=== PATIENT | female | born 1955 | race Caucasian/White ===

== ENCOUNTER 2019-11-25 16:01 | Emergency (ER) | payer MEDICARE, BC, SELFPAY ==
--- NOTE | 2019-11-25 16:41 | XR_ITS ---
WS: [id number] Portable PA upright chest, 11/25/2019 Clinical Data: cough/congestion Comparison: Portable chest, 11/04/2019. Findings: No nodules, masses or effusions are seen. The heart is slightly enlarged. The pulmonary vas cularity is increased. No pneumonia or pneumothorax is seen. Midline sternotomy sutures and mediastin al clips are seen. There are old healed posterior lateral right third through sixth rib fractures. XR/XR chest 1V portable [id number] Impression: No change in cardiomegaly and pulmonary vascular congestion.
--- NOTE | 2019-11-25 16:41 | ECG_ITS ---
Measurements Intervals [place] Rate: 91 P: 99 [place]: 192 QRS: -51 QRSD: 130 T: 120 QT: 416 QTc: 514 SINUS RHYTHM WITH SINUS ARRHYTHMIA MARKED LEFT AXIS DEVIATION [QRS AXIS < -30] ANTEROSEPTAL MYOCARDIAL INFARCTION [40+ ms Q WAVE IN V1-V4], OF INDETERMINATE AGE Compared to ECG 11/04/2019 02:14:38 Left-axis deviation now present Sinus tachycardia no longer present First degree AV block no longer present Myocardial infarct finding still present Electronically Signed On 11-26-2019 13:52:27 AIR VALVE MECHANIC by Blaire Osman M.D. [email or web address]
[2019-11-25 17:11] VITALS: BP 132/57; PULSE 91; RESP 22; TEMP 36.8; O2SAT 96; BMI 36.8
[2019-11-25 17:18] LABS: Basophils % 0.1 %; Eosinophils % 0.4 %; Hematocrit 24.7 % (37.0-47.0); Hemoglobin 7.3 g/dL (11.5-15.3); Lymphocytes # 0.7 10^3/uL (0.8-4.8); Lymphocytes % 8.4 %; Mean Corpuscular HGB Conc 29.6 g/dL (30.0-36.0); Mean Corpuscular Hemoglobin 27.5 pg (28.0-34.0); Mean Corpuscular Volume 93.2 fL (81-99); Mean Platelet Volume 9.6 fL (7.4-10.4); Monocytes # 0.6 10^3/uL (0.2-0.9); Monocytes % 6.9 %; Neutrophils # 6.9 10^3/uL (1.8-7.7); Neutrophils % 83.8 %; Nucleated Red Blood Cells % 0 %; Platelet Count 315 10^3/cmm (130-400); Red Blood Count 2.65 10^6/uL (4.1-5.3); Red Cell Distribution Width 17.3 % (12.1-15.1); White Blood Count 8.2 10^3/uL (4.0-10.0)
[2019-11-25 17:42] LABS: Troponin(5th) Baseline 26 ng/mL (0-10)
[2019-11-25 17:49] LABS: Alanine Aminotransferase 11 U/L (0-33); Albumin Level 3.7 g/dL (3.5-5.2); Alkaline Phosphatase 95 IU/L (35-105); Anion Gap 14.1 (5-19); Aspartate Amino Transferase 14 U/L (0-32); Blood Urea Nitrogen 28 mg/dL (8-23); Calcium 9.2 mg/Dl (8.8-10.2); Carbon Dioxide 30 mmol/L (22-29); Chloride 100 mmol/L (98-107); Globulin 2.8 g/dL (1.3-4.6); Glomerular Filtration Rate 55.6 mL/min (90-130); Glucose 136 mg/dL (74-106); NT Pro B Type Natriuretic Pept 342 pg/mL (0-125); Potassium 4.1 mmol/L (3.5-5.1); Sodium 140 mmol/L (136-145); Total Bilirubin 0.2 mg/dL (0.15-1.2); Total Protein 6.5 g/dL (6.6-8.7)
[2019-11-25 18:04] LABS: ABG PCO2 46.9 mmHg (35-45); ABG PH Result 7.43 (7.35-7.45); Arterial Blood Gas Hematocrit 24.4 % (37-47); Blood Gas Allen Test Pos; Blood Gas Sample Site Radial, left; Blood Gas Sample Type Arterial; Carboxyhemoglobin 2.5 %THgb (0.4-20.1); HGB O2 Sat 90.6 % (95-100); Ionized Calcium Level - ABG 1.2 mmol/L (1.1-1.4); Methemoglobin 1.5 % (0.4-1.5); PO2 ABG 67.3 mmHg (80.0-100.0)
--- NOTE | 2019-11-25 18:41 | ECG_ITS ---
Measurements Intervals [place] Rate: 85 P: 89 [place]: 190 QRS: -16 QRSD: 114 T: 123 QT: 413 QTc: 491 SINUS RHYTHM LOW QRS VOLTAGE IN EXTREMITY LEADS ANTEROSEPTAL MYOCARDIAL INFARCTION , OF INDETERMINATE AGE Compared to ECG 11/04/2019 02:14:38 Sinus tachycardia no longer present First degree AV block no longer present Myocardial infarct finding still present Electronically Signed On 11-26-2019 14:11:20 MANAGER GENERAL by Blaire Osman M.D. [id number]
[2019-11-25 19:03] LABS: Troponin 5 2HR 25.62 ng/mL (0-10)
[2019-11-25 19:09] LABS: Troponin 5 2HR Delta -0.38 ABS# (0-10)
--- NOTE | 2019-11-25 19:25 | PC.NURSE ---
Patient stated that her at home battery pack oxygen tank was running low on battery. Informed doctor and got a oxygen tank on portable wheels and took to the patient. Patient is on 2L of oxygen nasal canula
[2019-11-25 19:37] LABS: Blood Gas Drawn By CAK; Oxygen Device NC
[2019-11-25 19:46] VITALS: BP 129/62; PULSE 83; RESP 23; O2SAT 95
--- NOTE | 2019-11-25 20:08 | W.ED.GENADLT ---
HPI - General Adult General: Chief complaint: Shortness of Breath/Dyspnea Stated complaint: sob Time Seen by Provider: 11/25/19 19:59 History of Present Illness: HPI narrative: Patient complains of chronic shortness of breath weakness has multiple health problems. Patient says the last few days it seems like it is worse. Wants to make sure she did have pneumonia. MD complaint: weakness Onset (ago): month(s) Associated symptoms: Reports dyspnea; Deny chest pain, headache(s), nausea, rash or vomiting Review of Systems General: Reports: 10 or more systems reviewed and unremarkable except in HPI and below (Weakness and shortness of breath) Const: Denies: fever, chills or body aches Eyes: Denies: change in vision or blurry vision ENMT: Denies: throat pain or nasal congestion Card: Denies: chest pain or shortness of breath on exertion Resp: Reports: shortness of breath; Denies: productive cough or non-productive cough GI: Denies: abdominal pain, nausea or vomiting Musc: Denies: extremity pain Skin/Breast: Denies: rash Neuro: Denies: headache Psych: Denies: anxiety or depression Dwain/Lymph: Denies: easy bruising PFSH ED PFSH: Statuses (acute, chronic, etc) shown below reflect problem list status as previously entered and may not be historically accurate Social History Smoking and tobacco status: former smoker Physical Exam Const: COMMON NORMALS: no apparent distress, average body habitus and oriented x3 HENMT: COMMON NORMALS: normocephalic HEAD & SCALP: normal to inspection and normocephalic FACE & SINUS: normal facial exam Eye: COMMON NORMALS: conjunctivae normal GENERAL EYE: normal appearance of both eyes CONJUNCTIVA: Yes conjunctivae normal Neck/C-Spine: COMMON NORMALS: no JVD Chest: COMMONS NORMALS: inspection of chest normal Resp: AUSCULTATION: rales (Mild rales bases) Cardio: COMMON NORMALS: no JVD, regular rate and regular rhythm RATE: regular rate RHYTHM: regular rhythm GI: COMMON NORMALS: normal to inspection, nondistended, normoactive bowel sounds Extremity: COMMON NORMALS: normal to inspection and full ROM OTHER: Right below-knee amputation Neuro: COMMON NORMALS: oriented x3 Course Vital Signs: Vital signs: Vital Signs Temperature 98.2 F 11/25/19 17:11 Pulse Rate 83 01/08/20 19:46 Respiratory Rate 23 H 11/25/19 19:46 Blood Pressure 129/62 11/25/19 19:46 Pulse Oximetry 95 11/25/19 19:46 MDM - General Adult MDM Narrative: Medical decision making narrative: Discussed case with Dr. Scruggs he is in agreement Lab Data: Labs: Lab Results 11/25/19 11/25/19 11/25/19 Range/Units 17:07 17:07 17:07 WBC 8.2 (4.0-10.0) 10^3/ uL RBC 2.65 L (4.1-5.3) 10^6/u L Hgb 7.3 L (11.5-15.3) g/dL Hct 24.7 L (37.0-47.0) % MCV 93.2 (81-99) fL MCH 27.5 L (28.0-34.0) pg MCHC 29.6 L (30.0-36.0) g/dL RDW 17.3 H (12.1-15.1) % Plt Count 315 (130-400) 10^3/c mm MPV 9.6 (7.4-10.4) fL Neut % (Auto) 83.8 % Lymph % (Auto) 8.4 % [place] % (Auto) 6.9 % Eos % (Auto) 0.4 % Baso % (Auto) 0.1 % Neut # (Auto) 6.9 (1.8-7.7) 10^3/u L Lymph # (Auto) 0.7 L (0.8-4.8) 10^3/u L [place] # (Auto) 0.6 (0.2-0.9) 10^3/u L Eos # (Auto) 0.0 (0.0-0.8) 10^3/u L Baso # (Auto) 0.0 (0.0-0.1) 10^3/u L Nucleated RBC % (a uto) 0 % Nucleated RBCs # 0.0 /100WBC Specimen Type Sample Site ABG pH (7.35-7.45) ABG pCO2 (35-45) mmHg ABG pO2 (80.0-100.0) mmH g ABG HCO3 (22-26) mmol/L ABG Base Excess (-2.0-2.0) mmol/ L [place] Test A-a O2 Gradient Hematocrit (37-47) % Hgb O2 Saturation (95-100) % Carboxyhemoglobin (0.4-20.1) %THgb Methemoglobin (0.4-1.5) % Total Hemoglobin (12-16) g/dL Ionized Calcium (1.1-1.4) mmol/L O2 Delivery Device O2 Liters/Min % FiO2 % Specimen Drawn By It Sales Representative ID Sodium 140 (136-145) mmol/L Potassium 4.1 (3.5-5.1) mmol/L Chloride 100 (98-107) mmol/L Carbon Dioxide 30 H (22-29) mmol/L Anion Gap 14.1 (5-19) BUN 28 H (8-23) mg/dL Creatinine 1.0 H (0.5-0.9) mg/dL GFR Calculation 55.6 L (90-130) mL/min Glucose 136 H (74-106) mg/dL Calcium 9.2 (8.8-10.2) mg/Dl Total Bilirubin 0.2 (0.15-1.2) mg/dL AST 14 (0-32) U/L ALT 11 (0-33) U/L Alkaline Phosphata se 95 (35-105) IU/L Troponin T Baselin e 26 H (0-10) ng/mL Troponin T 120 Min [place] (0-10) ng/mL Delta Troponin T (0-10) ABS# NT-Pro-B Natriuret Pep 342 H (0-125) pg/mL Total Protein 6.5 L (6.6-8.7) g/dL Albumin 3.7 (3.5-5.2) g/dL Globulin 2.8 (1.3-4.6) g/dL 11/25/19 11/25/19 Range/Units 17:44 18:33 WBC (4.0-10.0) 10^3/ uL RBC (4.1-5.3) 10^6/u L Hgb (11.5-15.3) g/dL Hct (37.0-47.0) % MCV (81-99) fL MCH (28.0-34.0) pg MCHC (30.0-36.0) g/dL RDW (12.1-15.1) % Plt Count (130-400) 10^3/c mm MPV (7.4-10.4) fL Neut % (Auto) % Lymph % (Auto) % [place] % (Auto) % Eos % (Auto) % Baso % (Auto) % Neut # (Auto) (1.8-7.7) 10^3/u L Lymph # (Auto) (0.8-4.8) 10^3/u L [place] # (Auto) (0.2-0.9) 10^3/u L Eos # (Auto) (0.0-0.8) 10^3/u L Baso # (Auto) (0.0-0.1) 10^3/u L Nucleated RBC % (a uto) % Nucleated RBCs # /100WBC Specimen Type Arterial Sample Site Radial, left ABG pH 7.43 (7.35-7.45) ABG pCO2 46.9 H (35-45) mmHg ABG pO2 67.3 L (80.0-100.0) mmH g ABG HCO3 31.0 H (22-26) mmol/L ABG Base Excess 6.0 H (-2.0-2.0) mmol/ L [place] Test Pos A-a O2 Gradient Not Reportable Hematocrit 24.4 L (37-47) % Hgb O2 Saturation 90.6 L (95-100) % Carboxyhemoglobin 2.5 (0.4-20.1) %THgb Methemoglobin 1.5 (0.4-1.5) % Total Hemoglobin 8.0 L (12-16) g/dL Ionized Calcium 1.2 (1.1-1.4) mmol/L O2 Delivery Device Nc O2 Liters/Min 2.0 % FiO2 28.0 % Specimen Drawn By [employer] It Sales Representative ID cak Sodium 141.0 (136-145) mmol/L Potassium 4.0 (3.5-5.1) mmol/L Chloride (98-107) mmol/L Carbon Dioxide (22-29) mmol/L Anion Gap (5-19) BUN (8-23) mg/dL Creatinine (0.5-0.9) mg/dL GFR Calculation (90-130) mL/min Glucose 87.0 (74-106) mg/dL Calcium (8.8-10.2) mg/Dl Total Bilirubin (0.15-1.2) mg/dL AST (0-32) U/L ALT (0-33) U/L Alkaline Phosphata se (35-105) IU/L Troponin T Baselin e (0-10) ng/mL Troponin T 120 Min [place] 25.62 H (0-10) ng/mL Delta Troponin T -0.38 L (0-10) ABS# NT-Pro-B Natriuret Pep (0-125) pg/mL Total Protein (6.6-8.7) g/dL Albumin (3.5-5.2) g/dL Globulin (1.3-4.6) g/dL Imaging Data^: CXR: My impression: increased pleural effusion in bases, no infiltrate Discharge Plan Discharge Clinical Impression: Anemia Qualifiers: Anemia type: due to chronic kidney disease Chronic kidney disease stage: stage 3 (moderate) Qualified Code(s): N18.3 - Chronic kidney disease, stage 3 (moderate) Condition: Stable Prescriptions: No Action Pending RF: 0 Discharge Orders: Discharge Order (Routine); Ordered 11/25/19 Ordered By: Abe Bower Referrals: Jayden Garcia MD [Primary Care Provider] - Discharge Diet: Advance as tolerated Discharge Activity: Increase activity as tolerated Patient Instructions: Anemia (ED) Activity Restrictions/Additional Instructions: Follow-up with medical provider as directed. Return to the ER are your medical provider if condition worsens. Read and understand discharge instructions. Follow-up with family doctor tomorrow Dr. Cardoso and discussed need for possible blood transfusion and find out the cause of anemia. Follow-up Dr. Olmos on Saturday as scheduled. Coding Level of Care Code ED Termination Clerk for Chg Fwd Exam Problem Focused
[2019-11-25 20:52] VITALS: BP 140/63; PULSE 87; RESP 18; TEMP 36.8; O2SAT 95
[2019-11-25 22:50] LABS: Glucose Point of Care 82 mg/dL (70-110)
== END 2019-11-25 20:54 | disposition home or self-care (01) ==
PROVIDERS: Family Medicine; Physician Assistant; Emergency Provider Nurse Practitioner Family; Family Provider Family Medicine; PCP Family Medicine
DX: N18.3 Chronic kidney disease, stage 3 (moderate) (principal); D63.1 Anemia in chronic kidney disease; Z87.891 Personal history of nicotine dependence
CPT/HCPCS: 36415; 36416; 36600; 71045; 80051; 80053; 82810; 82962; 83880; 83986; 84484; 85025; 93005; 99282

== ENCOUNTER 2019-11-26 15:10 | Inpatient (IN) | payer MEDICARE, BC, SELFPAY ==
[2019-11-26] VITALS (9 sets, daily range): BP systolic 117–131; BP diastolic 53–78; PULSE 87–95; RESP 17–23; TEMP 36.7–37.2; O2SAT 93–98; BMI 36.8
--- NOTE | 2019-11-26 15:52 | ED_ITS ---
Entered by Kelsey Marcum, acting as scribe for Momo Lobo DO Nov 26, 2019 15:10 HPI - General Adult General: Chief complaint: General Medical Stated complaint: sob Time Seen by Provider: 11/26/19 15:52 Source: patient Mode of arrival: wheelchair Limitations: no limitations History of Present Illness: HPI narrative: 64 yo f came to the er pov for sh ortness of breath. This is chronic per pt. PT states that she was in the er last night for sob and low hemaglobin. Pt states that she has gotten worse since her visit last night. MD complaint: shortness of breath Onset (ago): unknown (chronic) Severity: mild Associated symptoms: Reports dyspnea and short of breath; Deny chest pain, malaise, nausea, rash, palpitations or vomiting Treatments prior to arrival: none Review of Systems Const: Denies: malaise ENMT: Denies: throat pain, ear pain, nasal discharge or nasal congestion Card: Denies: chest pain, palpitations or irregular heart rhythm Resp: Reports: shortness of breath GI: Denies: nausea or vomiting : Denies: flank pain, difficulty urinating, painful urination, urinary frequency or urinary urgency Skin/Breast: Denies: rash PFSH ED PFSH: Statuses (acute, chronic, etc) shown below reflect problem list status as previously entered and may not be historically accurate Medical History Atrial fibrillation (Acute) CKD (chronic kidney disease) (Acute) COPD (chronic obstructive pulmonary disease) (Acute) Diabetes (Acute) Diastolic congestive heart failure (Acute) Gastritis (Acute) History of cardioversion (Acute) Morbid obesity (Acute) Peripheral vascular disease (Acute) Sleep apnea (Acute) Supplemental oxygen dependent (Acute) Vulva cancer (Acute) Surgical History Hx of BKA (Acute) Hx of CABG (Acute) S/P femoral-popliteal bypass surgery (Acute) Family History Father CAD (coronary artery disease) Diabetes Sister Cancer Social History Smoking and tobacco status: current every day smoker Physical Exam Const: COMMON NORMALS: no apparent distress GENERAL APPEARANCE: cooperative and comfortable ORIENTATION/CONSCIOUSNESS: Yes awake, Yes oriented to person, Yes oriented to place and Yes oriented to time HENMT: COMMON NORMALS: normocephalic, head/scalp atraumatic, hearing grossly normal bilaterally, external ears normal, EAC's normal, TM's normal bilaterally, nasal mucous membranes and turbinates normal, moist oral mucous membranes and oropharynx normal HEAD & SCALP: normocephalic and atraumatic NOSE: nasal mucous membranes and turbinates normal EXTERNAL EAR: Yes external ears normal EXTERNAL AUDITORY CANAL: EAC's normal TYMPANIC MEMBRANE: TM's normal bilaterally Eye: COMMON NORMALS: PERRL, EOMs intact bilaterally, conjunctivae normal and no scleral icterus CONJUNCTIVA: Yes conjunctivae normal PUPIL: Yes PERRL Neck/C-Spine: COMMON NORMALS: full ROM, no lymphadenopathy, supple and no JVD Lymph: LYMPHATIC: no lymphadenopathy noted and no lymphedema noted Resp: COMMON NORMALS: normal respiratory effort, no retractions, no use of accessory muscles and clear to auscultation bilaterally AUSCULTATION: clear to auscultation bilaterally Cardio: COMMON NORMALS: no JVD, regular rate, regular rhythm and no murmurs RATE: regular rate RHYTHM: regular rhythm Extremity: COMMON NORMALS: normal to inspection, normal capillary refill, no clubbing, cyanosis or edema, no calf tenderness and no pedal edema Neuro: SENSORIUM/ORIENTATION: Yes oriented to person, Yes oriented to place and Yes oriented to time Skin: COMMON NORMALS: no rashes or lesions noted GENERAL SKIN EXAM: no rashes or lesions noted Course Vital Signs: Vital signs: Vital Signs Temperature 97.9 F 11/28/19 07:54 Pulse Rate 99 11/28/19 11:21 Respiratory Rate 18 11/28/19 11:21 Blood Pressure 144/68 11/28/19 09:42 Pulse Oximetry 98 11/28/19 11:21 [facility] - General Adult Lab Data: Labs: Lab Results 11/26/19 11/26/19 11/26/19 Range/Units 16:05 16:05 16:19 WBC 8.3 (4.0-10.0) 10^3/ uL RBC 3.10 L (4.1-5.3) 10^6/u L Hgb 9.0 L (11.5-15.3) g/dL Hct 30.0 L (37.0-47.0) % MCV 96.8 (81-99) fL MCH 29.0 (28.0-34.0) pg MCHC 30.0 (30.0-36.0) g/dL RDW 17.4 H (12.1-15.1) % Plt Count 385 (130-400) 10^3/c mm MPV 9.9 (7.4-10.4) fL Neut % (Auto) 83.9 % Lymph % (Auto) 7.8 % [place] % (Auto) 6.9 % Eos % (Auto) 0.4 % Baso % (Auto) 0.4 % Neut # (Auto) 7.0 (1.8-7.7) 10^3/u L Lymph # (Auto) 0.7 L (0.8-4.8) 10^3/u L [place] # (Auto) 0.6 (0.2-0.9) 10^3/u L Eos # (Auto) 0.0 (0.0-0.8) 10^3/u L Baso # (Auto) 0.0 (0.0-0.1) 10^3/u L Nucleated RBC % (a uto) 0 % Nucleated RBCs # 0.0 /100WBC PT 13.80 H (10.5-13.3) SECO NDS INR 1.03 (0.8-1.2) APTT 27.6 (23.9-36.7) SECO NDS Sodium (136-145) mmol/L Potassium (3.5-5.1) mmol/L Chloride (98-107) mmol/L Carbon Dioxide (22-29) mmol/L Anion Gap (5-19) BUN (8-23) mg/dL Creatinine (0.5-0.9) mg/dL GFR Calculation (90-130) mL/min Glucose (74-106) mg/dL POC Glucose (70-110) mg/dL Calcium (8.8-10.2) mg/Dl Magnesium (1.7-2.3) mg/dL Total Bilirubin (0.15-1.2) mg/dL AST (0-32) U/L ALT (0-33) U/L Alkaline Phosphata se (35-105) IU/L Troponin T Baselin e (0-10) ng/mL Troponin T 120 Min [place] (0-10) ng/mL Delta Troponin T (0-10) ABS# NT-Pro-B Natriuret Pep (0-125) pg/mL Total Protein (6.6-8.7) g/dL Albumin (3.5-5.2) g/dL Globulin (1.3-4.6) g/dL Blood Type B Positive Antibody Screen Negative Crossmatch See Detail 11/26/19 11/26/19 11/26/19 Range/Units 16:45 16:45 17:09 WBC (4.0-10.0) 10^3/ uL RBC (4.1-5.3) 10^6/u L Hgb (11.5-15.3) g/dL Hct (37.0-47.0) % MCV (81-99) fL MCH (28.0-34.0) pg MCHC (30.0-36.0) g/dL RDW (12.1-15.1) % Plt Count (130-400) 10^3/c mm MPV (7.4-10.4) fL Neut % (Auto) % Lymph % (Auto) % [place] % (Auto) % Eos % (Auto) % Baso % (Auto) % Neut # (Auto) (1.8-7.7) 10^3/u L Lymph # (Auto) (0.8-4.8) 10^3/u L [place] # (Auto) (0.2-0.9) 10^3/u L Eos # (Auto) (0.0-0.8) 10^3/u L Baso # (Auto) (0.0-0.1) 10^3/u L Nucleated RBC % (a uto) % Nucleated RBCs # /100WBC PT (10.5-13.3) SECO NDS INR (0.8-1.2) APTT (23.9-36.7) SECO NDS Sodium 142 (136-145) mmol/L Potassium 4.4 (3.5-5.1) mmol/L Chloride 101 (98-107) mmol/L Carbon Dioxide 31 H (22-29) mmol/L Anion Gap 14.4 (5-19) BUN 24 H (8-23) mg/dL Creatinine 1.0 H (0.5-0.9) mg/dL GFR Calculation 55.6 L (90-130) mL/min Glucose 52 L (74-106) mg/dL POC Glucose 53 (70-110) mg/dL Calcium 9.8 (8.8-10.2) mg/Dl Magnesium 2.3 (1.7-2.3) mg/dL Total Bilirubin 0.2 (0.15-1.2) mg/dL AST 15 (0-32) U/L ALT 12 (0-33) U/L Alkaline Phosphata se 99 (35-105) IU/L Troponin T Baselin e 24 H (0-10) ng/mL Troponin T 120 Min [place] (0-10) ng/mL Delta Troponin T (0-10) ABS# NT-Pro-B Natriuret Pep 583 H (0-125) pg/mL Total Protein 7.2 (6.6-8.7) g/dL Albumin 3.9 (3.5-5.2) g/dL Globulin 3.3 (1.3-4.6) g/dL Blood Type Antibody Screen Crossmatch 11/26/19 11/26/19 Range/Units 19:00 19:12 WBC (4.0-10.0) 10^3/ uL RBC (4.1-5.3) 10^6/u L Hgb (11.5-15.3) g/dL Hct (37.0-47.0) % MCV (81-99) fL MCH (28.0-34.0) pg MCHC (30.0-36.0) g/dL RDW (12.1-15.1) % Plt Count (130-400) 10^3/c mm MPV (7.4-10.4) fL Neut % (Auto) % Lymph % (Auto) % [place] % (Auto) % Eos % (Auto) % Baso % (Auto) % Neut # (Auto) (1.8-7.7) 10^3/u L Lymph # (Auto) (0.8-4.8) 10^3/u L [place] # (Auto) (0.2-0.9) 10^3/u L Eos # (Auto) (0.0-0.8) 10^3/u L Baso # (Auto) (0.0-0.1) 10^3/u L Nucleated RBC % (a uto) % Nucleated RBCs # /100WBC PT (10.5-13.3) SECO NDS INR (0.8-1.2) APTT (23.9-36.7) SECO NDS Sodium (136-145) mmol/L Potassium (3.5-5.1) mmol/L Chloride (98-107) mmol/L Carbon Dioxide (22-29) mmol/L Anion Gap (5-19) BUN (8-23) mg/dL Creatinine (0.5-0.9) mg/dL GFR Calculation (90-130) mL/min Glucose (74-106) mg/dL POC Glucose 148 (70-110) mg/dL Calcium (8.8-10.2) mg/Dl Magnesium (1.7-2.3) mg/dL Total Bilirubin (0.15-1.2) mg/dL AST (0-32) U/L ALT (0-33) U/L Alkaline Phosphata se (35-105) IU/L Troponin T Baselin e (0-10) ng/mL Troponin T 120 Min [place] 25.06 H (0-10) ng/mL Delta Troponin T 1.06 (0-10) ABS# NT-Pro-B Natriuret Pep (0-125) pg/mL Total Protein (6.6-8.7) g/dL Albumin (3.5-5.2) g/dL Globulin (1.3-4.6) g/dL Blood Type Antibody Screen Crossmatch Imaging Data^: CXR: Radiologist's impression: [address] [address] XRay Report Signed Patient: Linette Lopez#: [id number] : 4Acct:[id number] Age/Sex: 64 / FADM Date: 11/26/19 Loc: ER Attending Dr: Ordering Physician: Momo Lobo DO Date of Service: 11/26/19 Procedure(s): XR chest 1V portable [id number] Accession Number(s): [id number] Report Number: [id number] WS: [id number] Portable AP upright chest, 11/26/2019 Clinical Data: dyspnea Comparison: None. Findings: The heart remains enlarged and the pulmonary vascularity is increased. There is now a right pleural effusion. No nodules or masses are seen. There are midline sternotomy sutures. Monitor leads are on the chest wall. No pneumonia or pneumothorax is noted. There are old healed upper right rib fractures. XR/XR chest 1V portable [id number] Impression: 1. Continued cardiomegaly and pulmonary vascular congestion. 2. Development of small right pleural effusion Dictated By:Kell Hawley MD Discharge Plan Discharge Patient Disposition: Admitted As Inpatient Admit Provider: Delaney Mina Clinical Impression: COPD (chronic obstructive pulmonary disease), Anemia, Atrial fibrillation, Diastolic congestive heart failure Condition: Stable Discharge Orders: Discharge Order (Routine); Ordered 11/28/19 Ordered By: Darnell Gandhi Discharge Diet: Cardiac Discharge Activity: Resume usual activity Interventions: ED Discharge Assessment Last Done: 11/26/19 19:55 Discharge Date/Time: 11/26/19 20:14 Coding Level of Care Code ED Physician Scribe for Chg Fwd Exam Problem Focused The documentation recorded by the Jossue matute Stephanie Lyn, accurately reflects the service I personally performed and the decisions made by Lashell zhang Curtis L, DO Nov 26, 2019 15:10
--- NOTE | 2019-11-26 16:03 | XR_ITS ---
WS: [id number] Portable AP upright chest, 11/26/2019 Clinical Data: dyspnea Comparison: None. Findings: The heart remains enlarged and the pulmonary vascularity is increased. There is now a right pleural effusion. No nodules or masses are seen. There are midline sternotomy sutures. Monitor leads are on the chest wall. No pneumonia or pneumothorax is noted. There are old healed upper right rib f ractures. XR/XR chest 1V portable [id number] Impression: 1. Continued cardiomegaly and pulmonary vascular congestion. 2. Development of small right pleural effusion
--- NOTE | 2019-11-26 16:18 | PC.NURSE ---
pt resting in bed comfortably and states no further needs at this time. Lab in room.
[2019-11-26 16:22] LABS: Basophils % 0.4 %; Eosinophils % 0.4 %; Lymphocytes # 0.7 10^3/uL (0.8-4.8); Lymphocytes % 7.8 %; Mean Corpuscular Volume 96.8 fL (81-99); Mean Platelet Volume 9.9 fL (7.4-10.4); Monocytes # 0.6 10^3/uL (0.2-0.9); Monocytes % 6.9 %; Neutrophils % 83.9 %; Nucleated Red Blood Cells % 0 %; Platelet Count 385 10^3/cmm (130-400); Red Cell Distribution Width 17.4 % (12.1-15.1); White Blood Count 8.3 10^3/uL (4.0-10.0)
[2019-11-26 16:32] LABS: INR 1.03 (0.8-1.2)
[2019-11-26 16:33] LABS: Partial Thromboplastin Time 27.6 SECONDS (23.9-36.7)
[2019-11-26 17:12] LABS: Glucose Point of Care 53 mg/dL (70-110)
[2019-11-26 17:19] LABS: Troponin(5th) Baseline 24 ng/mL (0-10)
[2019-11-26 17:27] LABS: Alanine Aminotransferase 12 U/L (0-33); Albumin Level 3.9 g/dL (3.5-5.2); Alkaline Phosphatase 99 IU/L (35-105); Anion Gap 14.4 (5-19); Aspartate Amino Transferase 15 U/L (0-32); Blood Urea Nitrogen 24 mg/dL (8-23); Calcium 9.8 mg/Dl (8.8-10.2); Carbon Dioxide 31 mmol/L (22-29); Chloride 101 mmol/L (98-107); Globulin 3.3 g/dL (1.3-4.6); Glomerular Filtration Rate 55.6 mL/min (90-130); Glucose 52 mg/dL (74-106); Magnesium 2.3 mg/dL (1.7-2.3); NT Pro B Type Natriuretic Pept 583 pg/mL (0-125); Potassium 4.4 mmol/L (3.5-5.1); Sodium 142 mmol/L (136-145); Total Bilirubin 0.2 mg/dL (0.15-1.2); Total Protein 7.2 g/dL (6.6-8.7)
--- NOTE | 2019-11-26 17:29 | PC.NURSE ---
Pt stated she felt like her blood sugar was getting low. FS BS was 53. informed. [place] juice given to pt.
--- NOTE | 2019-11-26 18:04 | ECG_ITS ---
Measurements Intervals [place] Rate: 0 P: [place]: 0 QRS: 0 QRSD: 0 T: 0 QT: 0 QTc: 0 Sinus rhythm Possible old anteroseptal myocardial infarction Low voltage in the limb leads Intraventricular conduction delay ATYPICAL ECG WARNING: DATA QUALITY MAY AFFECT INTERPRETATION INTERPRETATION BASED ON A DEFAULT AGE OF 40 YEARS Compared to ECG 11/25/2019 19:19:47 Electronically Signed On 11-27-2019 14:42:40 VEHICLE OPERATOR TECHNICIAN by Marco Hood M.D. [email or web address]
[2019-11-26] MEDS: FUROsemide 10 mg/mL SDV 4mL 40 MG IVP (18:09)
--- NOTE | 2019-11-26 18:36 | PM.HP ---
Providers/Chief Complaint Admitting Physician: Delaney Mina MD Primary Care Provider: Jayden Garcia MD Chief Complaint: sob History of Present Illness Cher Lopez is a 64 year old female who carries diagnosis of atrial fibrillation, chronic anticoagulation on Eliquis, coronary artery disease, peripheral vascular disease status post right lower extremity BKA, recently quit smoking, Last admitted on 2018 after p/w extreme shortness of breath and tiredness in the setting of having previously received doxycycline for non-complicated pneumonia. She had recently been resumed on Eliquis, after the latter had been on hold for possible UGI bleed. During this admission, patient anticoagulation was held, she received 2 units PRBC, surgery Dr. Hunt performed a EGD and colonoscopy. EGD showed mild gastritis, no other signs of overt bleeding. Colonoscopy was in inadequate prep, no overt signs of bleeding, but will require a repeat colonoscopy as outpatient. Patient was advised that she will require an outpatient colonoscopy and possible capsule endoscopy to find a source of bleeding. During her admission patient was also found to have a COPD exacerbation, Diastolic CHF exacerbation, and respiratory tract infection. Eliquis was again held on discharge. She remains off for a month. She is on ASA and Plavix. She has been feeling weak for 3-4 weeks prior. Presented to [facility] yesetrday with c/o weakness, fatigue and SOB. She is on Bumex and lasix at home for possibly CHF. Also COPD with 02 dependent @2lpm. Yesetrday Hb at 7.3, not transfused. Returned today with worsening SOB. No current lien or hematemesis. Last echo in Aug 2019 showed LVEF 50%. Could not assess diastolic function due to A fib. CTA 10/22 did not show PE. Review of Systems General: Reports: 10 or more systems reviewed and unremarkable except in HPI and below Const: Denies: fever, chills or body aches Eyes: Denies: change in vision or blurry vision Card: Reports: shortness of breath on exertion; Denies: chest pain, palpitations or shortness of breath when lying down Resp: Reports: shortness of breath; Denies: productive cough, non-productive cough, wheezing or stridor GI: Denies: abdominal pain, nausea, vomiting, vomiting blood or difficulty swallowing : Denies: flank pain or difficulty urinating Medications/Allergies Home Medications Medication Instructions Recorded Confirmed Last Taken Type albuterol sulfate [Ventolin HFA] 2 puff INHALATION Q4H PRN 11/26/19 11/26/19 Unknown History aspirin [Aspir-81] 81 mg PO DAILY 11/26/19 11/26/19 11/25/19 History bumetanide 2 - 4 mg PO DAILY 11/26/19 11/26/19 11/26/19 History cholecalciferol (vitamin D3) 1,000 unit PO DAILY 11/26/19 11/26/19 Unknown History [Vitamin D3] cilostazol 100 mg PO BID 11/26/19 11/26/19 11/26/19 History clopidogrel [Plavix] 75 mg PO DAILY 11/26/19 11/26/19 11/26/19 History diltiazem HCl 120 mg PO DAILY 11/26/19 11/26/19 11/26/19 History glimepiride 1 mg PO DAILY 11/26/19 11/26/19 11/26/19 History hydrocodone-acetaminophen [[place]] 1 tab PO Q4H PRN 11/26/19 11/26/19 11/25/19 History insulin aspart U-100 [Novolog See Rx Instructions .ROUTE .COMPLEX 11/26/19 11/26/19 Unknown History U-100 Insulin aspart] iron 325 mg PO DAILY 11/26/19 11/26/19 11/26/19 History isosorbide mononitrate 60 mg PO DAILY 11/26/19 11/26/19 11/26/19 History levothyroxine 75 mcg PO DAILY 11/26/19 11/26/19 Unknown History losartan 50 mg PO DAILY 11/26/19 11/26/19 11/26/19 History magnesium 1,000 mg PO DAILY 11/26/19 11/26/19 Unknown History pantoprazole [Protonix] 40 mg PO BID 11/26/19 11/26/19 Unknown History pravastatin 20 mg PO DAILY 11/26/19 11/26/19 11/25/19 History sertraline 50 mg PO DAILY 11/26/19 11/26/19 11/26/19 History Allergies Allergy/AdvReac Type Severity Reaction Status Date / Time No Known Allergies Allergy Verified 11/25/19 17:17 PFSH Acute PFSH: Statuses (acute, chronic, etc) shown below reflect problem list status as previously entered and may not be historically accurate Medical History (Updated 11/26/19 @ 19:07 by Delaney Mina MD) Atrial fibrillation (Acute) CKD (chronic kidney disease) (Acute) COPD (chronic obstructive pulmonary disease) (Acute) Diabetes (Acute) Diastolic congestive heart failure (Acute) Gastritis (Acute) History of cardioversion (Acute) Morbid obesity (Acute) Peripheral vascular disease (Acute) Sleep apnea (Acute) Supplemental oxygen dependent (Acute) Vulva cancer (Acute) Surgical History (Updated 11/26/19 @ 19:07 by Delaney Mina MD) Hx of BKA (Acute) Hx of CABG (Acute) S/P femoral-popliteal bypass surgery (Acute) Family History (Updated 11/26/19 @ 19:08 by Delaney Mina MD) Father CAD (coronary artery disease) Diabetes Sister Cancer Social History (Updated 11/26/19 @ 19:08 by Delaney Mina MD) Smoking and tobacco status: current every day smoker Vitals/I&O/Wt Last Vital Signs Temp 98.0 F 11/26/19 15:27 Pulse 91 11/26/19 18:01 Resp 18 11/26/19 18:01 BP 131/63 11/26/19 18:01 Pulse Ox 93 11/26/19 18:01 Weight last 48 hrs Weight 97.522 kg Physical Exam Narrative: EXAM NARRATIVE: GEN: AWAKE, ALERT AND oriented x3 cvs: s1s2N RS: b/l rales to auscultation 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 motor deficits abd: soft, nt/nd, bs+ ext: R leg post amputation A&P Assessment and plan (1) Morbid obesity: Status: Acute Code(s): E66.01 - Morbid (severe) obesity due to excess calories (2) Diastolic congestive heart failure: Status: Acute Code(s): I50.30 - Unspecified diastolic (congestive) heart failure (3) COPD (chronic obstructive pulmonary disease): Status: Acute Code(s): J44.9 - Chronic obstructive pulmonary disease, unspecified (4) Atrial fibrillation: Status: Acute Code(s): I48.91 - Unspecified atrial fibrillation (5) Anemia: Status: Acute Qualifiers: Anemia type: due to chronic kidney disease Chronic kidney disease stage: stage 3 (moderate) Qualified Code(s): N18.3 - Chronic kidney disease, stage 3 (moderate); D63.1 - Anemia in chronic kidney disease Code(s): D64.9 - Anemia, unspecified Additional A&P Information Additional A&P Information: 1. CHF exacerbation : continue bumex 2mg po daily. received 40mg iv lasix, diuresed well, continue 40g iv lasix bid. check echo 2. a fib, rate controlled. eliquis on hold given recent gi bleed and anemia. 3. copd: unclear if exacerbation contributing. will start 40mg po prednisone 4. anemia: iron supplementation. monitor h7h 5. dm: insulin sliding scale DVT ppx: Scds Full code Attestations Medical Necessity Statement*: optimization of respiratory status Coding Level of Care Code Acute Teleprinter Installer for g Fwd Diagnoses Diastolic congestive heart failure I50.30 COPD (chronic obstructive pulmonary disease) J44.9 Atrial fibrillation I48.91 Anemia N18.3; D63.1 Anemia type: due to chronic kidney disease Chronic kidney disease stage: stage 3 (moderate) Morbid obesity E66.01
[2019-11-26 19:19] LABS: Glucose Point of Care 148 mg/dL (70-110)
[2019-11-26 19:24] LABS: Troponin 5 2HR 25.06 ng/mL (0-10)
[2019-11-26 19:25] LABS: Troponin 5 2HR Delta 1.06 ABS# (0-10)
--- NOTE | 2019-11-26 21:07 | CTR_ITS ---
PROCEDURE INFORMATION: Exam: CT Angiography Chest With Contrast Exam date and time: 11/26/2019 10:19 PM Age: 64 years old Clinical indication: Cough; Prior surgery; Surgery date: 6+ months; Surgery type: Cabg, stents; Additional info: R/O pe TECHNIQUE: Imaging protocol: Computed tomographic angiography of the chest with intravenous contrast. 3D rendering: MIP and/or 3D reconstructed images were created by the technologist. Total DLP: 1189.35 mGy-cm Radiation optimization: All CT scans at this facility use at least one of these dose optimization techniques: automated exposure control; mA and/or kV adjustment per patient size (includes targeted exams where dose is matched to clinical indication); or iterative reconstruction. Contrast material: VISI; Contrast volume: 95 ml; Contrast route: 18G; COMPARISON: CTA Chest-Pulmonary Emb [id number] 10/22/2019 10:53 PM FINDINGS: Pulmonary arteries: Normal. No pulmonary emboli. Aorta: Unremarkable. No aortic aneurysm. No aortic dissection. Thyroid: There is a heterogeneous thyroid mass in the right thyroid lobe measures 2.9 x 2.7 cm partially imaged today. A 2nd heterogeneous mass is seen in the right thyroid lobe measures approximately 1.9 cm. These appear stable compared with 10/22/2019. Lungs: Bilateral emphysematous changes are again seen. Additionally, there are subtle ground-glass opacities present predominately within the right mid and lower hemithorax and some increased peribronchial markings and strandy opacities are seen in the right lung base. These findings suggest a basilar pneumonia and/or atelectasis, right worse than left. Pleural space: There is a small right pleural effusion present. A tiny left pleural effusion is seen. The right pleural effusion is slightly larger today. Heart: Unremarkable. No cardiomegaly. No pericardial effusion. Gallbladder and bile ducts: Status post cholecystectomy. Adrenals: A hypodense mass is again seen within the left adrenal gland measuring approximately 1.6 cm and likely representing a small adrenal adenoma. Kidneys and ureters: Strandy opacities are seen in the perinephric fascia bilaterally most probably representing chronic scarring. Lymph nodes: Prominent mediastinal lymph nodes are again seen similar to those present on 10/22/2019. The aortopulmonic lymph node measures approximately 16.7 mm transverse dimension. There are mildly prominent retroperitoneal and periportal lymph nodes seen the below CT criteria for lymphadenopathy however. Bones/joints: Unremarkable. No acute fracture. Soft tissues: Unremarkable. CT/CT angio chest PE protcl [id number] IMPRESSION: 1. There is no evidence for pulmonary emboli. 2. Prominent mediastinal lymphadenopathy similar to that present on 10/22/2019. 3. Small right and tiny left pleural effusions. The right pleural effusion appears slightly larger today. 4. Probable bilateral basilar infiltrates or atelectasis, right more prominent than left 5. Bulky right thyroid lobe most probably represents multinodular goiter. 6. Left adrenal nodularity measuring 1.6 cm) represents a benign adrenal adenoma.Consider 12 month follow-up adrenal CT. (DrakeAime Callejas, ACR White Paper, 2017) COMMENT: In patients aged 35 years and older with an incidental thyroid nodule equal to or greater than 1.[address], MRI or extrathyroidal US, further evaluation with dedicated thyroid US is recommended for patients with normal life expectancy and without comorbidities. For smaller nodules without suspicious features, no further evaluation or follow up is recommended. Radiation Dose CTDIVOL = (mGy): DLP = 1189.35 (mGy-cm)
--- NOTE | 2019-11-26 22:04 | ECG_ITS ---
Measurements Intervals [place] Rate: 85 P: 90 ID: [id number] QRS: 20 QRSD: 117 T: 116 QT: 405 QTc: 483 SINUS RHYTHM LOW QRS VOLTAGE IN EXTREMITY LEADS [QRS DEFLECTION < 0.5 mV IN LIMB LEADS] ANTEROSEPTAL MYOCARDIAL INFARCTION , OF INDETERMINATE AGE [40+ ms Q WAVE IN V1-V4] Compared to ECG 11/25/2019 19:19:47 No significant changes Electronically Signed On 11-26-2019 19:06:51 TRANSPORTATION ATTENDANT by Blaire Osman M.D. [email or web address]
[2019-11-26 22:19] LABS: Glucose Point of Care 208 mg/dL (70-110)
[2019-11-26] MEDS: HYDROcodone-acetaminophen 5-325 mg Tablet 1 TAB PO (22:20)
[2019-11-26 22:23] LABS: NT Pro B Type Natriuretic Pept 568 pg/mL (0-125)
[2019-11-26 22:45] LABS: Troponin 5 6HR 25.99 ng/L (0-10)
[2019-11-26] MEDS: iodixanol 320 mg/mL 100mL Btl IV (23:43)
[2019-11-27] VITALS (26 sets, daily range): BP systolic 120–144; BP diastolic 53–64; PULSE 65–102; RESP 16–24; TEMP 36.4–37.1; O2SAT 90–99
[2019-11-27] MEDS: ipratropium-albuterol 3 mL Neb INHALATION ×7 (00:29→23:28)
[2019-11-27] MEDS: HYDROcodone-acetaminophen 5-325 mg Tablet 1 TAB PO ×2 (02:44→09:46)
--- NOTE | 2019-11-27 05:00 | XR_ITS ---
WS: [id number] Portable AP upright chest, 11/27/2019 Clinical Data: chf Comparison: Portable chest, 11/26/2019 Findings: Heart remains enlarged and the pulmonary vascularity is increased. There is a small right e ffusion. Midline sternotomy sutures are present. Mediastinal clips are noted. There are old right upp er rib fractures. Impression: 1. No change in pulmonary vascular congestion and cardiomegaly. 2. No change in right pleural effusion.
[2019-11-27] MEDS: FUROsemide 10 mg/mL SDV 4mL 40 MG IVP ×2 (05:13→16:23)
[2019-11-27 05:22] LABS: Basophils % 0.1 %; Eosinophils % 0.6 %; Hemoglobin 7.6 g/dL (11.5-15.3); Lymphocytes # 1.1 10^3/uL (0.8-4.8); Lymphocytes % 15.2 %; Mean Corpuscular HGB Conc 29.2 g/dL (30.0-36.0); Mean Corpuscular Hemoglobin 26.8 pg (28.0-34.0); Mean Corpuscular Volume 91.5 fL (81-99); Mean Platelet Volume 9.8 fL (7.4-10.4); Monocytes # 0.6 10^3/uL (0.2-0.9); Neutrophils # 5.3 10^3/uL (1.8-7.7); Neutrophils % 74.8 %; Nucleated Red Blood Cells % 0 %; Platelet Count 358 10^3/cmm (130-400); Red Blood Count 2.84 10^6/uL (4.1-5.3); Red Cell Distribution Width 17.1 % (12.1-15.1); White Blood Count 7.1 10^3/uL (4.0-10.0)
[2019-11-27 05:50] LABS: Alanine Aminotransferase 11 U/L (0-33); Albumin Level 3.7 g/dL (3.5-5.2); Alkaline Phosphatase 86 IU/L (35-105); Anion Gap 13.1 (5-19); Aspartate Amino Transferase 14 U/L (0-32); Blood Urea Nitrogen 22 mg/dL (8-23); Calcium 9.8 mg/Dl (8.8-10.2); Carbon Dioxide 30 mmol/L (22-29); Chloride 98 mmol/L (98-107); Globulin 2.6 g/dL (1.3-4.6); Glomerular Filtration Rate 49.8 mL/min (90-130); Glucose 154 mg/dL (74-106); Magnesium 1.9 mg/dL (1.7-2.3); Phosphorus 4.2 mg/dL (2.5-4.5); Potassium 4.1 mmol/L (3.5-5.1); Sodium 137 mmol/L (136-145); Total Bilirubin 0.3 mg/dL (0.15-1.2); Total Protein 6.3 g/dL (6.6-8.7)
[2019-11-27 06:36] LABS: Glucose Point of Care 186 mg/dL (70-110)
[2019-11-27] MEDS: dilTIAZem ER (24HR) 120 mg Capsule PO (08:37)
[2019-11-27] MEDS: pantoprazole DR 40 mg Tablet PO ×2 (08:37→18:02)
[2019-11-27] MEDS: clopidogrel 75 mg Tablet PO (08:38)
[2019-11-27] MEDS: losartan 50 mg Tablet PO (08:38)
[2019-11-27] MEDS: aspirin 81 mg EC Tablet PO (08:38)
[2019-11-27] MEDS: atorvastatin 40 mg Tablet 20 MG PO (08:39)
[2019-11-27 08:40] LABS: Estmated Average Glucose 120; Hemoglobin A1C 5.8 % (4.0-6.0)
[2019-11-27] MEDS: levothyroxine 150 mcg Tablet 75 MCG PO (08:40)
[2019-11-27] MEDS: bumetanide 1 mg Tablet 2 MG PO (08:40)
[2019-11-27] MEDS: ferrous sulfate EC 325 mg Tablet PO (08:42)
[2019-11-27] MEDS: cilostazol 100 mg Tablet PO (08:42)
[2019-11-27] MEDS: sertraline 50 mg Tablet PO (08:42)
[2019-11-27] MEDS: isosorbide mononitrate ER 60 mg Tablet PO (08:43)
[2019-11-27] MEDS: predniSONE 20 mg Tablet 40 MG PO (08:43)
[2019-11-27 11:47] LABS: Glucose Point of Care 292 mg/dL (70-110)
[2019-11-27] MEDS: sodium chloride 0.9% 100 ML (16:24)
--- NOTE | 2019-11-27 16:34 | PC.CHAP ---
Pastoral Care Encounter/Spiritual Assessment Type of Contact [] Declined finish off operator visit [] Patient/Family/Request visit [] Outpatient visit [] Follow-up visit [] Physician referral [] Code/Alert [x] Routine visit [] Staff referral [] Actively dying [] Patient sleeping [x] Family support [] [] Out of room [] Palliative care [] [] Receiving care in room [] Pre-surgical visit [] Trauma [] Long length of stay [] ICU visit [] Other: Relational/Emotional Strength [x] Patient feels connected with others/family/visitors/staff [] Distress [] Loneliness/isolation [] Abandonment Spirituality of Patient [x] Person of Monse [] Attends Yarsanism of their Monse [x] Believes in Prayer [] Reads Bible or Orthodox materials [] There are Spiritual issues to be addressed Manager Art Interventions [x] Prayer [x] Active listening [x] Non-anxious presence [] Spiritual/emotional support [] Crisis/trauma care [] Spiritual counseling [] Bereavement support [] Provided bereavement packet [] Provided Bible/devotional materials [] Provided toy/stuffed animal, coloring book to patient or family member [] Completed spiritual assessment [] Provided Communion [] Anointing/[place] [] Salvation [] Other: Impact on Illness or Injury [] Angry [] Fearful [x] Anxious [] Often cries [x] Exhaustion [] Unable to work [x] Unable to attend church [] Unable to walk/stand [] Unable to read [] Unable to drive [] Unable to eat/drink [] Unable to sleep [] Unable to be with family [] Other: Summary patient was very talkitive. she longs to get back to health, feeling better so she can do the things she loves to do. she and Manager Art had a good prayer session. Time spent with patient 45 min.
--- NOTE | 2019-11-27 16:56 | PC.RESP ---
Patient given information on Pulmonary Rehab and Smoking Cessation.
[2019-11-27 17:04] LABS: Glucose Point of Care 334 mg/dL (70-110)
--- NOTE | 2019-11-27 17:32 | P.PN_ITS ---
Subjective Subjective: Interval history: No acute events overnight. This morning on evaluation patient is sitting comfortably in bed, states her breathing is better. Complains of pain in her left leg because of SCDs. Denies of having any palpitations, nausea, vomiting, headache, diarrhea, bleed ing from anywhere. Medications: Reviewed: Yes Vitals/I&O/Wt Last Vital Signs Temp 98.7 F 11/27/19 15:26 Pulse 102 H 11/27/19 15:26 Resp 20 H 11/27/19 15:26 BP 134/63 11/27/19 15:26 Pulse Ox 95 11/27/19 15:26 11/27/19 11/27/19 11/27/19 06:59 14:59 22:59 Intake Total 365 / 365 340 / 340 350 / 690 Output Total 2000 / 2300 600 / 600 600 / 1200 Balance -1635 / -1935 -260 / -260 -250 / -510 Weight last 48 hrs Weight 98.231 kg Weight 97.522 kg Physical Exam Narrative: EXAM NARRATIVE: General: No acute distress, AO x3 HEENT: PERRLA, pupils bilaterally equal and reactive Chest: Normal vesicular breath sounds, no added sounds, equal good air entry bilaterally CVS: S1-S2 regular, no murmurs, no tachycardia, no gallops, no rubs Abdomen: Soft, nontender, no organomegaly, bowel sounds present Neuro: No focal deficits, no facial deformity, AO x3, power 5/5 in all limbs Extremities: Right BKA, left leg 1+ edema present, mild localized temperature, erythema on the mora area. A&P Assessment and plan (1) Acute respiratory failure with hypoxia: Status: Acute Code(s): J96.01 - Acute respiratory failure with hypoxia (2) Anemia: Status: Acute Qualifiers: Anemia type: due to chronic kidney disease Chronic kidney disease stage: stage 3 (moderate) Qualified Code(s): N18.3 - Chronic kidney disease, stage 3 (moderate); D63.1 - Anemia in chronic kidney disease Code(s): D64.9 - Anemia, unspecified (3) Diastolic congestive heart failure: Status: Acute Code(s): I50.30 - Unspecified diastolic (congestive) heart failure (4) COPD (chronic obstructive pulmonary disease): Status: Acute Code(s): J44.9 - Chronic obstructive pulmonary disease, unspecified (5) Supplemental oxygen dependent: Status: Acute Code(s): Z99.81 - Dependence on supplemental oxygen (6) Atrial fibrillation: Status: Acute Code(s): I48.91 - Unspecified atrial fibrillation Additional A&P Information Additional A&P Information: Shortness of breath: Most likely a combination of mild COPD exacerbation along with CHF exacerbation due to blood loss anemia. Continue with IV Lasix twice daily today. Continue with home dose of Bumex. Daily weights, strict intake and output. Echo awaited. Continue with DuoNeb's [id number], budesonide twice daily with albuterol as needed. Continue with prednisone 40 mg already started. Would most likely give us a course of 5 days. Oxygen supplementation keeping saturation over 90%. CTA done yesterday negative for any kind of pulmonary embolism. Lower limb Dopplers negative for DVT. Anemia due to GI bleed: Patient had recent admission because of GI bleed when her Eliquis, antiplatelets were withheld. At that time endoscopy and colonoscopy were negative for any acute source of bleeding. Patient was due for possible capsule endoscopy referral as an outpatient. Discussed with patient in detail regarding need to be off the antiplatelets at present. Patient agrees to stop antiplatelets for now. Discussed high risk of possible stroke, acute MIs, peripheral arterial disease on stopping the medications. Patient verbalizes the understanding of high risk on stopping the medications and understands that it is important to stop the medications for now. We will stop cilostazol and Plavix. We will continue aspirin for now. Transfuse 1 unit PRBC. Check CBC tomorrow morning. Will give Lasix around transfusion. Continue oral iron. Continue Protonix orally twice daily. Atrial fibrillation.: We will continue patient on her home dose of diltiazem. Eliquis is on hold for more than 3 weeks in view of GI bleed. Hypertension: Blood pressures are well controlled. We will continue on home dose of Cozaar, Imdur. Lower limb swelling: No sign of cellulitis. No white count. No DVT. We will continue to monitor for now. Will not use SCDs as patient is not able to tolerate. Continue with home dose of levothyroxine. Full code. Carbohydrate consistent diet. No DVT prophylaxis in view of blood loss anemia. No SCDs in view of intolerance. Patient understands the risk of developing clots while not using SCDs. Patient will continue to use home compression stockings. Attestations Medical Necessity Statement*: Needs continued hospitalization for management of anemia. Time Spent in Patient Care: Greater than 35 minutes Coding Level of Care Code Acute Cream Beater for Drug Fwd Diagnoses Acute respiratory failure with hypoxia J96.01 Anemia N18.3; D63.1 Anemia type: due to chronic kidney disease Chronic kidney disease stage: stage 3 (moderate) Diastolic congestive heart failure I50.30 COPD (chronic obstructive pulmonary disease) J44.9 Supplemental oxygen dependent Z99.81 Atrial fibrillation I48.91
[2019-11-27 17:44] LABS: Basophils % 0.3 %; Hematocrit 28.7 % (37.0-47.0); Hemoglobin 8.8 g/dL (11.5-15.3); Lymphocytes # 0.3 10^3/uL (0.8-4.8); Lymphocytes % 3.7 %; Mean Corpuscular Hemoglobin 27.7 pg (28.0-34.0); Mean Corpuscular Volume 90.3 fL (81-99); Mean Platelet Volume 9.7 fL (7.4-10.4); Monocytes # 0.2 10^3/uL (0.2-0.9); Neutrophils # 6.9 10^3/uL (1.8-7.7); Neutrophils % 93.5 %; Nucleated Red Blood Cells % 0 %; Platelet Count 358 10^3/cmm (130-400); Red Blood Count 3.18 10^6/uL (4.1-5.3); Red Cell Distribution Width 16.8 % (12.1-15.1); White Blood Count 7.4 10^3/uL (4.0-10.0)
[2019-11-27 17:49] LABS: Mean Corpuscular HGB Conc 30.7 g/dL (30.0-36.0)
--- NOTE | 2019-11-27 21:07 | USCV_ITS ---
Cher Lopez Age: 64 Gender: F : 1955 Exam Date: 11/27/2019 06:10 Ordering Phys: Delaney Mina MD Technologist: Jorge Godoy Exam Location: [facility] – [place] Indication: BED STASIS HISTORY: Lower extremity pain. PROCEDURES: Venous duplex imaging was performed in bilateral lower extremities. The venous duplex Doppler examination of both lower extremities was performed in the standard fashion. Serial compression, augmentation maneuvers, and spectral Doppler flow evaluation were performed. FINDINGS: Normal 2-D Doppler and augmentation and compressibility throughout the lower extremity venous structures. Additional imaging through the proximal calf veins also reveals no thrombus. Limited evaluation of the greater saphenous vein is patent with no thrombus.. RT LEG AMPUTEE FROM KNEE CONCLUSIONS Negative bilateral lower extremityvenous Doppler ultrasound. Dr. Kell Hawley MD (Electronically Signed) Final Date: 27 November 2019 08:01 S
[2019-11-27 21:37] LABS: Glucose Point of Care 330 mg/dL (70-110)
[2019-11-28] VITALS (11 sets, daily range): BP systolic 140–144; BP diastolic 61–68; PULSE 81–99; RESP 18–22; TEMP 36.6–36.8; O2SAT 88–99
[2019-11-28] MEDS: ipratropium-albuterol 3 mL Neb INHALATION ×2 (03:30→07:30)
[2019-11-28 06:25] LABS: Alanine Aminotransferase 12 U/L (0-33); Albumin Level 4.3 g/dL (3.5-5.2); Alkaline Phosphatase 101 IU/L (35-105); Anion Gap 14.7 (5-19); Aspartate Amino Transferase 14 U/L (0-32); Blood Urea Nitrogen 27 mg/dL (8-23); Calcium 10.2 mg/Dl (8.8-10.2); Carbon Dioxide 33 mmol/L (22-29); Chloride 94 mmol/L (98-107); Globulin 3.3 g/dL (1.3-4.6); Glomerular Filtration Rate 45.1 mL/min (90-130); Glucose 59 mg/dL (74-106); Potassium 3.7 mmol/L (3.5-5.1); Sodium 138 mmol/L (136-145); Total Bilirubin 0.3 mg/dL (0.15-1.2); Total Protein 7.6 g/dL (6.6-8.7)
[2019-11-28 06:42] LABS: Glucose Point of Care 70 mg/dL (70-110)
[2019-11-28] MEDS: FUROsemide 10 mg/mL SDV 4mL 40 MG IVP (06:48)
[2019-11-28] MEDS: budesonide 0.5 mg/2 mL Neb INHALATION (07:33)
[2019-11-28] MEDS: predniSONE 20 mg Tablet 40 MG PO (09:41)
[2019-11-28] MEDS: pantoprazole DR 40 mg Tablet PO (09:41)
[2019-11-28] MEDS: aspirin 81 mg EC Tablet PO (09:42)
[2019-11-28] MEDS: losartan 50 mg Tablet PO (09:42)
[2019-11-28] MEDS: ferrous sulfate EC 325 mg Tablet PO (09:42)
[2019-11-28] MEDS: atorvastatin 40 mg Tablet 20 MG PO (09:42)
[2019-11-28] MEDS: levothyroxine 150 mcg Tablet 75 MCG PO (09:42)
[2019-11-28] MEDS: isosorbide mononitrate ER 60 mg Tablet PO (09:43)
[2019-11-28] MEDS: sertraline 50 mg Tablet PO (09:43)
[2019-11-28] MEDS: bumetanide 1 mg Tablet 2 MG PO (09:43)
[2019-11-28] MEDS: dilTIAZem ER (24HR) 120 mg Capsule PO (09:43)
[2019-11-28 10:44] LABS: Basophils % 0.2 %; Eosinophils % 0.1 %; Hematocrit 30.8 % (37.0-47.0); Hemoglobin 9.7 g/dL (11.5-15.3); Lymphocytes # 0.9 10^3/uL (0.8-4.8); Lymphocytes % 9.7 %; Mean Corpuscular HGB Conc 31.5 g/dL (30.0-36.0); Mean Corpuscular Hemoglobin 29.8 pg (28.0-34.0); Mean Corpuscular Volume 94.8 fL (81-99); Mean Platelet Volume 10.1 fL (7.4-10.4); Monocytes # 0.9 10^3/uL (0.2-0.9); Monocytes % 9.6 %; Neutrophils # 7.6 10^3/uL (1.8-7.7); Neutrophils % 80.1 %; Nucleated Red Blood Cells % 0 %; Platelet Count 379 10^3/cmm (130-400); Red Blood Count 3.25 10^6/uL (4.1-5.3); White Blood Count 9.5 10^3/uL (4.0-10.0)
--- NOTE | 2019-11-28 11:04 | PM.DCS ---
Discharge Providers Date of Admission: 11/26/19 19:48 Date of Discharge: 12/10/19 Attending Provider at Admission: Delaney Mina MD Attending Provider at Discharge: Darnell Gandhi MD Primary Care Provider: Jayden Garcia MD Diagnoses at Discharge Discharge Diagnosis (1) Acute respiratory failure with hypoxia: Status: Acute (2) Anemia: Status: Acute Qualifiers: Anemia type: due to chronic kidney disease Chronic kidney disease stage: stage 3 (moderate) Qualified Code(s): N18.3 - Chronic kidney disease, stage 3 (moderate); D63.1 - Anemia in chronic kidney disease (3) Diastolic congestive heart failure: Status: Acute (4) COPD (chronic obstructive pulmonary disease): Status: Acute (5) Supplemental oxygen dependent: Status: Acute (6) Atrial fibrillation: Status: Acute Reason for Visit Reason for Visit: Reason For Visit: sob Hospital Course Discharge Summary: Cher Lopez is a 64 year old female who carries diagnosis of atrial fibrillation, chronic anticoagulation on Eliquis, coronary artery disease, peripheral vascular disease status post right lower extremity BKA, recently quit smoking, Last admitted on 2018 after p/w extreme shortness of breath and tiredness in the setting of having previously received doxycycline for non-complicated pneumonia. She had recently been resumed on Eliquis, after the latter had been on hold for possible UGI bleed. During this admission, patient anticoagulation was held, she received 2 units PRBC, surgery Dr. Hunt performed a EGD and colonoscopy. EGD showed mild gastritis, no other signs of overt bleeding. Colonoscopy was in inadequate prep, no overt signs of bleeding, but will require a repeat colonoscopy as outpatient. Patient was advised that she will require an outpatient colonoscopy and possible capsule endoscopy to find a source of bleeding. Eliquis was again held on discharge. She remains off for a month. She is on ASA and Plavix. She has been feeling weak for 3-4 weeks prior. Presented to [facility] on November 26 with c/o weakness, fatigue and SOB. She is on Bumex and lasix at home for possibly CHF. Also COPD with 02 dependent @2lpm. Yesterday Hb at 7.3, not transfused. Returned today with worsening SOB. No current lien or hematemesis. Last echo in Aug 2019 showed LVEF 50%. Could not assess diastolic function due to A fib. CTA 10/22 did not show PE. Patient was due for possible capsule endoscopy referral as an outpatient. Discussed with patient in detail regarding need to be off the antiplatelets at present. Patient agrees to stop antiplatelets for now. Discussed high risk of possible stroke, acute MIs, peripheral arterial disease on stopping the medications. Patient verbalizes the understanding of high risk on stopping the medications and understands that it is important to stop the medications for now. Physical therapy has been involved for case assessment and recommendations. She was transfused 1 unit of PRBC and her hemoglobin remained stable. Given low hemoglobin and history of cardiac disorder she was transfused 1 unit of PRBC. CBC remained stable and she is being discharged home in hemodynamically stable condition with a referral to see Dr. Hunt from where she can get her outpatient referral for service learning coordinator for further care management with capsule endoscopy. Patient has been advised to continue holding cilostazol, Plavix and aspirin. All patient's questions were answered in detail regarding different modes of anticoagulations and. Patient is being discharged medically stable condition.. Physical Exam Narrative: EXAM NARRATIVE: General: No acute distress, AO x3 HEENT: PERRLA, pupils bilaterally equal and reactive Chest: Normal vesicular breath sounds, no added sounds, equal good air entry bilaterally CVS: S1-S2 regular, no murmurs, no tachycardia, no gallops, no rubs Abdomen: Soft, nontender, no organomegaly, bowel sounds present Neuro: No focal deficits, no facial deformity, AO x3, power 5/5 in all limbs Discharge Data Data Completed and Pending: Completed Studies During Hospitalization Category Date Time Status CT angio chest PE protcl [id number] Rout ine Cat Scan 11/26/19 21:07 Completed XR chest 1V lisset ble [id number] Routine Exams 11/27/19 05:00 Completed XR chest 1V lisset ble [id number] Urgent Exams 11/26/19 16:03 [place] [id number] Routin e Ultrasound 11/27/19 21:07 Completed Pending at discharge Category Date Time Status Complete Blood Co unt w/Auto Stat Lab 11/28/19 05:39 Results Comprehensive Met abolic Panel AM LA BS Lab 11/29/19 04:00 Ordered CV echo complete* [id number] Routine Ultrasound 11/28/19 18:14 Taken Labs from last 24 hours 11/28/19 11/28/19 11/27/19 06:09 05:39 21:28 WBC RBC Hgb Hct MCV MCH MCHC RDW Plt Count MPV Neut % (Auto) Lymph % (Auto) [place] % (Auto) Eos % (Auto) Baso % (Auto) Neut # (Auto) Lymph # (Auto) [place] # (Auto) Eos # (Auto) Baso # (Auto) Nucleated RBC % (a uto) Nucleated RBCs # Sodium 138 Potassium 3.7 Chloride 94 L Carbon Dioxide 33 H Anion Gap 14.7 BUN 27 H Creatinine 1.2 H GFR Calculation 45.1 L Glucose 59 L POC Glucose 70 330 Calcium 10.2 Total Bilirubin 0.3 AST 14 ALT 12 Alkaline Phosphata se 101 Total Protein 7.6 Albumin 4.3 Globulin 3.3 Blood Type Antibody Screen Crossmatch 11/27/19 11/27/19 11/27/19 17:35 16:49 11:32 WBC 7.4 RBC 3.18 L Hgb 8.8 L Hct 28.7 L MCV 90.3 MCH 27.7 L MCHC 30.7 D RDW 16.8 H Plt Count 358 MPV 9.7 Neut % (Auto) 93.5 Lymph % (Auto) 3.7 [place] % (Auto) 2.0 Eos % (Auto) 0.0 Baso % (Auto) 0.3 Neut # (Auto) 6.9 Lymph # (Auto) 0.3 L [place] # (Auto) 0.2 Eos # (Auto) 0.0 Baso # (Auto) 0.0 Nucleated RBC % (a uto) 0 Nucleated RBCs # 0.0 Sodium Potassium Chloride Carbon Dioxide Anion Gap BUN Creatinine GFR Calculation Glucose POC Glucose 334 292 Calcium Total Bilirubin AST ALT Alkaline Phosphata se Total Protein Albumin Globulin Blood Type Antibody Screen Crossmatch 11/26/19 16:19 WBC RBC Hgb Hct MCV MCH MCHC RDW Plt Count MPV Neut % (Auto) Lymph % (Auto) [place] % (Auto) Eos % (Auto) Baso % (Auto) Neut # (Auto) Lymph # (Auto) [place] # (Auto) Eos # (Auto) Baso # (Auto) Nucleated RBC % (a uto) Nucleated RBCs # Sodium Potassium Chloride Carbon Dioxide Anion Gap BUN Creatinine GFR Calculation Glucose POC Glucose Calcium Total Bilirubin AST ALT Alkaline Phosphata se Total Protein Albumin Globulin Blood Type B Positive Antibody Screen Negative Crossmatch See Detail Vitals: Last Vital Signs Temp 97.9 F 01/11/20 07:54 Pulse 95 11/28/19 07:54 Resp 18 11/28/19 07:54 BP 144/68 11/28/19 09:42 Pulse Ox 99 11/28/19 07:54 Discharge Plan Discharge Patient Disposition: Home, Self-Care Condition: Stable Prescriptions: New Flonase Allergy Relief 50 mcg/actuation spray,suspension 1 spray INTRANASAL DAILY Qty: 15.8 RF: 0 Continued losartan 50 mg Tablet 50 mg PO DAILY RF: 0 bumetanide 2 mg Tablet 2 - 4 mg PO DAILY RF: 0 Sullivan 5-325 mg Tablet 1 tab PO Q4H PRN (Reason: Pain) RF: 0 Aspir-81 81 mg Tablet,Delayed Release (Dr/Ec) 81 mg PO DAILY RF: 0 glimepiride 1 mg Tablet 1 mg PO DAILY RF: 0 levothyroxine 75 mcg Tablet 75 mcg PO DAILY RF: 0 isosorbide mononitrate 60 mg Tablet Extended Release 24 Hr 60 mg PO DAILY RF: 0 diltiazem HCl 120 mg Tablet 120 mg PO DAILY RF: 0 Novolog U-100 Insulin aspart 100 unit/mL Solution See Rx Instructions .ROUTE .COMPLEX RF: 0 Protonix 40 mg Tablet,Delayed Release (Dr/Ec) 40 mg PO BID RF: 0 iron 325 mg (65 mg iron) Tablet 325 mg PO DAILY RF: 0 magnesium 250 mg Tablet 1,000 mg PO DAILY RF: 0 pravastatin 20 mg Tablet 20 mg PO DAILY RF: 0 Ventolin HFA 90 mcg/actuation Hfa Aerosol Inhaler 2 puff INHALATION Q4H PRN (Reason: Shortness Of Breath) RF: 0 sertraline 50 mg Tablet 50 mg PO DAILY RF: 0 Vitamin D3 1,000 unit Capsule 1,000 unit PO DAILY RF: 0 Discontinued cilostazol 100 mg Tablet 100 mg PO BID RF: 0 clopidogrel [Plavix] 75 mg Tablet 75 mg PO DAILY RF: 0 No Action torsemide 20 mg tablet 20 mg PO DAILY PRNRF: 0 Discharge Orders: Discharge Order (Routine); Ordered 11/28/19 Ordered By: Darnell Gandhi Other Ambulatory Orders: Complete Blood Count w/Auto (Routine) Timeframe: 1 Week Location: Determined by Patient Ordered By: Darnell Gandhi Referrals: Tyrone Hunt MD [Physician] - 1 week (PLEASE CALL SATURDAY TO SET UP AN APPOINTMENT TO BE SEEN BY DR. HUNT. YOU WILL NEED TO DISCUSS A CAPSULE ENDOSCOPY.) Jayden Garcia MD [Primary Care Provider] - 1 week (PLEASE CALL SATURDAY AN SET UP A FOLLOW UP APPOINTMENT TO BE SEEN.) Patient Instructions: Anemia, Prednisone (By mouth), Torsemide (By mouth), Fluticasone (Into the nose), Heart Failure (DC), CHF Stoplight Activity Restrictions/Additional Instructions: As discussed stop Plavix and cilostazol during capsule endoscopy done. Check hemoglobin on Saturday and follow-up with your primary care physician. Follow-up with Dr. Gilbert Reyes for further evaluation and referral for capsule endoscopy. Discharge Date/Time: 11/28/19 12:02 Discharge Attestations Time Spent in Discharge Care*: greater than 30 min Specific Discharge Activities: Specific discharge activities: educating patient and evaluating patient/reviewing data Status at Discharge: Cognitive status at discharge: cognitively intact, Behavioral status at discharge: cooperative, Functional status at discharge: wheelchair bound Overall status at discharge: patient is back to baseline Quality Metrics Clinical Quality Measures During this hospital stay, did patient experience: None Coding Level of Care Code Acute Lead Handler for Chg Fwd Diagnoses Acute respiratory failure with hypoxia J96.01 Anemia N18.3; D63.1 Anemia type: due to chronic kidney disease Chronic kidney disease stage: stage 3 (moderate) Diastolic congestive heart failure I50.30 COPD (chronic obstructive pulmonary disease) J44.9 Supplemental oxygen dependent Z99.81 Atrial fibrillation I48.91
--- NOTE | 2019-11-28 18:14 | USCV_ITS ---
Cher Lopez Age: 64 Gender: F : 1955 Exam Date: 11/28/2019 10:18 Ordering Phys: Darnell Gandhi MD Technologist: Rody Ponce Exam Location: [facility] – [place] Indication: CHF BP: / HR: Rhythm: Sinus Technical Quality: Technically difficult study MEASUREMENTS (Male / Female) Normal Values 2D ECHO LV Diastolic Diameter PLAX 5.0 cm 4.2 - 5.9 / 3.9 - 5.3 cm LV Systolic Diameter PLAX 3.1 cm LV Chamber Size 3.6 cm IVS Diastolic Thickness 1.6 cm 0.6 - 1.0 / 0.6 - 0.9 cm IVS Systolic Thickness 1.7 cm LVPW Diastolic Thickness 1.1 cm 0.6 - 1.0 / 0.6 - 0.9 cm LVPW Systolic Thickness 1.8 cm RV Chamber Size 3.3 cm LVOT Diameter 2.1 cm LV Ejection Fraction 2D Teich 68.4 % LA Diameter 4.6 cm LA Width 3.1 cm LA Height 6.2 cm RA Width 3.2 cm RA Height 4.2 cm Aorta at Sinotubular Diameter 2.0 cm M-MODE LV Diastolic Diameter MM 5.0 cm 4.2 - 5.9 / 3.9 - 5.3 cm LV Systolic Diameter MM 3.3 cm LV Ejection Fraction MM Teich 60.9 % IVS Diastolic Thickness MM 1.2 cm 0.6 - 1.0 / 0.6 - 0.9 cm IVS Systolic Thickness MM 1.6 cm LVPW Diastolic Thickness MM 1.2 cm 0.6 - 1.0 / 0.6 - 0.9 cm LVPW Systolic Thickness MM 1.6 cm RV Diastolic Diameter MM 1.5 cm Aortic Annulus Diameter 3.3 cm LA Ao Ratio MM 1.4 MV E Point Septal Separation 0.9 cm DOPPLER AV Peak Velocity 132.0 cm/s LVOT Peak Velocity 114.0 cm/s AV Area Cont Eq vti 2.7 cm squared AV Area Cont Eq pk 2.9 cm squared MV Peak Velocity 150.0 cm/s MV Area PHT 3.7 cm squared MV E' Velocity 11.0 cm/s Mitral E to MV E' Ratio 14.4 Mitral E to LV E' Lateral Ratio 13.3 Mitral E to LV E' Septal Ratio 15.6 TV Peak E Velocity 95.0 cm/s Right Atrial Pressure 15.0 mmHg PV Peak Velocity 100.0 cm/s RV Acceleration Time 0.1 s RV Ejection Time 0.3 s RV AcT/ET 0.4 FINDINGS Left Ventricle Normal left ventricular size and systolic function, EF 55%. Mild left ventricular hypertrophy. Mild diffuse hypokinesia of the septum. Grade I/IV diastolic dysfunction (abnormal relaxation filling pattern), normal to mildly elevated filling pressures. Right Ventricle The right ventricle is normal in size and function. Right Atrium The right atrium is normal in size. Left Atrium Left atrium, upper limit of normal size Mitral Valve Thickened mitral valve. Mild mitral annular calcification. Trace mitral valve regurgitation. Aortic Valve No gross abnormalities noted Tricuspid Valve No gross abnormalities noted Pulmonic Valve Not visualized well Pericardium Dilated inferior vena cava measuring 2.95 cm in diameter Aorta Normal ascending aorta dimension. CONCLUSIONS Normal left ventricular size and EF, 55%. Mild left ventricular hypertrophy. Mild diffuse hypokinesia of the septum. Grade I/IV diastolic dysfunction (abnormal relaxation filling pattern), normal to mildly elevated filling pressures. Left atrium, upper limit of normal size. Thickened mitral valve. Mild mitral annular calcification. Trace mitral valve regurgitation. There is no pericardial effusion. There are no intracardiac masses. Exact comparison with the previous study from 08/26/2019 is difficult because of the difference in the technical quality (patient was found to be in atrial fibrillation with rapid ventricular rate, during the previous study) Dr Allie Olmos MD [facility] (Electronically Signed) Final Date: 28 November 2019 15:04 S
== END 2019-11-28 12:02 | disposition home or self-care (01) | DRG 291 ==
LOC: ER 15:52 → MEDSURG 19:50
PROVIDERS: Admitting Provider Student in an Organized Health Care Education/Training Program; Emergency Provider Family Medicine; Family Provider Family Medicine; PCP Family Medicine; Visit Provider Student in an Organized Health Care Education/Training Program
DX: I50.31 Acute diastolic (congestive) heart failure (principal); J96.01 Acute respiratory failure with hypoxia; J44.1 Chronic obstructive pulmonary disease with (acute) exacerbation; N18.3 Chronic kidney disease, stage 3 (moderate); J44.9 Chronic obstructive pulmonary disease, unspecified; I48.91 Unspecified atrial fibrillation; I73.9 Peripheral vascular disease, unspecified; I25.10 Atherosclerotic heart disease of native coronary artery without angina pectoris; Z79.01 Long term (current) use of anticoagulants; Z89.511 Acquired absence of right leg below knee; Z79.82 Long term (current) use of aspirin; Z79.02 Long term (current) use of antithrombotics/antiplatelets; Z99.81 Dependence on supplemental oxygen; Z95.1 Presence of aortocoronary bypass graft; G47.30 Sleep apnea, unspecified; E66.01 Morbid (severe) obesity due to excess calories; Z68.35 Body mass index [BMI] 35.0-35.9, adult; F17.210 Nicotine dependence, cigarettes, uncomplicated
CPT/HCPCS: 36415; 36416; 36430; 36600; 71045; 71275; 80051; 80053; 82810; 82962; 83036; 83735; 83880; 83986; 84100; 84484; 85025; 85610; 85730; 86850; 86900; 93005; 93306; 93970; 94640; 94664; 96372; 96374; 96375; 99282; J1815; J1940; J7512; J7626; P9016; Q9967

== ENCOUNTER 2019-12-08 11:32 | Outpatient (CLI) | payer MEDICARE, BC, SELFPAY ==
[2019-12-08 12:12] LABS: Basophils % 0.2 %; Eosinophils # 0.1 10^3/uL (0.0-0.8); Eosinophils % 1.1 %; Hematocrit 29.9 % (37.0-47.0); Hemoglobin 9.2 g/dL (11.5-15.3); Lymphocytes % 8.9 %; Mean Corpuscular HGB Conc 30.8 g/dL (30.0-36.0); Mean Corpuscular Hemoglobin 28.6 pg (28.0-34.0); Mean Corpuscular Volume 92.9 fL (81-99); Mean Platelet Volume 10.4 fL (7.4-10.4); Monocytes # 0.8 10^3/uL (0.2-0.9); Monocytes % 7.8 %; Neutrophils # 8.8 10^3/uL (1.8-7.7); Neutrophils % 81.4 %; Nucleated Red Blood Cells % 0 %; Platelet Count 351 10^3/cmm (130-400); Red Blood Count 3.22 10^6/uL (4.1-5.3); Red Cell Distribution Width 16.8 % (12.1-15.1); White Blood Count 10.8 10^3/uL (4.0-10.0)
[2019-12-08 12:22] LABS: Anion Gap 15.3 (5-19); Blood Urea Nitrogen 34 mg/dL (8-23); Calcium 9.5 mg/Dl (8.8-10.2); Carbon Dioxide 30 mmol/L (22-29); Chloride 98 mmol/L (98-107); Glomerular Filtration Rate 45.1 mL/min (90-130); Glucose 143 mg/dL (74-106); Potassium 4.3 mmol/L (3.5-5.1); Sodium 139 mmol/L (136-145)
== END 2019-12-08 11:33 | disposition home or self-care (01) ==
LOC: LAB 11:39
PROVIDERS: Family Provider Family Medicine; PCP Family Medicine; Visit Provider Family Medicine
DX: I25.10 Atherosclerotic heart disease of native coronary artery without angina pectoris (principal)
CPT/HCPCS: 80048; 85025

== ENCOUNTER 2019-12-16 16:52 | Outpatient (CLI) | payer MEDICARE, BC, SELFPAY ==
[2019-12-16 17:21] LABS: Basophils % 0.2 %; Eosinophils % 0.2 %; Hematocrit 28.7 % (37.0-47.0); Hemoglobin 8.6 g/dL (11.5-15.3); Lymphocytes # 0.8 10^3/uL (0.8-4.8); Lymphocytes % 8.8 %; Mean Corpuscular Hemoglobin 28.4 pg (28.0-34.0); Mean Corpuscular Volume 94.7 fL (81-99); Mean Platelet Volume 10.6 fL (7.4-10.4); Monocytes # 0.6 10^3/uL (0.2-0.9); Monocytes % 6.1 %; Neutrophils # 7.7 10^3/uL (1.8-7.7); Neutrophils % 84.4 %; Nucleated Red Blood Cells % 0 %; Platelet Count 329 10^3/cmm (130-400); Red Blood Count 3.03 10^6/uL (4.1-5.3); Red Cell Distribution Width 16.8 % (12.1-15.1); White Blood Count 9.1 10^3/uL (4.0-10.0)
[2019-12-16 19:50] LABS: Anion Gap 16.9 (5-19); Blood Urea Nitrogen 31 mg/dL (8-23); Calcium 9.3 mg/dL (8.5-10.5); Carbon Dioxide 30 mmol/L (22-29); Chloride 99 mmol/L (98-107); Glomerular Filtration Rate 37.7 mL/min (90-130); Glucose 204 mg/dL (74-106); Osmolality Calculated 295 mOsm/kg (285-295); Potassium 4.9 mmol/L (3.5-5.1); Sodium 141 mmol/L (136-145)
== END 2019-12-16 16:53 | disposition home or self-care (01) ==
LOC: LAB 16:55
PROVIDERS: Student in an Organized Health Care Education/Training Program; Family Provider Family Medicine; PCP Family Medicine; Visit Provider Family Medicine
DX: D63.1 Anemia in chronic kidney disease (principal); E11.22 Type 2 diabetes mellitus with diabetic chronic kidney disease
CPT/HCPCS: 80048; 85025

== ENCOUNTER 2019-12-18 19:29 | Inpatient (IN) | payer MEDICARE, BC, SELFPAY ==
[2019-12-18 19:39] VITALS: BMI 35.5
--- NOTE | 2019-12-18 19:54 | PC.NURSE ---
EKG done at 1952 and shown to ER doctor
--- NOTE | 2019-12-18 19:57 | XRR_ITS ---
PROCEDURE INFORMATION: Exam: XR Chest, 1 View Exam date and time: 12/18/2019 7:59 PM Age: 64 years old Clinical indication: Shortness of breath; Prior surgery; Surgery type: Cabg; Patient HX: PT C/O of SOB off and on for months TECHNIQUE: Imaging protocol: XR of the chest Views: 1 view. COMPARISON: CR XR chest 1V portable [id number] 11/27/2019 5:16 AM FINDINGS: Lungs: There is vascular congestion with cephalization of flow, interstitial edema and ground-glass opacities compatible with CHF. Nonspecific new right basilar consolidation is present, consistent with atelectasis, edema, or pneumonia. Pleural space: There is a small right pleural effusion blunting the left costophrenic angle. Heart/Mediastinum: The heart is enlarged. Sternotomy wires and mediastinal surgical clips are present, consistent with previous coronary arterial bypass grafting. Bones/joints: Old right rib fractures are noted. XR/XR chest 1V portable [id number] IMPRESSION: 1. There is vascular congestion with cephalization of flow, interstitial edema and ground-glass opacities compatible with CHF. 2. Nonspecific new right basilar consolidation is present, consistent with atelectasis, edema, or pneumonia.
--- NOTE | 2019-12-18 19:58 | ECG_ITS ---
Measurements Intervals [place] Rate: 82 P: 89 NE: 190 QRS: -33 QRSD: 149 T: 116 QT: 418 QTc: 489 SINUS RHYTHM LEFT AXIS DEVIATION [QRS AXIS < -30] LEFT BUNDLE BRANCH BLOCK [120+ ms QRS DURATION, 80+ ms Q/S IN V1/V2, 85+ ms R IN I/I/aVL/V5/V6] Compared to ECG 11/26/2019 18:21:40 Left-axis deviation now present Left bundle-branch block now present Myocardial infarct finding no longer present Intraventricular conduction delay no longer present Electronically Signed On 12-19-2019 16:22:03 [employer] PERSON by Allie Olmos M.D. [email or web address]
--- NOTE | 2019-12-18 20:00 | ED_ITS ---
Entered by Lilli Olson, acting as scribe for Araseli Almaraz MD, [facility] – [place] HPI - SOB/Dyspnea General: Chief Complaint: Shortness of Breath/Dyspnea Stated Complaint: SHORT OF BREAT, ABD PAIN Time Seen by Provider: 12/18/19 19:58 Source: patient Mode of arrival: EMS Limitations: no limitations History of Present Illness: HPI Narrative: 64 yo Female presents to ED with complaint of shortness of breath and abdominal pain. Pt states that she keeps losing blood and has been in and out of the hospital for the past couple of months. Pt states that they can't figure out where the blood is going and she is supposed to have another EGD. Pt states that she is having increased weakness and shortness of breath. Pt states she has been sick to her stomach several times this evening. Pt states that she is normally on 2 liters of oxygen at home. Pt states that she has been having black, tarry stools. MD elicited complaint: shortness of breath Onset (ago): month(s) Context: recent illness Timing: constant and progressively worsening Exacerbating factors: nothing Relieving factors: nothing Associated symptoms: Reports abdominal pain, nausea, orthopnea and vomiting; Deny chest pain, extremity pain, fever(s), palpitations, polydipsia or polyuria Treatment prior to arrival: oxygen Related Data: Home oxygen amount: 2 liters Review of Systems General: Reports: 10 or more systems reviewed and unremarkable except in HPI and below Const: Denies: fever, chills or body aches Eyes: Denies: change in vision, blurry vision or blind spots ENMT: Denies: throat pain, enlarged tonsils, painful swallowing, hoarseness, mouth pain or swelling of lips/tongue Card: Reports: shortness of breath on exertion and shortness of breath when lying down; Denies: chest pain, palpitations, irregular heart rhythm, edema or swelling of feet/ankles Resp: Reports: shortness of breath; Denies: productive cough or non-productive cough GI: Reports: abdominal pain, nausea, vomiting and black tarry stool : Denies: flank pain, difficulty urinating, painful urination, urinary frequency, urinary urgency or urinary hesitancy Musc: Denies: neck pain, back pain, extremity pain, extremity swelling or joint pain Skin/Breast: Denies: rash, itching or redness Neuro: Denies: headache, numbness in extremities or weakness in extremities Endo: Denies: excessive urination, excessive thirst or tired all the time PFSH ED PFSH: Statuses (acute, chronic, etc) shown below reflect problem list status as previously entered and may not be historically accurate Social History Smoking and tobacco status: former smoker Alcohol intake: never Lives independently: Yes Household members: none Current occupational status: retired History of recent travel: No Physical Exam Const: COMMON NORMALS: no apparent distress, average body habitus, oriented x3, no limitations, healthy appearing, alert and well nourished HENMT: COMMON NORMALS: normocephalic, head/scalp atraumatic and moist oral mucous membranes HEAD & SCALP: normocephalic and atraumatic Eye: COMMON NORMALS: PERRL, EOMs intact bilaterally, conjunctivae normal and no scleral icterus CONJUNCTIVA: Yes conjunctivae normal PUPIL: Yes PERRL Neck/C-Spine: COMMON NORMALS: full ROM, supple, no meningeal signs, no JVD and no carotid bruits Chest: COMMONS NORMALS: inspection of chest normal and palpation of chest normal Resp: COMMON NORMALS: normal respiratory effort, no retractions, no use of accessory muscles and percussion normal AUSCULTATION: crackles and rales PERCUSSION: percussion normal Cardio: COMMON NORMALS: no JVD, regular rate, regular rhythm, S1 normal heart sound, S2 normal heart sound, no gallops, no clicks, no murmurs, no rub and peripheral pulses 2+ throughout RATE: regular rate RHYTHM: regular rhythm HEART SOUNDS: S1 normal and S2 normal PERIPHERAL PULSES: pulses 2+ throughout GI: COMMON NORMALS: normal to inspection, nondistended, normoactive bowel sounds, soft to palpation, non-tender, no hepatosplenomegaly, no masses and no bruits PALPATION: Yes soft and Yes no hepatosplenomegaly : COMMON NORMALS: Yes no CVA tenderness BLADDER/KIDNEY EXAM: Yes no CVA tenderness Back/Pelvis: COMMON NORMALS: no CVA tenderness Extremity: COMMON NORMALS: normal to inspection, full ROM, normal capillary refill, no calf tenderness and no pedal edema Neuro: COMMON NORMALS: oriented x3 SENSORIUM/ORIENTATION: Yes alert MENINGEAL SIGNS: Yes no meningeal signs Skin: COMMON NORMALS: no rashes or lesions noted, no wounds, skin turgor normal, no jaundice, no petechiae and no mottling GENERAL SKIN EXAM: no rashes or lesions noted and turgor normal Course Consultations: Consultation #1: Dr. Simmons, hospitalist. He kindly accepted the patient to his service. Time: 22:50 Vital Signs: Vital signs: Vital Signs Pulse Rate 91 12/18/19 22:44 Respiratory Rate 16 12/18/19 22:44 Blood Pressure 150/71 12/18/19 22:44 Pulse Oximetry 94 12/18/19 22:44 MDM - SOB/Dyspnea MDM Narrative: Medical decision making narrative: 64-year-old female patient who presents to the emergency department with shortness of breath. Evaluation in the emergency department is consistent with CHF exacerbation. Chest x-ray also shows possible right lower lobe pneumonia. She is admitted to the med floor for further evaluation and management. Medical Records: Attestation: I reviewed the patient's medical records. Lab Data: Attestation: I reviewed the patient's lab results. Labs: Lab Results 12/18/19 12/18/19 12/18/19 Range/Units 19:30 19:30 19:30 WBC 8.4 (4.0-10.0) 10^3/ uL RBC 3.41 L (4.1-5.3) 10^6/u L Hgb 9.8 L (11.5-15.3) g/dL Hct 32.8 L (37.0-47.0) % MCV 96.2 (81-99) fL MCH 28.7 (28.0-34.0) pg MCHC 29.9 L (30.0-36.0) g/dL RDW 16.9 H (12.1-15.1) % Plt Count 322 (130-400) 10^3/c mm MPV 10.4 (7.4-10.4) fL Neut % (Auto) 83.2 % Lymph % (Auto) 8.4 % [place] % (Auto) 7.2 % Eos % (Auto) 0.4 % Baso % (Auto) 0.4 % Neut # (Auto) 7.0 (1.8-7.7) 10^3/u L Lymph # (Auto) 0.7 L (0.8-4.8) 10^3/u L [place] # (Auto) 0.6 (0.2-0.9) 10^3/u L Eos # (Auto) 0.0 (0.0-0.8) 10^3/u L Baso # (Auto) 0.0 (0.0-0.1) 10^3/u L Nucleated RBC % (a uto) 0 % Nucleated RBCs # 0.0 /100WBC Sodium 141 (136-145) mmol/L Potassium 4.5 (3.5-5.1) mmol/L Chloride 96 L (98-107) mmol/L Carbon Dioxide 31 H (22-29) mmol/L Anion Gap 18.5 (5-19) BUN 27 H (8-23) mg/dL Creatinine 1.3 H (0.5-0.9) mg/dL GFR Calculation 41.1 L (90-130) mL/min Glucose 122 H (74-106) mg/dL Calcium 9.8 (8.5-10.5) mg/dL Total Bilirubin 0.2 (0.15-1.2) mg/dL AST 18 (0-32) U/L ALT 15 (0-33) U/L Alkaline Phosphata se 109 H (35-105) IU/L Troponin T Baselin e 24 H (0-10) ng/mL Troponin T 120 Min [place] (0-10) ng/mL Delta Troponin T (0-10) ABS# NT-Pro-B Natriuret Pep (0-125) pg/mL Total Protein 7.6 (6.6-8.7) g/dL Albumin 4.1 (3.5-5.2) g/dL Globulin 3.5 (1.3-4.6) g/dL Lipase 46 (13-60) U/L Urine Color (Yellow) Urine Appearance (CLEAR) Urine pH (5-7) Ur Specific Gravit y (1.005-1.030) Urine Protein (Negative) Urine Glucose (UA) (Normal) Urine Ketones (Negative) Urine Occult Blood (Negative) Urine Nitrate (Negative) Urine Bilirubin (NEGATIVE) Urine Urobilinogen (Negative) mg/dL Ur Leukocyte Sherita ase (Negative) Urine RBC (0-2) /hpf Urine WBC (0-5) /hpf Ur Squamous Epith Cells (0-5) Urine Bacteria (NONE) 12/18/19 12/18/19 12/18/19 Range/Units 19:30 21:30 22:08 WBC (4.0-10.0) 10^3/ uL RBC (4.1-5.3) 10^6/u L Hgb (11.5-15.3) g/dL Hct (37.0-47.0) % MCV (81-99) fL MCH (28.0-34.0) pg MCHC (30.0-36.0) g/dL RDW (12.1-15.1) % Plt Count (130-400) 10^3/c mm MPV (7.4-10.4) fL Neut % (Auto) % Lymph % (Auto) % [place] % (Auto) % Eos % (Auto) % Baso % (Auto) % Neut # (Auto) (1.8-7.7) 10^3/u L Lymph # (Auto) (0.8-4.8) 10^3/u L [place] # (Auto) (0.2-0.9) 10^3/u L Eos # (Auto) (0.0-0.8) 10^3/u L Baso # (Auto) (0.0-0.1) 10^3/u L Nucleated RBC % (a uto) % Nucleated RBCs # /100WBC Sodium (136-145) mmol/L Potassium (3.5-5.1) mmol/L Chloride (98-107) mmol/L Carbon Dioxide (22-29) mmol/L Anion Gap (5-19) BUN (8-23) mg/dL Creatinine (0.5-0.9) mg/dL GFR Calculation (90-130) mL/min Glucose (74-106) mg/dL Calcium (8.5-10.5) mg/dL Total Bilirubin (0.15-1.2) mg/dL AST (0-32) U/L ALT (0-33) U/L Alkaline Phosphata se (35-105) IU/L Troponin T Baselin e (0-10) ng/mL Troponin T 120 Min [place] 21.30 H (0-10) ng/mL Delta Troponin T -2.70 L (0-10) ABS# NT-Pro-B Natriuret Pep 1013 H (0-125) pg/mL Total Protein (6.6-8.7) g/dL Albumin (3.5-5.2) g/dL Globulin (1.3-4.6) g/dL Lipase (13-60) U/L Urine Color Yellow (Yellow) Urine Appearance Clear (CLEAR) Urine pH 5 (5-7) Ur Specific Gravit y 1.010 (1.005-1.030) Urine Protein Neg (Negative) Urine Glucose (UA) Norm (Normal) Urine Ketones Negative (Negative) Urine Occult Blood Neg (Negative) Urine Nitrate Negative (Negative) Urine Bilirubin Neg (NEGATIVE) Urine Urobilinogen Norm (Negative) mg/dL Ur Leukocyte Sherita ase Negative (Negative) Urine RBC Rare (0-2) /hpf Urine WBC Rare (0-5) /hpf Ur Squamous Epith Cells 0-4 H (0-5) Urine Bacteria Trace (NONE) Imaging Data^: CXR: Radiologist's impression: [place] [address] XRay Report Signed Patient: Lyudmila Lopez #: [id number] : 1955[facility]#:[id number] Age/Sex: 64 / FADM Date: 12/18/19 [facility] Attending Dr: Ordering Provider/Ordering MD: Clyde Ramirez NP Date of Service: 12/18/19 Procedure(s): XR chest 1V portable [id number] Accession Number(s): [id number] Report Number: [id number] PROCEDURE INFORMATION: Exam: XR Chest, 1 View Exam date and time: 12/18/2019 7:59 PM Age: 64 years old Clinical indication: Shortness of breath; Prior surgery; Surgery type: Cabg; Patient HX: PT C/O of SOB off and on for months TECHNIQUE: Imaging protocol: XR of the chest Views: 1 view. COMPARISON: CR XR chest 1V portable [id number] 11/27/2019 5:16 AM FINDINGS: Lungs: There is vascular congestion with cephalization of flow, interstitial edema and ground-glass opacities compatible with CHF. Nonspecific new right basilar consolidation is present, consistent with atelectasis, edema, or pneumonia. Pleural space: There is a small right pleural effusion blunting the left costophrenic angle. Heart/Mediastinum: The heart is enlarged. Sternotomy wires and mediastinal surgical clips are present, consistent with previous coronary arterial bypass grafting. Bones/joints: Old right rib fractures are noted. XR/XR chest 1V portable [id number] IMPRESSION: 1. There is vascular congestion with cephalization of flow, interstitial edema and ground-glass opacities compatible with CHF. 2. Nonspecific new right basilar consolidation is present, consistent with atelectasis, edema, or pneumonia. Dictated By:Hawa Valentin Signed By:Noemí Valentin Date/Time:12/18/192047 DD/ 46 Discharge Plan Discharge Patient Disposition: Admitted As Inpatient Admit Provider: Joel Simmons Clinical Impression: Acute exacerbation of CHF (congestive heart failure), Right lower lobe pneumonia, Acute hyperkalemia Condition: Stable Coding Level of Care Code ED Parachute Inspector for Chg Fwd Exam Problem Focused The documentation recorded by the Wesley matute Carmen, accurately reflects the service I personally performed and the decisions made by Rufina zhang Adegoke I, MD, [facility] – [place] Dec 18, 2019 19:29
[2019-12-18 20:20] LABS: Basophils % 0.4 %; Eosinophils % 0.4 %; Hematocrit 32.8 % (37.0-47.0); Hemoglobin 9.8 g/dL (11.5-15.3); Lymphocytes # 0.7 10^3/uL (0.8-4.8); Lymphocytes % 8.4 %; Mean Corpuscular HGB Conc 29.9 g/dL (30.0-36.0); Mean Corpuscular Hemoglobin 28.7 pg (28.0-34.0); Mean Corpuscular Volume 96.2 fL (81-99); Mean Platelet Volume 10.4 fL (7.4-10.4); Monocytes # 0.6 10^3/uL (0.2-0.9); Monocytes % 7.2 %; Neutrophils % 83.2 %; Nucleated Red Blood Cells % 0 %; Platelet Count 322 10^3/cmm (130-400); Red Blood Count 3.41 10^6/uL (4.1-5.3); Red Cell Distribution Width 16.9 % (12.1-15.1); White Blood Count 8.4 10^3/uL (4.0-10.0)
[2019-12-18 20:25] LABS: Troponin(5th) Baseline 24 ng/mL (0-10)
[2019-12-18 20:40] LABS: Alanine Aminotransferase 15 U/L (0-33); Albumin Level 4.1 g/dL (3.5-5.2); Alkaline Phosphatase 109 IU/L (35-105); Anion Gap 18.5 (5-19); Aspartate Amino Transferase 18 U/L (0-32); Blood Urea Nitrogen 27 mg/dL (8-23); Calcium 9.8 mg/dL (8.5-10.5); Carbon Dioxide 31 mmol/L (22-29); Chloride 96 mmol/L (98-107); Globulin 3.5 g/dL (1.3-4.6); Glomerular Filtration Rate 41.1 mL/min (90-130); Glucose 122 mg/dL (74-106); Lipase 46 U/L (13-60); Potassium 4.5 mmol/L (3.5-5.1); Sodium 141 mmol/L (136-145); Total Bilirubin 0.2 mg/dL (0.15-1.2); Total Protein 7.6 g/dL (6.6-8.7)
[2019-12-18 21:48] VITALS: BP 157/73; PULSE 87; RESP 16; O2SAT 93
--- NOTE | 2019-12-18 21:58 | ECG_ITS ---
Measurements Intervals [place] Rate: 86 P: 91 CA: 192 QRS: -41 QRSD: 161 T: 110 QT: 427 QTc: 511 SINUS RHYTHM LEFT AXIS DEVIATION [QRS AXIS < -30] LEFT BUNDLE BRANCH BLOCK [120+ ms QRS DURATION, 80+ ms Q/S IN V1/V2, 85+ ms R IN I/aVL/V5/V6] Compared to ECG 11/26/2019 18:21:40 Left-axis deviation now present Left bundle-branch block now present Myocardial infarct finding no longer present Intraventricular conduction delay no longer present Electronically Signed On 12-19-2019 16:28:16 QUEEN PRODUCER by Allie Olmos M.D. [email or web address]
[2019-12-18 22:03] LABS: Bacteria Urine TRACE; Bilirubin Urine Neg (NEGATIVE); Blood Urine Neg (Negative); Glucose Urine UA Norm (Normal); Ketones Urine Negative (Negative); Leukocyte Esterase Urine Negative (Negative); Nitrate Urine Negative (Negative); Protein Urine Neg (Negative); RBC Urine RARE /hpf (0-2); Squamous Epithelial Cell Urine 0-4 (0-5); Urine Appearance Clear (CLEAR); Urine Color Yellow (Yellow); Urobilinogen Urine Norm (Negative); WBC Urine RARE /hpf (0-5); pH Urine 5 (5-7)
[2019-12-18 22:10] LABS: NT Pro B Type Natriuretic Pept 1013 pg/mL (0-125)
[2019-12-18 22:41] VITALS: RESP 16; O2SAT 93
[2019-12-18] MEDS: morphine 4 mg/mL SDV 1 mL IVP (22:41)
[2019-12-18] MEDS: ondansetron 2 mg/ML SDV 2 mL 4 MG IVP (22:42)
[2019-12-18 22:44] VITALS: BP 150/71; PULSE 91; RESP 16; O2SAT 94
--- NOTE | 2019-12-18 23:12 | P.HP_ITS ---
Providers/Chief Complaint Primary Care Provider: Jayden Garcia MD Chief Complaint: CHF;Right lower lobe pneumonia;hyperkalemia;CKD History of Present Illness Cher Lopez is a 64 year old female who has a history of atrial fibrillation, cardioversion in the past, preserved ejection fraction heart failure, COPD, GI bleed, not on chronic anticoagulation, multiple admissions in the past secondary to GI bleed and CHF exacerbation came in with chief complaint of shortness of breath. Patient is stating that she lives alone at home, and it is a day-to-day struggle to do daily activities, she is not very mobile, she is using a right leg prosthesis for ambulation, she has had multiple blood transfusions in the past for GI bleed, she is scheduled to get another EGD and colonoscopy by Dr. Hunt next month. And last 1 week she was feeling more short of breath, she started noticing that her left leg is more swollen, she increase Bumex dose of Bumex to 2 mg twice a day yesterday but she was not feeling well today, she thought she is having blood loss and anemia and decided to come to ER. Patient is stating that she watches her diet and sodium intake, she does not take ibuprofen or luws-iuh-ehgdyiy medications, she has not noticed any chest pain, she is suffering from orthopnea, PND, leg swelling, nausea, vomited twice, she is bringing up brownish sputum with cough which is different from her chronic cough, she has not noticed any fever at home, no recent flulike symptoms. Diagnostics in ER showed exacerbation of heart failure she was started on cefepime for concern of right lower lobe pneumonia, Her BNP has doubled from baseline currently it is 1000 No ischemic change on EKG, rhythm seems to be sinus, heart rate 88, blood pressure 135/70, saturating 98% on 3 L She is stating that she uses oxygen only on a as needed basis, she is not tolerant to CPAP machine Review of Systems Const: Reports: chills, body aches, change in weight, fatigue and malaise; Denies: fever Eyes: Denies: change in vision or blurry vision ENMT: Denies: throat pain Card: Reports: irregular heart rhythm, edema and swelling of feet/ankles; Denies: chest pain or palpitations Resp: Reports: shortness of breath, productive cough, change in phlegm color and chest congestion; Denies: wheezing GI: Reports: nausea and vomiting; Denies: abdominal pain : Denies: flank pain, difficulty urinating or urinary frequency Musc: Denies: neck pain or back pain Skin/Breast: Denies: rash Neuro: Denies: headache Psych: Reports: anxiety Endo: Denies: excessive urination Dwain/Lymph: Denies: easy bruising All/Imm: Denies: hives Medications/Allergies Allergies Allergy/AdvReac Type Severity Reaction Status Date / Time No Known Allergies Allergy Verified 12/04/19 13:46 PFSH Acute PFSH: Statuses (acute, chronic, etc) shown below reflect problem list status as previously entered and may not be historically accurate Medical History (Updated 12/18/19 @ 23:31 by Araseli Almaraz MD, [facility] [place]) Atrial fibrillation (Acute) CKD (chronic kidney disease) (Acute) COPD (chronic obstructive pulmonary disease) (Acute) Diabetes (Acute) Diastolic congestive heart failure (Acute) Gastritis (Acute) History of cardioversion (Acute) History of leg amputation (Acute) Right Morbid obesity (Acute) Nonerosive nonspecific gastritis (Acute) Peripheral vascular disease (Acute) Sessile colonic polyp (Acute) Sleep apnea (Acute) Supplemental oxygen dependent (Acute) Vulva cancer (Acute) Surgical History H/O esophagogastroduodenoscopy (Acute) 10/2019 History of cholecystectomy (Acute) Hx of BKA (Acute) Hx of CABG (Acute) S/P femoral-popliteal bypass surgery (Acute) Social History Smoking and tobacco status: former smoker Alcohol intake: never Lives independently: Yes Household members: none Current occupational status: retired History of recent travel: No Vitals/I&O/Wt Last Vital Signs Pulse 91 12/18/19 22:44 Resp 16 12/18/19 22:44 BP 150/71 12/18/19 22:44 Pulse Ox 94 12/18/19 22:44 Weight last 48 hrs Weight 93.894 kg Physical Exam Narrative: EXAM NARRATIVE: Obese female Seems very tired and lethargic Currently on 3 L oxygen saturating well with normal hemodynamics, heart rate sinus rhythm 88 S1, S2, not able to assess JVD, crackles bibasilar with rhonchi right greater than left no active respiratory distress Abdomen soft, distended, bloating positive, bowel sounds present Right BKA Left lower leg 2+ pitting edema No signs of ischemia gangrene ulcer of lower extremity Her mood seems to be sad and depressed Appropriate affect Data : 12/18/19 19:30 12/18/19 19:30 A&P Assessment and plan (1) Acute exacerbation of CHF (congestive heart failure): Status: Acute Qualifiers: Heart failure type: unspecified Qualified Code(s): I50.9 - Heart failure, unspecified Code(s): I50.9 - Heart failure, unspecified (2) Right lower lobe pneumonia: Status: Acute Qualifiers: Pneumonia type: due to unspecified organism Qualified Code(s): J18.9 - Pneumonia, unspecified organism Code(s): J18.9 - Pneumonia, unspecified organism (3) Sleep apnea: Status: Acute Code(s): G47.30 - Sleep apnea, unspecified (4) Diastolic congestive heart failure: Status: Acute Code(s): I50.30 - Unspecified diastolic (congestive) heart failure Additional A&P Information Exacerbation of diastolic congestive heart failure secondary to worsening of sleep apnea with possible underlying right lower lobe pneumonia She is noncompliant with CPAP She has been on Bumex 2 mg a day Her BNP has doubled from previous visit it is 1000 I would use Bumex 2 mg twice a day Cardiac diet Patient is still refusing CPAP Right lower lobe pneumonia Patient is describing increased sputum production, cough, brownish sputum production with nausea, chest x-ray is concerning with increased opacification of right lower lobe as compared to previous x-ray Patient has had multiple admissions in the past I would use hospital-acquired pneumonia regimen Levaquin and cefepime renally dosed for now however she is afebrile with normal white count Because of her structure lung abnormality due to COPD I would cover her with antipseudomonal coverage, she has never been positive for MRSA Chronic kidney disease No worsening of creatinine, it is at baseline Chronic anemia with GI blood loss Hemoglobin stable at the moment, she is off anticoagulation, scheduled for EGD colonoscopy next month Continue iron to help A. fib without active RVR Off anticoagulation, she is currently taking aspirin low-dose Continue diltiazem 120 mg daily Hypothyroidism: Continue levothyroxine 75 mcg Hypertension: Continue losartan DNR/DNI Okay with BiPAP Attestations Medical Necessity Statement*: In her stay to cross more than 2 midnight for right lower lobe pneumonia with after exacerbation of CHF Coding Level of Care Code Acute Roller Mill Tender for Chg Fwd Diagnoses Acute exacerbation of CHF (congestive heart failure) I50.9 Heart failure type: unspecified Right lower lobe pneumonia J18.9 Pneumonia type: due to unspecified organism Sleep apnea G47.30 Diastolic congestive heart failure I50.30
[2019-12-18 23:32] VITALS: BP 141/61; PULSE 90; RESP 18; O2SAT 91
[2019-12-18] MEDS: cefepime 2,000 MG in sodium chloride 0.9% (plus) 50 ML 100 MG IV (23:46)
[2019-12-18] MEDS: sodium polystyrene sulfonate 15 gm/60 mL Btl PO (23:47)
[2019-12-18] MEDS: FUROsemide 10 mg/mL SDV 4mL 40 MG IVP (23:47)
[2019-12-19] VITALS (13 sets, daily range): BP systolic 117–146; BP diastolic 61–74; PULSE 81–87; RESP 16–22; TEMP 36.4–36.9; O2SAT 92–98
[2019-12-19 00:49] LABS: Glucose Point of Care 305 mg/dL (70-110)
[2019-12-19] MEDS: dilTIAZem 30 mg Tablet PO ×4 (01:13→18:10)
--- NOTE | 2019-12-19 01:58 | ECG_ITS ---
Measurements Intervals [place] Rate: 82 P: 106 VA: 204 QRS: 13 QRSD: 130 T: -2 QT: 436 QTc: 510 SINUS RHYTHM ANTEROSEPTAL MYOCARDIAL INFARCTION [40+ ms Q WAVE IN V1-V4], OF INDETERMINATE AGE Compared to ECG 11/26/2019 18:21:40 Intraventricular conduction delay no longer present Myocardial infarct finding still present Electronically Signed On 12-19-2019 16:28:43 SOLDER SPRAYER by Allie Olmos M.D. [id number]
[2019-12-19] MEDS: HYDROcodone-acetaminophen 5-325 mg Tablet 1 TAB PO ×3 (02:35→19:56)
[2019-12-19] MEDS: ondansetron 4 MG Tablet PO (02:36)
[2019-12-19 02:39] LABS: Troponin 5 6HR 19.73 ng/L (0-10)
[2019-12-19 02:48] LABS: Troponin 5 6HR Delta -4.27 ng/L (0-12)
[2019-12-19] MEDS: ipratropium-albuterol 3 mL Neb INHALATION ×3 (05:06→20:08)
[2019-12-19] MEDS: levoFLOXacin 750 mg Tablet PO (05:55)
[2019-12-19 06:31] LABS: Glucose Point of Care 353 mg/dL (70-110)
[2019-12-19 06:34] LABS: Basophils % 0.1 %; Hematocrit 30.6 % (37.0-47.0); Hemoglobin 9.1 g/dL (11.5-15.3); Lymphocytes # 0.2 10^3/uL (0.8-4.8); Lymphocytes % 2.8 %; Mean Corpuscular HGB Conc 29.7 g/dL (30.0-36.0); Mean Corpuscular Hemoglobin 29.1 pg (28.0-34.0); Mean Corpuscular Volume 97.8 fL (81-99); Mean Platelet Volume 10.4 fL (7.4-10.4); Monocytes # 0.1 10^3/uL (0.2-0.9); Monocytes % 0.7 %; Neutrophils # 8.4 10^3/uL (1.8-7.7); Neutrophils % 95.8 %; Nucleated Red Blood Cells % 0 %; Platelet Count 285 10^3/cmm (130-400); Red Blood Count 3.13 10^6/uL (4.1-5.3); Red Cell Distribution Width 16.5 % (12.1-15.1); White Blood Count 8.7 10^3/uL (4.0-10.0)
[2019-12-19 07:05] LABS: Blood Urea Nitrogen 29 mg/dL (8-23); Calcium 9.4 mg/dL (8.5-10.5); Carbon Dioxide 31 mmol/L (22-29); Chloride 95 mmol/L (98-107); Glomerular Filtration Rate 45.1 mL/min (90-130); Glucose 369 mg/dL (74-106); Osmolality Calculated 296 mOsm/kg (285-295); Sodium 137 mmol/L (136-145)
[2019-12-19] MEDS: bumetanide 1 mg Tablet 2 MG PO ×2 (08:26→18:10)
[2019-12-19] MEDS: losartan 50 mg Tablet 25 MG PO (08:26)
[2019-12-19] MEDS: sertraline 50 mg Tablet PO (08:26)
[2019-12-19] MEDS: aspirin 81 mg EC Tablet PO (08:26)
[2019-12-19] MEDS: levothyroxine 150 mcg Tablet 75 MCG PO (08:27)
[2019-12-19] MEDS: cefepime 1,000 MG in sodium chloride 0.9% (plus) 50 ML 100 MG IV (12:06)
[2019-12-19 13:11] LABS: Glucose Point of Care 325 mg/dL (70-110)
--- NOTE | 2019-12-19 15:06 | PC.CHAP ---
Pastoral Care Encounter/Spiritual Assessment Type of Contact [] Declined warp dyeing tender visit [] Patient/Family/Request visit [] Outpatient visit [] Follow-up visit [] Physician referral [] Code/Alert [x] Routine visit [] Staff referral [] Actively dying [] Patient sleeping [] Family support [] [] Out of room [] Palliative care [] [] Receiving care in room [] Pre-surgical visit [] Trauma [] Long length of stay [] ICU visit [] Other: Relational/Emotional Strength [] Patient feels connected with others/family/visitors/staff [] Distress [] Loneliness/isolation [] Abandonment Spirituality of Patient [x] Person of Monse [] Attends Anabaptist of their Monse [x] Believes in Prayer [] Reads Bible or Buddhist materials [] There are Spiritual issues to be addressed Fire Claims Adjuster Interventions [x] Prayer [] Active listening [] Non-anxious presence [] Spiritual/emotional support [] Crisis/trauma care [] Spiritual counseling [] Bereavement support [] Provided bereavement packet [] Provided Bible/devotional materials [] Provided toy/stuffed animal, coloring book to patient or family member [] Provided Communion [] Anointing/[place] [] Salvation [] Completed spiritual assessment [] Other: Impact on Illness or Injury [] Angry [] Fearful [] Anxious [] Often cries [] Exhaustion [x] Unable to work [] Unable to attend baptism [] Unable to walk/stand [] Unable to read [] Unable to drive [] Unable to eat/drink [] Unable to sleep [] Unable to be with family [] Patient intubated [] Other: Summary Visited by Donny Moncada Time spent with patient 15 minutes
[2019-12-19 16:31] LABS: Glucose Point of Care 163 mg/dL (70-110)
--- NOTE | 2019-12-19 16:51 | P.PN_ITS ---
Subjective Subjective: Interval history: No new complaints. Patient sitting comfortably in bed. Wearing nasal cannula, no acute distress. Denies chest pain or dyspnea. Medications: Reviewed: Yes Vitals/I&O/Wt Last Vital Signs Temp 97.7 F 12/19/19 15:16 Pulse 85 12/19/19 15:16 Resp 18 12/19/19 15:16 BP 117/73 12/19/19 15:16 Pulse Ox 95 12/19/19 15:16 12/19/19 12/19/19 12/19/19 06:59 14:59 22:59 Intake Total 718 / 718 Output Total 200 / 200 2300 / 2300 Balance -200 / -200 -1582 / -1582 Weight last 48 hrs Weight 93.894 kg Physical Exam Narrative: EXAM NARRATIVE: GEN: Awake, alert and oriented, no acute distress CVS: S1S2 N RS: CTA B/L Abd: Soft, nt/nd , bs+ SURVEYING OR SPATIAL SCIENCE TECHNICIAN: no focal neuro deficits EXT: 2+ pitting edema Data : 12/19/19 06:14 12/19/19 06:14 Micro: Microbiology 12/18/19 21:30 Bacterial Antigens - Final Urine,Voided 12/19/19 01:47 Blood Culture - Preliminary Blood SPECIMEN COLLECTED 12/19/19 01:44 Blood Culture - Preliminary Blood SPECIMEN COLLECTED A&P Assessment and plan (1) Acute exacerbation of CHF (congestive heart failure): Status: Acute Qualifiers: Heart failure type: unspecified Qualified Code(s): I50.9 - Heart failure, unspecified Code(s): I50.9 - Heart failure, unspecified (2) Right lower lobe pneumonia: Status: Acute Qualifiers: Pneumonia type: due to unspecified organism Qualified Code(s): J18.9 - Pneumonia, unspecified organism Code(s): J18.9 - Pneumonia, unspecified organism (3) Sleep apnea: Status: Acute Code(s): G47.30 - Sleep apnea, unspecified (4) Diastolic congestive heart failure: Status: Acute Code(s): I50.30 - Unspecified diastolic (congestive) heart failure Additional A&P Information Exacerbation of diastolic congestive heart failure secondary to worsening of sleep apnea with possible underlying right lower lobe pneumonia She is noncompliant with CPAP due to claustrophobia. She has been on Bumex 2 mg a day Her BNP has doubled from previous visit it is 1000 Continue Bumex 2 mg twice a day Cardiac diet Patient is still refusing CPAP Right lower lobe pneumonia Patient is describing increased sputum production, cough, brownish sputum production with nausea, chest x-ray is concerning with increased opacification of right lower lobe as compared to previous x-ray Patient has had multiple admissions in the past Continue Levaquin and cefepime renally dosed for now Chronic kidney disease No worsening of creatinine, it is at baseline Chronic anemia with GI blood loss Hemoglobin stable at the moment, she is off anticoagulation, scheduled for EGD colonoscopy next month A. fib without active RVR Off anticoagulation, she is currently taking aspirin low-dose Continue diltiazem 30 mg every 6 hours Hypothyroidism: Continue levothyroxine 75 mcg Hypertension: Continue losartan DNR/DNI Okay with BiPAP Attestations Medical Necessity Statement*: Awaiting optimization of respiratory status after being admitted for CHF exacerbation and pneumonia. Coding Level of Care Code Acute Broke Worker for seamus Austin Diagnoses Acute exacerbation of CHF (congestive heart failure) I50.9 Heart failure type: unspecified Right lower lobe pneumonia J18.9 Pneumonia type: due to unspecified organism Sleep apnea G47.30 Diastolic congestive heart failure I50.30
[2019-12-19 20:34] LABS: Glucose Point of Care 228 mg/dL (70-110)
[2019-12-20] VITALS (8 sets, daily range): BP systolic 120–130; BP diastolic 54–68; PULSE 77–85; RESP 16–20; TEMP 36.2–36.9; O2SAT 93–96
[2019-12-20] MEDS: cefepime 1,000 MG in sodium chloride 0.9% (plus) 50 ML 100 MG IV ×2 (00:06→11:15)
[2019-12-20] MEDS: dilTIAZem 30 mg Tablet PO ×2 (00:12→06:36)
[2019-12-20] MEDS: HYDROcodone-acetaminophen 5-325 mg Tablet 1 TAB PO (03:48)
[2019-12-20 06:18] LABS: Basophils % 0.2 %; Eosinophils % 0.1 %; Hematocrit 29.3 % (37.0-47.0); Hemoglobin 8.8 g/dL (11.5-15.3); Lymphocytes # 0.9 10^3/uL (0.8-4.8); Lymphocytes % 9.9 %; Mean Corpuscular Hemoglobin 28.1 pg (28.0-34.0); Mean Corpuscular Volume 93.6 fL (81-99); Mean Platelet Volume 10.3 fL (7.4-10.4); Monocytes # 0.7 10^3/uL (0.2-0.9); Monocytes % 7.7 %; Neutrophils % 81.7 %; Nucleated Red Blood Cells % 0 %; Platelet Count 302 10^3/cmm (130-400); Red Blood Count 3.13 10^6/uL (4.1-5.3); Red Cell Distribution Width 16.7 % (12.1-15.1); White Blood Count 8.6 10^3/uL (4.0-10.0)
[2019-12-20] MEDS: levoFLOXacin 750 mg Tablet PO (06:36)
[2019-12-20 06:38] LABS: Glucose Point of Care 182 mg/dL (70-110)
[2019-12-20 06:39] LABS: Alanine Aminotransferase 14 U/L (0-33); Albumin Level 3.5 g/dL (3.5-5.2); Alkaline Phosphatase 84 IU/L (35-105); Anion Gap 16.4 (5-19); Aspartate Amino Transferase 15 U/L (0-32); Blood Urea Nitrogen 31 mg/dL (8-23); Carbon Dioxide 33 mmol/L (22-29); Chloride 95 mmol/L (98-107); Globulin 3.6 g/dL (1.3-4.6); Glomerular Filtration Rate 37.7 mL/min (90-130); Glucose 179 mg/dL (74-106); Potassium 4.4 mmol/L (3.5-5.1); Sodium 140 mmol/L (136-145); Total Bilirubin 0.3 mg/dL (0.15-1.2); Total Protein 7.1 g/dL (6.6-8.7)
[2019-12-20] MEDS: ipratropium-albuterol 3 mL Neb INHALATION (07:39)
[2019-12-20] MEDS: levothyroxine 150 mcg Tablet 75 MCG PO (07:56)
[2019-12-20] MEDS: sertraline 50 mg Tablet PO (08:00)
--- NOTE | 2019-12-20 09:46 | XRR_ITS ---
PROCEDURE INFORMATION: Exam: XR Chest, 1 View Exam date and time: 12/20/2019 9:49 AM Age: 64 years old Clinical indication: Cardiovascular condition or disease; Congestive heart failure (chf); Cause unknown; Prior surgery; Surgery date: 6+ months; Additional info: For further evaluation of pneumonia/chf TECHNIQUE: Imaging protocol: XR of the chest Views: 1 view. COMPARISON: CR (CHEST, ) 12/18/2019 8:05 PM FINDINGS: Lungs: There is mild improvement of pulmonary vascular congestion. Patchy bibasilar opacities appear stable to minimally improved. Pleural space: There is mild blunting of the costophrenic angles right greater than left. There is no discernible pneumothorax. Heart/Mediastinum: Post CABG changes are noted with median sternotomy. The heart remains enlarged and unchanged. Atherosclerotic calcifications are noted within the aortic arch. Bones/joints: Multiple remote right-sided rib fractures are again noted. XR/XR chest 1V portable [id number] IMPRESSION: 1. Stable to mild interval decrease of pulmonary vascular congestion and patchy bibasilar opacities. Differential considerations are unchanged. 2. Mild blunting of the costophrenic angles right greater than left appears stable to minimally improved.
--- NOTE | 2019-12-20 10:38 | PM.DCS ---
Discharge Providers Date of Admission: 12/18/19 22:55 Date of Discharge: Date of Discharge: December 20, 2019 Attending Provider at Admission: Joel Simmons MD Attending Provider at Discharge: Ottoniel Thakkar MD Primary Care Provider: Jayden Garcia MD Diagnoses at Discharge Discharge Diagnosis (1) Acute exacerbation of CHF (congestive heart failure): Status: Acute Problem details: Patient appears to have frequent acute exacerbations of diastolic CHF secondary to dietary noncompliance especially fluid intake. Qualifiers: Heart failure type: unspecified Qualified Code(s): I50.9 - Heart failure, unspecified (2) Right lower lobe pneumonia: Status: Acute Problem details: Cannot be completely ruled out. Qualifiers: Pneumonia type: due to unspecified organism Qualified Code(s): J18.9 - Pneumonia, unspecified organism (3) Sleep apnea: Status: Acute Problem details: Noncompliant with CPAP due to claustrophobia (4) Diastolic congestive heart failure: Status: Acute Reason for Visit Reason for Visit: Reason For Visit: CHF;Right lower lobe pneumonia;hyperkalemia;CKD Hospital Course Hospital Course: Patient presents with gradually worsening shortness of breath over the last several days and diagnosed with acute diastolic CHF exacerbation. There was some concern for right lower lobe pneumonia. Patient does report chronic off-and-on sometimes colored phlegm productive cough which she reports is unchanged for many years. Reports that she quit smoking 5 months ago and since then her cough is gradually improving but she still frequently has bouts of cough especially in the morning. She denies fever or chills. She does report drinking large amount of fluids and we had extensive discussion regarding importance of fluid restriction especially whenever she gets lower extremity swelling and shortness of breath. Patient has a right below-knee amputation. She has 2+ left lower extremity edema. She was diuresed and this morning reports feeling much better and strong enough to be dismissed home. She does not want to consider assisted living or nursing facility placement. She lives alone and has her friend's daughter visiting her at least once a week as well as home health nurse visiting. She feels comfortable and safe living at home. She was noted to have findings of goiter and she will discuss with her primary care physician to have further outpatient evaluation with ultrasound. We have also discussed regarding findings of mediastinal lymphadenopathy which possibly reactive but patient will discuss with primary care physician to have repeat imaging in 3 months for reevaluation. Patient had 3 coronary stents placed approximately 17 years ago and approximately 15 years ago she had two-vessel CABG. Reports that since then she has not been having any chest pains. She is now being followed by Dr. Olmos and reports that not that long ago she had stress test which was normal. Her recent echocardiogram shows normal EF. I will continue patient's Bumex but increase it to twice daily. Patient reports that she usually takes at home 1 tablet in the morning and second in the evening as needed. I think with fluid restriction compliance we can keep patient euvolemic. Will request repeat blood work prior to primary care physician follow-up. Chest x-ray was repeated this morning which shows improved bibasilar infiltrates per my interpretation. Given overall clinical improvement it felt safe for patient to be dismissed home. Patient will continue with insulin treatment and keep blood sugar and blood pressure log 3 times daily to present to primary care physician next visit for medication adjustment. Physical Exam Const: COMMON NORMALS: oriented x3 Resp: COMMON NORMALS: clear to auscultation bilaterally EFFORT & INSPECTION: Yes able to speak in complete sentences and No respiratory distress AUSCULTATION: clear to auscultation bilaterally and diminished lung sounds Cardio: COMMON NORMALS: regular rate, regular rhythm, S1 normal heart sound and S2 normal heart sound RATE: regular rate RHYTHM: regular rhythm HEART SOUNDS: S1 normal and S2 normal Extremity: NARRATIVE EXTREMITY EXAM: Right below-knee amputation. GENERAL: Yes edema (Left lower extremity) Neuro: COMMON NORMALS: oriented x3 and no focal motor deficits Discharge Data Data Completed and Pending: Completed Studies During Hospitalization Category Date Time Status XR chest 1V lisset ble [id number] Stat Exams 12/18/19 19:57 Completed Pending at discharge Category Date Time Status XR chest 1V lisset ble [id number] Urgent Exams 12/20/19 09:46 Ordered Blood Culture Sta t Lab 12/19/19 01:47 Results Sputum Culture an d Gram Stain Stat Lab 12/19/19 00:43 Uncollected Labs from last 24 hours 12/20/19 12/20/19 12/20/19 06:33 05:47 05:47 WBC 8.6 RBC 3.13 L Hgb 8.8 L Hct 29.3 L MCV 93.6 MCH 28.1 MCHC 30.0 RDW 16.7 H Plt Count 302 MPV 10.3 Neut % (Auto) 81.7 Lymph % (Auto) 9.9 Hawkins % (Auto) 7.7 Eos % (Auto) 0.1 Baso % (Auto) 0.2 Neut # (Auto) 7.0 Lymph # (Auto) 0.9 Hawkins # (Auto) 0.7 Eos # (Auto) 0.0 Baso # (Auto) 0.0 Nucleated RBC % (a uto) 0 Nucleated RBCs # 0.0 Sodium 140 Potassium 4.4 Chloride 95 L Carbon Dioxide 33 H Anion Gap 16.4 BUN 31 H Creatinine 1.4 H GFR Calculation 37.7 L Glucose 179 H POC Glucose 182 Calcium 10.0 Total Bilirubin 0.3 AST 15 ALT 14 Alkaline Phosphata se 84 Total Protein 7.1 Albumin 3.5 Globulin 3.6 12/19/19 12/19/19 12/19/19 20:26 16:10 11:07 WBC RBC Hgb Hct MCV MCH MCHC RDW Plt Count MPV Neut % (Auto) Lymph % (Auto) Hawkins % (Auto) Eos % (Auto) Baso % (Auto) Neut # (Auto) Lymph # (Auto) Hawkins # (Auto) Eos # (Auto) Baso # (Auto) Nucleated RBC % (a uto) Nucleated RBCs # Sodium Potassium Chloride Carbon Dioxide Anion Gap BUN Creatinine GFR Calculation Glucose POC Glucose 228 163 325 Calcium Total Bilirubin AST ALT Alkaline Phosphata se Total Protein Albumin Globulin Vitals: Last Vital Signs Temp 97.1 F L 12/20/19 08:00 Pulse 77 12/20/19 08:00 Resp 16 12/20/19 08:00 BP 128/58 12/20/19 08:00 Pulse Ox 93 12/20/19 08:00 Discharge Plan Discharge Patient Disposition: Home Health Service Condition: Stable Prescriptions: New bumetanide 1 mg Tablet 2 mg PO BID Qty: 60 RF: 0 levofloxacin 750 mg Tablet 750 mg PO DAILY@0600 Qty: 5 RF: 0 rosuvastatin 20 mg tablet 20 mg PO DAILY Qty: 20 RF: 0 Continued losartan 50 mg Tablet 50 mg PO DAILY RF: 0 hydrocodone-acetaminophen [[place]] 5-325 mg Tablet 1 tab PO Q4H PRN (Reason: Pain) RF: 0 aspirin [Aspir-81] 81 mg Tablet,Delayed Release (Dr/Ec) 81 mg PO DAILY RF: 0 levothyroxine 75 mcg Tablet 75 mcg PO DAILY RF: 0 isosorbide mononitrate 60 mg Tablet Extended Release 24 Hr 60 mg PO DAILY RF: 0 diltiazem HCl 120 mg Tablet 120 mg PO DAILY RF: 0 insulin aspart U-100 [Novolog U-100 Insulin aspart] 100 unit/mL Solution See Rx Instructions .ROUTE .COMPLEX RF: 0 pantoprazole [Protonix] 40 mg Tablet,Delayed Release (Dr/Ec) 40 mg PO BID RF: 0 magnesium 250 mg Tablet 1,000 mg PO DAILY RF: 0 albuterol sulfate [Ventolin HFA] 90 mcg/actuation Hfa Aerosol Inhaler 2 puff INHALATION Q4H PRN (Reason: Shortness Of Breath) RF: 0 sertraline 50 mg Tablet 50 mg PO DAILY RF: 0 cholecalciferol (vitamin D3) [Vitamin D3] 1,000 unit Capsule 1,000 unit PO DAILY RF: 0 fluticasone propionate [Flonase Allergy Relief] 50 mcg/actuation spray,suspension 1 spray INTRANASAL DAILY Qty: 15.8 RF: 0 Changed ferrous sulfate [iron] 325 mg (65 mg iron) Tablet 325 mg PO EVERY OTHER DAY Qty: 0 RF: 0 Discontinued torsemide 20 mg tablet 20 mg PO DAILY PRN (Reason: Increased Blood Pressure) RF: 0 bumetanide 2 mg Tablet 2 - 4 mg PO DAILY RF: 0 glimepiride 1 mg Tablet 1 mg PO DAILY RF: 0 pravastatin 20 mg Tablet 20 mg PO DAILY RF: 0 Discharge Orders: Discharge Order (Routine); Ordered 12/20/19 Ordered By: Ottoniel Thakkar Referrals: Jayden Garcia MD [Primary Care Provider] - 4-7 days (Please request CMP 1 day prior to primary care physician follow-up visit with results sent to him.) Discharge Diet: Diabetic Discharge Activity: Increase activity as tolerated Activity Restrictions/Additional Instructions: Please call your doctor or present to emergency department if your condition worsens or you develop diarrhea, lightheadedness, fatigue or see blood in your stool or black stool. Please keep blood sugar, blood pressure and heart rate log 3 times daily to present to primary care physician next visit for medication adjustment Discharge Attestations Time Spent in Discharge Care*: greater than 30 min Status at Discharge: Cognitive status at discharge: cognitively intact, Behavioral status at discharge: cooperative, Quality Metrics Clinical Quality Measures During this hospital stay, did patient experience: None Coding Level of Care Code Acute Rn Review for Chg Fwd Diagnoses Acute exacerbation of CHF (congestive heart failure) I50.9 Heart failure type: unspecified Right lower lobe pneumonia J18.9 Pneumonia type: due to unspecified organism Sleep apnea G47.30 Diastolic congestive heart failure I50.30
[2019-12-20 11:07] LABS: Glucose Point of Care 218 mg/dL (70-110)
[2019-12-20] MEDS: aspirin 81 mg EC Tablet PO (11:08)
[2019-12-20] MEDS: bumetanide 1 mg Tablet 2 MG PO (11:08)
[2019-12-20] MEDS: losartan 50 mg Tablet 25 MG PO (11:09)
== END 2019-12-20 13:35 | disposition home health service (06) | DRG 291 ==
LOC: ER 20:05 → MEDSURG 23:26
PROVIDERS: Nurse Practitioner Family; Student in an Organized Health Care Education/Training Program; Admitting Provider Internal Medicine; Emergency Provider Family Medicine; Family Provider Family Medicine; PCP Family Medicine; Visit Provider Internal Medicine
DX: I13.0 Hypertensive heart and chronic kidney disease with heart failure and stage 1 through stage 4 chronic kidney disease, or unspecified chronic kidney disease (principal); I50.31 Acute diastolic (congestive) heart failure; J18.9 Pneumonia, unspecified organism; K92.2 Gastrointestinal hemorrhage, unspecified; Z91.11 Patient's noncompliance with dietary regimen; Z91.19 Patient's noncompliance with other medical treatment and regimen; G47.30 Sleep apnea, unspecified; Z87.891 Personal history of nicotine dependence; F40.240 Claustrophobia; N18.9 Chronic kidney disease, unspecified; D64.9 Anemia, unspecified; I48.91 Unspecified atrial fibrillation; Z66 Do not resuscitate; E03.9 Hypothyroidism, unspecified; E87.5 Hyperkalemia; Z85.89 Personal history of malignant neoplasm of other organs and systems; E66.01 Morbid (severe) obesity due to excess calories; Z68.35 Body mass index [BMI] 35.0-35.9, adult; E11.22 Type 2 diabetes mellitus with diabetic chronic kidney disease; J44.9 Chronic obstructive pulmonary disease, unspecified; E11.51 Type 2 diabetes mellitus with diabetic peripheral angiopathy without gangrene; Z89.519 Acquired absence of unspecified leg below knee; Z79.82 Long term (current) use of aspirin; Z79.4 Long term (current) use of insulin; Z79.899 Other long term (current) drug therapy; Z95.1 Presence of aortocoronary bypass graft
CPT/HCPCS: 12345; 36415; 36416; 71045; 80048; 80053; 81001; 82962; 83690; 83880; 84484; 85025; 86403; 87040; 93005; 94640; 96372; 96374; 99283; A9270; J0692; J1815; J1940; J2270; J2405; Q0162

== ENCOUNTER 2019-12-29 08:21 | Day surgery (SDC) | payer MEDICARE, BC, SELFPAY ==
[2019-12-29 08:44] VITALS: BMI 35.5
[2019-12-29 09:04] VITALS: BP 142/63; PULSE 88; RESP 20; TEMP 37.3; O2SAT 96
[2019-12-29] MEDS: sodium chloride 0.9% 1,000 ML 30 ML (09:10)
[2019-12-29 09:15] LABS: Glucose Point of Care 135 mg/dL (70-110)
--- NOTE | 2019-12-29 10:31 | ANES.PREANE2 ---
Pre-Anesthetic Assessment Pre-Anesthetic Assessment: Height/Weight: Height 1.63 m Weight 93.894 kg Temp Pulse Resp BP Pulse Ox 99.2 F 88 20 H 142/63 96 12/29/19 09:04 12/29/19 09:04 12/29/19 09:04 12/29/19 09:04 12/29/19 09:04 Preop Diagnosis: Anemia Proposed Procedure: Operation Date: 12/29/19 10:30 Proposed Procedures p Colonoscopy 02097 K63.5(Not Applicable) - Tyrone Hunt MD Last intake: Intake Last Liquid Date 12/28/19 Last Liquid Time 23:59 Last Solid Date 12/27/19 Last Solid Time 12:00 Social: Social History: Tobacco Exam: Pre-Anes Outpt Exam: alert, oriented x 3, clear to auscultation bilaterally and regular rate & rhythm History/ROS: No significant history except as noted and No significant complaints Pulmonary: Pulmonary: COPD, Sleep apnea and SOB CV/HEM: CV/HEM: Arrythmia, CHF and HTN : : Chronic renal Insufficiency Hepatic: Hepatic: None reported GI: GI: GERD Metabolic: Metabolic: DM Musc/skel: Musc/skel: None reported Neuropsych: Neuropsych: Anxiety and Neuropathy Anesthetic Plan: ASA status: 3 Anesthesia: Anesthesia Evaluation and MAC Risk of > 500 ml blood loss (7ml/kg in children): No PFSH Anesthesia PFSH: Medical History (Updated 12/21/19 @ 00:00 by ) Atrial fibrillation CKD (chronic kidney disease) COPD (chronic obstructive pulmonary disease) Diabetes Diastolic congestive heart failure Gastritis History of cardioversion History of leg amputation Right Morbid obesity Nonerosive nonspecific gastritis Peripheral vascular disease Sessile colonic polyp Sleep apnea Noncompliant with CPAP due to claustrophobia Supplemental oxygen dependent Vulva cancer Surgical History H/O esophagogastroduodenoscopy 10/2019 History of cholecystectomy Hx of BKA Hx of CABG S/P femoral-popliteal bypass surgery Social History Smoking and tobacco status: former smoker Alcohol intake: never Lives independently: Yes Household members: none Current occupational status: retired History of recent travel: No Data Anesthesia Other Labs: Laboratory Results - last 48 hr 12/29/19 09:11 POC Glucose 135 Cardiac Studies: No Data to Display
--- NOTE | 2019-12-29 10:50 | SUR.PREOP ---
Clip placed at descending colon polyp bx site.
[2019-12-29 11:09] VITALS: BP 109/56; PULSE 70; RESP 16; TEMP 36.8; O2SAT 94
[2019-12-29 11:15] VITALS: BP 110/53; PULSE 77; RESP 18; O2SAT 90
--- NOTE | 2020-01-06 14:00 | W.PM.OPSUD ---
Surgery/Procedure H&P Update DATE OF PROCEDURE: December 29, 2019 DATE H&P PERFORMED: 12/04/19 H&P UPDATE INFORMATION: I have reviewed H&P completed within last 30 days, I have examined patient prior to procedure and No changes to prior documentation PREOP DIAGNOSIS: Anemia PLANNED PROCEDURE: Operation Date: 12/29/19 10:30 Proposed Procedures p Colonoscopy 51611 K63.5(Not Applicable) - Tyrone Hunt MD
== END 2019-12-29 11:46 | disposition home or self-care (01) ==
PROVIDERS: Family Provider Family Medicine; PCP Family Medicine; Visit Provider Surgery
PROC: 0DJD8ZZ Inspection of Lower Intestinal Tract, Via Natural or Artificial Opening Endoscopic (ICD-10-PCS; CPT 45378; principal; 2019-12-29 10:30)
DX: D64.9 Anemia, unspecified (principal); D12.4 Benign neoplasm of descending colon; D12.3 Benign neoplasm of transverse colon; K57.30 Diverticulosis of large intestine without perforation or abscess without bleeding; Z87.891 Personal history of nicotine dependence; Z82.49 Family history of ischemic heart disease and other diseases of the circulatory system; Z83.3 Family history of diabetes mellitus; I48.91 Unspecified atrial fibrillation; J44.9 Chronic obstructive pulmonary disease, unspecified; E66.01 Morbid (severe) obesity due to excess calories; Z68.35 Body mass index [BMI] 35.0-35.9, adult; G47.30 Sleep apnea, unspecified; E11.22 Type 2 diabetes mellitus with diabetic chronic kidney disease; I13.0 Hypertensive heart and chronic kidney disease with heart failure and stage 1 through stage 4 chronic kidney disease, or unspecified chronic kidney disease; N18.9 Chronic kidney disease, unspecified; I50.30 Unspecified diastolic (congestive) heart failure; E11.40 Type 2 diabetes mellitus with diabetic neuropathy, unspecified
CPT/HCPCS: 12345; 36416; 45380; 45385; 82962; 88305; J2704; J7030

== ENCOUNTER 2020-01-06 21:47 | Observation (INO) | payer MEDICARE, BC, SELFPAY ==
[2020-01-06] VITALS (9 sets, daily range): BP systolic 143; BP diastolic 56; PULSE 105–114; RESP 21–34; TEMP 37.1; O2SAT 94–99; BMI 35.5
--- NOTE | 2020-01-06 21:52 | ED_ITS ---
Entered by Jayna Lebron, acting as scribe for Caitlyn Jaime HPI - SOB/Dyspnea General: Chief Complaint: Shortness of Breath/Dyspnea Stated Complaint: SOB Time Seen by Provider: 01/06/20 21:53 Source: patient and EMS Mode of arrival: EMS History of Present Illness: HPI Narrative: 64 y/o female presents to the ED with SOB and difficulty breathing. Pt has hx of COPD. Pt is tripodding, upon exa m, and states she feels like she is filling up with fluid . MD elicited complaint: shortness of breath Pertinent past history: COPD Onset (ago): hour(s) Timing: progressively worsening Exacerbating factors: lying flat, movement, coughing, talking and deep breaths Associated symptoms: Deny abdominal pain, chest pain, diaphoresis, dizziness, extremity pain, fever(s), nausea, palpitations, polydipsia, syncope or vomiting Treatment prior to arrival: oxygen Review of Systems General: Reports: other (negative unless marked) Const: Denies: fever, chills, body aches, fatigue, malaise or diaphoresis Eyes: Denies: change in vision or blurry vision ENMT: Denies: throat pain, painful swallowing, hoarseness, ear pain, ear discharge, Change in hearing or nasal discharge Card: Denies: chest pain, palpitations, irregular heart rhythm, syncope or pre-syncope Resp: Reports: other (SEE HPI) GI: Denies: abdominal pain, nausea, vomiting, vomiting blood, coffee grounds in vomit, diarrhea, constipation, cramping, blood in stool or black tarry stool : Denies: flank pain, painful urination, urinary frequency, urinary urgency, decreased urine ouput, urinary incontinence or blood in urine Musc: Denies: neck pain, back pain, extremity pain, extremity swelling, joint pain, joint swelling, joint warmth or joint stiffness Skin/Breast: Denies: rash, skin tenderness or yellow skin Neuro: Denies: headache, numbness in extremities, weakness in extremities, changes in sensation, lack of coordination, difficulty walking, dizziness, verti go or confusion Endo: Denies: excessive thirst, tired all the time, cold intolerance, excessive sweating, flushing or hot flashes Dwain/Lymph: Denies: easy bruising, easy bleeding, petechiae or enlarged lymph nodes All/Imm: Denies: hives, throat swelling, tongue swelling, facial swelling or acute wheezing PFSH ED PFSH: Medical History Atrial fibrillation CKD (chronic kidney disease) COPD (chronic obstructive pulmonary disease) Diabetes Diastolic congestive heart failure Gastritis History of cardioversion History of leg amputation Right Morbid obesity Nonerosive nonspecific gastritis Peripheral vascular disease Sessile colonic polyp Sleep apnea Noncompliant with CPAP due to claustrophobia Supplemental oxygen dependent Vulva cancer Surgical History H/O esophagogastroduodenoscopy 10/2019 History of cholecystectomy Hx of BKA Hx of CABG S/P femoral-popliteal bypass surgery Status post colonoscopy with polypectomy 12/29/2019: Polyp hepatic flexure and sigmoid colon, moderate diverticulosis Family History Father CAD (coronary artery disease) Diabetes Sister Cancer Social History Smoking and tobacco status: former smoker Alcohol intake: never Lives independently: Yes Household members: none Current occupational status: retired History of recent travel: No Physical Exam Const: COMMON NORMALS: oriented x3 EXAM LIMITATIONS: no altered mental status GENERAL APPEARANCE: cooperative, well kempt and well developed ORIENTATION/CONSCIOUSNESS: Yes awake HENMT: COMMON NORMALS: normocephalic, head/scalp atraumatic, hearing grossly normal bilaterally, external ears normal, EAC's normal, external nose normal and moist oral mucous membranes HEAD & SCALP: normal to inspection, normocephalic and atraumatic FACE & SINUS: normal facial exam and face symmetric NOSE: external nose normal and nares normal EXTERNAL EAR: Yes external ears normal EXTERNAL AUDITORY CANAL: EAC's normal MOUTH: oral and palatal mucosa normal and tongue normal Eye: COMMON NORMALS: PERRL, EOMs intact bilaterally, conjunctivae normal and no scleral icterus GENERAL EYE: normal appearance of both eyes and normal light reflex CONJUNCTIVA: Yes conjunctivae normal SCLERA: sclerae normal CORNEA: Yes corneas normal PUPIL: Yes PERRL DIRECT OPHTHALMOSCOPY: Yes normal light reflex Neck/C-Spine: COMMON NORMALS: full ROM, no lymphadenopathy, supple, no meningeal signs and no JVD GENERAL: Yes normal visual inspection and Yes trachea midline CERVICAL SPINE: Yes cervical ROM normal Chest: COMMONS NORMALS: inspection of chest normal and palpation of chest normal Cardio: COMMON NORMALS: no JVD, regular rate, regular rhythm, S1 normal heart sound, S2 normal heart sound, no gallops, no clicks, no murmurs and no rub JUGULAR VENOUS DISTENTION: no JVD RATE: regular rate RHYTHM: regular rhythm HEART SOUNDS: S1 normal and S2 normal GI: COMMON NORMALS: soft to palpation, non-tender, no hepatosplenomegaly and no masses INSPECTION: Yes normal to inspection PALPATION: Yes soft and Yes no hepatosplenomegaly : COMMON NORMALS: Yes no CVA tenderness BLADDER/KIDNEY EXAM: Yes no CVA tenderness Back/Pelvis: COMMON NORMALS: no CVA tenderness, thoracic and lumbar spine normal to inspection, no thoracic nor lumbar tenderness and thoraco-lumbar ROM normal Extremity: COMMON NORMALS: normal to inspection, full ROM, normal capillary refill, no joint enlargement and no clubbing, cyanosis or edema Neuro: COMMON NORMALS: oriented x3, CN's II-XII intact bilaterally, moves all extremities, no focal motor deficits and no sensory deficits noted MENINGEAL SIGNS: Yes no meningeal signs Psych: COMMON NORMALS: mental status grossly normal, thought process normal, cooperative and affect normal APPEARANCE: Yes well kempt THOUGHT PROCESS: normal thought process Skin: COMMON NORMALS: no rashes or lesions noted, skin turgor normal, no jaundice, no petechiae and no mottling GENERAL SKIN EXAM: no rashes or lesions noted and turgor normal Course Vital Signs: Vital signs: Vital Signs Temperature 98.7 F 01/06/20 21:52 Pulse Rate 97 01/07/20 01:00 Respiratory Rate 23 H 01/07/20 01:00 Blood Pressure 157/70 01/07/20 01:00 Pulse Oximetry 95 01/07/20 01:00 MDM - SOB/Dyspnea MDM Narrative: Medical decision making narrative: Patient comes in in respiratory distress secondary to congestive heart failure. She has been treated for this and improved greatly on BiPAP. The case was reviewed with Dr. Mina and she is agreeable to admission. Lab Data: Labs: Lab Results 01/06/20 01/06/20 01/06/20 Range/Units 22:00 22:15 22:15 WBC 10.3 H (4.0-10.0) 10^3/ uL RBC 3.12 L (4.1-5.3) 10^6/u L Hgb 8.8 L (11.5-15.3) g/dL Hct 29.7 L (37.0-47.0) % MCV 95.2 (81-99) fL MCH 28.2 (28.0-34.0) pg MCHC 29.6 L (30.0-36.0) g/dL RDW 15.8 H (12.1-15.1) % Plt Count 276 (130-400) 10^3/c mm MPV 10.8 H (7.4-10.4) fL Neut % (Auto) 83.2 % Lymph % (Auto) 10.2 % Jay % (Auto) 5.9 % Eos % (Auto) 0.2 % Baso % (Auto) 0.2 % Neut # (Auto) 8.6 H (1.8-7.7) 10^3/u L Lymph # (Auto) 1.1 (0.8-4.8) 10^3/u L Jay # (Auto) 0.6 (0.2-0.9) 10^3/u L Eos # (Auto) 0.0 (0.0-0.8) 10^3/u L Baso # (Auto) 0.0 (0.0-0.1) 10^3/u L Nucleated RBC % (a uto) 0 % Nucleated RBCs # 0.0 /100WBC Specimen Type Sample Site ABG pH (7.35-7.45) ABG pCO2 (35-45) mmHg ABG pO2 (80.0-100.0) mmH g ABG HCO3 (22-26) mmol/L ABG Base Excess (-2.0-2.0) mmol/ L Milton Test Hematocrit (37-47) % O2 Delivery Device FiO2 % Instrument Repair Specialist ID Sodium 140 (136-145) mmol/L Potassium 4.3 (3.5-5.1) mmol/L Chloride 102 (98-107) mmol/L Carbon Dioxide 26 (22-29) mmol/L Anion Gap 16.3 (5-19) BUN 28 H (8-23) mg/dL Creatinine 1.3 H (0.5-0.9) mg/dL GFR Calculation 41.1 L (90-130) mL/min Glucose 346 H (65-115) mg/dL Calcium 9.2 (8.5-10.5) mg/dL Magnesium 2.0 (1.7-2.3) mg/dL Total Bilirubin 0.2 (0.15-1.2) mg/dL AST 13 (0-32) U/L ALT 9 (0-33) U/L Alkaline Phosphata se 98 (35-105) IU/L Troponin T Baselin e (0-10) ng/mL NT-Pro-B Natriuret Pep 555 H (0-125) pg/mL Total Protein 6.7 (6.6-8.7) g/dL Albumin 3.6 (3.5-5.2) g/dL Globulin 3.1 (1.3-4.6) g/dL Urine Color (Yellow) Urine Appearance (CLEAR) Urine pH (5-7) Ur Specific Gravit y (1.005-1.030) Urine Protein (Negative) Urine Glucose (UA) (Normal) Urine Ketones (Negative) Urine Blood (Negative) Urine Nitrate (Negative) Urine Bilirubin (NEGATIVE) Urine Urobilinogen (Negative) mg/dL Ur Leukocyte Sherita ase (Negative) Urine RBC (0-2) /hpf Urine WBC (0-5) /hpf Ur Squamous Epith Cells (0-5) Ur Transition Epit h Cell /hpf Urine Bacteria (NONE) Influenza Type A A g Negative (Negative) POC Influenza B Ag Negative (Negative) 01/06/20 01/06/20 01/06/20 Range/Units 22:15 22:19 22:50 WBC (4.0-10.0) 10^3/ uL RBC (4.1-5.3) 10^6/u L Hgb (11.5-15.3) g/dL Hct (37.0-47.0) % MCV (81-99) fL MCH (28.0-34.0) pg MCHC (30.0-36.0) g/dL RDW (12.1-15.1) % Plt Count (130-400) 10^3/c mm MPV (7.4-10.4) fL Neut % (Auto) % Lymph % (Auto) % Jay % (Auto) % Eos % (Auto) % Baso % (Auto) % Neut # (Auto) (1.8-7.7) 10^3/u L Lymph # (Auto) (0.8-4.8) 10^3/u L Jay # (Auto) (0.2-0.9) 10^3/u L Eos # (Auto) (0.0-0.8) 10^3/u L Baso # (Auto) (0.0-0.1) 10^3/u L Nucleated RBC % (a uto) % Nucleated RBCs # /100WBC Specimen Type Arterial Sample Site Brachial, left ABG pH 7.38 (7.35-7.45) ABG pCO2 46.9 H (35-45) mmHg ABG pO2 86.0 (80.0-100.0) mmH g ABG HCO3 27.5 H (22-26) mmol/L ABG Base Excess 1.9 (-2.0-2.0) mmol/ L Milton Test Pos Hematocrit 28.4 L (37-47) % O2 Delivery Device Bipap FiO2 30.0 % Instrument Repair Specialist ID [email or web address] Sodium (136-145) mmol/L Potassium (3.5-5.1) mmol/L Chloride (98-107) mmol/L Carbon Dioxide (22-29) mmol/L Anion Gap (5-19) BUN (8-23) mg/dL Creatinine (0.5-0.9) mg/dL GFR Calculation (90-130) mL/min Glucose (65-115) mg/dL Calcium (8.5-10.5) mg/dL Magnesium (1.7-2.3) mg/dL Total Bilirubin (0.15-1.2) mg/dL AST (0-32) U/L ALT (0-33) U/L Alkaline Phosphata se (35-105) IU/L Troponin T Baselin e 23 H (0-10) ng/mL NT-Pro-B Natriuret Pep (0-125) pg/mL Total Protein (6.6-8.7) g/dL Albumin (3.5-5.2) g/dL Globulin (1.3-4.6) g/dL Urine Color Yellow (Yellow) Urine Appearance Hazy A (CLEAR) Urine pH 5 (5-7) Ur Specific Gravit y 1.020 (1.005-1.030) Urine Protein Neg (Negative) Urine Glucose (UA) 2+ (Normal) Urine Ketones Negative (Negative) Urine Blood Neg (Negative) Urine Nitrate Negative (Negative) Urine Bilirubin Neg (NEGATIVE) Urine Urobilinogen Norm (Negative) mg/dL Ur Leukocyte Sherita ase Negative (Negative) Urine RBC 0-4 H (0-2) /hpf Urine WBC None (0-5) /hpf Ur Squamous Epith Cells 15-25 H (0-5) Ur Transition Epit h Cell 0-4 /hpf Urine Bacteria Trace (NONE) Influenza Type A A g (Negative) POC Influenza B Ag (Negative) Imaging Data^: CXR: My impression: Cardiomegaly with moderate pulmonary vascular congestion EKG Data^: EKG 1: Attestation: I personally reviewed and interpreted this EKG as follows: EKG Interpretation Date: 01/07/20 EKG interpretation time: 23:16 Interpretation: Normal sinus rhythm at 106 beats a minute, interventricular conduction delay, similar to previous, confirmed with Dr. Boss. Discharge Plan Discharge Patient Disposition: Admitted As Inpatient Admit Provider: Delaney Mina Clinical Impression: Acute respiratory failure with hypoxia, COPD (chronic obstructive pulmonary disease), Diastolic congestive heart failure Condition: Stable Coding Level of Care Code ED Sole Inker for Chg Fwd Exam Comprehensive The documentation recorded by the Bernardino matute Ashley, accurately reflects the service I personally performed and the decisions made by Yeni zhang Eli N Jan 06, 2020 21:47
--- NOTE | 2020-01-06 21:53 | XR_ITS ---
WS: [id number] XR chest 1V portable [id number] REASON FOR EXAM: cough FINDINGS: Today's exam when compared to December 20, 2019 shows increase pulmonary vascular congestion . The heart is enlarged similar to previous exam. There is again noted coronary bypass changes. There is evidence of previous fractures of the third fourth and fifth ribs on the right. There is no definite pneumonic consolidation. There is a small amount of bilateral pleural effusion. XR/XR chest 1V portable [id number] IMPRESSION: Slight increased congestive heart failure.
[2020-01-06] MEDS: ipratropium-albuterol 3 mL Neb 9 ML INHALATION (22:02)
[2020-01-06 22:26] LABS: Basophils % 0.2 %; Eosinophils % 0.2 %; Hematocrit 29.7 % (37.0-47.0); Hemoglobin 8.8 g/dL (11.5-15.3); Lymphocytes # 1.1 10^3/uL (0.8-4.8); Lymphocytes % 10.2 %; Mean Corpuscular HGB Conc 29.6 g/dL (30.0-36.0); Mean Corpuscular Hemoglobin 28.2 pg (28.0-34.0); Mean Corpuscular Volume 95.2 fL (81-99); Mean Platelet Volume 10.8 fL (7.4-10.4); Monocytes # 0.6 10^3/uL (0.2-0.9); Monocytes % 5.9 %; Neutrophils # 8.6 10^3/uL (1.8-7.7); Neutrophils % 83.2 %; Nucleated Red Blood Cells % 0 %; Platelet Count 276 10^3/cmm (130-400); Red Blood Count 3.12 10^6/uL (4.1-5.3); Red Cell Distribution Width 15.8 % (12.1-15.1); White Blood Count 10.3 10^3/uL (4.0-10.0)
[2020-01-06 22:31] LABS: ABG PCO2 46.9 mmHg (35-45); ABG PH Result 7.38 (7.35-7.45); Arterial Blood Gas Hematocrit 28.4 % (37-47); Base Excess ABG 1.9 mmol/L (-2.0-2.0); Blood Gas Allen Test Pos; Blood Gas Sample Site Brachial, left; Blood Gas Sample Type Arterial; HCO3 ABG 27.5 mmol/L (22-26); Oxygen Device BIPAP
[2020-01-06] MEDS: nitroglycerin 1 gm/inch oint Pkt 1 INCH TOPICAL (22:33)
[2020-01-06] MEDS: FUROsemide 10 mg/mL SDV 4mL 40 MG IVP (22:34)
[2020-01-06 22:47] LABS: Influenza A by IFA Negative (Negative)
[2020-01-06 22:48] LABS: Influenza B by IFA Negative (Negative)
[2020-01-06 22:51] LABS: Alanine Aminotransferase 9 U/L (0-33); Albumin Level 3.6 g/dL (3.5-5.2); Alkaline Phosphatase 98 IU/L (35-105); Anion Gap 16.3 (5-19); Aspartate Amino Transferase 13 U/L (0-32); Blood Urea Nitrogen 28 mg/dL (8-23); Calcium 9.2 mg/dL (8.5-10.5); Carbon Dioxide 26 mmol/L (22-29); Chloride 102 mmol/L (98-107); Globulin 3.1 g/dL (1.3-4.6); Glomerular Filtration Rate 41.1 mL/min (90-130); Glucose 346 mg/dL (65-115); NT Pro B Type Natriuretic Pept 555 pg/mL (0-125); Potassium 4.3 mmol/L (3.5-5.1); Sodium 140 mmol/L (136-145); Total Bilirubin 0.2 mg/dL (0.15-1.2); Total Protein 6.7 g/dL (6.6-8.7)
--- NOTE | 2020-01-06 22:54 | ECG_ITS ---
Measurements Intervals [place] Rate: 106 P: AR: 0 QRS: 133 QRSD: 157 T: 52 QT: 398 QTc: 529 Sinus rythm MARKED RIGHT AXIS DEVIATION [QRS AXIS > 100] INTRAVENTRICULAR CONDUCTION DELAY [130+ ms QRS DURATION] Compared to ECG 12/19/2019 04:15:27 There is no significant change Electronically Signed On 01-07-2020 19:04:03 MANAGER TESTING by Joel Lazo M.D. [id number]
[2020-01-06 23:24] LABS: Urine Appearance Hazy (CLEAR); Urine Color Yellow (Yellow); pH Urine 5 (5-7)
[2020-01-06 23:25] LABS: Bilirubin Urine Neg (NEGATIVE); Blood Urine Neg (Negative); Glucose Urine UA 2+ (Normal); Ketones Urine Negative (Negative); Leukocyte Esterase Urine Negative (Negative); Nitrate Urine Negative (Negative); Protein Urine Neg (Negative); Urobilinogen Urine Norm (Negative)
[2020-01-06 23:29] LABS: Troponin(5th) Baseline 23 ng/mL (0-10)
[2020-01-06 23:38] LABS: Add Urine Culture? No; Bacteria Urine TRACE; RBC Urine 0-4 /hpf (0-2); Squamous Epithelial Cell Urine 15-25 (0-5); Transitional Epi Cells Urine 0-4 /hpf
[2020-01-07] VITALS (24 sets, daily range): BP systolic 116–166; BP diastolic 44–87; PULSE 72–107; RESP 16–37; TEMP 36.6–36.8; O2SAT 93–98
[2020-01-07] MEDS: morphine 4 mg/mL SDV 1 mL IVP ×3 (00:21→17:53)
[2020-01-07 00:29] LABS: Lactate (Lactic Acid level) 2.5 mmol/L (0.5-2.2)
[2020-01-07 01:11] LABS: Troponin 5 2HR 24.16 ng/mL (0-10); Troponin 5 2HR Delta 1.16 ABS# (0-10)
[2020-01-07 01:48] LABS: Reflex Lactate Order REFLEX LACTIC ORDERD
--- NOTE | 2020-01-07 02:28 | P.HP_ITS ---
Providers/Chief Complaint Admitting Physician: Delaney Mina MD Primary Care Provider: Jayden Garcia MD Chief Complaint: SOB History of Present Illness Cher Lopez is a 64 year old female who has a history of atrial fibrillation, cardioversion in the past, preserved ejection fraction heart failure, COPD, GI bleed, not on chronic anticoagulation until restarted yesetrday by PCP on Eliquis, multiple admissions in the past secondary to GI bleed and CHF exacerbation came in with chief complaint of shortness of breath. Recently admitted here between 12/18-12/20 for shortness of breath and treated for CHF exacerbation and possible pneumonia. She was discharged with instructions for fluid restriction and to take bumex BID as a scheduled medication instead of taking evening dose as prn. Returns today with shortness of breath, with symptoms worsening over past 2 days. She has noticed increased LE swelling and abdominal distension over this same period. She was restarted yesterday on A/c with eliquis, however she tells me that she has been experiencing lien again over the past week. She recently had a colonoscopy as outpatient at which time 2 polyps were removed. Upon arrival to ER, she was noted to be tachypneic with RR 40s,, ABG 7.38/46.9/86/27.5 on BIPAP. Required BiPAP in the ER, now improved and transferred to CSU. Trop negative, BNP 500, improved over 1000 from previous admission, influenza negative, CXR B/L congestion, no gross infiltrates. Review of Systems General: Reports: 10 or more systems reviewed and unremarkable except in HPI and below Const: Denies: fever, chills or body aches Eyes: Denies: change in vision, blurry vision or photophobia ENMT: Reports: hoarseness; Denies: throat pain, enlarged tonsils, painful swallowing or nasal congestion Card: Denies: chest pain, palpitations, irregular heart rhythm, edema, swelling of feet/ankles, lightheadedness, pre-syncope, shortness of breath on exertion or shortness of breath when lying down Resp: Denies: shortness of breath, productive cough, non-productive cough, wheezing, stridor, pain on inspiration, change in phlegm color, coughing up blood or chest congestion GI: Denies: abdominal pain, nausea, vomiting, vomiting blood, coffee grounds in vomit, difficulty swallowing, heartburn/indigestion, diarrhea, constipation, cramping, change in stool character, blood in stool or black tarry stool : Denies: flank pain, difficulty urinating, painful urination, urinary frequency, urinary urgency, urinary hesitancy or blood in urine Musc: Denies: neck pain, back pain, extremity pain, joint swelling, joint warmth or deformity Neuro: Denies: headache, numbness in extremities, weakness in extremities, changes in sensation, difficulty walking, frequent falls, dizziness, vertigo, behavioral changes, slurred speech or seizure-like activity Psych: Denies: anxiety, depression, suicidal ideation or homicidal ideation Endo: Denies: excessive urination, excessive thirst, tired all the time, cold intolerance or hot flashes Dwain/Lymph: Denies: easy bruising or easy bleeding Medications/Allergies Allergies Allergy/AdvReac Type Severity Reaction Status Date / Time No Known Allergies Allergy Verified 12/19/19 06:34 PFSH Acute PFSH: Medical History Atrial fibrillation CKD (chronic kidney disease) COPD (chronic obstructive pulmonary disease) Diabetes Diastolic congestive heart failure Gastritis History of cardioversion History of leg amputation Right Morbid obesity Nonerosive nonspecific gastritis Peripheral vascular disease Sessile colonic polyp Sleep apnea Noncompliant with CPAP due to claustrophobia Supplemental oxygen dependent Vulva cancer Surgical History H/O esophagogastroduodenoscopy 10/2019 History of cholecystectomy Hx of BKA Hx of CABG S/P femoral-popliteal bypass surgery Status post colonoscopy with polypectomy 12/29/2019: Polyp hepatic flexure and sigmoid colon, moderate diverticulosis Family History Father CAD (coronary artery disease) Diabetes Sister Cancer Social History Smoking and tobacco status: former smoker Alcohol intake: never Lives independently: Yes Household members: none Current occupational status: retired History of recent travel: No Vitals/I&O/Wt Last Vital Signs Temp 98.7 F 01/06/20 21:52 Pulse 96 02/20/20 01:45 Resp 22 H 01/07/20 01:45 BP 128/61 01/07/20 01:45 Pulse Ox 96 01/07/20 01:45 Weight last 48 hrs Weight 93.894 kg Physical Exam Narrative: EXAM NARRATIVE: GEN: Awake, alert and oriented, no acute distress HEENT: Bipap mask in place CVS: S1S2 N RS: Crackles to auscultation B/L infraaxillary area Abd: Soft, distended , bs+ CLIENT RELATIONS REPRESENTATIVE: no focal neuro deficits EXT: 2+ pitting edema on remaining extremity. Data : 01/06/20 22:15 01/06/20 22:15 Micro: Microbiology 01/06/20 22:15 Blood Culture - Preliminary Blood SPECIMEN COLLECTED 01/06/20 22:08 Blood Culture - Preliminary Blood SPECIMEN COLLECTED A&P Assessment and plan (1) Sleep apnea: Status: Acute Code(s): G47.30 - Sleep apnea, unspecified (2) Morbid obesity: Status: Acute Code(s): E66.01 - Morbid (severe) obesity due to excess calories (3) Diabetes: Status: Acute Code(s): E11.9 - Type 2 diabetes mellitus without complications (4) Supplemental oxygen dependent: Status: Acute Code(s): Z99.81 - Dependence on supplemental oxygen (5) Diastolic congestive heart failure: Status: Acute Code(s): I50.30 - Unspecified diastolic (congestive) heart failure (6) COPD (chronic obstructive pulmonary disease): Status: Acute Code(s): J44.9 - Chronic obstructive pulmonary disease, unspecified (7) Atrial fibrillation: Status: Acute Code(s): I48.91 - Unspecified atrial fibrillation (8) Anemia: Status: Acute Code(s): D64.9 - Anemia, unspecified Additional A&P Information Admit to CSU for observation 1. Acute on chronic CHF exacerbation : continue Bumex 2mg BID, add lasix 40mg iv q12h. reports being most distressed about abdominal distension which she attributes to fluid US abd to assess for ascites volume, may benefit from paracentesis if large amount of fluid noted fluid restriction to continue 2. Acute on chronic COPD exacerbation possibly contributing as she has been complaint with diuretics and fluid restriction, BNP at 500 is lower than at previous admission. Trial of steroids to see if improves. Duonebs q4h Bipap prn Supplemental 02 to keep sat 90-92% 3. reports lien in a background of recurrent GI bleeding. Hb stable at 8.8 compared to recent admission. No bleeding source on recent colonoscopy Will hold eliquis for now, reports being restarted just yesterday by PCP 3. DM: insulin sliding scale 4. hypothyroidism : continue levothyroxine DVT ppx: on hold for now given possible lien Full code. This is in contrast to her code status on previous admissions. Attestations Medical Necessity Statement*: anticipate <2MN for optimization of fluid and respiratory status Coding Level of Care Code Acute Life Specialist for Chg Fwd Diagnoses Sleep apnea G47.30 Morbid obesity E66.01 Diabetes E11.9 Supplemental oxygen dependent Z99.81 Diastolic congestive heart failure I50.30 COPD (chronic obstructive pulmonary disease) J44.9 Atrial fibrillation I48.91 Anemia D64.9
--- NOTE | 2020-01-07 03:53 | PC.NURSE ---
PT ARRIVED VIA BED TO ROOM 111-2. PT TOLERATED THE TRANSFER WELL. PT IS A RIGHT BELOW THE KNEE AMPUTEE THAT HAS A PROSTHESES. PT TRANSFERRED WITH SBA TO [facility] [place]. PT C/O HAVING TO USE THE BATHROOM A LOT AND THEY JUST WANT TO SLEEP. PT IS IN A-FIB. V/S HR - 102, BP - 133/61, SPO2 - 99, RR - 22. PT C/O BEING SHORT OF BREATHE. O2 SATURATION IS 99% ON 4L VIA NC. WILL CONTINUE TO MONITOR.
--- NOTE | 2020-01-07 04:49 | PC.NURSE ---
PT REQUESTED A MUNSON CATHETER. DR AREVALO TOLD THIS NURSE TO GO AHEAD AND INSERT A MUNSON. FEMALE RN WAS BROUGHT ALONG WHILE MUNSON WAS BEING INSERTED. PT TOLERATED MUNSON INSERTION WELL. STERILE PROCEDURE WAS USED. BALLOON WAS FILLED WITH 10ML OF STERILE WATER. 300ML WAS RETURNED UPON INSERTION. STAT LOCK WAS PLACED ON LEFT INNER THIGH. WILL CONTINUE TO MONITOR.
--- NOTE | 2020-01-07 04:54 | ECG_ITS ---
Measurements Intervals [place] Rate: 93 P: MD: 0 QRS: -34 QRSD: 162 T: 106 QT: 448 QTc: 559 SINUS RHYTHM WITH 2ND DEGREE AV BLOCK, MOBITZ TYPE II MARKED LEFT AXIS DEVIATION [QRS AXIS < -30] LEFT BUNDLE BRANCH BLOCK [120+ ms QRS DURATION, 80+ ms Q/S IN V1/V2, 85+ ms R IN I/aVL/V5/V6] Compared to ECG 12/19/2019 04:15:27 Left-axis deviation now present Left bundle-branch block now present Myocardial infarct finding no longer present Electronically Signed On 01-07-2020 19:09:31 PAD EXTRACTION TENDER by Joel Lazo M.D. [id number]
--- NOTE | 2020-01-07 05:02 | US_ITS ---
WS: [id number] US abdomen lmt fluid [id number] REASON FOR EXAM: evaluate ascites FINDINGS: All 4 quadrants the abdomen were evaluated for ascites. No definite ascites is seen. The liver appears to be enlarged with fatty infiltration. US/US abdomen lmt fluid [id number] IMPRESSION: No definite ascites.
[2020-01-07 05:46] LABS: Basophils % 0.1 %; Hematocrit 28.7 % (37.0-47.0); Hemoglobin 8.6 g/dL (11.5-15.3); Lymphocytes # 0.3 10^3/uL (0.8-4.8); Lymphocytes % 2.6 %; Mean Corpuscular Hemoglobin 28.3 pg (28.0-34.0); Mean Corpuscular Volume 94.4 fL (81-99); Mean Platelet Volume 11.2 fL (7.4-10.4); Monocytes # 0.1 10^3/uL (0.2-0.9); Neutrophils # 11.2 10^3/uL (1.8-7.7); Neutrophils % 95.7 %; Nucleated Red Blood Cells % 0 %; Platelet Count 301 10^3/cmm (130-400); Red Blood Count 3.04 10^6/uL (4.1-5.3); Red Cell Distribution Width 15.8 % (12.1-15.1); White Blood Count 11.7 10^3/uL (4.0-10.0)
[2020-01-07 06:11] LABS: Anion Gap 19.3 (5-19); Blood Urea Nitrogen 25 mg/dL (8-23); Calcium 9.1 mg/dL (8.5-10.5); Carbon Dioxide 26 mmol/L (22-29); Chloride 98 mmol/L (98-107); Glomerular Filtration Rate 37.7 mL/min (90-130); Glucose 445 mg/dL (65-115); Osmolality Calculated 302 mOsm/kg (285-295); Potassium 5.3 mmol/L (3.5-5.1); Sodium 138 mmol/L (136-145); Troponin 5 6HR 19.22 ng/mL (0-10)
[2020-01-07] MEDS: FUROsemide 10 mg/mL SDV 4mL 40 MG IVP ×2 (06:14→17:53)
[2020-01-07 06:20] LABS: Troponin 5 6HR Delta -3.78 ng/L (0-12)
[2020-01-07 06:44] LABS: Glucose Point of Care 430 mg/dL (70-110)
[2020-01-07] MEDS: ipratropium-albuterol 3 mL Neb INHALATION ×3 (07:04→21:40)
[2020-01-07 07:45] LABS: Glucose Point of Care 425 mg/dL (70-110)
--- NOTE | 2020-01-07 07:57 | P.PN_ITS ---
Subjective Subjective: Interval history: Chart reviewed, patient known to me from previous admissions. Patient seen and examined, resting in bed, no apparent distress, feels a little better, has diuresed very well, already has had 2700 mL output today. Abdominal ultrasound is negative for ascites. Medications: Reviewed: Yes Medication Review Details: Active Medications Generic Name Dose Route Start Last Admin Trade Name Freq PRN Reason Stop Dose Admin Acetaminophen 650 mg 01/07/20 04:55 Tylenol PO Q6H PRN Mild/Mod Pain Or Temp >/= 101 Hydrocodone Bitart /Acetaminophen 1 tab 01/07/20 04:59 [place] 5-325 Mg PO Q4H PRN Pain Albuterol/Ipratrop ium 3 ml 01/07/20 04:58 01/07/20 07:04 Duoneb INHALATION 3 ml Q4H.RESPIRATORY P RN Administration SHORTNESS OF [place]OV[place] TH Aspirin 81 mg 01/07/20 09:00 Aspirin Ec PO DAILY [facility] Atorvastatin Calci um 80 mg 01/07/20 09:00 Lipitor PO DAILY [facility] Bumetanide 2 mg 01/07/20 09:00 Bumex PO BID SANTIAGO Dextrose 25 ml 01/07/20 04:55 D50w IVP ONCE PRN hypoglycemia prot ocol Protocol Dextrose 50 ml 01/07/20 04:55 D50w IVP PRN PRN hypoglycemia prot ocol Protocol Diltiazem HCl 120 mg 01/07/20 09:00 Cardizem PO DAILY SANTIAGO Furosemide 40 mg 01/07/20 05:15 01/07/20 06:14 Lasix IVP 40 mg Q12H SANTIAGO Administration Glucagon 1 mg 01/07/20 04:55 Glucagen IM ONCE PRN Adult Acute Hypog lycemia Prot. Protocol Dextrose 500 mls @ 100 mls /hr 01/07/20 04:55 D5w IV ONCE PRN Adult Acute Hypog lycemia Prot Protocol Insulin Aspart 0 unit 01/07/20 08:00 Novolog SUBCUT WM&BEDTIME SANTIAGO Protocol Isosorbide Mononit rate 60 mg 01/07/20 09:00 Imdur PO DAILY [facility] Levothyroxine Sodi um 75 mcg 01/07/20 09:00 Synthroid PO DAILY [facility] Losartan Potassium 50 mg 01/07/20 09:00 Cozaar PO DAILY [facility] Methylprednisolone Sodium Succinate 60 mg 01/07/20 05:00 01/07/20 06:13 Solu-Medrol IVP 60 mg Q8H SANTIAGO Administration Morphine Sulfate 4 mg 01/07/20 02:04 Morphine IVP Q4H PRN SEVERE PAIN Ondansetron HCl 4 mg 01/07/20 02:04 Zofran IVP Q6H PRN NAUSEA AND VOMITI NG Pantoprazole Sodiu m 40 mg 01/07/20 09:00 Protonix PO BID SANTIAGO Sertraline HCl 50 mg 01/07/20 09:00 Zoloft PO DAILY SANTIAGO No Known Allergies Allergy (Verified 12/19/19 06:34) Vitals/I&O/Wt Last Vital Signs Temp 98.0 F 01/07/20 07:53 Pulse 95 01/07/20 07:53 Resp 24 H 01/07/20 07:53 BP 140/63 01/07/20 07:53 Pulse Ox 98 01/07/20 07:53 01/06/20 01/07/20 01/07/20 22:59 06:59 14:59 Output Total 300 / 300 Balance -300 / -300 Weight last 48 hrs Weight 93.894 kg Physical Exam Const: COMMON NORMALS: no apparent distress and oriented x3 GENERAL APPEARANCE: cooperative and comfortable ORIENTATION/CONSCIOUSNESS: Yes awake HENMT: COMMON NORMALS: normocephalic, head/scalp atraumatic, hearing grossly normal bilaterally and moist oral mucous membranes HEAD & SCALP: normocephalic, atraumatic and other (Alopecia) Eye: COMMON NORMALS: PERRL, EOMs intact bilaterally and conjunctivae normal CONJUNCTIVA: Yes conjunctivae normal PUPIL: Yes PERRL Neck/C-Spine: COMMON NORMALS: full ROM GENERAL: Yes normal visual inspection and Yes trachea midline Resp: COMMON NORMALS: normal respiratory effort, no retractions and no use of accessory muscles EFFORT & INSPECTION: Yes able to speak in complete sentences, Yes symmetric chest movement and No tachypneic AUSCULTATION: crackles Cardio: COMMON NORMALS: regular rate, regular rhythm, S1 normal heart sound, S2 normal heart sound and no murmurs RATE: regular rate RHYTHM: regular rhythm HEART SOUNDS: S1 normal and S2 normal GI: COMMON NORMALS: soft to palpation and non-tender INSPECTION: No abdominal wall edema, Yes abdominal distension and Yes central obesity PALPATION: Yes soft : BLADDER/KIDNEY EXAM: Yes catheter in place Catheter type (Female): urethral Extremity: COMMON NORMALS: normal to inspection, full ROM and no clubbing, cyanosis or edema; negative for no pedal edema OTHER: -s/p R BKA Neuro: COMMON NORMALS: oriented x3, moves all extremities, no focal motor deficits and no sensory deficits noted GAIT: Yes assistive device used (Prosthetic on right lower extremity) Psych: COMMON NORMALS: mental status grossly normal, thought process normal, cooperative, affect normal and speech normal SPEECH: Yes normal speech THOUGHT PROCESS: normal thought process Skin: COMMON NORMALS: no rashes or lesions noted, no jaundice, no petechiae and no mottling GENERAL SKIN EXAM: no rashes or lesions noted Urinary Catheter Management^: Molina: Cath Placed During This Visit: yes Urethral Indwelling: Yes Reason for Continuing Indwelling Catheter: Other (Acute measurement of urine output with aggressive IV diuresis) Urinary Catheter Date of Insertion: 01/07/20 Urinary Catheter Time of Insertion: 04:58 Data : 01/07/20 05:03 01/07/20 05:03 Micro: Microbiology 01/06/20 22:15 Blood Culture - Preliminary Blood SPECIMEN COLLECTED 01/06/20 22:08 Blood Culture - Preliminary Blood SPECIMEN COLLECTED A&P Assessment and plan (1) Diastolic congestive heart failure: -Acute exacerbation of chronic HFpEF -continue on IV diuresis with Lasix and oral Bumex -fluid restriction if suboptimal diuresis -daily weights, monitor Is & Os -CXR: Slight CHF -BNP-555 -had recent Echo (11/2019): EF=55%, G1DD, mild LVH, mild diffuse hypokinesia of LV, trace MR -monitor renal function and lytes with diuresis -telemetry monitoring -VSS: continue to monitor -supplemental oxygen, BiPAP as needed -noted abdominal distention; US negative for ascites Status: Acute Qualifiers: Heart failure chronicity: acute on chronic Qualified Code(s): I50.33 - Acute on chronic diastolic (congestive) heart failure Code(s): I50.30 - Unspecified diastolic (congestive) heart failure (2) COPD (chronic obstructive pulmonary disease): -COPD, not oxygen dependent at baseline; -ABG noted, minimal hypercapnia, no hypoxia -off BiPAP, supplemental oxygen as needed -continue to monitor respiratory status -IV steroids, Neb treatments -CXR: slight CHF -noted mild leukocytosis, afebrile Status: Acute Qualifiers: COPD type: COPD with acute exacerbation Qualified Code(s): J44.1 - Chronic obstructive pulmonary disease with (acute) exacerbation Code(s): J44.9 - Chronic obstructive pulmonary disease, unspecified (3) Atrial fibrillation: -Chronic atrial fibrillation s/p cardioversion -just resumed on AC with Eliquis -telemetry monitoring -VSS; continue to monitor; was initially mildly tachycardic now rate controlled -continue Diltiazem -hold Eliquis due to melena and anemia Status: Chronic Qualifiers: Atrial fibrillation type: unspecified chronic Qualified Code(s): I48.20 - Chronic atrial fibrillation, unspecified Code(s): I48.91 - Unspecified atrial fibrillation (4) Anemia: -Chronic normocytic anemia; baseline Hg 9. Had recent GI workup with unremarkable EGD, colonoscopy showing 2 sessile polyps (one in hepatic flexure, 1 in descending colon, both removed) and severe diverticulosis of sigmoid colon. 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 Accuchecks, anticipate hyperglycemia with steroid use; ISS, add meal time and long acting insulin for better BG control -SHELBIE; non-compliant with CPAP -Chronic smoker; quit several months ago -CKD stage 3; baseline Cr 1-1.5; renal function at baseline -Subclinical hypothyroidism; noted to have goiter, outpatient f/u -hx of vulvar cancer s/p resection and subsequent RLE lymphedema following lymph node resection -continue meds as ordered -fall precautions -cardiac diet as tolerated -GI ppx with PPI -DVT ppx with SCDs, no AC due to bleeding risk -Dispo: home, has services -Code status: FULL code Attestations Medical Necessity Statement*: Patient requires hospitalization for continued management of acute CHF exacerbation, on IV diuretics as well as treatment of acute COPD exacerbation. Time Spent in Patient Care: Greater than 35 minutes (>than 50% of time spent in counselling and/or direct pt care on unit) . Coding Level of Care Code Acute Inside Polisher for g Fwd Exam Comprehensive Diagnoses Diastolic congestive heart failure I50.33 Heart failure chronicity: acute on chronic COPD (chronic obstructive pulmonary disease) J44.1 COPD type: COPD with acute exacerbation Atrial fibrillation I48.20 Atrial fibrillation type: unspecified chronic Anemia D64.9 Anemia type: unspecified type
[2020-01-07] MEDS: HYDROcodone-acetaminophen 5-325 mg Tablet 1 TAB PO (08:05)
[2020-01-07] MEDS: bumetanide 1 mg Tablet 2 MG PO ×2 (08:06→17:54)
[2020-01-07] MEDS: losartan 50 mg Tablet PO (08:06)
[2020-01-07] MEDS: aspirin 81 mg EC Tablet PO (08:06)
[2020-01-07] MEDS: sertraline 50 mg Tablet PO (08:06)
[2020-01-07] MEDS: isosorbide mononitrate ER 60 mg Tablet PO (08:06)
[2020-01-07] MEDS: atorvastatin 40 mg Tablet 80 MG PO (08:07)
[2020-01-07] MEDS: levothyroxine 150 mcg Tablet 75 MCG PO (08:07)
[2020-01-07] MEDS: dilTIAZem 60 mg Tablet 120 MG PO (08:08)
[2020-01-07] MEDS: pantoprazole DR 40 mg Tablet PO ×2 (08:08→17:54)
[2020-01-07 09:32] LABS: Lactic Acid level (Lactate) 3.5 mmol/L (0.5-2.2)
[2020-01-07 11:41] LABS: Glucose Point of Care 420 mg/dL (70-110)
[2020-01-07 17:21] LABS: Glucose Point of Care 367 mg/dL (70-110)
[2020-01-07] MEDS: insulin glargine 100 units/1 mL 20 UNIT SUBCUT (21:49)
[2020-01-07 21:51] LABS: Glucose Point of Care 220 mg/dL (70-110)
[2020-01-08] VITALS (10 sets, daily range): BP systolic 118–133; BP diastolic 58–87; PULSE 88–123; RESP 15–22; TEMP 36.8–36.9; O2SAT 90–94
[2020-01-08 04:12] LABS: Basophils % 0.1 %; Hematocrit 28.5 % (37.0-47.0); Hemoglobin 8.8 g/dL (11.5-15.3); Lymphocytes # 0.4 10^3/uL (0.8-4.8); Lymphocytes % 2.8 %; Mean Corpuscular HGB Conc 30.9 g/dL (30.0-36.0); Mean Corpuscular Hemoglobin 28.3 pg (28.0-34.0); Mean Corpuscular Volume 91.6 fL (81-99); Mean Platelet Volume 11.1 fL (7.4-10.4); Monocytes # 0.3 10^3/uL (0.2-0.9); Monocytes % 2.5 %; Neutrophils # 11.9 10^3/uL (1.8-7.7); Neutrophils % 94.2 %; Nucleated Red Blood Cells % 0 %; Platelet Count 325 10^3/cmm (130-400); Red Blood Count 3.11 10^6/uL (4.1-5.3); Red Cell Distribution Width 15.8 % (12.1-15.1); White Blood Count 12.6 10^3/uL (4.0-10.0)
[2020-01-08] MEDS: FUROsemide 10 mg/mL SDV 4mL 40 MG IVP (04:19)
[2020-01-08 04:24] LABS: Anion Gap 17.4 (5-19); Blood Urea Nitrogen 32 mg/dL (8-23); Calcium 9.7 mg/dL (8.5-10.5); Carbon Dioxide 29 mmol/L (22-29); Chloride 95 mmol/L (98-107); Glomerular Filtration Rate 49.8 mL/min (90-130); Glucose 318 mg/dL (65-115); Osmolality Calculated 293 mOsm/kg (285-295); Potassium 4.4 mmol/L (3.5-5.1); Sodium 137 mmol/L (136-145)
[2020-01-08 06:42] LABS: Glucose Point of Care 385 mg/dL (70-110)
[2020-01-08] MEDS: ipratropium-albuterol 3 mL Neb INHALATION ×2 (07:18→11:47)
--- NOTE | 2020-01-08 08:01 | PM.PN ---
Subjective Subjective: Interval history: Continues to diurese well, had 3150 mL urine output overnight. VSS. Patient seen and examined, feels a lot better today and would actually like to go home. Has about 2000 mL in Molina catheter during my bedside rounds, will discontinue this. Has HH services at home, daughter will be coming to check on her later today and she has additional family close by. Abdominal distention resolved. She feels comfortable going home today. Medications: Reviewed: Yes Medication Review Details: Active Medications Generic Name Dose Route Start Last Admin Trade Name Freq PRN Reason Stop Dose Admin Acetaminophen 650 mg 01/07/20 04:55 Tylenol PO Q6H PRN Mild/Mod Pain Or Temp >/= 101 Hydrocodone Bitart /Acetaminophen 1 tab 01/07/20 04:59 01/07/20 08:05 [place] 5-325 Mg PO 1 tab Q4H PRN Administration Pain Albuterol/Ipratrop ium 3 ml 01/07/20 04:58 01/08/20 07:18 Duoneb INHALATION 3 ml Q4H.RESPIRATORY P RN Administration SHORTNESS OF [place] TH Aspirin 81 mg 01/07/20 09:00 01/07/20 08:06 Aspirin Ec PO 81 mg DAILY SANTIAGO Administration Atorvastatin Calci um 80 mg 01/07/20 09:00 01/07/20 08:07 Lipitor PO 80 mg DAILY SANTIAGO Administration Bumetanide 2 mg 01/07/20 09:00 01/07/20 17:54 Bumex PO 2 mg BID SANTIAGO Administration Dextrose 25 ml 01/07/20 04:55 D50w IVP ONCE PRN hypoglycemia prot ocol Protocol Dextrose 50 ml 01/07/20 04:55 D50w IVP PRN PRN hypoglycemia prot ocol Protocol Diltiazem HCl 120 mg 01/07/20 09:00 01/07/20 08:08 Cardizem PO 120 mg DAILY SANTIAGO Administration Furosemide 40 mg 01/07/20 05:15 01/08/20 04:19 Lasix IVP 40 mg Q12H SANTIAGO Administration Glucagon 1 mg 01/07/20 04:55 Glucagen IM ONCE PRN Adult Acute Hypog lycemia Prot. Protocol Dextrose 500 mls @ 100 mls /hr 01/07/20 04:55 D5w IV ONCE PRN Adult Acute Hypog lycemia Prot Protocol Insulin Aspart 0 unit 01/07/20 08:00 01/07/20 21:48 Novolog SUBCUT 6 unit WM&BEDTIME SANTIAGO Administration Protocol Insulin Aspart 10 unit 01/07/20 11:00 01/08/20 06:30 Novolog SUBCUT 10 unit TIDAC SANTIAGO Administration Insulin Glargine 20 unit 01/07/20 21:00 01/07/20 21:49 Lantus SUBCUT 20 unit BEDTIME SANTIAGO Administration Isosorbide Mononit rate 60 mg 01/07/20 09:00 01/07/20 08:06 Imdur PO 60 mg DAILY SANTIAGO Administration Levothyroxine Sodi um 75 mcg 01/07/20 09:00 01/07/20 08:07 Synthroid PO 75 mcg DAILY SANTIAGO Administration Losartan Potassium 50 mg 01/07/20 09:00 01/07/20 08:06 Cozaar PO 50 mg DAILY SANTIAGO Administration Morphine Sulfate 4 mg 01/07/20 02:04 01/07/20 17:53 Morphine IVP 4 mg Q4H PRN Administration SEVERE PAIN Ondansetron HCl 4 mg 01/07/20 02:04 Zofran IVP Q6H PRN NAUSEA AND VOMITI NG Pantoprazole Sodiu m 40 mg 01/07/20 09:00 01/07/20 17:54 Protonix PO 40 mg BID SANTIAGO Administration Prednisone 40 mg 01/08/20 09:00 Prednisone PO DAILY SANTIAGO Sertraline HCl 50 mg 01/07/20 09:00 01/07/20 08:06 Zoloft PO 50 mg DAILY SANTIAGO Administration No Known Allergies Allergy (Verified 12/19/19 06:34) Vitals/I&O/Wt Last Vital Signs Temp 98.2 F 01/08/20 04:00 Pulse 123 H 01/08/20 07:55 Resp 22 H 01/08/20 07:55 BP 118/58 01/08/20 07:55 Pulse Ox 93 01/08/20 07:55 01/07/20 01/08/20 01/08/20 22:59 06:59 14:59 Intake Total 240 / 720 100 / 820 Output Total 2000 / 4400 1150 / 5550 Balance -1760 / -3680 -1050 / -4730 Weight last 48 hrs Weight 94.256 kg Weight 93.894 kg Physical Exam Const: COMMON NORMALS: no apparent distress and oriented x3 GENERAL APPEARANCE: cooperative and comfortable ORIENTATION/CONSCIOUSNESS: Yes awake HENMT: COMMON NORMALS: normocephalic, head/scalp atraumatic, hearing grossly normal bilaterally and moist oral mucous membranes HEAD & SCALP: normocephalic, atraumatic and other (Alopecia) Eye: COMMON NORMALS: PERRL, EOMs intact bilaterally and conjunctivae normal CONJUNCTIVA: Yes conjunctivae normal PUPIL: Yes PERRL Neck/C-Spine: COMMON NORMALS: full ROM GENERAL: Yes normal visual inspection and Yes trachea midline Resp: COMMON NORMALS: normal respiratory effort, no retractions and no use of accessory muscles EFFORT & INSPECTION: Yes able to speak in complete sentences, Yes symmetric chest movement and No tachypneic AUSCULTATION: crackles Cardio: COMMON NORMALS: S1 normal heart sound, S2 normal heart sound and no murmurs RATE: tachycardic RHYTHM: abnormal rhythm irregularly irregular HEART SOUNDS: S1 normal and S2 normal GI: COMMON NORMALS: soft to palpation and non-tender INSPECTION: Yes abdominal distension and Yes central obesity PALPATION: Yes soft : BLADDER/KIDNEY EXAM: Yes catheter in place Catheter type (Female): urethral Extremity: COMMON NORMALS: normal to inspection, full ROM and no clubbing, cyanosis or edema; negative for no pedal edema OTHER: -s/p R BKA Neuro: COMMON NORMALS: oriented x3, moves all extremities, no focal motor deficits and no sensory deficits noted GAIT: Yes assistive device used (Prosthetic on right lower extremity) Psych: COMMON NORMALS: mental status grossly normal, thought process normal, cooperative, affect normal and speech normal SPEECH: Yes normal speech THOUGHT PROCESS: normal thought process Skin: COMMON NORMALS: no rashes or lesions noted, no jaundice, no petechiae and no mottling GENERAL SKIN EXAM: no rashes or lesions noted Urinary Catheter Management^: Molina: Cath Placed During This Visit: yes Urethral Indwelling: Yes Reason for Continuing Indwelling Catheter: Other Urinary Catheter Date of Insertion: 01/07/20 Urinary Catheter Time of Insertion: 04:58 Data : 01/08/20 03:15 01/08/20 03:15 Micro: Microbiology 01/06/20 22:15 Blood Culture - Preliminary Blood NEGATIVE TO DATE 01/06/20 22:08 Blood Culture - Preliminary Blood NEGATIVE TO DATE A&P Assessment and plan (1) Diastolic congestive heart failure: -Acute exacerbation of chronic HFpEF -continue on IV diuresis with Lasix and oral Bumex -fluid restriction if suboptimal diuresis -daily weights, monitor Is & Os -CXR: Slight CHF -BNP-555 -had recent Echo (11/2019): EF=55%, G1DD, mild LVH, mild diffuse hypokinesia of LV, trace MR -continue to monitor renal function and lytes with diuresis -telemetry monitoring -VSS: continue to monitor -supplemental oxygen, BiPAP as needed -noted abdominal distention; US negative for ascites Status: Acute Qualifiers: Heart failure chronicity: acute on chronic Qualified Code(s): I50.33 - Acute on chronic diastolic (congestive) heart failure Code(s): I50.30 - Unspecified diastolic (congestive) heart failure (2) COPD (chronic obstructive pulmonary disease): -COPD, oxygen dependent at baseline; 2 L requirement -ABG noted, minimal hypercapnia, no hypoxia -off BiPAP, supplemental oxygen as needed -continue to monitor respiratory status -IV steroids, Neb treatments; will switch to oral steroids -CXR: slight CHF -noted mild leukocytosis, afebrile Status: Acute Qualifiers: COPD type: COPD with acute exacerbation Qualified Code(s): J44.1 - Chronic obstructive pulmonary disease with (acute) exacerbation Code(s): J44.9 - Chronic obstructive pulmonary disease, unspecified (3) Atrial fibrillation: -Chronic atrial fibrillation s/p cardioversion -just resumed on AC with Eliquis -telemetry monitoring -VSS; continue to monitor; was initially mildly tachycardic now rate controlled -continue Diltiazem; will increase dose to 180 mg daily to allow for better HR control -hold Eliquis due to melena and anemia Status: Chronic Qualifiers: Atrial fibrillation type: unspecified chronic Qualified Code(s): I48.20 - Chronic atrial fibrillation, unspecified Code(s): I48.91 - Unspecified atrial fibrillation (4) Anemia: -Chronic normocytic anemia; baseline Hg 9. Had recent GI workup with unremarkable EGD, colonoscopy showing 2 sessile polyps (one in hepatic flexure, 1 in descending colon, both removed) and severe diverticulosis of sigmoid colon. Pathology shows tubular adenoma with low grade dysplasia -continue to monitor H/H; stable -transfuse if needed -hold AC Status: Chronic Qualifiers: Anemia type: unspecified type Qualified Code(s): D64.9 - Anemia, unspecified Code(s): D64.9 - Anemia, unspecified Additional A&P Information -Morbid obesity: BMI-36 kg/m2 -HTN -CAD s/p CABG -PVD s/p R fem-pop bypass -IDDM type II; s/p RLE BKA secondary to non-healing wound; last A1c-8.5. Accuchecks, anticipate hyperglycemia with steroid use; ISS, added meal time and long acting insulin for better BG control -SHELBIE; non-compliant with CPAP -Chronic smoker; quit several months ago -CKD stage 3; baseline Cr 1-1.5; renal function at baseline -Subclinical hypothyroidism; noted to have goiter, outpatient f/u -hx of vulvar cancer s/p resection and subsequent RLE lymphedema following lymph node resection -continue meds as ordered -fall precautions -cardiac diet as tolerated -GI ppx with PPI -DVT ppx with SCDs, no AC due to bleeding risk -Dispo: home, [place] [place] -Code status: FULL code Attestations Medical Necessity Statement*: Discharge this afternoon. Time Spent in Patient Care: Greater than 35 minutes (>than 50% of time spent in counselling and/or direct pt care on unit). Coding Level of Care Code Acute Marketing Co Op for g Fwd Exam Comprehensive Diagnoses Diastolic congestive heart failure I50.33 Heart failure chronicity: acute on chronic COPD (chronic obstructive pulmonary disease) J44.1 COPD type: COPD with acute exacerbation Atrial fibrillation I48.20 Atrial fibrillation type: unspecified chronic Anemia D64.9 Anemia type: unspecified type
[2020-01-08] MEDS: bumetanide 1 mg Tablet 2 MG PO (09:39)
[2020-01-08] MEDS: levothyroxine 150 mcg Tablet 75 MCG PO (09:40)
[2020-01-08] MEDS: losartan 50 mg Tablet PO (09:40)
[2020-01-08] MEDS: predniSONE 20 mg Tablet 40 MG PO (09:40)
[2020-01-08] MEDS: atorvastatin 40 mg Tablet 80 MG PO (09:40)
[2020-01-08] MEDS: aspirin 81 mg EC Tablet PO (09:40)
[2020-01-08] MEDS: sertraline 50 mg Tablet PO (09:40)
[2020-01-08] MEDS: pantoprazole DR 40 mg Tablet PO (09:40)
[2020-01-08] MEDS: dilTIAZem 60 mg Tablet 120 MG PO (09:40)
[2020-01-08] MEDS: isosorbide mononitrate ER 60 mg Tablet PO (09:40)
--- NOTE | 2020-01-08 10:13 | PC.CHAP ---
Pastoral Care Encounter/Spiritual Assessment Type of Contact [] Declined analytical engineer visit [] Patient/Family/Request visit [] Outpatient visit [] Follow-up visit [] Physician referral [] Code/Alert [x] Routine visit [] Staff referral [] Actively dying [] Patient sleeping [] Family support [] [] Out of room [] Palliative care [] [] Receiving care in room [] Pre-surgical visit [] Trauma [] Long length of stay [] ICU visit [x] Other: friend support Relational/Emotional Strength [] Patient feels connected with others/family/visitors/staff [] Distress [] Loneliness/isolation [] Abandonment Spirituality of Patient [x] Person of Monse [] Attends Mormonism of their Monse [x] Believes in Prayer [] Reads Bible or Sikhism materials [] There are Spiritual issues to be addressed Gis Specialist Interventions []x Prayer [] Active listening [] Non-anxious presence [] Spiritual/emotional support [] Crisis/trauma care [] Spiritual counseling [] Bereavement support [] Provided bereavement packet [] Provided Bible/devotional materials [] Provided toy/stuffed animal, coloring book to patient or family member [] Provided Communion [] Anointing/[place] [] Salvation [x] Completed spiritual assessment [] Other: Impact on Illness or Injury [] Angry [] Fearful [] Anxious [] Often cries [] Exhaustion [] Unable to work [] Unable to attend roman catholic [] Unable to walk/stand [] Unable to read [] Unable to drive [] Unable to eat/drink [] Unable to sleep [] Unable to be with family [] Patient intubated [] Other: Summary Patient, a wonderful woman of monse. Patient in the past months has had sever issues. Time spent with patient 15min
[2020-01-08 12:00] LABS: Glucose Point of Care 316 mg/dL (70-110)
--- NOTE | 2020-01-08 12:16 | PC.RESP ---
Patient given information on Pulmonary Rehab.
--- NOTE | 2020-01-08 13:47 | P.DS_ITS ---
Discharge Providers Date of Admission: 01/07/20 02:04 Date of Discharge: January 08, 2020 Attending Provider at Admission: Delaney Mina MD Attending Provider at Discharge: Genesis Edge MD Primary Care Provider: Jayden Garcia MD Diagnoses at Discharge Discharge Diagnosis (1) Diastolic congestive heart failure: Status: Acute Problem details: -Acute exacerbation of chronic HFpEF -continue on IV diuresis with Lasix and oral Bumex -fluid restriction if suboptimal diuresis -daily weights, monitor Is & Os -CXR: Slight CHF -BNP-555 -had recent Echo (11/2019): EF=55%, G1DD, mild LVH, mild diffuse hypokinesia of LV, trace MR -continue to monitor renal function and lytes with diuresis -telemetry monitoring -VSS: continue to monitor -supplemental oxygen, BiPAP as needed -noted abdominal distention; US negative for ascites Qualifiers: Heart failure chronicity: acute on chronic Qualified Code(s): I50.33 - Acute on chronic diastolic (congestive) heart failure (2) COPD (chronic obstructive pulmonary disease): Status: Acute Problem details: -COPD, oxygen dependent at baseline; 2 L requirement -ABG noted, minimal hypercapnia, no hypoxia -off BiPAP, supplemental oxygen as needed -continue to monitor respiratory status -IV steroids, Neb treatments; will switch to oral steroids -CXR: slight CHF -noted mild leukocytosis, afebrile Qualifiers: COPD type: COPD with acute exacerbation Qualified Code(s): J44.1 - Chronic obstructive pulmonary disease with (acute) exacerbation (3) Atrial fibrillation: Status: Chronic Problem details: -Chronic atrial fibrillation s/p cardioversion -just resumed on AC with Eliquis -telemetry monitoring -VSS; continue to monitor; was initially mildly tachycardic now rate controlled -continue Diltiazem; will increase dose to 180 mg daily to allow for better HR control -hold Eliquis due to melena and anemia Qualifiers: Atrial fibrillation type: unspecified chronic Qualified Code(s): I48.20 - Chronic atrial fibrillation, unspecified (4) Anemia: Status: Chronic Problem details: -Chronic normocytic anemia; baseline Hg 9. Had recent GI workup with unremarkable EGD, colonoscopy showing 2 sessile polyps (one in hepatic flexure, 1 in descending colon, both removed) and severe diverticulosis of sigmoid colon. 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 Accuchecks, anticipate hyperglycemia with steroid use; ISS, added meal time and long acting insulin for better BG control -SHELBIE; non-compliant with CPAP -Chronic smoker; quit several months ago -CKD stage 3; baseline Cr 1-1.5; renal function at baseline -Subclinical hypothyroidism; noted to have goiter, outpatient f/u -hx of vulvar cancer s/p resection and subsequent RLE lymphedema following lymph node resection Reason for Visit Reason for Visit: Reason For Visit: SOB Hospital Course Hospital Course: Patient was admitted to cardiac step down unit and started on aggressive oral and IV diuresis. Because of this, she had Molina catheter placed for accurate Is & Os. She has diuresed very well as evidenced by no further need for BiPAP, weaning down oxygen requirement to her baseline, resolution of abdominal distention, improved respiration, total loss of approximately 5 L. She has been hemodynamically stable but noted to have some intermittent tachycardia so I have increased her dose of Cardizem from 120 to 180 mg daily for improved heart rate control. She was treated with empiric steroids as well secondary to COPD exacerbation though I think her symptoms were more related to CHF exacerbation. As such I will not be continuing her steroids on discharge. Molina catheter has been discontinued prior to discharge. She is to continue home health services provided through [facility] [place]. No further changes have been made to her medication regimen on discharge. She is to follow-up with her primary care physician within 1 week. She is to continue to follow-up with cardiology. Due to her history of anemia and melanotic stool we held anticoagulation, she was previously on Eliquis. She should continue to hold off on any anticoagulation on discharge. She has had a GI work-up as noted above. Due to her presentation of abdominal distention she had an ultrasound done to evaluate for ascites which was negative. Distention has resolved with diuresis. Discharge Summary: -Patient to follow-up with primary care physician within 1 week Physical Exam Const: COMMON NORMALS: no apparent distress and oriented x3 GENERAL APPEARANCE: cooperative and comfortable ORIENTATION/CONSCIOUSNESS: Yes awake HENMT: COMMON NORMALS: normocephalic, head/scalp atraumatic, hearing grossly normal bilaterally and moist oral mucous membranes HEAD & SCALP: normocephalic, atraumatic and other (Alopecia) Eye: COMMON NORMALS: PERRL, EOMs intact bilaterally and conjunctivae normal CONJUNCTIVA: Yes conjunctivae normal PUPIL: Yes PERRL Neck/C-Spine: COMMON NORMALS: full ROM GENERAL: Yes normal visual inspection and Yes trachea midline Resp: COMMON NORMALS: normal respiratory effort, no retractions and no use of accessory muscles EFFORT & INSPECTION: Yes able to speak in complete sentences, Yes symmetric chest movement and No tachypneic AUSCULTATION: crackles Cardio: COMMON NORMALS: S1 normal heart sound, S2 normal heart sound and no murmurs RATE: tachycardic RHYTHM: abnormal rhythm irregularly irregular HEART SOUNDS: S1 normal and S2 normal GI: COMMON NORMALS: soft to palpation and non-tender INSPECTION: Yes abdominal distension and Yes central obesity PALPATION: Yes soft : BLADDER/KIDNEY EXAM: Yes catheter in place Catheter type (Female): urethral Extremity: COMMON NORMALS: normal to inspection, full ROM and no clubbing, cyanosis or edema; negative for no pedal edema OTHER: -s/p R BKA Neuro: COMMON NORMALS: oriented x3, moves all extremities, no focal motor deficits and no sensory deficits noted GAIT: Yes assistive device used (Prosthetic on right lower extremity) Psych: COMMON NORMALS: mental status grossly normal, thought process normal, cooperative, affect normal and speech normal SPEECH: Yes normal speech THOUGHT PROCESS: normal thought process Skin: COMMON NORMALS: no rashes or lesions noted, no jaundice, no petechiae and no mottling GENERAL SKIN EXAM: no rashes or lesions noted Urinary Catheter Management^: Molina: Cath Placed During This Visit: yes Urethral Indwelling: Yes Reason for Continuing Indwelling Catheter: Other Urinary Catheter Date of Insertion: 01/07/20 Urinary Catheter Time of Insertion: 04:58 Discharge Data Data Completed and Pending: Completed Studies During Hospitalization Category Date Time Status XR chest 1V lisset ble [id number] Stat Exams 01/06/20 21:53 [place] [id number] Routine Ultrasound 01/07/20 05:02 Completed Pending at discharge Category Date Time Status Blood Culture Sta t Lab 01/06/20 22:15 Results Immunochemical Fe ron OCB Routine Lab 01/07/20 05:20 Uncollected Labs from last 24 hours 01/08/20 01/08/20 01/08/20 11:55 06:13 03:15 WBC RBC Hgb Hct MCV MCH MCHC RDW Plt Count MPV Neut % (Auto) Lymph % (Auto) Elk % (Auto) Eos % (Auto) Baso % (Auto) Neut # (Auto) Lymph # (Auto) Elk # (Auto) Eos # (Auto) Baso # (Auto) Nucleated RBC % (a uto) Nucleated RBCs # Sodium 137 Potassium 4.4 Chloride 95 L Carbon Dioxide 29 Anion Gap 17.4 BUN 32 H Creatinine 1.1 H GFR Calculation 49.8 L Glucose 318 H POC Glucose 316 385 Calculated Osmolal ity 293 Calcium 9.7 01/08/20 01/07/20 01/07/20 03:15 21:28 17:15 WBC 12.6 H RBC 3.11 L Hgb 8.8 L Hct 28.5 L MCV 91.6 MCH 28.3 MCHC 30.9 RDW 15.8 H Plt Count 325 MPV 11.1 H Neut % (Auto) 94.2 Lymph % (Auto) 2.8 Elk % (Auto) 2.5 Eos % (Auto) 0.0 Baso % (Auto) 0.1 Neut # (Auto) 11.9 H Lymph # (Auto) 0.4 L Elk # (Auto) 0.3 Eos # (Auto) 0.0 Baso # (Auto) 0.0 Nucleated RBC % (a uto) 0 Nucleated RBCs # 0.0 Sodium Potassium Chloride Carbon Dioxide Anion Gap BUN Creatinine GFR Calculation Glucose POC Glucose 220 367 Calculated Osmolal ity Calcium Vitals: Last Vital Signs Temp 98.2 F 01/08/20 04:00 Pulse 119 H 01/08/20 11:53 Resp 22 H 01/08/20 11:52 BP 120/68 01/08/20 11:52 Pulse Ox 90 01/08/20 11:52 Discharge Plan Discharge Patient Disposition: Home Health Service Condition: Stable Prescriptions: New diltiazem HCl 180 mg capsule,extended release 24hr 180 mg PO DAILY 30 Days Qty: 30 RF: 0 Continued bumetanide 1 mg Tablet 2 mg PO BID 30 Days Qty: 120 RF: 0 losartan 50 mg Tablet 50 mg PO DAILY RF: 0 hydrocodone-acetaminophen [[place]] 5-325 mg Tablet 1 tab PO Q4H PRN (Reason: Pain) RF: 0 aspirin [Aspir-81] 81 mg Tablet,Delayed Release (Dr/Ec) 81 mg PO DAILY RF: 0 levothyroxine 75 mcg Tablet 75 mcg PO DAILY RF: 0 isosorbide mononitrate 60 mg Tablet Extended Release 24 Hr 60 mg PO DAILY RF: 0 insulin aspart U-100 [Novolog U-100 Insulin aspart] 100 unit/mL Solution See Rx Instructions .ROUTE .COMPLEX RF: 0 pantoprazole [Protonix] 40 mg Tablet,Delayed Release (Dr/Ec) 40 mg PO BID RF: 0 magnesium 250 mg Tablet 1,000 mg PO DAILY RF: 0 albuterol sulfate [Ventolin HFA] 90 mcg/actuation Hfa Aerosol Inhaler 2 puff INHALATION Q4H PRN (Reason: Shortness Of Breath) RF: 0 sertraline 50 mg Tablet 50 mg PO DAILY RF: 0 cholecalciferol (vitamin D3) [Vitamin D3] 1,000 unit Capsule 1,000 unit PO DAILY RF: 0 fluticasone propionate [Flonase Allergy Relief] 50 mcg/actuation spray,suspension 1 spray INTRANASAL DAILY Qty: 15.8 RF: 0 glimepiride 1 mg tablet 1 mg PO DAILY RF: 0 rosuvastatin 20 mg tablet 20 mg PO DAILY Qty: 20 RF: 0 ferrous sulfate [iron] 325 mg (65 mg iron) Tablet 325 mg PO EVERY OTHER DAY Qty: 0 RF: 0 Discontinued diltiazem HCl 120 mg Tablet 120 mg PO DAILY RF: 0 Discharge Orders: Discharge Order (Routine); Ordered 01/08/20 Ordered By: Genesis Edge Referrals: [facility] [place] Home Care ([facility]) [Outside] Jayden Garcia MD [Primary Care Provider] - 4-7 days (Post-hospital discharge follow up) Discharge Diet: Cardiac and Diabetic Discharge Activity: Resume usual activity Activity Restrictions/Additional Instructions: Please continue to use supplemental oxygen Discharge Attestations Time Spent in Discharge Care*: greater than 30 min Specific Discharge Activities: Specific discharge activities: educating patient, discussing with cyanide case hardener/social workers/dc planners, documenting/other paperwork and evaluating patient/reviewing data Status at Discharge: Cognitive status at discharge: cognitively intact , Behavioral status at discharge: cooperative , Functional status at discharge: other assisted ambulation (has RLE prosthetic) Overall status at discharge: patient is back to baseline Quality Metrics Clinical Quality Measures During this hospital stay, did patient experience: None Coding Level of Care Code Acute Director Phone for Marsha Fwsree Diagnoses Diastolic congestive heart failure I50.33 Heart failure chronicity: acute on chronic COPD (chronic obstructive pulmonary disease) J44.1 COPD type: COPD with acute exacerbation Atrial fibrillation I48.20 Atrial fibrillation type: unspecified chronic Anemia D64.9 Anemia type: unspecified type
== END 2020-01-08 15:07 | disposition home health service (06) ==
LOC: ER 22:14 → ICU 01-07 00:34 → CSU 01-07 07:27 → ICU 01-07 14:31
PROVIDERS: Admitting Provider Student in an Organized Health Care Education/Training Program; Emergency Provider Emergency Medicine; Family Provider Family Medicine; PCP Family Medicine; Visit Provider Family Medicine
DX: I50.33 Acute on chronic diastolic (congestive) heart failure (principal); G47.33 Obstructive sleep apnea (adult) (pediatric); E66.01 Morbid (severe) obesity due to excess calories; Z68.35 Body mass index [BMI] 35.0-35.9, adult; Z99.81 Dependence on supplemental oxygen; J44.9 Chronic obstructive pulmonary disease, unspecified; I48.91 Unspecified atrial fibrillation; D64.9 Anemia, unspecified; I48.20 Chronic atrial fibrillation, unspecified; Z79.01 Long term (current) use of anticoagulants; E11.22 Type 2 diabetes mellitus with diabetic chronic kidney disease; N18.3 Chronic kidney disease, stage 3 (moderate); Z87.891 Personal history of nicotine dependence; I25.10 Atherosclerotic heart disease of native coronary artery without angina pectoris; Z80.8 Family history of malignant neoplasm of other organs or systems
CPT/HCPCS: 12345; 36415; 36416; 36600; 51702; 71045; 76705; 80048; 80053; 81001; 82803; 82962; 83605; 83735; 83880; 84484; 85025; 87040; 87804; 93005; 94640; 94660; 94664; 96372; 96374; 96375; 96376; 97161; 99283; 99285; G0378; J1815; J1940; J2270; J2930; J7512

== ENCOUNTER 2020-01-18 04:29 | Inpatient (IN) | payer MEDICARE, BC, SELFPAY ==
[2020-01-18] VITALS (24 sets, daily range): BP systolic 97–141; BP diastolic 42–104; PULSE 75–168; RESP 14–33; TEMP 36.2–36.8; O2SAT 92–99; BMI 36.8
--- NOTE | 2020-01-18 04:40 | XR_ITS ---
WS: [id number] XR chest 1V portable [id number] REASON FOR EXAM: sob FINDINGS: There is cardiomegaly previous sternotomy and coronary bypass changes. There is bilateral pleural effusions increased since previous exam of January 06, 2020. There is pulmonary edema seen bilaterally slightly increased since previous exam. There is fracture healed involving the third and fourth ribs on the right. XR/XR chest 1V portable [id number] IMPRESSION: Progressive congestive heart failure.
--- NOTE | 2020-01-18 04:42 | ECG_ITS ---
Measurements Intervals [place] Rate: 136 P: [place]: 0 QRS: 134 QRSD: 150 T: 78 QT: 330 QTc: 498 Atrial fibrillation with rapid ventricular rate INTRAVENTRICULAR CONDUCTION DELAY [130+ ms QRS DURATION] Compared to ECG 01/07/2020 04:07:09 Indeterminate axis now present Intraventricular conduction delay now present Sinus rhythm no longer present Left-axis deviation no longer present Left bundle-branch block no longer present Electronically Signed On 01-18-2020 20:22:19 [employer] by Allie Olmos M.D. [email or web address]
--- NOTE | 2020-01-18 04:43 | ED_ITS ---
HPI - SOB/Dyspnea General: Chief Complaint: Shortness of Breath/Dyspnea Stated Complaint: sob Time Seen by Provider: 01/18/20 04:35 History of Present Illness: MD elicited complaint: shortness of breath Pertinent past history: COPD, congestive heart failure, diabetes and pneumonia Onset (ago): day(s) Context: recent illness and recent travel Timing: constant and progressively worsening Severity: moderate Exacerbating factors: exertion Relieving factors: nothing Known history of: COPD, congestive heart failure and diabetes Associated symptoms: Reports chest pain; Deny abdominal pain, dizziness, fever(s), nausea or vomiting Review of Systems Const: Denies: fever or chills Eyes: Denies: change in vision or blurry vision ENMT: Denies: painful swallowing, swelling of lips/tongue, post nasal drip or facial/sinus pain Card: Reports: chest pain Resp: Reports: shortness of breath and productive cough; Denies: non-productive cough or wheezing GI: Denies: abdominal pain, nausea, vomiting, blood in stool or black tarry stool : Denies: painful urination, urinary frequency, urinary urgency or blood in urine Musc: Denies: neck pain, back pain, redness or joint warmth Skin/Breast: Denies: rash, itching or redness Neuro: Denies: headache, dizziness or vertigo Psych: Denies: anxiety PFSH ED PFSH: Social History Smoking and tobacco status: never smoked Alcohol intake: never Lives independently: Yes Household members: none Current occupational status: retired History of recent travel: No Physical Exam Const: GENERAL APPEARANCE: well developed ORIENTATION/CONSCIOUSNESS: Yes or iented to person, Yes oriented to place and Yes oriented to time HENMT: COMMON NORMALS: normocephalic, external ears normal and external nose normal HEAD & SCALP: normocephalic; no scalp tenderness FACE & SINUS: normal facial exam NOSE: external nose normal and no nasal discharge EXTERNAL EAR: Yes external ears normal MOUTH: tongue normal THROAT: posterior oropharynx normal; no peritonsillar mass Eye: COMMON NORMALS: PERRL, EOMs intact bilaterally and conjunctivae normal EYELID: eyelids normal CONJUNCTIVA: Yes conjunctivae normal PUPIL: Yes PERRL Neck/C-Spine: COMMON NORMALS: full ROM GENERAL: No tracheal deviation Chest: COMMONS NORMALS: inspection of chest normal CHEST: No tenderness Resp: EFFORT & INSPECTION: Yes tachypneic, Yes respiratory distress, No retractions, Yes uses accessory muscles and No tracheal deviation AUSCULTATION: no rhonchi, no wheezes and diminished lung sounds Cardio: COMMON NORMALS: negative for regular rate RATE: abnormal rate, tachycardic and other HEART SOUNDS: no murmurs PERIPHERAL PULSES: radial pulses present GI: INSPECTION: Yes abdominal distension AUSCULTATION: No hyperactive bowel sounds and No hypoactive bowel sounds PALPATION: No guarding and No rigid PERCUSSION: no dullness to percussion and no tympanic to percussion : COMMON NORMALS: Yes no CVA tenderness BLADDER/KIDNEY EXAM: Yes no CVA tenderness Back/Pelvis: COMMON NORMALS: no CVA tenderness Neuro: SENSORIUM/ORIENTATION: Yes oriented to person, Yes oriented to place and Yes oriented to time Psych: COMMON NORMALS: mental status grossly normal Skin: COMMON NORMALS: no rashes or lesions noted GENERAL SKIN EXAM: no rashes or lesions noted Course Consultations: Consultation #1: yue Time: 07:17 Vital Signs: Vital signs: Vital Signs Temperature 98.3 F 01/18/20 04:32 Pulse Rate 114 H 01/18/20 06:33 Respiratory Rate 20 H 01/18/20 06:33 Blood Pressure 124/104 01/18/20 06:01 Pulse Oximetry 94 01/18/20 06:33 MDM - SOB/Dyspnea MDM Narrative: Medical decision making narrative: 64-year-old female presents in significant respiratory distress, such that BiPAP was considered on her arrival. Blood gas showed a normal pH. On 4 L, PO2 of 75. She has a mild leukocytosis. She has a chronic anemia. Her heart rate was irregular in the 150s. She was placed on a Cardizem drip. Her heart rate is 100 110 and irregular currently. Her saturations are 95%. At one point, her blood sugar sank to 58, she was given one half amp of D50 for this, with resolution. Her other labs are pending at this point. Chest x-ray shows pulmonary edema. Lab Data: Labs: Lab Results 01/18/20 01/18/20 01/18/20 Range/Units 05:00 05:06 05:40 WBC 11.8 H (4.0-10.0) 10^3/ uL RBC 2.89 L (4.1-5.3) 10^6/u L Hgb 8.2 L (11.5-15.3) g/dL Hct 26.5 L (37.0-47.0) % MCV 91.7 (81-99) fL MCH 28.4 (28.0-34.0) pg MCHC 30.9 (30.0-36.0) g/dL RDW 15.7 H (12.1-15.1) % Plt Count 325 (130-400) 10^3/c mm MPV 11.4 H (7.4-10.4) fL Neut % (Auto) 87.9 % Lymph % (Auto) 4.4 % Harvey % (Auto) 6.8 % Eos % (Auto) 0.1 % Baso % (Auto) 0.2 % Neut # (Auto) 10.4 H (1.8-7.7) 10^3/u L Lymph # (Auto) 0.5 L (0.8-4.8) 10^3/u L Harvey # (Auto) 0.8 (0.2-0.9) 10^3/u L Eos # (Auto) 0.0 (0.0-0.8) 10^3/u L Baso # (Auto) 0.0 (0.0-0.1) 10^3/u L Nucleated RBC % (a uto) 0 % Nucleated RBCs # 0.0 /100WBC PT (10.5-13.3) SECO NDS INR (0.8-1.2) Specimen Type Arterial Sample Site Brachial, left ABG pH 7.42 (7.35-7.45) ABG pCO2 44.1 (35-45) mmHg ABG pO2 75.7 L (80.0-100.0) mmH g ABG HCO3 28.9 H (22-26) mmol/L ABG Base Excess 4.0 H (-2.0-2.0) mmol/ L Milton Test N/a Hematocrit 27.0 L (37-47) % Hgb O2 Saturation 93.3 L (95-100) % Carboxyhemoglobin 0.1 L (0.4-20.1) %THgb Methemoglobin 1.0 (0.4-1.5) % Total Hemoglobin 8.8 L (12-16) g/dL O2 Delivery Device Nc O2 Liters/Min 4.0 % FiO2 0.0 % Life Cycle Assessment Analyst ID [id number] Sodium (136-145) mmol/L Potassium (3.5-5.1) mmol/L Chloride (98-107) mmol/L Carbon Dioxide (22-29) mmol/L Anion Gap (5-19) BUN (8-23) mg/dL Creatinine (0.5-0.9) mg/dL GFR Calculation (90-130) mL/min Glucose (65-115) mg/dL POC Glucose (70-110) mg/dL Calcium (8.5-10.5) mg/dL Total Bilirubin (0.15-1.2) mg/dL AST (0-32) U/L ALT (0-33) U/L Alkaline Phosphata se (35-105) IU/L Troponin T Baselin e (0-10) ng/mL NT-Pro-B Natriuret Pep (0-125) pg/mL Total Protein (6.6-8.7) g/dL Albumin (3.5-5.2) g/dL Globulin (1.3-4.6) g/dL Urine Color (Yellow) Urine Appearance (CLEAR) Urine pH (5-7) Ur Specific Gravit y (1.005-1.030) Urine Protein (Negative) Urine Glucose (UA) (Normal) Urine Ketones (Negative) Urine Blood (Negative) Urine Nitrate (Negative) Urine Bilirubin (NEGATIVE) Urine Urobilinogen (Negative) mg/dL Ur Leukocyte Sherita ase (Negative) Urine RBC (0-2) /hpf Urine WBC (0-5) /hpf Ur Squamous Epith Cells (0-5) Urine Bacteria (NONE) Influenza Type A A g Negative (Negative) POC Influenza B Ag Negative (Negative) 01/18/20 01/18/20 01/18/20 Range/Units 05:40 06:11 06:20 WBC (4.0-10.0) 10^3/ uL RBC (4.1-5.3) 10^6/u L Hgb (11.5-15.3) g/dL Hct (37.0-47.0) % MCV (81-99) fL MCH (28.0-34.0) pg MCHC (30.0-36.0) g/dL RDW (12.1-15.1) % Plt Count (130-400) 10^3/c mm MPV (7.4-10.4) fL Neut % (Auto) % Lymph % (Auto) % Harvey % (Auto) % Eos % (Auto) % Baso % (Auto) % Neut # (Auto) (1.8-7.7) 10^3/u L Lymph # (Auto) (0.8-4.8) 10^3/u L Harvey # (Auto) (0.2-0.9) 10^3/u L Eos # (Auto) (0.0-0.8) 10^3/u L Baso # (Auto) (0.0-0.1) 10^3/u L Nucleated RBC % (a uto) % Nucleated RBCs # /100WBC PT 14.70 H (10.5-13.3) SECO NDS INR 1.11 (0.8-1.2) Specimen Type Sample Site ABG pH (7.35-7.45) ABG pCO2 (35-45) mmHg ABG pO2 (80.0-100.0) mmH g ABG HCO3 (22-26) mmol/L ABG Base Excess (-2.0-2.0) mmol/ L Milton Test Hematocrit (37-47) % Hgb O2 Saturation (95-100) % Carboxyhemoglobin (0.4-20.1) %THgb Methemoglobin (0.4-1.5) % Total Hemoglobin (12-16) g/dL O2 Delivery Device O2 Liters/Min % FiO2 % Life Cycle Assessment Analyst ID Sodium (136-145) mmol/L Potassium (3.5-5.1) mmol/L Chloride (98-107) mmol/L Carbon Dioxide (22-29) mmol/L Anion Gap (5-19) BUN (8-23) mg/dL Creatinine (0.5-0.9) mg/dL GFR Calculation (90-130) mL/min Glucose (65-115) mg/dL POC Glucose (70-110) mg/dL Calcium (8.5-10.5) mg/dL Total Bilirubin (0.15-1.2) mg/dL AST (0-32) U/L ALT (0-33) U/L Alkaline Phosphata se (35-105) IU/L Troponin T Baselin e 31 H (0-10) ng/mL NT-Pro-B Natriuret Pep (0-125) pg/mL Total Protein (6.6-8.7) g/dL Albumin (3.5-5.2) g/dL Globulin (1.3-4.6) g/dL Urine Color Straw (Yellow) Urine Appearance Clear (CLEAR) Urine pH 5.0 (5-7) Ur Specific Gravit y 1.010 (1.005-1.030) Urine Protein Neg (Negative) Urine Glucose (UA) Norm (Normal) Urine Ketones Negative (Negative) Urine Blood Neg (Negative) Urine Nitrate Negative (Negative) Urine Bilirubin Neg (NEGATIVE) Urine Urobilinogen Norm (Negative) mg/dL Ur Leukocyte Sherita ase Trace H (Negative) Urine RBC 5-10 H (0-2) /hpf Urine WBC 10-15 H (0-5) /hpf Ur Squamous Epith Cells 0-4 H (0-5) Urine Bacteria 3+ H (NONE) Influenza Type A A g (Negative) POC Influenza B Ag (Negative) 01/18/20 01/18/20 01/18/20 Range/Units 06:20 06:27 07:07 WBC (4.0-10.0) 10^3/ uL RBC (4.1-5.3) 10^6/u L Hgb (11.5-15.3) g/dL Hct (37.0-47.0) % MCV (81-99) fL MCH (28.0-34.0) pg MCHC (30.0-36.0) g/dL RDW (12.1-15.1) % Plt Count (130-400) 10^3/c mm MPV (7.4-10.4) fL Neut % (Auto) % Lymph % (Auto) % Harvey % (Auto) % Eos % (Auto) % Baso % (Auto) % Neut # (Auto) (1.8-7.7) 10^3/u L Lymph # (Auto) (0.8-4.8) 10^3/u L Harvey # (Auto) (0.2-0.9) 10^3/u L Eos # (Auto) (0.0-0.8) 10^3/u L Baso # (Auto) (0.0-0.1) 10^3/u L Nucleated RBC % (a uto) % Nucleated RBCs # /100WBC PT (10.5-13.3) SECO NDS INR (0.8-1.2) Specimen Type Sample Site ABG pH (7.35-7.45) ABG pCO2 (35-45) mmHg ABG pO2 (80.0-100.0) mmH g ABG HCO3 (22-26) mmol/L ABG Base Excess (-2.0-2.0) mmol/ L Milton Test Hematocrit (37-47) % Hgb O2 Saturation (95-100) % Carboxyhemoglobin (0.4-20.1) %THgb Methemoglobin (0.4-1.5) % Total Hemoglobin (12-16) g/dL O2 Delivery Device O2 Liters/Min % FiO2 % Life Cycle Assessment Analyst ID Sodium 139 (136-145) mmol/L Potassium 3.8 (3.5-5.1) mmol/L Chloride 99 (98-107) mmol/L Carbon Dioxide 27 (22-29) mmol/L Anion Gap 16.8 (5-19) BUN 30 H (8-23) mg/dL Creatinine 1.2 H (0.5-0.9) mg/dL GFR Calculation 45.1 L (90-130) mL/min Glucose 55 L (65-115) mg/dL POC Glucose 58 109 (70-110) mg/dL Calcium 9.5 (8.5-10.5) mg/dL Total Bilirubin 0.2 (0.15-1.2) mg/dL AST 17 (0-32) U/L ALT 15 (0-33) U/L Alkaline Phosphata se 97 (35-105) IU/L Troponin T Baselin e (0-10) ng/mL NT-Pro-B Natriuret Pep 1262 H (0-125) pg/mL Total Protein 6.8 (6.6-8.7) g/dL Albumin 3.7 (3.5-5.2) g/dL Globulin 3.1 (1.3-4.6) g/dL Urine Color (Yellow) Urine Appearance (CLEAR) Urine pH (5-7) Ur Specific Gravit y (1.005-1.030) Urine Protein (Negative) Urine Glucose (UA) (Normal) Urine Ketones (Negative) Urine Blood (Negative) Urine Nitrate (Negative) Urine Bilirubin (NEGATIVE) Urine Urobilinogen (Negative) mg/dL Ur Leukocyte Sherita ase (Negative) Urine RBC (0-2) /hpf Urine WBC (0-5) /hpf Ur Squamous Epith Cells (0-5) Urine Bacteria (NONE) Influenza Type A A g (Negative) POC Influenza B Ag (Negative) Discharge Plan Discharge Prescriptions: No Action diltiazem HCl 180 mg capsule,extended release 24hr 180 mg PO DAILY 30 Days Qty: 30 RF: 0 bumetanide 1 mg Tablet 2 mg PO BID 30 Days Qty: 120 RF: 0 ipratropium-albuterol 0.5 mg-3 mg(2.5 mg base)/3 mL solution for nebulization 3 ml INHALATION Q6H PRN (Reason: shortness of breath or wheezing) Qty: 90 RF: 0 amiodarone 200 mg tablet 200 mg PO DAILY RF: 0 losartan 50 mg Tablet 50 mg PO DAILY RF: 0 hydrocodone-acetaminophen [[place]] 5-325 mg Tablet 1 tab PO Q4H PRN (Reason: Pain) RF: 0 aspirin [Aspir-81] 81 mg Tablet,Delayed Release (Dr/Ec) 81 mg PO DAILY RF: 0 levothyroxine 75 mcg Tablet 75 mcg PO DAILY RF: 0 isosorbide mononitrate 60 mg Tablet Extended Release 24 Hr 60 mg PO DAILY RF: 0 insulin aspart U-100 [Novolog U-100 Insulin aspart] 100 unit/mL Solution See Rx Instructions .ROUTE .COMPLEX RF: 0 pantoprazole [Protonix] 40 mg Tablet,Delayed Release (Dr/Ec) 40 mg PO BID RF: 0 magnesium 250 mg Tablet 1,000 mg PO DAILY RF: 0 albuterol sulfate [Ventolin HFA] 90 mcg/actuation Hfa Aerosol Inhaler 2 puff INHALATION Q4H PRN (Reason: Shortness Of Breath) RF: 0 sertraline 50 mg Tablet 50 mg PO DAILY RF: 0 cholecalciferol (vitamin D3) [Vitamin D3] 1,000 unit Capsule 1,000 unit PO DAILY RF: 0 fluticasone propionate [Flonase Allergy Relief] 50 mcg/actuation spray,suspension 1 spray INTRANASAL DAILY Qty: 15.8 RF: 0 glimepiride 1 mg tablet 1 mg PO DAILY RF: 0 rosuvastatin 20 mg tablet 20 mg PO DAILY Qty: 20 RF: 0 ferrous sulfate [iron] 325 mg (65 mg iron) Tablet 325 mg PO EVERY OTHER DAY Qty: 0 RF: 0 Coding Level of Care Code ED Junior Buyer for Chg Fwd Exam Comprehensive
[2020-01-18] MEDS: FUROsemide 10 mg/mL SDV 10mL 80 MG IVP ×3 (05:01→20:27)
[2020-01-18 05:11] LABS: ABG PCO2 44.1 mmHg (35-45); ABG PH Result 7.42 (7.35-7.45); Blood Gas Sample Site Brachial, left; Blood Gas Sample Type Arterial; Carboxyhemoglobin 0.1 %THgb (0.4-20.1); HCO3 ABG 28.9 mmol/L (22-26); HGB O2 Sat 93.3 % (95-100); Oxygen Device NC; PO2 ABG 75.7 mmHg (80.0-100.0); Total Hemoglobin 8.8 g/dL (12-16)
[2020-01-18 05:58] LABS: Influenza A by IFA Negative (Negative); Influenza B by IFA Negative (Negative)
--- NOTE | 2020-01-18 06:09 | PC.NURSE ---
bolus of 20mg diltiazem given per HCP verbal order. Order repeated back to HCP by nurse.
[2020-01-18] MEDS: levalbuterol 1.25 mg/3 mL Neb INHALATION (06:13)
[2020-01-18 06:15] LABS: Basophils % 0.2 %; Eosinophils % 0.1 %; Hematocrit 26.5 % (37.0-47.0); Hemoglobin 8.2 g/dL (11.5-15.3); Lymphocytes # 0.5 10^3/uL (0.8-4.8); Lymphocytes % 4.4 %; Mean Corpuscular HGB Conc 30.9 g/dL (30.0-36.0); Mean Corpuscular Hemoglobin 28.4 pg (28.0-34.0); Mean Corpuscular Volume 91.7 fL (81-99); Mean Platelet Volume 11.4 fL (7.4-10.4); Monocytes # 0.8 10^3/uL (0.2-0.9); Monocytes % 6.8 %; Neutrophils # 10.4 10^3/uL (1.8-7.7); Neutrophils % 87.9 %; Nucleated Red Blood Cells % 0 %; Platelet Count 325 10^3/cmm (130-400); Red Blood Count 2.89 10^6/uL (4.1-5.3); Red Cell Distribution Width 15.7 % (12.1-15.1); White Blood Count 11.8 10^3/uL (4.0-10.0)
[2020-01-18 06:26] LABS: Glucose Urine UA Norm (Normal); Protein Urine Neg (Negative); Urine Appearance Clear (CLEAR); Urine Color Straw (Yellow)
[2020-01-18 06:26] LABS: INR 1.11 (0.8-1.2)
[2020-01-18 06:27] LABS: Add Urine Microscopic? YES; Bilirubin Urine Neg (NEGATIVE); Blood Urine Neg (Negative); Ketones Urine Negative (Negative); Leukocyte Esterase Urine Trace (Negative); Nitrate Urine Negative (Negative); Urobilinogen Urine Norm (Negative)
[2020-01-18 06:35] LABS: Add Urine Culture? Yes; Bacteria Urine 3+; Squamous Epithelial Cell Urine 0-4 (0-5)
[2020-01-18] MEDS: ondansetron 2 mg/ML SDV 2 mL 4 MG IVP ×2 (06:37→12:11)
[2020-01-18 06:38] LABS: Glucose Point of Care 58 mg/dL (70-110)
--- NOTE | 2020-01-18 06:41 | PC.NURSE ---
Blood glucose taken bedside by nurse value returned of 58, HCP notified.
--- NOTE | 2020-01-18 06:42 | ECG_ITS ---
Measurements Intervals [place] Rate: 124 P: TN: 0 QRS: 139 QRSD: 154 T: 87 QT: 358 QTc: 515 ATRIAL FIBRILLATION WITH RAPID VENTRICULAR RESPONSE RIGHT AXIS DEVIATION [QRS AXIS > 100] INTRAVENTRICULAR CONDUCTION DELAY [130+ ms QRS DURATION] Compared to ECG 01/07/2020 04:07:09 Right-axis deviation now present Intraventricular conduction delay now present Sinus rhythm no longer present Left-axis deviation no longer present Left bundle-branch block no longer present Electronically Signed On 01-18-2020 20:28:05 [employer] by Allie Olmos M.D. [email or web address]
[2020-01-18 06:50] LABS: Troponin(5th) Baseline 31 ng/mL (0-10)
[2020-01-18 06:57] LABS: Alanine Aminotransferase 15 U/L (0-33); Albumin Level 3.7 g/dL (3.5-5.2); Alkaline Phosphatase 97 IU/L (35-105); Anion Gap 16.8 (5-19); Aspartate Amino Transferase 17 U/L (0-32); Blood Urea Nitrogen 30 mg/dL (8-23); Calcium 9.5 mg/dL (8.5-10.5); Carbon Dioxide 27 mmol/L (22-29); Chloride 99 mmol/L (98-107); Creatinine Clr Calc Pharmacy 52.9987; Globulin 3.1 g/dL (1.3-4.6); Glomerular Filtration Rate 45.1 mL/min (90-130); Glucose 55 mg/dL (65-115); NT Pro B Type Natriuretic Pept 1262 pg/mL (0-125); Potassium 3.8 mmol/L (3.5-5.1); Sodium 139 mmol/L (136-145); Total Bilirubin 0.2 mg/dL (0.15-1.2); Total Protein 6.8 g/dL (6.6-8.7)
[2020-01-18 07:10] LABS: Glucose Point of Care 109 mg/dL (70-110)
--- NOTE | 2020-01-18 07:17 | PC.NURSE ---
Glucose check 109. Dr. Villagomez informed. Apple juice given at this time.
--- NOTE | 2020-01-18 09:05 | P.HP_ITS ---
Providers/Chief Complaint Admitting Physician: Regine Claudio DO Primary Care Provider: Jayden Garcia MD Chief Complaint: sob History of Present Illness Cher Lopez is a 64 year old female with a past medical history of diastolic congestive heart failure and COPD as well as atrial fibrillation that presented to the emergency department with increasing shortness of breath. She stated that over the past couple of days she has felt she has been increasingly fluid overloaded. She stated that she increased her Bumex at home due to the concern for the symptoms. She reports increasing her Bumex to 4 mg twice daily and taking an extra 2 mg dose yesterday, therefore having a total of 10 mg of Bumex yesterday. She reported that her urine output has been minimal and she con tinued to have shortness of breath. She stated that she turned up her home oxygen from 2 L to 3 L and then this morning when she suddenly became increasingly short of breath she called the EMS and she was placed on 4 L by nasal cannula. She denies any sick contacts, reports chills yesterday, no known fevers. Reports some chronic cough with thick sputum production that is chronic in nature, slightly increased from baseline. She denies any hemoptysis. Patient reports not taking her medications this morning due to being in the ER. Patient was seen and evaluated in the emergency department noted to have concern for acute CHF exacerbation as well as atrial fibrillation with RVR. She was pl aced on a Cardizem drip and given Lasix 80 mg IV x1 Review of Systems Const: Reports: chills; Denies: fever Eyes: Denies: change in vision ENMT: Denies: nasal congestion Card: Reports: chest pain and edema; Denies: palpitations Resp: Reports: shortness of breath and productive cough; Denies: coughing up blood GI: Denies: abdominal pain, nausea, vomiting, diarrhea, constipation, blood in stool or black tarry stool : Denies: painful urination or blood in urine Musc: Denies: extremity pain or muscle cramps Skin/Breast: Denies: rash or new lesion Neuro: Denies: headache or dizziness Psych: Denies: anxiety or depression Endo: Denies: excessive urination or hot flashes Dwain/Lymph: Denies: easy bruising or easy bleeding Medications/Allergies Home Medications Medication Instructions Recorded Confirmed Last Taken Type amiodarone 200 mg PO DAILY 01/18/20 01/18/20 01/17/20 History Allergies Allergy/AdvReac Type Severity Reaction Status Date / Time No Known Allergies Allergy Verified 12/19/19 06:34 PFSH Acute PFSH: Medical History Atrial fibrillation -Chronic atrial fibrillation s/p cardioversion -just resumed on AC with Eliquis -telemetry monitoring -VSS; continue to monitor; was initially mildly tachycardic now rate controlled -continue Diltiazem; will increase dose to 180 mg daily to allow for better HR control -hold Eliquis due to melena and anemia CKD (chronic kidney disease) COPD (chronic obstructive pulmonary disease) -COPD, oxygen dependent at baseline; 2 L requirement -ABG noted, minimal hypercapnia, no hypoxia -off BiPAP, supplemental oxygen as needed -continue to monitor respiratory status -IV steroids, Neb treatments; will switch to oral steroids -CXR: slight CHF -noted mild leukocytosis, afebrile Diabetes Diastolic congestive heart failure -Acute exacerbation of chronic HFpEF -continue on IV diuresis with Lasix and oral Bumex -fluid restriction if suboptimal diuresis -daily weights, monitor Is & Os -CXR: Slight CHF -BNP-555 -had recent Echo (11/2019): EF=55%, G1DD, mild LVH, mild diffuse hypokinesia of LV, trace MR -continue to monitor renal function and lytes with diuresis -telemetry monitoring -VSS: continue to monitor -supplemental oxygen, BiPAP as needed -noted abdominal distention; US negative for ascites Gastritis History of cardioversion History of leg amputation Right Morbid obesity Nonerosive nonspecific gastritis Peripheral vascular disease Sessile colonic polyp Sleep apnea Noncompliant with CPAP due to claustrophobia Supplemental oxygen dependent Vulva cancer Surgical History H/O esophagogastroduodenoscopy 10/2019 History of cholecystectomy Hx of BKA Hx of CABG S/P femoral-popliteal bypass surgery Status post colonoscopy with polypectomy 12/29/2019: Polyp hepatic flexure and sigmoid colon, moderate diverticulosis; follow-up colonoscopy in 5 years Family History Father CAD (coronary artery disease) Diabetes Sister Cancer Social History (Updated 01/18/20 @ 09:09 by Regine Claudio DO) Smoking and tobacco status: current every day smoker cigarettes [ Other cigarette details: Cut down to occasional use ] Alcohol intake: never Lives independently: Yes Household members: none Current occupational status: retired History of recent travel: No Vitals/I&O/Wt Last Vital Signs Temp 98.3 F 01/18/20 04:32 Pulse 118 H 01/18/20 08:02 Resp 20 H 01/18/20 08:02 BP 110/42 01/18/20 08:02 Pulse Ox 95 01/18/20 08:02 01/17/20 01/18/20 01/18/20 22:59 06:59 14:59 Intake Total 8.25 / 8.25 Balance 8.25 / 8.25 Weight last 48 hrs Weight 97.522 kg Physical Exam Const: COMMON NORMALS: oriented x3 and alert GENERAL APPEARANCE: cooperative ORIENTATION/CONSCIOUSNESS: Yes awake, Yes oriented to person, Yes oriented to place and Yes oriented to time HENMT: COMMON NORMALS: normocephalic and head/scalp atraumatic HEAD & SCALP: normocephalic and atraumatic Eye: COMMON NORMALS: PERRL PUPIL: Yes PERRL Neck/C-Spine: COMMON NORMALS: supple GENERAL: Yes normal visual inspection Resp: OTHER: Oxygen by nasal cannula in place, prolonged expiratory phase, crackles bilaterally Cardio: OTHER: Irregularly irregular, tachycardic GI: COMMON NORMALS: soft to palpation and non-tender INSPECTION: No abdominal distension AUSCULTATION: Yes normoactive bowel sounds PALPATION: Yes soft Extremity: NARRATIVE EXTREMITY EXAM: 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, compressive dressing in place in the left lower extremity Neuro: COMMON NORMALS: oriented x3, CN's II-XII intact bilaterally and no focal motor deficits SENSORIUM/ORIENTATION: Yes alert, Yes oriented to perso n, Yes oriented to place and Yes oriented to time SPEECH: speech normal Psych: COMMON NORMALS: mental status grossly normal and cooperative Skin: COMMON NORMALS: no rashes or lesions noted GENERAL SKIN EXAM: no rashes or lesions noted Urinary Catheter Management^: Molina: Cath Placed During This Visit: yes Urethral Indwelling: Yes Reason for Continuing Indwelling Catheter: Acute Urinary Retention or Obstruction Urinary Catheter Date of Insertion: 01/18/20 Urinary Catheter Time of Insertion: 06:02 Data : 01/18/20 05:40 01/18/20 06:20 Micro: Microbiology 01/18/20 06:47 Blood Culture - Preliminary Blood SPECIMEN COLLECTED 01/18/20 05:40 Blood Culture - Preliminary Blood SPECIMEN COLLECTED CXR: Radiologist's impression: Personally reviewed, report as read by radiologist: FINDINGS: There is cardiomegaly previous sternotomy and coronary bypass changes. There is bilateral pleural effusions increased since previous exam of January 06, 2020. There is pulmonary edema seen bilaterally slightly increased since previous exam. There is fracture healed involving the third and fourth ribs on the right. XR/XR chest 1V portable [id number] IMPRESSION: Progressive congestive heart failure. A&P Assessment and plan (1) Diastolic congestive heart failure: Acute diastolic congestive heart failure. Last echocardiogram from November reviewed. Followed by Dr. Olmos. Patient has been on Lasix in the past, however has not done well with oral Lasix as she does not diurese well with it. She was then recently changed to Bumex 2 mg twice daily, has continued on it and increased her dose at home to 4 mg twice daily but continues to have fluid overload. Reports following fluid restriction and sodium restriction. We will continue to monitor closely with strict intake and output as well as daily weights. 1500 mL fluid restriction and 2 g sodium restriction Consider addition of metolazone or Aldactone if not improving. Given IV Lasix 80 mg in the ED, will continue at this time q12h Status: Acute Qualifiers: Heart failure chronicity: acute on chronic Qualified Code(s): I50.33 - Acute on chronic diastolic (congestive) heart failure Code(s): I50.30 - Unspecified diastolic (congestive) heart failure (2) COPD (chronic obstructive pulmonary disease): Patient does not have any significant wheezing on exam today, therefore we will hold off on any steroids at this time but continue with nebulized solutions and respiratory therapy to assess and treat, oxygen per protocol. Patient is on 2 to 3 L by nasal cannula at baseline. We will continue to wean oxygen with a goal oxygen saturation of 90 to 92%. Patient reports she continues to smoke at home intermittently, strongly encourage cessation Status: Acute Qualifiers: COPD type: COPD with acute exacerbation Qualified Code(s): J44.1 - Chronic obstructive pulmonary disease with (acute) exacerbation Code(s): J44.9 - Chronic obstructive pulmonary disease, unspecified (3) Atrial fibrillation: Chronic atrial fibrillation. Presented with atrial fibrillation with RVR today. Placed on a Cardizem drip in the ER. Restart home Cardizem 180 mg daily, restart amiodarone 200 mg daily. She has not been on any anticoagulation other than aspirin due to chronic anemia. Transition off of Cardizem after home medications are given. Followed by Dr. Olmos. Status: Chronic Qualifiers: Atrial fibrillation type: unspecified chronic Qualified Code(s): I48.20 - Chronic atrial fibrillation, unspecified Code(s): I48.91 - Unspecified atrial fibrillation (4) Anemia: Chronic normocytic anemia, baseline hemoglobin 8-9. Had recent EGD and colonoscopy, polyp removal and diverticulosis noted. Has been off of anticoagulation, Eliquis, and off of antiplatelet, Plavix. Only remains on aspirin. No evidence of any active bleeding will continue to monitor closely. Status: Chronic Qualifiers: Anemia type: unspecified type Qualified Code(s): D64.9 - Anemia, unspecified Code(s): D64.9 - Anemia, unspecified Additional A&P Information Elevated troponin: We will check repeat and determine delta, likely going to be elevated due to RVR and hypoxia with CHF exacerbation. We will continue monitoring closely on telemetry with serial EKGs. Chronic kidney disease: BUN and creatinine appear to be at baseline, will continue to monitor strict intake and output as well as daily weights. Diabetes mellitus type 2: Sliding scale insulin as needed Morbid obesity Obstructive sleep apnea: Intolerant to CPAP History of gastritis: Continue on PPI DVT prophylaxis: SCDs, no pharmacologic prophylaxis due to patient with chronic anemia and history of GI bleed Diet: Cardiac, carbohydrate consistent, 2 g sodium restriction, 1500 mL fluid restriction CODE STATUS: Limited resuscitation, DO NOT INTUBATE, okay with other resuscitative measures. Attestations Medical Necessity Statement*: She requires hospitalization due to acute CHF exacerbation as well as atrial fibrillation with RVR. Expected stay greater than 2 midnights Coding Level of Care Code Acute Cistern Room Working Supervisor for [facility] Fwd Diagnoses Diastolic congestive heart failure I50.33 Heart failure chronicity: acute on chronic COPD (chronic obstructive pulmonary disease) J44.1 COPD type: COPD with acute exacerbation Atrial fibrillation I48.20 Atrial fibrillation type: unspecified chronic Anemia D64.9 Anemia type: unspecified type
[2020-01-18] MEDS: atorvastatin 40 mg Tablet 80 MG PO (09:52)
[2020-01-18] MEDS: dilTIAZem ER (24HR) 180 mg Capsule PO (09:52)
[2020-01-18] MEDS: losartan 50 mg Tablet PO (09:53)
[2020-01-18] MEDS: sertraline 50 mg Tablet PO (09:53)
[2020-01-18] MEDS: ferrous sulfate EC 325 mg Tablet PO (09:53)
[2020-01-18] MEDS: amiodarone 200 mg Tablet PO (09:53)
[2020-01-18] MEDS: morphine 4 mg/mL SDV 1 mL 2 MG IVP (10:02)
--- NOTE | 2020-01-18 10:04 | PC.CHAP ---
Pastoral Care Encounter/Spiritual Assessment Type of Contact [] Declined natural gas field processing supervisor visit [] Patient/Family/Request visit [] Outpatient visit [] Follow-up visit [] Physician referral [] Code/Alert [X] Routine visit [] Staff referral [] Actively dying [] Patient sleeping [] Family support [] [] Out of room [] Palliative care [] [] Receiving care in room [] Pre-surgical visit [] Trauma [] Long length of stay [] ICU visit [] Other: Relational/Emotional Strength [X] Patient feels connected with others/family/visitors/staff [] Distress [] Loneliness/isolation [] Abandonment Spirituality of Patient [X] Person of Monse [] Attends Mandaen of their Monse [X] Believes in Prayer [] Reads Bible or Presybeterian materials [] There are Spiritual issues to be addressed Shooter Helper Interventions [X] Prayer [X] Active listening [] Non-anxious presence [X] Spiritual/emotional support [] Crisis/trauma care [X] Spiritual counseling [] Bereavement support [] Provided bereavement packet [] Provided Bible/devotional materials [] Provided toy/stuffed animal, coloring book to patient or family member [] Provided Communion [] Anointing/[place] [] Salvation [X] Completed spiritual assessment [] Other: Impact on Illness or Injury [] Angry [X] Fearful [X] Anxious [X] Often cries [] Exhaustion [] Unable to work [] Unable to attend mu-ism [] Unable to walk/stand [] Unable to read [] Unable to drive [] Unable to eat/drink [] Unable to sleep [] Unable to be with family [] Patient intubated [] Othe Summary Pt transferred from ER. Pt is very fearful as she does not know what is happening to her and her breathing is very labored. Pt stated she wanted prayer and lots of it. Shooter Helper prayed for her comfort, peace of mind, healing of body, soul spirit and that she would feel God?s presence with her at all times, among other things. Shooter Helper talked with her comforting her and listening to her fears and anxiety pertaining to hospital stay and her current physical condition. Pt said she felt much better and calmer. Shooter Helper observed that she had stopped crying and was much calmer than at initial contact. Pt stated she was very thankful for visit. Chaplain Abril Stoll Time spent with patient 15 - 18 minutes
--- NOTE | 2020-01-18 10:42 | ECG_ITS ---
Measurements Intervals [place] Rate: 89 P: [place]: 0 QRS: -21 QRSD: 155 T: 137 QT: 421 QTc: 514 ATRIAL FLUTTER/TACHYCARDIA LEFT BUNDLE BRANCH BLOCK [120+ ms QRS DURATION, 80+ ms Q/S IN V1/V2, 85+ ms R IN I/aVL/V5/V6] Compared to ECG 01/07/2020 04:07:09 Sinus rhythm no longer present Left-axis deviation no longer present Electronically Signed On 01-18-2020 20:30:34 SUPPLY CLERK by Allie Olmos M.D. [email or web address]
--- NOTE | 2020-01-18 10:57 | PC.RESP ---
Patient given information on Smoking Cessation and Pulmonary Rehab.
[2020-01-18 11:26] LABS: Glucose Point of Care 364 mg/dL (70-110)
[2020-01-18 11:41] LABS: ABG PCO2 50.3 mmHg (35-45); ABG PH Result 7.35 (7.35-7.45); Arterial Blood Gas Hematocrit 28.1 % (37-47); Base Excess ABG 1.6 mmol/L (-2.0-2.0); Blood Gas Operator Identificat glc; Blood Gas Sample Site Brachial, left; Blood Gas Sample Type Arterial; HCO3 ABG 27.7 mmol/L (22-26); Oxygen Device NC; PO2 ABG 86.3 mmHg (80.0-100.0)
[2020-01-18] MEDS: HYDROcodone-acetaminophen 5-325 mg Tablet 1 TAB PO (12:12)
--- NOTE | 2020-01-18 13:24 | PC.NURSE ---
BIPAP on Pt stated she is tolerating the BIpap machine. Work of breathing is less noted. HR-80s to 90s.
[2020-01-18 13:37] LABS: Troponin(5th) Baseline 24 ng/mL (0-10)
[2020-01-18 14:30] LABS: Thyroid Stimulating Hormone 1.97 uIU/mL (0.27-4.20)
--- NOTE | 2020-01-18 14:30 | ECG_ITS ---
Measurements Intervals [place] Rate: 68 P: [place]: 0 QRS: -23 QRSD: 160 T: 138 QT: 461 QTc: 491 UNCERTAIN REGULAR RHYTHM, possibly sinus LEFT BUNDLE BRANCH BLOCK [120+ ms QRS DURATION, 80+ ms Q/S IN V1/V2, 85+ ms R IN / I/aVL/V5/V6] Compared to ECG 01/07/2020 04:07:09 Sinus rhythm no longer present Left-axis deviation no longer present Electronically Signed On 01-18-2020 20:32:48 BUSHEL WORKER by Allie Olmos M.D. [id number]
[2020-01-18] MEDS: metOLazone 5 MG Tablet 2.5 MG PO (14:58)
[2020-01-18] MEDS: ipratropium-albuterol 3 mL Neb INHALATION (16:57)
[2020-01-18 17:03] LABS: Glucose Point of Care 411 mg/dL (70-110)
--- NOTE | 2020-01-18 18:30 | ECG_ITS ---
Measurements Intervals [place] Rate: 85 P: [place]: 0 QRS: -19 QRSD: 174 T: 134 QT: 447 QTc: 532 Atrial fibrillation with a controlled ventricular response rate LEFT BUNDLE BRANCH BLOCK [120+ ms QRS DURATION, 80+ ms Q/S IN V1/V2, 85+ ms R IN I/aVL/V5/V6] Compared to ECG 01/07/2020 04:07:09 Sinus rhythm no longer present Left-axis deviation no longer present Electronically Signed On 01-18-2020 20:33:59 COKE WHEELER by Allie Olmos M.D. [id number]
[2020-01-18] MEDS: pantoprazole DR 40 mg Tablet PO (18:40)
[2020-01-18 19:42] LABS: Troponin 5 6HR 21.78 ng/mL (0-10)
[2020-01-18 19:48] LABS: Troponin 5 6HR Delta -2.22 ng/L (0-12)
[2020-01-18 20:18] LABS: Glucose Point of Care 430 mg/dL (70-110)
[2020-01-18 20:18] LABS: Glucose Point of Care 412 mg/dL (70-110)
[2020-01-19] VITALS (14 sets, daily range): BP systolic 93–127; BP diastolic 42–74; PULSE 79–111; RESP 17–27; TEMP 36.3–36.4; O2SAT 92–98
[2020-01-19] MEDS: HYDROcodone-acetaminophen 5-325 mg Tablet 1 TAB PO (00:05)
[2020-01-19] MEDS: morphine 4 mg/mL SDV 1 mL 2 MG IVP ×2 (01:35→20:50)
[2020-01-19 04:27] LABS: Basophils % 0.1 %; Hematocrit 29.7 % (37.0-47.0); Hemoglobin 8.9 g/dL (11.5-15.3); Lymphocytes # 0.4 10^3/uL (0.8-4.8); Mean Corpuscular Hemoglobin 29.1 pg (28.0-34.0); Mean Corpuscular Volume 97.1 fL (81-99); Mean Platelet Volume 10.3 fL (7.4-10.4); Monocytes % 6.8 %; Neutrophils # 12.4 10^3/uL (1.8-7.7); Neutrophils % 89.1 %; Nucleated Red Blood Cells % 0 %; Platelet Count 375 10^3/cmm (130-400); Red Blood Count 3.06 10^6/uL (4.1-5.3); Red Cell Distribution Width 15.9 % (12.1-15.1)
[2020-01-19 04:36] LABS: Anion Gap 18.3 (5-19); Blood Urea Nitrogen 48 mg/dL (8-23); Calcium 9.5 mg/dL (8.5-10.5); Carbon Dioxide 27 mmol/L (22-29); Chloride 97 mmol/L (98-107); Glucose 231 mg/dL (65-115); Osmolality Calculated 289 mOsm/kg (285-295); Potassium 5.3 mmol/L (3.5-5.1); Sodium 137 mmol/L (136-145)
[2020-01-19] MEDS: ipratropium-albuterol 3 mL Neb INHALATION ×3 (05:38→21:21)
[2020-01-19 06:28] LABS: Glucose Point of Care 245 mg/dL (70-110)
--- NOTE | 2020-01-19 08:24 | XR_ITS ---
WS: [id number] Portable AP upright chest, 01/19/2020 Clinical Data: hypoxia Comparison: Portable chest, 01/18/2020 Findings: There is cardiomegaly and pulmonary vascular congestion. There are bilateral effusions with atelectasis in the right lower lobe. The right lower lobe atelectasis and/or pneumonia has increased since yesterday. Midline sternotomy sutures with mediastinal clips is seen. There are old right uppe r rib fractures unchanged. XR/XR chest 1V portable [id number] Impression: 1. Increase in right lower lobe opacity which could be an increase 2. No change in cardiomegaly and pulmonary vascular congestion. In atelectasis, effusion and/or pneumonia.
[2020-01-19] MEDS: dilTIAZem ER (24HR) 180 mg Capsule PO (08:47)
[2020-01-19] MEDS: atorvastatin 40 mg Tablet 80 MG PO (08:47)
[2020-01-19] MEDS: sertraline 50 mg Tablet PO (08:47)
[2020-01-19] MEDS: losartan 50 mg Tablet PO (08:47)
[2020-01-19] MEDS: aspirin 81 mg EC Tablet PO (08:47)
[2020-01-19] MEDS: pantoprazole DR 40 mg Tablet PO ×2 (08:47→17:16)
[2020-01-19] MEDS: metOLazone 5 MG Tablet 2.5 MG PO (08:47)
[2020-01-19] MEDS: isosorbide mononitrate ER 60 mg Tablet PO (08:47)
[2020-01-19] MEDS: levothyroxine 150 mcg Tablet 75 MCG PO (08:47)
[2020-01-19] MEDS: amiodarone 200 mg Tablet PO (08:48)
--- NOTE | 2020-01-19 09:30 | PC.CHAP ---
Pastoral Care Encounter/Spiritual Assessment Type of Contact [] Declined sour bleaching pleater visit [] Patient/Family/Request visit [] Outpatient visit [] Follow-up visit [] Physician referral [] Code/Alert [x] Routine visit [] Staff referral [] Actively dying [] Patient sleeping [] Family support [] [] Out of room [] Palliative care [] [] Receiving care in room [] Pre-surgical visit [] Trauma [] Long length of stay [] ICU visit [] Other: Relational/Emotional Strength [] Patient feels connected with others/family/visitors/staff [] Distress [] Loneliness/isolation [] Abandonment Spirituality of Patient [] Person of Monse [] Attends Religion of their Monse [x] Believes in Prayer [] Reads Bible or Sabianism materials [] There are Spiritual issues to be addressed Curbstone Setter Interventions [x] Prayer [] Active listening [] Non-anxious presence [] Spiritual/emotional support [] Crisis/trauma care [] Spiritual counseling [] Bereavement support [] Provided bereavement packet [] Provided Bible/devotional materials [] Provided toy/stuffed animal, coloring book to patient or family member [] Provided Communion [] Anointing/[place] [] Salvation [x] Completed spiritual assessment [] Other: Impact on Illness or Injury [] Angry [] Fearful [] Anxious [] Often cries [] Exhaustion [] Unable to work [] Unable to attend presybeterian [] Unable to walk/stand [] Unable to read [] Unable to drive [] Unable to eat/drink [] Unable to sleep [] Unable to be with family [] Patient intubated [] Other: Summary patient feeling stronger Time spent with patient 10min
[2020-01-19 11:33] LABS: Glucose Point of Care 285 mg/dL (70-110)
[2020-01-19] MEDS: saline nasal spray 44mL Btl 1 SPRAY NASAL ×2 (13:23→17:17)
[2020-01-19] MEDS: FUROsemide 10 mg/mL SDV 10mL 60 MG IVP (14:27)
[2020-01-19] MEDS: polyethylene glycol 3350 Pkt 17 gm PO (14:27)
--- NOTE | 2020-01-19 14:32 | PHA.FALL ---
A Pharmacy Consult Was Conducted For Cher Manelizabeth Due To: Muse Fall Scale Risk Level: High Fall Risk On 01/19/20 07:45 And A Medication Fall Risk Score Greater Than 12. The Recommendations Are As Follows: Meds of concern: Amiodarone, diltiazem, losartan, Zaroxolyn, isosorbide: each carries at least one caution for possible adverse reaction of dizziness, movement disorder, hypotension, fatigue, orthostatic hypotension. Combination could potentially increase risk. Hanson and morphine: altered mental status, dizziness, lightheadedness, sedation, ataxia, impared psycomotor function, syncope. Beers Criteria: avoid use in elderly with a history of falls or fractures Sertraline: dizziness, drowsiness, Beers criteria: avoid use in elderly patients with history of falls or fractures (unless safer alternatives are not available) as ataxia and impaired psychomotor performance may occur. Avoid concomitant use of 3 or more LINK FABRIC MACHINE OPERATOR-active agents in any combination due to increased risk of falls.
--- NOTE | 2020-01-19 15:36 | PM.PN ---
Subjective Subjective: Interval history: Patient awake and sitting up in the chair at time of exam this morning. She reported slight improvement in breathing today. Reports continued swelling in the lower extremity and some loose cough. She stated she was having some nasal congestion. She denied any chest pain. Vitals/I&O/Wt Last Vital Signs Temp 97.6 F 01/19/20 04:00 Pulse 100 01/19/20 13:15 Resp 20 H 01/19/20 13:09 BP 109/62 01/19/20 11:06 Pulse Ox 97 01/19/20 13:09 01/19/20 01/19/20 01/19/20 06:59 14:59 22:59 Intake Total 120 / 1053.584 360 / 360 Output Total 325 / 1225 490 / 490 Balance -205 / -171.416 -130 / -130 Weight last 48 hrs Weight 102.33 kg Weight 97.522 kg Physical Exam Const: COMMON NORMALS: oriented x3 and alert GENERAL APPEARANCE: cooperative ORIENTATION/CONSCIOUSNESS: Yes awake, Yes oriented to person, Yes oriented to place and Yes oriented to time HENMT: COMMON NORMALS: normocephalic and head/scalp atraumatic HEAD & SCALP: normocephalic and atraumatic Eye: COMMON NORMALS: PERRL PUPIL: Yes PERRL Neck/C-Spine: COMMON NORMALS: supple GENERAL: Yes normal visual inspection Resp: OTHER: Oxygen by nasal cannula in place, prolonged expiratory phase, no appreciable wheezing, diminished breath sounds bilaterally Cardio: OTHER: Irregularly irregular, tachycardic GI: COMMON NORMALS: soft to palpation and non-tender INSPECTION: No abdominal distension AUSCULTATION: Yes normoactive bowel sounds PALPATION: Yes soft Extremity: NARRATIVE EXTREMITY EXAM: 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, compressive dressing in place in the left lower extremity Neuro: COMMON NORMALS: oriented x3, CN's II-XII intact bilaterally and no focal motor deficits SENSORIUM/ORIENTATION: Yes alert, Yes oriented to person, Yes oriented to place and Yes oriented to time SPEECH: speech normal Psych: COMMON NORMALS: mental status grossly normal and cooperative Skin: COMMON NORMALS: no rashes or lesions noted GENERAL SKIN EXAM: no rashes or lesions noted Urinary Catheter Management^: Molina: Cath Placed During This Visit: yes Urethral Indwelling: Yes Reason for Continuing Indwelling Catheter: Acute Urinary Retention or Obstruction Urinary Catheter Date of Insertion: 01/18/20 Urinary Catheter Time of Insertion: 06:02 Data : 01/19/20 03:18 01/19/20 03:18 Micro: Microbiology 01/18/20 05:10 Gram Stain - Final Sputum - Expectorated Sputum Sputum Culture - Preliminary Gram Negative Rods 01/18/20 06:11 Urine Culture - Preliminary Urine,Clean Catch Gram Negative Rods 01/18/20 06:47 Blood Culture - Preliminary Blood NEGATIVE TO DATE 01/18/20 05:40 Blood Culture - Preliminary Blood NEGATIVE TO DATE A&P Assessment and plan (1) Diastolic congestive heart failure: Acute diastolic congestive heart failure. Previous echocardiogram reviewed Followed by Dr. Olmos. Continue fluid and sodium restriction Increase in BUN and creatinine today therefore will decrease Lasix to once daily and continue on metolazone. Status: Acute Qualifiers: Heart failure chronicity: acute on chronic Qualified Code(s): I50.33 - Acute on chronic diastolic (congestive) heart failure Code(s): I50.30 - Unspecified diastolic (congestive) heart failure (2) COPD (chronic obstructive pulmonary disease): Without acute exacerbation Wean oxygen as tolerated with a goal oxygen saturation of 90 to 92% Patient reports she continues to smoke at home intermittently, strongly encourage cessation Status: Acute Qualifiers: COPD type: COPD with acute exacerbation Qualified Code(s): J44.1 - Chronic obstructive pulmonary disease with (acute) exacerbation Code(s): J44.9 - Chronic obstructive pulmonary disease, unspecified (3) Atrial fibrillation: Continue amiodarone 200 mg daily Increase Cardizem to 240 mg daily. She has not been on any anticoagulation other than aspirin due to chronic anemia. Status: Chronic Qualifiers: Atrial fibrillation type: unspecified chronic Qualified Code(s): I48.20 - Chronic atrial fibrillation, unspecified Code(s): I48.91 - Unspecified atrial fibrillation (4) Anemia: Chronic normocytic anemia, baseline hemoglobin 8-9. Had recent EGD and colonoscopy, polyp removal and diverticulosis noted. Has been off of anticoagulation, Eliquis, and off of antiplatelet, Plavix. Only remains on aspirin. No evidence of any active bleeding will continue to monitor closely. Status: Chronic Qualifiers: Anemia type: unspecified type Qualified Code(s): D64.9 - Anemia, unspecified Code(s): D64.9 - Anemia, unspecified Additional A&P Information Elevated troponin: Secondary to A. fib RVR Chronic kidney disease: Increase in BUN and creatinine today with diuresis. Decrease Lasix frequency and continue to monitor closely with recheck tomorrow. Diabetes mellitus type 2: Sliding scale insulin as needed Morbid obesity Obstructive sleep apnea: Intolerant to CPAP History of gastritis: Continue on PPI DVT prophylaxis: SCDs, no pharmacologic prophylaxis due to patient with chronic anemia and history of GI bleed Diet: Cardiac, carbohydrate consistent, 2 g sodium restriction, 1500 mL fluid restriction CODE STATUS: Limited resuscitation, DO NOT INTUBATE, okay with other resuscitative measures. Attestations Medical Necessity Statement*: To need hospitalization due to acute CHF exacerbation. Decrease to Lasix frequency today and will need close monitoring of renal function. Coding Level of Care Code Acute Diecast Machine Operator for [facility] Diagnoses Diastolic congestive heart failure I50.33 Heart failure chronicity: acute on chronic COPD (chronic obstructive pulmonary disease) J44.1 COPD type: COPD with acute exacerbation Atrial fibrillation I48.20 Atrial fibrillation type: unspecified chronic Anemia D64.9 Anemia type: unspecified type
[2020-01-19 16:15] LABS: Glucose Point of Care 244 mg/dL (70-110)
[2020-01-19] MEDS: docusate sodium 100 mg Capsule PO (17:16)
[2020-01-19 21:13] LABS: Glucose Point of Care 251 mg/dL (70-110)
[2020-01-20] VITALS (17 sets, daily range): BP systolic 96–119; BP diastolic 52–76; PULSE 74–148; RESP 14–24; TEMP 36.5–36.7; O2SAT 95–147
[2020-01-20] MEDS: ipratropium-albuterol 3 mL Neb INHALATION (02:14)
[2020-01-20] MEDS: morphine 4 mg/mL SDV 1 mL 2 MG IVP ×2 (06:04→20:37)
[2020-01-20 06:21] LABS: Glucose Point of Care 221 mg/dL (70-110)
[2020-01-20] MEDS: amiodarone 200 mg Tablet PO (06:49)
[2020-01-20] MEDS: dilTIAZem ER (24HR) 240 mg Capsule PO (06:51)
--- NOTE | 2020-01-20 06:52 | PC.NURSE ---
Patient with heart rate this am at 146 sustained beginning at ~ 0630. Jayna Bloom RN spoke with Dr Claudio and was told to give morning doses of amiodarone and diltiazem early. Medications given as requested.
--- NOTE | 2020-01-20 07:31 | ECG_ITS ---
Measurements Intervals [place] Rate: 114 P: MD: 0 QRS: -15 QRSD: 153 T: 67 QT: 355 QTc: 489 ATRIAL FIBRILLATION WITH RAPID VENTRICULAR RESPONSE LEFT BUNDLE BRANCH BLOCK [120+ ms QRS DURATION, 80+ ms Q/S IN V1/V2, 85+ ms R IN I/aVL/V5/V6] Compared to ECG 01/18/2020 18:34:06 No significant changes Electronically Signed On 01-20-2020 11:36:35 TIRE WRAPPER by Marco Hood M.D. [id number]
--- NOTE | 2020-01-20 07:47 | PC.NURSE ---
EKG ORDERED THIS AM WAS DONE ON WRONG PATIENT.
--- NOTE | 2020-01-20 08:35 | P.PN_ITS ---
Subjective Subjective: Interval history: In bed with BiPAP mask in place. Reporting palpitations, denies any chest pain. Discussed care with RN at bedside. Patient went into atrial fibrillation RVR overnight. Placed on BiPAP at shift change this morning. Vitals/I&O/Wt Last Vital Signs Temp 98.0 F 01/20/20 07:31 Pulse 148 H 01/20/20 07:31 Resp 19 H 01/20/20 07:31 BP 119/66 01/20/20 07:31 Pulse Ox 147 H 01/20/20 07:31 01/19/20 01/20/20 01/20/20 22:59 06:59 14:59 Intake Total 480 / 840 150 / 990 Output Total 1100 / 1590 Balance 480 / 350 -950 / -600 Weight last 48 hrs Weight 103.102 kg Weight 102.33 kg Physical Exam Const: COMMON NORMALS: oriented x3 and alert GENERAL APPEARANCE: cooperative ORIENTATION/CONSCIOUSNESS: Yes awake, Yes oriented to person, Yes oriented to place and Yes oriented to time HENMT: COMMON NORMALS: normocephalic and head/scalp atraumatic HEAD & SCALP: normocephalic and atraumatic Eye: COMMON NORMALS: PERRL PUPIL: Yes PERRL Neck/C-Spine: COMMON NORMALS: supple GENERAL: Yes normal visual inspection Resp: OTHER: BiPAP in place, prolonged expiratory phase, diminished breath sounds bilaterally Cardio: OTHER: Irregularly irregular, tachycardic GI: COMMON NORMALS: soft to palpation and non-tender INSPECTION: No abdominal distension AUSCULTATION: Yes normoactive bowel sounds PALPATION: Yes soft Extremity: NARRATIVE EXTREMITY EXAM: 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, compressive dressing in place in the left lower extremity Neuro: COMMON NORMALS: oriented x3, CN's II-XII intact bilaterally and no focal motor deficits SENSORIUM/ORIENTATION: Yes alert, Yes oriented to person, Yes oriented to place and Yes oriented to time SPEECH: speech normal Psych: COMMON NORMALS: mental status grossly normal and cooperative Skin: COMMON NORMALS: no rashes or lesions noted GENERAL SKIN EXAM: no rashes or lesions noted Urinary Catheter Management^: Molina: Cath Placed During This Visit: yes Urethral Indwelling: Yes Reason for Continuing Indwelling Catheter: Acute Urinary Retention or Obstruction Urinary Catheter Date of Insertion: 01/18/20 Urinary Catheter Time of Insertion: 06:02 Data : 01/20/20 05:23 01/20/20 05:23 Micro: Microbiology 01/18/20 05:10 Gram Stain - Final Sputum - Expectorated Sputum Sputum Culture - Preliminary Gram Negative Rods 01/18/20 06:11 Urine Culture - Preliminary Urine,Clean Catch Gram Negative Rods 01/18/20 06:47 Blood Culture - Preliminary Blood NEGATIVE TO DATE 01/18/20 05:40 Blood Culture - Preliminary Blood NEGATIVE TO DATE A&P Assessment and plan (1) Diastolic congestive heart failure: Acute diastolic congestive heart failure. Previous echocardiogram reviewed from 11/28 showed EF55% with grade I/IV diastolic dysfunction Followed by Dr. Oloms. Status: Acute Qualifiers: Heart failure chronicity: acute on chronic Qualified Code(s): I50.33 - Acute on chronic diastolic (congestive) heart failure Code(s): I50.30 - Unspecified diastolic (congestive) heart failure (2) COPD (chronic obstructive pulmonary disease): With acute hypercapnic respiratory failure. Continue on BiPAP. Start Doxycycline and prednisone Wean oxygen as tolerated with a goal oxygen saturation of 90 to 92% Patient reports she continues to smoke at home intermittently, strongly encourage cessation Status: Acute Qualifiers: COPD type: COPD with acute exacerbation Qualified Code(s): J44.1 - Chronic obstructive pulmonary disease with (acute) exacerbation Code(s): J44.9 - Chronic obstructive pulmonary disease, unspecified (3) Atrial fibrillation: Atrial fibrillation with history of cardioversion in the past. She has been off of anticoagulation due to recent GI bleed and anemia. Has been on amiodarone 200mg daily along with cardizem, increased cardizem yesterday to 240mg daily. Consider addition of beta narcisa, but will discuss further with cardiology. Cardiology consultation today due to Afib RVR and CHF exacerbation. Status: Chronic Qualifiers: Atrial fibrillation type: unspecified chronic Qualified Code(s): I48.20 - Chronic atrial fibrillation, unspecified Code(s): I48.91 - Unspecified atrial fibrillation (4) Anemia: Chronic normocytic anemia, baseline hemoglobin 8-9. Recent EGD and colonoscopy, polyp removal and diverticulosis noted. Remains off of anticoagulation, Eliquis, and off of antiplatelet, Plavix. Only remains on aspirin. No evidence of any active bleeding will continue to monitor closely. Status: Chronic Qualifiers: Anemia type: unspecified type Qualified Code(s): D64.9 - Anemia, unspecified Code(s): D64.9 - Anemia, unspecified Additional A&P Information Elevated troponin: Secondary to A. fib RVR Chronic kidney disease: Baseline creatinine of 1.2-1.4. Increased yesterday, therefore lasix decreased. Hold metolazone Diabetes mellitus type 2: Sliding scale insulin as needed Morbid obesity Obstructive sleep apnea: Intolerant to CPAP History of gastritis: Continue on PPI Right lower lobe consolidation: Likely secondary to fluid: Increased white blood cell count yesterday likely due to steroid administration on admission. We will follow-up with labs today. Patient denies any fevers or chills, will check procalcitonin. Reported dry cough, no sputum production, less concern for pneumonia at this time, however started on doxycycline and prednisone as above DVT prophylaxis: SCDs, no pharmacologic prophylaxis due to patient with chronic anemia and history of GI bleed Diet: Cardiac, carbohydrate consistent, 2 g sodium restriction, 1500 mL fluid restriction CODE STATUS: Limited resuscitation, DO NOT INTUBATE, okay with other resuscitative measures. Attestations Medical Necessity Statement*: Patient requires continued hospitalization due to atrial fibrillation with RVR, CHF exacerbation and acute hypercapnic respiratory failure Coding Level of Care Code Acute Line O Scribe Operator for [facility] Fwd Exam Comprehensive Diagnoses Diastolic congestive heart failure I50.33 Heart failure chronicity: acute on chronic COPD (chronic obstructive pulmonary disease) J44.1 COPD type: COPD with acute exacerbation Atrial fibrillation I48.20 Atrial fibrillation type: unspecified chronic Anemia D64.9 Anemia type: unspecified type
[2020-01-20 08:45] LABS: ABG PH Result 7.29 (7.35-7.45); Arterial Blood Gas Hematocrit 31.7 % (37-47); Base Excess ABG 2.1 mmol/L (-2.0-2.0); Blood Gas Sample Site Brachial, left; Blood Gas Sample Type Arterial; Carboxyhemoglobin 0.4 %THgb (0.4-20.1); HCO3 ABG 29.6 mmol/L (22-26); HGB O2 Sat 93.4 % (95-100); Ionized Calcium Level - ABG 1.2 mmol/L (1.1-1.4); Methemoglobin 1.4 % (0.4-1.5); Oxygen Device NC; Oxygen Saturation ABG 95.1; Potassium Level - ABG 5.5 mmol/L (3.5-5.0); Total Hemoglobin 10.3 g/dL (12-16)
[2020-01-20 08:49] LABS: Basophils % 0.1 %; Eosinophils % 0.1 %; Hematocrit 28.6 % (37.0-47.0); Hemoglobin 8.4 g/dL (11.5-15.3); Lymphocytes % 6.9 %; Mean Corpuscular HGB Conc 29.4 g/dL (30.0-36.0); Mean Corpuscular Hemoglobin 27.9 pg (28.0-34.0); Mean Platelet Volume 10.3 fL (7.4-10.4); Monocytes % 7.3 %; Neutrophils # 12.1 10^3/uL (1.8-7.7); Neutrophils % 85.1 %; Nucleated Red Blood Cells % 0 %; Platelet Count 362 10^3/cmm (130-400); Red Blood Count 3.01 10^6/uL (4.1-5.3); Red Cell Distribution Width 15.7 % (12.1-15.1); White Blood Count 14.2 10^3/uL (4.0-10.0)
[2020-01-20 08:49] LABS: ABG PCO2 61.3 mmHg (35-45)
--- NOTE | 2020-01-20 08:57 | XR_ITS ---
WS: [id number] XR chest 1V portable [id number] REASON FOR EXAM: hypoxia, hypercapnea FINDINGS: Consolidation the right lung base remains unchanged. The pulmonary edema is improved bilaterally. Cardiomegaly with previous sternotomy changes are again seen. The hilum and apices are normal. XR/XR chest 1V portable [id number] IMPRESSION: Persistent consolidation right lower lung. Improved pulmonary edema. Sternotomy changes bypass changes and cardiomegaly unchanged.
[2020-01-20] MEDS: polyethylene glycol 3350 Pkt 17 gm PO (09:03)
[2020-01-20] MEDS: ferrous sulfate EC 325 mg Tablet PO (09:04)
[2020-01-20] MEDS: isosorbide mononitrate ER 60 mg Tablet PO (09:05)
[2020-01-20] MEDS: levothyroxine 150 mcg Tablet 75 MCG PO (09:05)
[2020-01-20] MEDS: aspirin 81 mg EC Tablet PO (09:05)
[2020-01-20] MEDS: pantoprazole DR 40 mg Tablet PO ×2 (09:05→18:06)
[2020-01-20] MEDS: losartan 50 mg Tablet PO (09:05)
[2020-01-20] MEDS: docusate sodium 100 mg Capsule PO ×2 (09:06→18:07)
[2020-01-20] MEDS: atorvastatin 40 mg Tablet 80 MG PO (09:06)
[2020-01-20] MEDS: sertraline 50 mg Tablet PO (09:06)
[2020-01-20 09:09] LABS: Anion Gap 20.3 (5-19); Blood Urea Nitrogen 56 mg/dL (8-23); Calcium 9.5 mg/dL (8.5-10.5); Carbon Dioxide 25 mmol/L (22-29); Chloride 95 mmol/L (98-107); Glomerular Filtration Rate 22.4 mL/min (90-130); Glucose 165 mg/dL (65-115); Osmolality Calculated 282 mOsm/kg (285-295); Potassium 5.3 mmol/L (3.5-5.1); Sodium 135 mmol/L (136-145)
[2020-01-20 09:17] LABS: Procalcitonin 0.09 ng/mL (0-0.5)
--- NOTE | 2020-01-20 10:01 | PM.CONSULT ---
Providers/Reason For Consult Consulting Physican/Specialty*: Cardiovascular medicine Reason for Consult*: Atrial fibrillation with rapid ventricular response Attending Physician: Regine Claudio DO Primary Care Provider: Jayden Garcia MD History of Present Illness History of Present Illness Cher Lopez is a 64 year old female who was admitted again 2 days ago with shortness of breath, atrial fibrillation with a rapid ventricular response, hypercarbia and hypoxemia. This is her eighth admission in the last 4 months. She is here chronically because of underlying chronic diastolic heart failure, tobacco abuse which is current, oxygen dependent COPD complicated by a long list of other chronic illnesses. She increased her Bumex on her own at home and also increased her oxygen concentration. She finally came to the emergency room where she was hypoxic and hypercarbic and has been admitted. She is in atrial fibrillation with a rapid ventricular response. Diltiazem has been increased to 240 mg daily. She is on amiodarone having been cardioverted in the past. She remains tachycardic. She has a long list of other medical problems that includes peripheral disease. She has a right below the knee amputation. Her last echocardiogram was a little over a month ago when she was in where her ejection fraction was 55% with diastolic dysfunction grade 1. She has been on and off anticoagulants and antiplatelet agents. She had a GI bleed in September and underwent upper endoscopy which showed gastritis and colonoscopy which showed polyps. 2 small colon polyps were removed. She is currently off anticoagulants but takes low-dose aspirin. Review of Systems Const: Reports: body aches and snoring Card: Reports: palpitations and irregular heart rhythm Resp: Reports: shortness of breath, non-productive cough and wheezing Meds/Allergies Home Medications and Allergies Home Medications Medication Instructions Recorded Confirmed Type albuterol sulfate [Ventolin HFA] 2 puff INHALATION Q4H PRN 11/26/19 01/18/20 History aspirin [Aspir-81] 81 mg PO DAILY 11/26/19 01/18/20 History cholecalciferol (vitamin D3) 1,000 unit PO DAILY 11/26/19 01/18/20 History [Vitamin D3] hydrocodone-acetaminophen [[place]] 1 tab PO Q4H PRN 11/26/19 01/18/20 History insulin aspart U-100 [Novolog See Rx Instructions .ROUTE .COMPLEX 11/26/19 01/18/20 History U-100 Insulin aspart] isosorbide mononitrate 60 mg PO DAILY 11/26/19 01/18/20 History levothyroxine 75 mcg PO DAILY 11/26/19 01/18/20 History losartan 50 mg PO DAILY 11/26/19 01/18/20 History magnesium 1,000 mg PO DAILY 11/26/19 01/18/20 History pantoprazole [Protonix] 40 mg PO BID 11/26/19 01/18/20 History sertraline 50 mg PO DAILY 11/26/19 01/18/20 History glimepiride 1 mg PO DAILY 12/29/19 01/18/20 History amiodarone 200 mg PO DAILY 01/18/20 01/18/20 History Allergies Allergy/AdvReac Type Severity Reaction Status Date / Time No Known Allergies Allergy Verified 12/19/19 06:34 Current Medications Current Medications Generic Name Dose Route Start Last Admin Trade Name Freq PRN Reason Stop Dose Admin Hydrocodone Bitart/Acetaminophen 1 tab 01/18/20 09:03 01/19/20 00:05 [place] 5-325 Mg PO 1 tab Q4H PRN Administration Pain Albuterol/Ipratropium 3 ml 01/18/20 15:00 01/20/20 02:14 Duoneb INHALATION 3 ml Q6H.RESPIRATORY PRN Administration shortness of breath or wheezing Amiodarone HCl 200 mg 01/18/20 09:05 01/20/20 06:49 Cordarone PO 200 mg DAILY SANTIAGO Administration Aspirin 81 mg 01/19/20 09:00 01/20/20 09:05 Aspirin Ec PO 81 mg DAILY SANTIAGO Administration Atorvastatin Calcium 80 mg 01/18/20 10:00 01/20/20 09:06 Lipitor PO 80 mg DAILY SANTIAGO Administration Diltiazem HCl 240 mg 01/20/20 07:00 01/20/20 06:51 Cardizem Cd (24hr) PO 240 mg DAILY SANTIAGO Administration Docusate Sodium 100 mg 01/19/20 18:00 01/20/20 09:06 Colace PO 100 mg BID SANTIAGO Administration Ferrous Sulfate 325 mg 01/18/20 10:00 01/20/20 09:04 Ferrous Sulfate PO 325 mg EVERY OTHER DAY SANTIAGO Administration Insulin Aspart 0 unit 01/18/20 21:00 01/20/20 09:04 Novolog SUBCUT 8 unit WM&BEDTIME SANTIAGO Administration Protocol Isosorbide Mononitrate 60 mg 01/19/20 09:00 01/20/20 09:05 Imdur PO 60 mg DAILY SANTIAGO Administration Levothyroxine Sodium 75 mcg 01/18/20 11:00 01/20/20 09:05 Synthroid PO 75 mcg DAILY SANTIAGO Administration Losartan Potassium 50 mg 01/18/20 09:15 01/20/20 09:05 Cozaar PO 50 mg DAILY SANTIAGO Administration Morphine Sulfate 2 mg 01/18/20 09:01 01/20/20 06:04 Morphine IVP 2 mg Q4H PRN Administration SEVERE PAIN Ondansetron HCl 4 mg 01/18/20 08:02 01/18/20 12:11 Zofran IVP 4 mg Q6H PRN Administration NAUSEA AND VOMITING Pantoprazole Sodium 40 mg 01/18/20 18:00 01/20/20 09:05 Protonix PO 40 mg BID SANTIAGO Administration Polyethylene Glycol 17 gm 01/19/20 13:30 01/20/20 09:03 Miralax PO 17 gm DAILY SANTIAGO Administration Sertraline HCl 50 mg 01/18/20 09:15 01/20/20 09:06 Zoloft PO 50 mg DAILY SANTIAGO Administration Sodium Chloride 1 spray 01/19/20 11:29 01/19/20 17:17 [place] Nasal [place] NASAL 1 spray PRN PRN Administration DRYNESS PFSH Acute PFSH: Medical History (Updated 01/20/20 @ 10:10 by Marco Hood MD) Atrial fibrillation CKD (chronic kidney disease) COPD (chronic obstructive pulmonary disease) Diabetes Diastolic congestive heart failure Gastritis History of cardioversion History of leg amputation Right Left bundle branch block Morbid obesity Nonerosive nonspecific gastritis Peripheral vascular disease Status post right femoral-popliteal bypass surgery followed by below the knee amputation Sessile colonic polyp Sleep apnea Noncompliant with CPAP due to claustrophobia Supplemental oxygen dependent Tobacco abuse Vulva cancer Surgical History (Updated 01/20/20 @ 10:08 by Marco Hood MD) H/O esophagogastroduodenoscopy 10/2019 History of cholecystectomy Hx of BKA Hx of CABG S/P femoral-popliteal bypass surgery Status post colonoscopy with polypectomy 12/29/2019: Polyp hepatic flexure and sigmoid colon, moderate diverticulosis; follow-up colonoscopy in 5 years Family History Father CAD (coronary artery disease) Diabetes Sister Cancer Social History (Updated 01/18/20 @ 09:09 by Regine Claudio DO) Smoking and tobacco status: current every day smoker cigarettes [ Other cigarette details: Cut down to occasional use ] Alcohol intake: never Lives independently: Yes Household members: none Current occupational status: retired History of recent travel: No Vitals/I&O/Wt Last Vital Signs Temp 98.0 F 01/20/20 07:31 Pulse 148 H 01/20/20 07:31 Resp 19 H 01/20/20 07:31 BP 109/76 01/20/20 09:05 Pulse Ox 147 H 01/20/20 07:31 01/19/20 01/20/20 01/20/20 22:59 06:59 14:59 Intake Total 480 / 840 150 / 990 Output Total 1100 / 1590 Balance 480 / 350 -950 / -600 Weight last 48 hrs Weight 227 lb 4.8 oz Weight 225 lb 9.6 oz Physical Exam Narrative: EXAM NARRATIVE: GENERAL: In general she looks older than her stated age, short of breath at rest with BiPAP in place HEENT: Exam within normal limits. NECK: Supple without jugular vein distention. The carotid upstroke is normal without bruits. BACK: Exam normal. LUNGS: Bilateral wheezes with decreased breath sound HEART: Regular rate and rhythm. ABDOMEN: Benign without organomegaly or tenderness. EXTREMITIES: No edema. Right below the knee amputation NEUROLOGIC: Exam normal. SKIN: Unremarkable. Urinary Catheter Management^: Molina: Cath Placed During This Visit: yes Urethral Indwelling: Yes Reason for Continuing Indwelling Catheter: Acute Urinary Retention or Obstruction Urinary Catheter Date of Insertion: 01/18/20 Urinary Catheter Time of Insertion: 06:02 Data Micro: Micro: Microbiology 01/18/20 05:10 Gram Stain - Final Sputum - Expector ated Sputum Sputum Culture - P reliminary Gram Negative R ods 01/18/20 06:11 Urine Culture - Pr eliminary Urine,Clean Catch Gram Negative R ods 01/18/20 06:47 Blood Culture - Pr eliminary Blood NEGATIVE TO TARIQ E 01/18/20 05:40 Blood Culture - Pr eliminary Blood NEGATIVE TO TARIQ E Other Data: Other data: BNP 1262. Hemoglobin 8.4. Glomerular filtration rate 45 mL/min. EKG reveals atrial fibrillation with a left bundle branch block. Arterial blood gas this morning PO2 86, PCO2 61 and pH 7.29 A&P Assessment and plan (1) Acute respiratory failure with hypoxia: Status: Acute Code(s): J96.01 - Acute respiratory failure with hypoxia (2) Gastritis: Status: Acute Code(s): K29.70 - Gastritis, unspecified, without bleeding (3) Sleep apnea: Status: Acute Code(s): G47.30 - Sleep apnea, unspecified (4) Morbid obesity: Status: Acute Code(s): E66.01 - Morbid (severe) obesity due to excess calories (5) Diabetes: Status: Acute Code(s): E11.9 - Type 2 diabetes mellitus without complications (6) Supplemental oxygen dependent: Status: Acute Code(s): Z99.81 - Dependence on supplemental oxygen (7) Diastolic congestive heart failure: Status: Acute Qualifiers: Heart failure chronicity: acute on chronic Qualified Code(s): I50.33 - Acute on chronic diastolic (congestive) heart failure Code(s): I50.30 - Unspecified diastolic (congestive) heart failure (8) Atrial fibrillation: Status: Chronic Qualifiers: Atrial fibrillation type: unspecified chronic Qualified Code(s): I48.20 - Chronic atrial fibrillation, unspecified Code(s): I48.91 - Unspecified atrial fibrillation (9) COPD (chronic obstructive pulmonary disease): Status: Acute Qualifiers: COPD type: COPD with acute exacerbation Qualified Code(s): J44.1 - Chronic obstructive pulmonary disease with (acute) exacerbation Code(s): J44.9 - Chronic obstructive pulmonary disease, unspecified (10) Anemia: Status: Chronic Qualifiers: Anemia type: unspecified type Qualified Code(s): D64.9 - Anemia, unspecified Code(s): D64.9 - Anemia, unspecified (11) Tobacco abuse: Status: Acute Code(s): Z72.0 - Tobacco use (12) History of leg amputation: Status: Acute Code(s): Z89.619 - Acquired absence of unspecified leg above knee (13) CKD (chronic kidney disease): Status: Acute Code(s): N18.9 - Chronic kidney disease, unspecified (14) Peripheral vascular disease: Status: Acute Code(s): I73.9 - Peripheral vascular disease, unspecified (15) History of cardioversion: Status: Acute Code(s): Z98.890 - Other specified postprocedural states (16) Hx of CABG: Status: Acute Code(s): Z95.1 - Presence of aortocoronary bypass graft (17) S/P femoral-popliteal bypass surgery: Status: Acute Code(s): Z95.828 - Presence of other vascular implants and grafts (18) Respiratory acidosis: Status: Acute Code(s): E87.2 - Acidosis Additional A&P Information She is complicated with multiple problems which are difficult to treat without developing problems with others. She is now back in atrial fibrillation despite the Cardizem. She has been cardioverted in the past. The Cardizem is not keeping her heart rate under control. She is not a candidate for digoxin due to the renal insufficiency. For now since she was cardioverted in the past I will leave the amiodarone in place. I am going to switch the diltiazem to verapamil. I will leave it up to Dr. Olmos as to whether or not he wishes to cardiovert her again. Beta-blockers are probably not an option due to her severe underlying COPD and continued tobacco abuse. Difficult problems. Consult Attestations Medical Necessity Statement: Not applicable Coding Level of Care Code New Pt Acute Structural Test Engineer for [facility] Patient Type New History Comprehensive Exam Comprehensive Medical Decision Making High Complexity Diagnoses Acute respiratory failure with hypoxia J96.01 Gastritis K29.70 Sleep apnea G47.30 Morbid obesity E66.01 Diabetes E11.9 Supplemental oxygen dependent Z99.81 Diastolic congestive heart failure I50.33 Heart failure chronicity: acute on chronic Atrial fibrillation I48.20 Atrial fibrillation type: unspecified chronic COPD (chronic obstructive pulmonary disease) J44.1 COPD type: COPD with acute exacerbation Anemia D64.9 Anemia type: unspecified type Tobacco abuse Z72.0 History of leg amputation Z89.619 CKD (chronic kidney disease) N18.9 Peripheral vascular disease I73.9 History of cardioversion Z98.890 Hx of CABG Z95.1 S/P femoral-popliteal bypass surgery Z95.828 Respiratory acidosis E87.2
[2020-01-20] MEDS: doxycycline 100 MG in sodium chloride 0.9% (plus) 100 ML IV ×2 (10:44→20:38)
[2020-01-20] MEDS: calcium gluconate 0.1 gm/mL 10% SDV 10mL 1 GM IVP (10:48)
[2020-01-20] MEDS: predniSONE 20 mg Tablet 40 MG PO (10:48)
[2020-01-20] MEDS: sodium polystyrene sulfonate 15 gm/60 mL Btl PO (10:48)
[2020-01-20] MEDS: HYDROcodone-acetaminophen 5-325 mg Tablet 1 TAB PO ×2 (11:00→16:35)
[2020-01-20 11:41] LABS: Glucose Point of Care 258 mg/dL (70-110)
[2020-01-20 17:05] LABS: Glucose Point of Care 213 mg/dL (70-110)
[2020-01-20 21:09] LABS: Glucose Point of Care 560 mg/dL (70-110)
--- NOTE | 2020-01-20 21:10 | PC.NURSE ---
IV removed from left forearm due to infiltration when flushing. Catheter was intact.
[2020-01-20 23:08] LABS: Glucose Point of Care 326 mg/dL (70-110)
[2020-01-21] VITALS (11 sets, daily range): BP systolic 105–124; BP diastolic 52–73; PULSE 70–110; RESP 15–22; TEMP 36.6–36.8; O2SAT 93–100
[2020-01-21] MEDS: HYDROcodone-acetaminophen 5-325 mg Tablet 1 TAB PO ×2 (03:05→22:05)
[2020-01-21 04:27] LABS: Basophils % 0.1 %; Hematocrit 29.8 % (37.0-47.0); Hemoglobin 8.9 g/dL (11.5-15.3); Lymphocytes # 0.5 10^3/uL (0.8-4.8); Lymphocytes % 3.8 %; Mean Corpuscular HGB Conc 29.9 g/dL (30.0-36.0); Mean Corpuscular Hemoglobin 29.1 pg (28.0-34.0); Mean Corpuscular Volume 97.4 fL (81-99); Mean Platelet Volume 10.3 fL (7.4-10.4); Monocytes # 0.7 10^3/uL (0.2-0.9); Monocytes % 5.3 %; Neutrophils # 11.7 10^3/uL (1.8-7.7); Neutrophils % 90.3 %; Nucleated Red Blood Cells % 0 %; Platelet Count 358 10^3/cmm (130-400); Red Blood Count 3.06 10^6/uL (4.1-5.3); Red Cell Distribution Width 15.6 % (12.1-15.1); White Blood Count 12.9 10^3/uL (4.0-10.0)
[2020-01-21 04:36] LABS: Anion Gap 16.6 (5-19); Blood Urea Nitrogen 66 mg/dL (8-23); Calcium 9.4 mg/dL (8.5-10.5); Carbon Dioxide 29 mmol/L (22-29); Chloride 96 mmol/L (98-107); Glomerular Filtration Rate 22.4 mL/min (90-130); Glucose 180 mg/dL (65-115); Osmolality Calculated 286 mOsm/kg (285-295); Potassium 5.6 mmol/L (3.5-5.1); Sodium 136 mmol/L (136-145)
[2020-01-21 06:24] LABS: Glucose Point of Care 295 mg/dL (70-110)
[2020-01-21] MEDS: sodium chloride 0.9% 1,000 ML 50 ML IV (09:38)
[2020-01-21] MEDS: dextrose 50% syringe 50 mL IVP (09:39)
[2020-01-21] MEDS: polyethylene glycol 3350 Pkt 17 gm PO (09:39)
[2020-01-21] MEDS: sodium polystyrene sulfonate 15 gm/60 mL Btl PO (09:40)
[2020-01-21] MEDS: cefTRIAXone 1,000 MG in sodium chloride 0.9% (plus) 50 ML 100 MG IV (09:40)
[2020-01-21] MEDS: atorvastatin 40 mg Tablet 80 MG PO (09:41)
[2020-01-21] MEDS: levothyroxine 150 mcg Tablet 75 MCG PO (09:41)
[2020-01-21] MEDS: calcium gluconate 0.1 gm/mL 10% SDV 10mL 1 GM IVP (09:41)
[2020-01-21] MEDS: docusate sodium 100 mg Capsule PO ×2 (09:41→18:21)
[2020-01-21] MEDS: pantoprazole DR 40 mg Tablet PO ×2 (09:42→18:21)
[2020-01-21] MEDS: predniSONE 20 mg Tablet 40 MG PO (09:42)
[2020-01-21] MEDS: aspirin 81 mg EC Tablet PO (09:42)
[2020-01-21] MEDS: isosorbide mononitrate ER 60 mg Tablet PO (09:42)
[2020-01-21] MEDS: amiodarone 200 mg Tablet PO (09:42)
[2020-01-21] MEDS: losartan 50 mg Tablet PO (09:42)
[2020-01-21] MEDS: insulin regular-human 10 UNIT in SYRINGE 1 EACH IVP (09:51)
--- NOTE | 2020-01-21 10:11 | PC.SOCIAL ---
Pg 2 IMM Explained to pt Pg 2 IMM & provided pt a copy. No questions voiced. Signed, dated, & timed then placed in pt's chart.
--- NOTE | 2020-01-21 10:30 | PM.PN ---
Subjective Subjective: Interval history: Bed with daughter at bedside this morning. She reported that her breathing feels somewhat improved today. Continues to have some abdominal bloating and discomfort. Not able to have a large bowel movement, only small. Denies any chest pain. Vitals/I&O/Wt Last Vital Signs Temp 98.3 F 01/21/20 04:00 Pulse 91 01/21/20 08:59 Resp 15 01/21/20 08:59 BP 113/66 01/21/20 07:45 Pulse Ox 99 01/21/20 08:59 01/20/20 01/21/20 01/21/20 22:59 06:59 14:59 Intake Total 440 / 660 700 / 1360 Output Total 475 / 775 Balance 440 / 360 225 / 585 Weight last 48 hrs Weight 104.462 kg Weight 103.102 kg Physical Exam Const: COMMON NORMALS: oriented x3 and alert GENERAL APPEARANCE: cooperative ORIENTATION/CONSCIOUSNESS: Yes awake, Yes oriented to person, Yes oriented to place and Yes oriented to time HENMT: COMMON NORMALS: normocephalic and head/scalp atraumatic HEAD & SCALP: normocephalic and atraumatic Eye: COMMON NORMALS: PERRL PUPIL: Yes PERRL Neck/C-Spine: COMMON NORMALS: supple GENERAL: Yes normal visual inspection Resp: OTHER: Nasal cannula in place, diminished breath sounds bilaterally with prolonged expiratory phase and expiratory wheezing, improved breath sounds today Cardio: OTHER: Irregularly irregular, tachycardic GI: COMMON NORMALS: soft to palpation and non-tender INSPECTION: No abdominal distension AUSCULTATION: Yes normoactive bowel sounds PALPATION: Yes soft Extremity: NARRATIVE EXTREMITY EXAM: 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, compressive dressing in place in the left lower extremity Neuro: COMMON NORMALS: oriented x3, CN's II-XII intact bilaterally and no focal motor deficits SENSORIUM/ORIENTATION: Yes alert, Yes oriented to person, Yes oriented to place and Yes oriented to time SPEECH: speech normal Psych: COMMON NORMALS: mental status grossly normal and cooperative Skin: COMMON NORMALS: no rashes or lesions noted GENERAL SKIN EXAM: no rashes or lesions noted Urinary Catheter Management^: Molina: Cath Placed During This Visit: yes Urethral Indwelling: Yes Reason for Continuing Indwelling Catheter: Acute Urinary Retention or Obstruction Urinary Catheter Date of Insertion: 01/18/20 Urinary Catheter Time of Insertion: 06:02 Data : 01/21/20 03:40 01/21/20 03:40 Micro: Microbiology 01/18/20 05:10 Gram Stain - Final Sputum - Expectorated Sputum Sputum Culture - Preliminary Gram Negative Rods 01/18/20 06:11 Urine Culture - Final Urine,Clean Catch Klebsiella pneumoniae A&P Assessment and plan (1) Diastolic congestive heart failure: Acute diastolic congestive heart failure. Previous echocardiogram reviewed from 11/28 showed EF55% with grade I/IV diastolic dysfunction Followed by Dr. Olmos. Holding on further diuresis due to concern for worsening renal function and giving gently IVF Status: Acute Qualifiers: Heart failure chronicity: acute on chronic Qualified Code(s): I50.33 - Acute on chronic diastolic (congestive) heart failure Code(s): I50.30 - Unspecified diastolic (congestive) heart failure (2) COPD (chronic obstructive pulmonary disease): With acute hypercapnic respiratory failure. Continue on BiPAP while sleeping Doxycycline, Rocephin and prednisone Wean oxygen as tolerated with a goal oxygen saturation of 90 to 92% Patient reports she continues to smoke at home intermittently, strongly encourage cessation Status: Acute Qualifiers: COPD type: COPD with acute exacerbation Qualified Code(s): J44.1 - Chronic obstructive pulmonary disease with (acute) exacerbation Code(s): J44.9 - Chronic obstructive pulmonary disease, unspecified (3) Atrial fibrillation: Atrial fibrillation with history of cardioversion in the past. She has been off of anticoagulation due to recent GI bleed and anemia. Has been on amiodarone 200mg daily along with cardizem, cardizem increased with no improvement. Cardiology consulted due to continued difficulty with rate control. Appreciate recommendations and assistance in patient's care. Cardizem discontinued and patient started on Verapamil 80mg TID Status: Chronic Qualifiers: Atrial fibrillation type: unspecified chronic Qualified Code(s): I48.20 - Chronic atrial fibrillation, unspecified Code(s): I48.91 - Unspecified atrial fibrillation (4) Anemia: Chronic anemia and recent GI bleed Remains off of anticoagulation, Eliquis, and off of antiplatelet, Plavix. Only remains on aspirin, increased 325mg daily No evidence of any active bleeding will continue to monitor closely. Status: Chronic Qualifiers: Anemia type: unspecified type Qualified Code(s): D64.9 - Anemia, unspecified Code(s): D64.9 - Anemia, unspecified Additional A&P Information Elevated troponin: Secondary to A. fib RVR Chronic kidney disease with acute kidney injury: Baseline creatinine of 1.2-1.4. Continues to increase, will give gentle IVF. Hold home losartan Hyperkalemia: calcium gluconate, IVF, insulin and D50 Diabetes mellitus type 2: Sliding scale insulin as needed, increasing blood glucose, therefore will start on Lantus. This is likely due to prednisone Morbid obesity Obstructive sleep apnea: Intolerant to CPAP History of gastritis: Continue on PPI Right lower lobe consolidation: Continue on Rocephin for UTI. Started on doxycycline due to concern for COPD with acute exacerbation, will continue at this time. Urine culture showing Klebsiella pneumonia: Started on Rocephin DVT prophylaxis: SCDs, no pharmacologic prophylaxis due to patient with chronic anemia and history of GI bleed Diet: Cardiac, carbohydrate consistent, 2 g sodium restriction, 1500 mL fluid restriction CODE STATUS: Limited resuscitation, DO NOT INTUBATE, okay with other resuscitative measures. Attestations Medical Necessity Statement*: Patient requires further hospitalization due to worsening renal function with COPD exacerbation and CHF Coding Level of Care Code Acute Physical Therapist Technician for [facility] Fwd Diagnoses Diastolic congestive heart failure I50.33 Heart failure chronicity: acute on chronic COPD (chronic obstructive pulmonary disease) J44.1 COPD type: COPD with acute exacerbation Atrial fibrillation I48.20 Atrial fibrillation type: unspecified chronic Anemia D64.9 Anemia type: unspecified type
[2020-01-21 11:37] LABS: Glucose Point of Care 208 mg/dL (70-110)
[2020-01-21] MEDS: doxycycline 100 MG in sodium chloride 0.9% (plus) 100 ML IV ×2 (12:38→22:07)
[2020-01-21 17:18] LABS: Glucose Point of Care 526 mg/dL (70-110)
[2020-01-21 17:18] LABS: Glucose Point of Care 323 mg/dL (70-110)
--- NOTE | 2020-01-21 17:46 | PM.PN ---
Subjective Subjective: Interval history: Patient is admitted to hospital with increasing shortness of breath. She has features of COPD exacerbation, acute on chronic diastolic heart failure, acute on chronic kidney disease, right lower lobe pneumonia, worsening anemia, etc. She was found to be in atrial fibrillation with rapid ventricular rate. She is known to have chronic intermittent atrial fibrillation. She had electrical cardioversion during one of her previous [facility] admissions. She was placed on amiodarone at that time. She since then, she had multiple hospital admissions for various complaints. She denies any chest pain. Has been having a low-grade fever. Medications: Reviewed: Yes Medication Review Details: Current Medications Acetaminophen (Tylenol) 650 mg PO Q6H PRN PRN Reason: Mild/Mod Pain Or Temp >/= 101 Hydrocodone Bitart/Acetaminophen ([place] 5-325 Mg) 1 tab PO Q4H PRN PRN Reason: Pain Last Admin: 01/21/20 03:05 Dose: 1 tab Documented by: Albuterol Sulfate (Ventolin) 2 puff INHALATION Q4H.RESPIRATORY PRN PRN Reason: Shortness Of Breath Albuterol/Ipratropium (Duoneb) 3 ml INHALATION Q6H.RESPIRATORY PRN PRN Reason: shortness of breath or wheezing Last Admin: 01/20/20 02:14 Dose: 3 ml Documented by: Amiodarone HCl (Cordarone) 200 mg PO DAILY COUNTS INCLUDE 234 BEDS AT THE [facility] Last Admin: 01/21/20 09:42 Dose: 200 mg Documented by: Aspirin (Aspirin Ec) 325 mg PO DAILY COUNTS INCLUDE 234 BEDS AT THE [facility] Atorvastatin Calcium (Lipitor) 80 mg PO DAILY COUNTS INCLUDE 234 BEDS AT THE [facility] Last Admin: 01/21/20 09:41 Dose: 80 mg Documented by: Dextrose (D50w) 25 ml IVP ONCE PRN; Protocol PRN Reason: hypoglycemia protocol Dextrose (D50w) 50 ml IVP PRN PRN; Protocol PRN Reason: hypoglycemia protocol Docusate Sodium (Colace) 100 mg PO BID COUNTS INCLUDE 234 BEDS AT THE [facility] Last Admin: 01/21/20 09:41 Dose: 100 mg Documented by: Ferrous Sulfate (Ferrous Sulfate) 325 mg PO EVERY OTHER DAY COUNTS INCLUDE 234 BEDS AT THE [facility] Last Admin: 01/20/20 09:04 Dose: 325 mg Documented by: Glucagon (Glucagen) 1 mg IM ONCE PRN; Protocol PRN Reason: Adult Acute Hypoglycemia Prot. Dextrose (D5w) 500 mls @ 100 mls/hr IV ONCE PRN; Protocol PRN Reason: Adult Acute Hypoglycemia Prot Diltiazem HCl 125 mg/ Sodium (Chloride) 125 mls @ 0 mls/hr IV .Q0M SANTIAGO; Protocol Doxycycline Hyclate 100 mg/ (Sodium Chloride) 100 mls @ 100 mls/hr IV Q12H S[place]AGO; Protocol Last Admin: 01/21/20 12:38 Dose: 100 mls/hr Documented by: Sodium Chloride (Sodium Chloride 0.9%) 1,000 mls @ 50 mls/hr IV .Q20H COUNTS INCLUDE 234 BEDS AT THE [facility] Stop: 01/21/20 17:59 Last Admin: 01/21/20 09:38 Dose: 50 mls/hr Documented by: Ceftriaxone Sodium 1,000 mg/ (Sodium Chloride) 50 mls @ 100 mls/hr IV Q24H COUNTS INCLUDE 234 BEDS AT THE [facility]; Protocol Last Admin: 01/21/20 09:40 Dose: 100 mls/hr Documented by: Insulin Aspart (Novolog) 0 unit SUBCUT WM&BEDTIME COUNTS INCLUDE 234 BEDS AT THE [facility]; Protocol Last Admin: 01/21/20 12:09 Dose: 6 unit Documented by: Insulin Glargine (Lantus) 10 unit SUBCUT BEDTIME COUNTS INCLUDE 234 BEDS AT THE [facility] Isosorbide Mononitrate (Imdur) 60 mg PO DAILY COUNTS INCLUDE 234 BEDS AT THE [facility] Last Admin: 01/21/20 09:42 Dose: 60 mg Documented by: Levothyroxine Sodium (Synthroid) 75 mcg PO DAILY COUNTS INCLUDE 234 BEDS AT THE [facility] Last Admin: 01/21/20 09:41 Dose: 75 mcg Documented by: Losartan Potassium (Cozaar) 50 mg PO DAILY COUNTS INCLUDE 234 BEDS AT THE [facility] Last Admin: 01/21/20 09:42 Dose: 50 mg Documented by: Morphine Sulfate (Morphine) 2 mg IVP Q4H PRN PRN Reason: SEVERE PAIN Last Admin: 01/20/20 20:37 Dose: 2 mg Documented by: Non-Formulary Medication (Magnesium) 1,000 mg PO DAILY COUNTS INCLUDE 234 BEDS AT THE [facility] Ondansetron HCl (Zofran) 4 mg IVP Q6H PRN PRN Reason: NAUSEA AND VOMITING Last Admin: 01/18/20 12:11 Dose: 4 mg Documented by: Pantoprazole Sodium (Protonix) 40 mg PO BID COUNTS INCLUDE 234 BEDS AT THE [facility] Last Admin: 01/21/20 09:42 Dose: 40 mg Documented by: Polyethylene Glycol (Miralax) 17 gm PO DAILY COUNTS INCLUDE 234 BEDS AT THE [facility] Last Admin: 01/21/20 09:39 Dose: 17 gm Documented by: Prednisone (Prednisone) 40 mg PO DAILY COUNTS INCLUDE 234 BEDS AT THE [facility] Last Admin: 01/21/20 09:42 Dose: 40 mg Documented by: Sodium Chloride ([place] Nasal [place]) 1 spray NASAL PRN PRN PRN Reason: DRYNESS Last Admin: 01/19/20 17:17 Dose: 1 spray Documented by: Verapamil HCl (Verapamil) 80 mg PO TID COUNTS INCLUDE 234 BEDS AT THE [facility] Last Admin: 01/21/20 16:23 Dose: 80 mg Documented by: Vitals/I&O/Wt Last Vital Signs Temp 97.9 F 01/21/20 11:33 Pulse 88 01/21/20 15:21 Resp 22 H 01/21/20 15:21 BP 105/69 01/21/20 15:21 Pulse Ox 96 01/21/20 15:21 01/21/20 01/21/20 01/21/20 06:59 14:59 22:59 Intake Total 700 / 1460 Output Total 475 / 775 1000 / 1000 Balance 225 / 685 -1000 / -1000 Weight last 48 hrs Weight 230 lb 4.8 oz Weight 227 lb 4.8 oz Physical Exam Narrative: EXAM NARRATIVE: GENERAL: The patient is alert and oriented times three. Mildly tachypneic. She is on a BiPAP . Appears very anxious HEENT: Moderate pallor, icterus or lymphadenopathy.Oral cavity: There are no mucous membrane lesions. NECK: Trachea appears to be central. No masses noted. Neck veins are slightly distended RESPIRATORY: Chest is symmetrical. Breath sounds are heard bilaterally. Diminished intensity of breath sounds in the bases. Scattered expiratory wheezing and some coarse crackles. BREASTS: Deferred. HEART: The first heart sound is variable. Second heart sound is normal. No S3. Short systolic murmur in the left sternal border. No diastolic murmurs. No pericardial rub. ABDOMEN: Abdomen is obese. No vessel pulsations or distention. No tenderness. No organomegaly appreciated. Bowel sounds are normally heard. : Deferred. RECTAL: Deferred. LYMPHATIC: No lymphadenopathy noted in the neck . EXTREMITIES: No edema or cyanosis. No clubbing. Below-knee amputation on the right side. The dorsalis pedis and posterior pulses are weak on the left side. No cyanosis. MUSCULOSKELETAL: No acute joint deformities or swelling SKIN: There are no significant scars or skin rash noted. NEUROPSYCHIATRIC: No focal motor deficits. Urinary Catheter Management^: Molina: Cath Placed During This Visit: yes Urethral Indwelling: Yes Reason for Continuing Indwelling Catheter: Acute Urinary Retention or Obstruction Urinary Catheter Date of Insertion: 01/18/20 Urinary Catheter Time of Insertion: 06:02 Data : 01/22/20 03:39 01/22/20 03:39 Micro: Microbiology 01/18/20 05:10 Gram Stain - Final Sputum - Expectorated Sputum Sputum Culture - Preliminary Gram Negative Rods A&P Assessment and plan (1) Acute on chronic diastolic (congestive) heart failure: Patient may be continued on the careful IV diuresis. She has no evidence of any myocardial injury. Most likely the COPD exacerbation/pneumonia/arrhythmia monitor contributed to the heart failure. Status: Acute Code(s): I50.33 - Acute on chronic diastolic (congestive) heart failure (2) Chronic atrial fibrillation with rapid ventricular response: May continue with AV arie blocking agents and the amiodarone. Currently the heart rate seems to be getting under control. Consider electrical cardioversion, if the heart rate still remains uncontrolled. Status: Acute Code(s): I48.20 - Chronic atrial fibrillation, unspecified (3) Acute respiratory failure with hypoxia: This could be multifactorial. The COPD exacerbation, lower lobe pneumonia, diastolic heart failure, etc. are contributing factors. Continue on the IV antibiotics and bronchodilator treatment Status: Acute Code(s): J96.01 - Acute respiratory failure with hypoxia (4) CKD (chronic kidney disease): Continue follow-up on the kidney function. Consider doing a limited 2D echocardiogram, if it has not been done Status: Acute Qualifiers: Chronic kidney disease stage: stage 3 (moderate) Qualified Code(s): N18.3 - Chronic kidney disease, stage 3 (moderate) Code(s): N18.9 - Chronic kidney disease, unspecified (5) Right lower lobe pneumonia: Management as per the primary. Status: Acute Qualifiers: Pneumonia type: due to unspecified organism Qualified Code(s): J18.9 - Pneumonia, unspecified organism Code(s): J18.9 - Pneumonia, unspecified organism (6) Peripheral vascular disease: Continue on the current medications. Status: Acute Code(s): I73.9 - Peripheral vascular disease, unspecified Additional A&P Information Based on the clinical progress, further recommendations will be made. Attestations Medical Necessity Statement*: Patient requires continued hospital stay for close monitoring and further management Coding Level of Care Code Acute District Extension Service Agent for g Fwd Diagnoses Acute on chronic diastolic (congestive) heart failure I50.33 Chronic atrial fibrillation with rapid ventricular response I48.20 Acute respiratory failure with hypoxia J96.01 CKD (chronic kidney disease) N18.3 Chronic kidney disease stage: stage 3 (moderate) Right lower lobe pneumonia J18.9 Pneumonia type: due to unspecified organism Peripheral vascular disease I73.9
[2020-01-21] MEDS: morphine 4 mg/mL SDV 1 mL 2 MG IVP (18:48)
[2020-01-21 21:53] LABS: Glucose Point of Care 402 mg/dL (70-110)
[2020-01-21] MEDS: insulin glargine 100 units/1 mL 10 UNIT SUBCUT (22:06)
[2020-01-22] VITALS (11 sets, daily range): BP systolic 106–140; BP diastolic 56–85; PULSE 78–106; RESP 15–26; TEMP 36.6; O2SAT 93–100
[2020-01-22] MEDS: ipratropium-albuterol 3 mL Neb INHALATION (02:35)
[2020-01-22] MEDS: morphine 4 mg/mL SDV 1 mL 2 MG IVP ×2 (03:54→19:27)
[2020-01-22 04:00] LABS: Basophils % 0.1 %; Hematocrit 30.4 % (37.0-47.0); Hemoglobin 8.7 g/dL (11.5-15.3); Lymphocytes # 0.5 10^3/uL (0.8-4.8); Lymphocytes % 3.4 %; Mean Corpuscular HGB Conc 28.6 g/dL (30.0-36.0); Mean Corpuscular Hemoglobin 28.1 pg (28.0-34.0); Mean Corpuscular Volume 98.1 fL (81-99); Mean Platelet Volume 10.4 fL (7.4-10.4); Monocytes # 0.7 10^3/uL (0.2-0.9); Monocytes % 5.1 %; Neutrophils # 12.7 10^3/uL (1.8-7.7); Neutrophils % 90.8 %; Nucleated Red Blood Cells % 0 %; Platelet Count 321 10^3/cmm (130-400); Red Cell Distribution Width 15.5 % (12.1-15.1)
[2020-01-22 04:24] LABS: Alanine Aminotransferase 24 U/L (0-33); Albumin Level 3.2 g/dL (3.5-5.2); Alkaline Phosphatase 95 IU/L (35-105); Anion Gap 17.1 (5-19); Aspartate Amino Transferase 14 U/L (0-32); Blood Urea Nitrogen 69 mg/dL (8-23); Calcium 9.5 mg/dL (8.5-10.5); Carbon Dioxide 27 mmol/L (22-29); Chloride 98 mmol/L (98-107); Globulin 3.1 g/dL (1.3-4.6); Glomerular Filtration Rate 30.2 mL/min (90-130); Glucose 169 mg/dL (65-115); Potassium 5.1 mmol/L (3.5-5.1); Sodium 137 mmol/L (136-145); Total Bilirubin 0.2 mg/dL (0.15-1.2); Total Protein 6.3 g/dL (6.6-8.7)
[2020-01-22 06:33] LABS: Glucose Point of Care 246 mg/dL (70-110)
[2020-01-22] MEDS: levothyroxine 150 mcg Tablet 75 MCG PO (08:54)
[2020-01-22] MEDS: amiodarone 200 mg Tablet PO (08:54)
[2020-01-22] MEDS: isosorbide mononitrate ER 60 mg Tablet PO (08:54)
[2020-01-22] MEDS: ferrous sulfate EC 325 mg Tablet PO (08:54)
[2020-01-22] MEDS: aspirin 325 mg EC Tablet PO (08:54)
[2020-01-22] MEDS: predniSONE 20 mg Tablet 40 MG PO (08:54)
[2020-01-22] MEDS: atorvastatin 40 mg Tablet 80 MG PO (08:54)
[2020-01-22] MEDS: pantoprazole DR 40 mg Tablet PO ×2 (08:54→18:15)
[2020-01-22] MEDS: docusate sodium 100 mg Capsule PO ×2 (08:54→18:15)
[2020-01-22] MEDS: polyethylene glycol 3350 Pkt 17 gm PO (08:55)
[2020-01-22] MEDS: saline nasal spray 44mL Btl 1 SPRAY NASAL ×2 (08:55→16:18)
[2020-01-22] MEDS: cefTRIAXone 1,000 MG in sodium chloride 0.9% (plus) 50 ML 100 MG IV (08:55)
--- NOTE | 2020-01-22 10:47 | USCV_ITS ---
Cher Lopez Age: 64 Gender: F : 1955 Exam Date: 01/22/2020 15:17 Ordering Phys: Regine Claudio DO Technologist: Jada De Dios Exam Location: [facility] [place] Indication: CHF HYPOXIA BP: / HR: 75 Rhythm: Atrial fibrillation Technical Quality: Adequate MEASUREMENTS (Male / Female) Normal Values 2D ECHO LV Diastolic Diameter PLAX 4.9 cm 4.2 - 5.9 / 3.9 - 5.3 cm LV Systolic Diameter PLAX 3.5 cm LV Chamber Size 3.3 cm IVS Diastolic Thickness 1.3 cm 0.6 - 1.0 / 0.6 - 0.9 cm IVS Systolic Thickness 2.0 cm LVPW Diastolic Thickness 1.2 cm 0.6 - 1.0 / 0.6 - 0.9 cm LVPW Systolic Thickness 1.9 cm RV Chamber Size 2.4 cm LVOT Diameter 2.0 cm LV Ejection Fraction 2D Teich 57.3 % LA Diameter 4.1 cm LA Width 3.0 cm LA Height 3.7 cm RA Width 3.7 cm RA Height 4.4 cm Aorta at Sinotubular Diameter 2.8 cm M-MODE LV Diastolic Diameter MM 4.5 cm 4.2 - 5.9 / 3.9 - 5.3 cm LV Systolic Diameter MM 3.1 cm LV Ejection Fraction MM Teich 59.5 % IVS Diastolic Thickness MM 0.9 cm 0.6 - 1.0 / 0.6 - 0.9 cm IVS Systolic Thickness MM 1.2 cm LVPW Diastolic Thickness MM 1.4 cm 0.6 - 1.0 / 0.6 - 0.9 cm LVPW Systolic Thickness MM 1.6 cm RV Diastolic Diameter MM 1.1 cm Aortic Annulus Diameter 3.2 cm LA Ao Ratio MM 1.3 MV E Point Septal Separation 1.0 cm DOPPLER AV Peak Velocity 160.0 cm/s LVOT Peak Velocity 88.0 cm/s AV Area Cont Eq vti 2.4 cm squared AV Area Cont Eq pk 1.8 cm squared MV Area PHT 5.1 cm squared MV E' Velocity 8.0 cm/s Mitral E to MV E' Ratio 14.0 Mitral E to LV E' Lateral Ratio 16.5 Mitral E to LV E' Septal Ratio 12.1 TR Peak Velocity 200.0 cm/s TR Peak Gradient 16.0 mmHg TR Mean Velocity 147.5 cm/s TR Mean Gradient 9.9 mmHg TR Velocity Time Integral 44.9 cm TV Peak E Velocity 69.0 cm/s Right Atrial Pressure 15.0 mmHg Pulmonary Artery Systolic Pressu 31.0 mmHg PV Peak Velocity 93.0 cm/s RV Acceleration Time 0.1 s RV Ejection Time 0.3 s RV AcT/ET 0.4 FINDINGS Left Ventricle Normal left ventricular cavity size. Due to poor quality images cannot assess LV function. Please repeat limited study with contrast. Right Ventricle The right ventricle is normal in size and function. Right Atrium The right atrium is normal in size. Left Atrium Mildly increased left atrial size. Mitral Valve Mildly thickened mitral valve. Mild mitral annular calcification. No mitral valve stenosis. Mild mitral valve regurgitation. Aortic Valve Moderate aortic valve calcification. No aortic valve stenosis. No aortic valve regurgitation. Tricuspid Valve Structurally normal tricuspid valve without significant stenosis or regurgitation. Pulmonary artery systolic pressure is normal. Pulmonic Valve Structurally normal pulmonic valve without significant stenosis. There is no pulmonic regurgitation. Pericardium Normal pericardium without effusion. Aorta Normal ascending aorta dimension. CONCLUSIONS 1-Normal left ventricular cavity size. Due to poor quality images cannot assess LV function. Please repeat limited study with contrast. 2-Mildly thickened mitral valve. Mild mitral annular calcification. No mitral valve stenosis. Mild mitral valve regurgitation. 3-Mildly increased left atrial size. 4-Moderate aortic valve calcification. No aortic valve stenosis. No aortic valve regurgitation. 5-There is no pericardial effusion. 6-Cannot be compared with the prior study due to suboptimal image quality. Please if indicated repeat limited study for LV ejection fraction by using contrast Joel Lazo MD (Electronically Signed) Final Date: 23 January 2020 18:20 C WANDY
[2020-01-22 11:35] LABS: Glucose Point of Care 261 mg/dL (70-110)
--- NOTE | 2020-01-22 12:18 | P.PN_ITS ---
Subjective Subjective: Interval history: Patient is feeling much better today. She is off the BiPAP. She has no fever or chills. The vital signs are stable. Telemetry shows atrial fibrillation with mostly controlled ventricular response rate. Medications: Reviewed: Yes Medication Review Details: Current Medications Acetaminophen (Tylenol) 650 mg PO Q6H PRN PRN Reason: Mild/Mod Pain Or Temp >/= 101 Hydrocodone Bitart/Acetaminophen ([place] 5-325 Mg) 1 tab PO Q4H PRN PRN Reason: Pain Last Admin: 01/21/20 22:05 Dose: 1 tab Documented by: Albuterol Sulfate (Ventolin) 2 puff INHALATION Q4H.RESPIRATORY PRN PRN Reason: Shortness Of Breath Albuterol/Ipratropium (Duoneb) 3 ml INHALATION Q6H.RESPIRATORY PRN PRN Reason: shortness of breath or wheezing Last Admin: 01/22/20 02:35 Dose: 3 ml Documented by: Amiodarone HCl (Cordarone) 200 mg PO DAILY [facility] Last Admin: 01/22/20 08:54 Dose: 200 mg Documented by: Aspirin (Aspirin Ec) 325 mg PO DAILY [facility] Last Admin: 01/22/20 08:54 Dose: 325 mg Documented by: Atorvastatin Calcium (Lipitor) 80 mg PO DAILY [facility] Last Admin: 01/22/20 08:54 Dose: 80 mg Documented by: Dextrose (D50w) 25 ml IVP ONCE PRN; Protocol PRN Reason: hypoglycemia protocol Dextrose (D50w) 50 ml IVP PRN PRN; Protocol PRN Reason: hypoglycemia protocol Docusate Sodium (Colace) 100 mg PO BID [facility] Last Admin: 01/22/20 08:54 Dose: 100 mg Documented by: Ferrous Sulfate (Ferrous Sulfate) 325 mg PO EVERY OTHER DAY [facility] Last Admin: 01/22/20 08:54 Dose: 325 mg Documented by: Glucagon (Glucagen) 1 mg IM ONCE PRN; Protocol PRN Reason: Adult Acute Hypoglycemia Prot. Dextrose (D5w) 500 mls @ 100 mls/hr IV ONCE PRN; Protocol PRN Reason: Adult Acute Hypoglycemia Prot Doxycycline Hyclate 100 mg/ (Sodium Chloride) 100 mls @ 100 mls/hr IV Q12H [facility]; Protocol Last Admin: 01/21/20 22:07 Dose: 100 mls/hr Documented by: Ceftriaxone Sodium 1,000 mg/ (Sodium Chloride) 50 mls @ 100 mls/hr IV Q24H [facility]; Protocol Last Admin: 01/22/20 08:55 Dose: 100 mls/hr Documented by: Insulin Aspart (Novolog) 0 unit SUBCUT WM&BEDTIME [facility]; Protocol Last Admin: 01/22/20 07:37 Dose: 8 unit Documented by: Insulin Glargine (Lantus) 10 unit SUBCUT BEDTIME [facility] Last Admin: 01/21/20 22:06 Dose: 10 unit Documented by: Isosorbide Mononitrate (Imdur) 60 mg PO DAILY [facility] Last Admin: 01/22/20 08:54 Dose: 60 mg Documented by: Levothyroxine Sodium (Synthroid) 75 mcg PO DAILY [facility] Last Admin: 01/22/20 08:54 Dose: 75 mcg Documented by: Losartan Potassium (Cozaar) 50 mg PO DAILY [facility] Last Admin: 01/21/20 09:42 Dose: 50 mg Documented by: Morphine Sulfate (Morphine) 2 mg IVP Q4H PRN PRN Reason: SEVERE PAIN Last Admin: 01/22/20 03:54 Dose: 2 mg Documented by: Non-Formulary Medication (Magnesium) 1,000 mg PO DAILY [facility] Ondansetron HCl (Zofran) 4 mg IVP Q6H PRN PRN Reason: NAUSEA AND VOMITING Last Admin: 01/18/20 12:11 Dose: 4 mg Documented by: Pantoprazole Sodium (Protonix) 40 mg PO BID [facility] Last Admin: 01/22/20 08:54 Dose: 40 mg Documented by: Polyethylene Glycol (Miralax) 17 gm PO DAILY [facility] Last Admin: 01/22/20 08:55 Dose: 17 gm Documented by: Prednisone (Prednisone) 40 mg PO DAILY [facility] Last Admin: 01/22/20 08:54 Dose: 40 mg Documented by: Sodium Chloride ([place] Nasal [place]) 1 spray NASAL PRN PRN PRN Reason: DRYNESS Last Admin: 01/22/20 08:55 Dose: 1 spray Documented by: Verapamil HCl (Verapamil) 80 mg PO TID [facility] Last Admin: 01/22/20 08:54 Dose: 80 mg Documented by: Vitals/I&O/Wt Last Vital Signs Temp 98 F 01/22/20 04:00 Pulse 78 01/22/20 11:10 Resp 22 H 01/22/20 11:10 BP 106/56 01/22/20 11:10 Pulse Ox 100 01/22/20 11:10 01/21/20 01/22/20 01/22/20 22:59 06:59 14:59 Intake Total 600 / 750 Output Total 1200 / 1200 500 / 1700 550 / 550 Balance -1200 / -1050 100 / -950 -550 / -550 Weight last 48 hrs Weight 226 lb Weight 230 lb 4.8 oz Physical Exam Narrative: EXAM NARRATIVE: GENERAL: The patient is alert and oriented times three. Not in any distress. HEENT: Mild pallor, icterus or lymphadenopathy.Oral cavity: There are no mucous membrane lesions. NECK: Trachea appears to be central. No masses noted. Neck veins are slightly distended RESPIRATORY: Chest is symmetrical. Breath sounds are heard bilaterally. Diminished intensity of breath sounds in the bases. Scattered expiratory wheezing. BREASTS: Deferred. HEART: The first heart sound is variable. Second heart sound is normal. No S3. Short systolic murmur in the left sternal border. No diastolic murmurs. No pericardial rub. ABDOMEN: Abdomen is obese. No vessel pulsations or distention. No tenderness. No organomegaly appreciated. Bowel sounds are normally heard. : Deferred. RECTAL: Deferred. LYMPHATIC: No lymphadenopathy noted in the neck . EXTREMITIES: No edema or cyanosis. No clubbing. Below-knee amputation on the right side. The dorsalis pedis and posterior pulses are weak on the left side. No cyanosis. MUSCULOSKELETAL: No acute joint deformities or swelling SKIN: There are no significant scars or skin rash noted. NEUROPSYCHIATRIC: No focal motor deficits. Urinary Catheter Management^: Molina: Cath Placed During This Visit: yes Urethral Indwelling: Yes Reason for Continuing Indwelling Catheter: Acute Urinary Retention or Obstruction Urinary Catheter Date of Insertion: 01/18/20 Urinary Catheter Time of Insertion: 06:02 Data : 01/22/20 03:39 01/22/20 03:39 Micro: Microbiology 01/18/20 05:10 Gram Stain - Final Sputum - Expectorated Sputum Sputum Culture - Final Enterobacter cloacae Klebsiella pneumoniae A&P Assessment and plan (1) Acute on chronic diastolic (congestive) heart failure: Clinically seems to be getting compensated. May continue on the current medications. Continue careful PRN diuresis. Status: Acute Code(s): I50.33 - Acute on chronic diastolic (congestive) heart failure (2) Chronic atrial fibrillation with rapid ventricular response: May continue with AV arie blocking agents and the amiodarone. Currently the heart rate seems to be getting under control. Since the patient has significantly improved, we may hold off on any electrical cardioversion. She seems to be in intermittent sinus rhythm on the monitor. Status: Acute Code(s): I48.20 - Chronic atrial fibrillation, unspecified (3) Acute respiratory failure with hypoxia: Has significant improvement. Continue on the current measures. Status: Acute Code(s): J96.01 - Acute respiratory failure with hypoxia (4) CKD (chronic kidney disease): The BUN/creatinine she has still high. Needs to be closely monitoring. Partly this could be related to the GI bleed Status: Acute Qualifiers: Chronic kidney disease stage: stage 3 (moderate) Qualified Code(s): N18.3 - Chronic kidney disease, stage 3 (moderate) Code(s): N18.9 - Chronic kidney disease, unspecified (5) Right lower lobe pneumonia: Management as per the primary. Status: Acute Qualifiers: Pneumonia type: due to unspecified organism Qualified Code(s): J18.9 - Pneumonia, unspecified organism Code(s): J18.9 - Pneumonia, unspecified organism (6) Peripheral vascular disease: Continue on the current medications. Status: Acute Code(s): I73.9 - Peripheral vascular disease, unspecified Additional A&P Information Other problems are Obstructive sleep apnea Anemia Morbid obesity Type 2 diabetes Based on the clinical progress, further recommendations will be made Attestations Medical Necessity Statement*: Disposition as per the primary Coding Level of Care Code Acute Radiation Protection Engineer for Chg Fwd Diagnoses Acute on chronic diastolic (congestive) heart failure I50.33 Chronic atrial fibrillation with rapid ventricular response I48.20 Acute respiratory failure with hypoxia J96.01 CKD (chronic kidney disease) N18.3 Chronic kidney disease stage: stage 3 (moderate) Right lower lobe pneumonia J18.9 Pneumonia type: due to unspecified organism Peripheral vascular disease I73.9
[2020-01-22] MEDS: doxycycline 100 MG in sodium chloride 0.9% (plus) 100 ML IV (13:35)
--- NOTE | 2020-01-22 14:52 | PM.PN ---
Subjective Subjective: Interval history: She reported breathing was slightly better today until she moved from chair back to bed. She reports continued nonproductive cough. No hemoptysis. Patient reports no bowel movement and concern for abdominal distention, concern for fluid in her abdomen. Medications: Reviewed: Yes Medication Review Details: Current Medications Acetaminophen (Tylenol) 650 mg PO Q6H PRN PRN Reason: Mild/Mod Pain Or Temp >/= 101 Hydrocodone Bitart/Acetaminophen ([place] 5-325 Mg) 1 tab PO Q4H PRN PRN Reason: Pain Last Admin: 01/21/20 22:05 Dose: 1 tab Documented by: Albuterol Sulfate (Ventolin) 2 puff INHALATION Q4H.RESPIRATORY PRN PRN Reason: Shortness Of Breath Albuterol/Ipratropium (Duoneb) 3 ml INHALATION Q6H.RESPIRATORY PRN PRN Reason: shortness of breath or wheezing Last Admin: 01/22/20 02:35 Dose: 3 ml Documented by: Amiodarone HCl (Cordarone) 200 mg PO DAILY [facility] Last Admin: 01/22/20 08:54 Dose: 200 mg Documented by: Aspirin (Aspirin Ec) 325 mg PO DAILY [facility] Last Admin: 01/22/20 08:54 Dose: 325 mg Documented by: Atorvastatin Calcium (Lipitor) 80 mg PO DAILY [facility] Last Admin: 01/22/20 08:54 Dose: 80 mg Documented by: Dextrose (D50w) 25 ml IVP ONCE PRN; Protocol PRN Reason: hypoglycemia protocol Dextrose (D50w) 50 ml IVP PRN PRN; Protocol PRN Reason: hypoglycemia protocol Docusate Sodium (Colace) 100 mg PO BID [facility] Last Admin: 01/22/20 08:54 Dose: 100 mg Documented by: Ferrous Sulfate (Ferrous Sulfate) 325 mg PO EVERY OTHER DAY [facility] Last Admin: 01/22/20 08:54 Dose: 325 mg Documented by: Glucagon (Glucagen) 1 mg IM ONCE PRN; Protocol PRN Reason: Adult Acute Hypoglycemia Prot. Dextrose (D5w) 500 mls @ 100 mls/hr IV ONCE PRN; Protocol PRN Reason: Adult Acute Hypoglycemia Prot Doxycycline Hyclate 100 mg/ (Sodium Chloride) 100 mls @ 100 mls/hr IV Q12H [facility]; Protocol Last Admin: 01/21/20 22:07 Dose: 100 mls/hr Documented by: Ceftriaxone Sodium 1,000 mg/ (Sodium Chloride) 50 mls @ 100 mls/hr IV Q24H [facility]; Protocol Last Admin: 01/22/20 08:55 Dose: 100 mls/hr Documented by: Insulin Aspart (Novolog) 0 unit SUBCUT WM&BEDTIME [facility]; Protocol Last Admin: 01/22/20 07:37 Dose: 8 unit Documented by: Insulin Glargine (Lantus) 10 unit SUBCUT BEDTIME [facility] Last Admin: 01/21/20 22:06 Dose: 10 unit Documented by: Isosorbide Mononitrate (Imdur) 60 mg PO DAILY [facility] Last Admin: 01/22/20 08:54 Dose: 60 mg Documented by: Levothyroxine Sodium (Synthroid) 75 mcg PO DAILY [facility] Last Admin: 01/22/20 08:54 Dose: 75 mcg Documented by: Losartan Potassium (Cozaar) 50 mg PO DAILY [facility] Last Admin: 01/21/20 09:42 Dose: 50 mg Documented by: Morphine Sulfate (Morphine) 2 mg IVP Q4H PRN PRN Reason: SEVERE PAIN Last Admin: 01/22/20 03:54 Dose: 2 mg Documented by: Non-Formulary Medication (Magnesium) 1,000 mg PO DAILY [facility] Ondansetron HCl (Zofran) 4 mg IVP Q6H PRN PRN Reason: NAUSEA AND VOMITING Last Admin: 01/18/20 12:11 Dose: 4 mg Documented by: Pantoprazole Sodium (Protonix) 40 mg PO BID [facility] Last Admin: 01/22/20 08:54 Dose: 40 mg Documented by: Polyethylene Glycol (Miralax) 17 gm PO DAILY [facility] Last Admin: 01/22/20 08:55 Dose: 17 gm Documented by: Prednisone (Prednisone) 40 mg PO DAILY [facility] Last Admin: 01/22/20 08:54 Dose: 40 mg Documented by: Sodium Chloride ([place] Nasal [place]) 1 spray NASAL PRN PRN PRN Reason: DRYNESS Last Admin: 01/22/20 08:55 Dose: 1 spray Documented by: Verapamil HCl (Verapamil) 80 mg PO TID [facility] Last Admin: 01/22/20 08:54 Dose: 80 mg Documented by: Vitals/I&O/Wt Last Vital Signs Temp 98 F 01/22/20 04:00 Pulse 78 01/22/20 11:10 Resp 22 H 01/22/20 11:10 BP 106/56 01/22/20 11:10 Pulse Ox 100 01/22/20 11:10 01/21/20 01/22/20 01/22/20 22:59 06:59 14:59 Intake Total 700 / 850 120 / 120 Output Total 1200 / 1200 500 / 1700 800 / 800 Balance -1200 / -1050 200 / -850 -680 / -680 Weight last 48 hrs Weight 102.512 kg Weight 104.462 kg Physical Exam Const: COMMON NORMALS: oriented x3 and alert GENERAL APPEARANCE: cooperative ORIENTATION/CONSCIOUSNESS: Yes awake, Yes oriented to person, Yes oriented to place and Yes oriented to time HENMT: COMMON NORMALS: normocephalic and head/scalp atraumatic HEAD & SCALP: normocephalic and atraumatic Eye: COMMON NORMALS: PERRL PUPIL: Yes PERRL Neck/C-Spine: COMMON NORMALS: supple GENERAL: Yes normal visual inspection Resp: OTHER: Nasal cannula in place, diminished breath sounds bilaterally with prolonged expiratory phase and expiratory wheezing, improved breath sounds today Cardio: OTHER: Irregularly irregular GI: COMMON NORMALS: soft to palpation and non-tender INSPECTION: No abdominal distension AUSCULTATION: Yes normoactive bowel sounds PALPATION: Yes soft OTHER: no appreciable fluid wave Extremity: NARRATIVE EXTREMITY EXAM: 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, compressive dressing in place in the left lower extremity Neuro: COMMON NORMALS: oriented x3, CN's II-XII intact bilaterally and no focal motor deficits SENSORIUM/ORIENTATION: Yes alert, Yes oriented to person, Yes oriented to place and Yes oriented to time SPEECH: speech normal Psych: COMMON NORMALS: mental status grossly normal and cooperative Skin: COMMON NORMALS: no rashes or lesions noted GENERAL SKIN EXAM: no rashes or lesions noted Urinary Catheter Management^: Molian: Cath Placed During This Visit: yes Urethral Indwelling: Yes Reason for Continuing Indwelling Catheter: Acute Urinary Retention or Obstruction Urinary Catheter Date of Insertion: 01/18/20 Urinary Catheter Time of Insertion: 06:02 Data : 01/22/20 03:39 01/22/20 03:39 Micro: Microbiology 01/18/20 05:10 Gram Stain - Final Sputum - Expectorated Sputum Sputum Culture - Final Enterobacter cloacae Klebsiella pneumoniae A&P Assessment and plan (1) Diastolic congestive heart failure: Acute diastolic congestive heart failure. Previous echocardiogram reviewed from 11/28 showed EF55% with grade I/IV diastolic dysfunction. Repeat limited echocardiogram ordered and pending Appears to be compensated but continues to have worsening renal function, therefore Lasix on hold at this time. We will follow-up with cardiology, Dr. Olmos, recommendations. Status: Acute Qualifiers: Heart failure chronicity: acute on chronic Qualified Code(s): I50.33 - Acute on chronic diastolic (congestive) heart failure Code(s): I50.30 - Unspecified diastolic (congestive) heart failure (2) COPD (chronic obstructive pulmonary disease): With acute hypercapnic respiratory failure. Continue on BiPAP while sleeping Transition to Levaquin and continue on prednisone Wean oxygen as tolerated with a goal oxygen saturation of 90 to 92% Patient reports she continues to smoke at home intermittently, strongly encourage cessation Status: Acute Qualifiers: COPD type: COPD with acute exacerbation Qualified Code(s): J44.1 - Chronic obstructive pulmonary disease with (acute) exacerbation Code(s): J44.9 - Chronic obstructive pulmonary disease, unspecified (3) Atrial fibrillation: Atrial fibrillation with history of cardioversion in the past. She has been off of anticoagulation due to recent GI bleed and anemia. Has been on amiodarone 200mg daily along with cardizem, cardizem increased with no improvement. Cardiology consulted due to continued difficulty with rate control. Appreciate recommendations and assistance in patient's care. During this hospital stay Cardizem discontinued and patient started on Verapamil 80mg TID Status: Chronic Qualifiers: Atrial fibrillation type: unspecified chronic Qualified Code(s): I48.20 - Chronic atrial fibrillation, unspecified Code(s): I48.91 - Unspecified atrial fibrillation (4) Anemia: Chronic anemia and recent GI bleed Remains off of Eliquis and Plavix Only remains on aspirin, increased 325mg daily No evidence of any active bleeding will continue to monitor closely, however increasing BUN. Status: Chronic Qualifiers: Anemia type: unspecified type Qualified Code(s): D64.9 - Anemia, unspecified Code(s): D64.9 - Anemia, unspecified Additional A&P Information Elevated troponin: Secondary to A. fib RVR Chronic kidney disease with acute kidney injury: Baseline creatinine of 1.2-1.4. With continued worsening renal function. Creatinine of 1.7 today and BUN of 69, creatinine slightly improved with gentle IV fluids that were given yesterday. We will continue to monitor closely with close monitoring of urine output. Continue to hold further diuresis. Hyperkalemia: calcium gluconate, IVF, insulin and D50 Diabetes mellitus type 2: Sliding scale insulin as needed, increasing blood glucose, therefore will start on Lantus. This is likely due to prednisone Morbid obesity Obstructive sleep apnea: Intolerant to CPAP History of gastritis: Continue on PPI Right lower lobe consolidation: Continue on Rocephin for UTI. Started on doxycycline due to concern for COPD with acute exacerbation, will continue at this time. Urine culture showing Klebsiella pneumonia: On Levaquin. Discontinue Molina catheter Disposition planning: custodial facility DVT prophylaxis: SCDs, no pharmacologic prophylaxis due to patient with chronic anemia and history of GI bleed Diet: Cardiac, carbohydrate consistent, 2 g sodium restriction, 1500 mL fluid restriction CODE STATUS: Limited resuscitation, DO NOT INTUBATE, okay with other resuscitative measures. Attestations Medical Necessity Statement*: Patient requires further hospitalization due to acute on chronic respiratory failure with COPD exacerbation as well as acute renal failure and CHF Coding Level of Care Code Acute Neuro Ophthalmologist for [facility] Fwd Exam Comprehensive Diagnoses Diastolic congestive heart failure I50.33 Heart failure chronicity: acute on chronic COPD (chronic obstructive pulmonary disease) J44.1 COPD type: COPD with acute exacerbation Atrial fibrillation I48.20 Atrial fibrillation type: unspecified chronic Anemia D64.9 Anemia type: unspecified type
--- NOTE | 2020-01-22 14:53 | US_ITS ---
WS: [id number] ABDOMINAL ULTRASOUND LIMITED REASON FOR VISIT: bloating, concern for ascites TECHNIQUE: Grayscale and Doppler ultrasound examination of the abdomen. 4 quadrants of the abdomen were scanned and showed no definite ascites. Liver: Liver Fatty infiltration of the liver. US/US abdomen limited [id number] IMPRESSION: Fatty infiltration of the liver No definite ascites.
[2020-01-22] MEDS: magnesium citrate Btl 296 mL 150 ML PO (15:03)
[2020-01-22] MEDS: levofloxacin-dextrose 5 % 750 MG/150 ML PREMIX 150 MG IV (15:53)
[2020-01-22 16:20] LABS: Glucose Point of Care 492 mg/dL (70-110)
[2020-01-22] MEDS: ondansetron 2 mg/ML SDV 2 mL 4 MG IVP (17:04)
[2020-01-22 20:55] LABS: Glucose Point of Care 259 mg/dL (70-110)
[2020-01-22] MEDS: insulin glargine 100 units/1 mL 20 UNIT SUBCUT (22:12)
[2020-01-23] VITALS (14 sets, daily range): BP systolic 111–134; BP diastolic 60–91; PULSE 79–138; RESP 15–25; TEMP 36.6–36.8; O2SAT 94–100
--- NOTE | 2020-01-23 00:35 | PC.PHAR ---
Levaquin dose is adjusted from 750mg IVPB ever 24 hours to 750mg IVPB every 48 hours due to creatinine clearance of 38.86.
[2020-01-23 05:44] LABS: Basophils % 0.1 %; Eosinophils % 0.2 %; Hematocrit 33.2 % (37.0-47.0); Hemoglobin 9.9 g/dL (11.5-15.3); Lymphocytes # 0.9 10^3/uL (0.8-4.8); Lymphocytes % 6.9 %; Mean Corpuscular HGB Conc 29.8 g/dL (30.0-36.0); Mean Corpuscular Hemoglobin 27.9 pg (28.0-34.0); Mean Corpuscular Volume 93.5 fL (81-99); Mean Platelet Volume 10.4 fL (7.4-10.4); Monocytes % 7.9 %; Neutrophils # 11.1 10^3/uL (1.8-7.7); Neutrophils % 84.4 %; Nucleated Red Blood Cells % 0 %; Platelet Count 360 10^3/cmm (130-400); Red Blood Count 3.55 10^6/uL (4.1-5.3); Red Cell Distribution Width 15.2 % (12.1-15.1); White Blood Count 13.1 10^3/uL (4.0-10.0)
[2020-01-23 06:06] LABS: Anion Gap 15.7 (5-19); Blood Urea Nitrogen 56 mg/dL (8-23); Calcium 10.4 mg/dL (8.5-10.5); Carbon Dioxide 32 mmol/L (22-29); Chloride 98 mmol/L (98-107); Glomerular Filtration Rate 32.3 mL/min (90-130); Glucose 134 mg/dL (65-115); Osmolality Calculated 291 mOsm/kg (285-295); Potassium 5.7 mmol/L (3.5-5.1); Sodium 140 mmol/L (136-145)
[2020-01-23 06:27] LABS: Glucose Point of Care 120 mg/dL (70-110)
[2020-01-23] MEDS: amiodarone 200 mg Tablet PO ×2 (08:13→13:53)
[2020-01-23] MEDS: morphine 4 mg/mL SDV 1 mL 2 MG IVP (08:17)
--- NOTE | 2020-01-23 09:29 | PC.SOCIAL ---
IMM Update Pg 2 of IMM given and explained to patient. Copy provided to patient. Copy in chart updated.
[2020-01-23] MEDS: dextrose 50% syringe 50 mL 25 ML IVP (10:24)
[2020-01-23] MEDS: polyethylene glycol 3350 Pkt 17 gm PO (10:25)
[2020-01-23] MEDS: atorvastatin 40 mg Tablet 80 MG PO (10:26)
[2020-01-23] MEDS: docusate sodium 100 mg Capsule PO ×2 (10:26→17:39)
[2020-01-23] MEDS: aspirin 325 mg EC Tablet PO (10:26)
[2020-01-23] MEDS: pantoprazole DR 40 mg Tablet PO ×2 (10:27→17:39)
[2020-01-23] MEDS: levothyroxine 150 mcg Tablet 75 MCG PO (10:27)
[2020-01-23] MEDS: isosorbide mononitrate ER 60 mg Tablet PO (10:28)
[2020-01-23] MEDS: LORazepam 2 mg/mL INJ 1 mL 1 MG IVP (10:48)
[2020-01-23 11:54] LABS: Glucose Point of Care 197 mg/dL (70-110)
[2020-01-23 12:31] LABS: Alanine Aminotransferase 24 U/L (0-33); Albumin Level 3.5 g/dL (3.5-5.2); Alkaline Phosphatase 90 IU/L (35-105); Anion Gap 17.2 (5-19); Aspartate Amino Transferase 16 U/L (0-32); Blood Urea Nitrogen 55 mg/dL (8-23); Calcium 10.3 mg/dL (8.5-10.5); Carbon Dioxide 29 mmol/L (22-29); Chloride 99 mmol/L (98-107); Globulin 3.1 g/dL (1.3-4.6); Glomerular Filtration Rate 32.3 mL/min (90-130); Glucose 203 mg/dL (65-115); Magnesium 2.7 mg/dL (1.7-2.3); Phosphorus 4.1 mg/dL (2.5-4.5); Potassium 5.2 mmol/L (3.5-5.1); Sodium 140 mmol/L (136-145); Total Bilirubin 0.2 mg/dL (0.15-1.2); Total Protein 6.6 g/dL (6.6-8.7)
[2020-01-23] MEDS: ipratropium-albuterol 3 mL Neb INHALATION ×2 (14:37→21:35)
--- NOTE | 2020-01-23 15:55 | PM.PN ---
Subjective Subjective: Interval history: Continue be in A. fib with rapid ventricular response. Lungs are clear appeared to be dry Medications: Reviewed: Yes Medication Review Details: Current Medications Acetaminophen (Tylenol) 650 mg PO Q6H PRN PRN Reason: Mild/Mod Pain Or Temp >/= 101 Hydrocodone Bitart/Acetaminophen ([place] 5-325 Mg) 1 tab PO Q4H PRN PRN Reason: Pain Last Admin: 01/21/20 22:05 Dose: 1 tab Documented by: Albuterol Sulfate (Ventolin) 2 puff INHALATION Q4H.RESPIRATORY PRN PRN Reason: Shortness Of Breath Albuterol/Ipratropium (Duoneb) 3 ml INHALATION Q6H.RESPIRATORY PRN PRN Reason: shortness of breath or wheezing Last Admin: 01/22/20 02:35 Dose: 3 ml Documented by: Amiodarone HCl (Cordarone) 200 mg PO DAILY [facility] Last Admin: 01/22/20 08:54 Dose: 200 mg Documented by: Aspirin (Aspirin Ec) 325 mg PO DAILY [facility] Last Admin: 01/22/20 08:54 Dose: 325 mg Documented by: Atorvastatin Calcium (Lipitor) 80 mg PO DAILY [facility] Last Admin: 01/22/20 08:54 Dose: 80 mg Documented by: Dextrose (D50w) 25 ml IVP ONCE PRN; Protocol PRN Reason: hypoglycemia protocol Dextrose (D50w) 50 ml IVP PRN PRN; Protocol PRN Reason: hypoglycemia protocol Docusate Sodium (Colace) 100 mg PO BID [facility] Last Admin: 01/22/20 08:54 Dose: 100 mg Documented by: Ferrous Sulfate (Ferrous Sulfate) 325 mg PO EVERY OTHER DAY [facility] Last Admin: 01/22/20 08:54 Dose: 325 mg Documented by: Glucagon (Glucagen) 1 mg IM ONCE PRN; Protocol PRN Reason: Adult Acute Hypoglycemia Prot. Dextrose (D5w) 500 mls @ 100 mls/hr IV ONCE PRN; Protocol PRN Reason: Adult Acute Hypoglycemia Prot Doxycycline Hyclate 100 mg/ (Sodium Chloride) 100 mls @ 100 mls/hr IV Q12H [facility]; Protocol Last Admin: 01/21/20 22:07 Dose: 100 mls/hr Documented by: Ceftriaxone Sodium 1,000 mg/ (Sodium Chloride) 50 mls @ 100 mls/hr IV Q24H [facility]; Protocol Last Admin: 01/22/20 08:55 Dose: 100 mls/hr Documented by: Insulin Aspart (Novolog) 0 unit SUBCUT WM&BEDTIME [facility]; Protocol Last Admin: 01/22/20 07:37 Dose: 8 unit Documented by: Insulin Glargine (Lantus) 10 unit SUBCUT BEDTIME [facility] Last Admin: 01/21/20 22:06 Dose: 10 unit Documented by: Isosorbide Mononitrate (Imdur) 60 mg PO DAILY [facility] Last Admin: 01/22/20 08:54 Dose: 60 mg Documented by: Levothyroxine Sodium (Synthroid) 75 mcg PO DAILY [facility] Last Admin: 01/22/20 08:54 Dose: 75 mcg Documented by: Losartan Potassium (Cozaar) 50 mg PO DAILY [facility] Last Admin: 01/21/20 09:42 Dose: 50 mg Documented by: Morphine Sulfate (Morphine) 2 mg IVP Q4H PRN PRN Reason: SEVERE PAIN Last Admin: 01/22/20 03:54 Dose: 2 mg Documented by: Non-Formulary Medication (Magnesium) 1,000 mg PO DAILY [facility] Ondansetron HCl (Zofran) 4 mg IVP Q6H PRN PRN Reason: NAUSEA AND VOMITING Last Admin: 01/18/20 12:11 Dose: 4 mg Documented by: Pantoprazole Sodium (Protonix) 40 mg PO BID [facility] Last Admin: 01/22/20 08:54 Dose: 40 mg Documented by: Polyethylene Glycol (Miralax) 17 gm PO DAILY [facility] Last Admin: 01/22/20 08:55 Dose: 17 gm Documented by: Prednisone (Prednisone) 40 mg PO DAILY [facility] Last Admin: 01/22/20 08:54 Dose: 40 mg Documented by: Sodium Chloride ([place] Nasal [place]) 1 spray NASAL PRN PRN PRN Reason: DRYNESS Last Admin: 01/22/20 08:55 Dose: 1 spray Documented by: Verapamil HCl (Verapamil) 80 mg PO TID [facility] Last Admin: 01/22/20 08:54 Dose: 80 mg Documented by: Vitals/I&O/Wt Last Vital Signs Temp 97.9 F 01/23/20 11:52 Pulse 113 H 01/23/20 14:42 Resp 16 01/23/20 14:42 BP 111/72 01/23/20 11:52 Pulse Ox 96 01/23/20 14:42 01/23/20 01/23/20 01/23/20 06:59 14:59 22:59 Intake Total 100 / 460 Balance 100 / -890 Weight last 48 hrs Weight 226 lb Physical Exam Narrative: EXAM NARRATIVE: GENERAL: Patient is alert, awake and oriented x3. Mild distress NECK: No jugular vein distension. HEENT: No cyanosis. No icterus. No pallor. HEART: Regularly irregular S1 and S2. No murmur, rub or gallop. LUNGS: Clear to auscultate bilaterally. ABDOMEN: Soft, midepigastric tenderness and nondistended. Positive bowel sounds. No guarding, rebound or tenderness. CENTRAL NERVOUS SYSTEM: Grossly nonfocal. EXTREMITIES: Lower extremities with 1+ edema bilateraly Urinary Catheter Management^: Molina: Cath Placed During This Visit: yes Urethral Indwelling: Yes Reason for Continuing Indwelling Catheter: Acute Urinary Retention or Obstruction Urinary Catheter Date of Insertion: 01/18/20 Urinary Catheter Time of Insertion: 06:02 Data : 01/23/20 05:20 01/23/20 11:50 Micro: Microbiology 01/18/20 06:47 Blood Culture - Final Blood NO GROWTH AFTER 5 DAYS 01/18/20 05:40 Blood Culture - Final Blood NO GROWTH AFTER 5 DAYS A&P Assessment and plan (1) Acute on chronic diastolic (congestive) heart failure: Appeared to be on the dry side. Hold Lasix. We will give her hydration Status: Acute Code(s): I50.33 - Acute on chronic diastolic (congestive) heart failure (2) Chronic atrial fibrillation with rapid ventricular response: Not well controlled I will increase amiodarone to 200 3 times a day Status: Acute Code(s): I48.20 - Chronic atrial fibrillation, unspecified (3) Acute respiratory failure with hypoxia: Feeling better. Status: Acute Code(s): J96.01 - Acute respiratory failure with hypoxia (4) CKD (chronic kidney disease): We will gently hydrate the patient Status: Acute Qualifiers: Chronic kidney disease stage: stage 3 (moderate) Qualified Code(s): N18.3 - Chronic kidney disease, stage 3 (moderate) Code(s): N18.9 - Chronic kidney disease, unspecified (5) Right lower lobe pneumonia: Management as per the primary. Status: Acute Qualifiers: Pneumonia type: due to unspecified organism Qualified Code(s): J18.9 - Pneumonia, unspecified organism Code(s): J18.9 - Pneumonia, unspecified organism (6) Peripheral vascular disease: Continue on the current medications. Status: Acute Code(s): I73.9 - Peripheral vascular disease, unspecified Additional A&P Information Other problems are Obstructive sleep apnea Anemia Morbid obesity Type 2 diabetes Based on the clinical progress, further recommendations will be made Attestations Medical Necessity Statement*: Requires continuation of hospitalization for above defined care Coding Level of Care Code Established Pt Acute Environmental Health Nurse for [facility] Fwd Patient Type Established History Expanded Problem Focused Exam Expanded Problem Focused Medical Decision Making Moderate Complexity Diagnoses Acute on chronic diastolic (congestive) heart failure I50.33 Chronic atrial fibrillation with rapid ventricular response I48.20 Acute respiratory failure with hypoxia J96.01 CKD (chronic kidney disease) N18.3 Chronic kidney disease stage: stage 3 (moderate) Right lower lobe pneumonia J18.9 Pneumonia type: due to unspecified organism Peripheral vascular disease I73.9
--- NOTE | 2020-01-23 17:02 | P.PN_ITS ---
Subjective Subjective: Interval history: This morning patient was examined, sitting in bed, on a BiPAP, denies fevers, chills, nausea, vomiting, feels that she will benefit from BiPAP at a residential, working on residential placement Vitals/I&O/Wt Last Vital Signs Temp 97.9 F 01/23/20 11:52 Pulse 113 H 01/23/20 14:42 Resp 16 01/23/20 14:42 BP 111/72 01/23/20 11:52 Pulse Ox 96 01/23/20 14:42 01/23/20 01/23/20 01/23/20 06:59 14:59 22:59 Intake Total 100 / 460 360 / 360 Output Total 550 / 550 Balance 100 / -890 -190 / -190 Weight last 48 hrs Weight 102.512 kg Physical Exam Const: COMMON NORMALS: no apparent distress and oriented x3 HENMT: COMMON NORMALS: normocephalic HEAD & SCALP: normocephalic Neck/C-Spine: COMMON NORMALS: no JVD Resp: COMMON NORMALS: normal respiratory effort, no retractions, no use of accessory muscles and clear to auscultation bilaterally AUSCULTATION: clear to auscultation bilaterally Cardio: COMMON NORMALS: no JVD, S1 normal heart sound and S2 normal heart sound RATE: tachycardic RHYTHM: abnormal rhythm HEART SOUNDS: S1 normal and S2 normal GI: COMMON NORMALS: normal to inspection, nondistended, normoactive bowel sounds, soft to palpation, non-tender, no hepatosplenomegaly, no masses and no bruits PALPATION: Yes soft and Yes no hepatosplenomegaly Extremity: COMMON NORMALS: normal capillary refill, no clubbing, cyanosis or e sally, no calf tenderness and no pedal edema Neuro: COMMON NORMALS: oriented x3 Psych: COMMON NORMALS: mental status grossly normal Urinary Catheter Management^: Molina: Cath Placed During This Visit: yes Urethral Indwelling: Yes Reason for Continuing Indwelling Catheter: Acute Urinary Retention or Obstruction Urinary Catheter Date of Insertion: 01/18/20 Urinary Catheter Time of Insertion: 06:02 Data : 01/23/20 05:20 01/23/20 11:50 Micro: Microbiology 01/18/20 06:47 Blood Culture - Final Blood NO GROWTH AFTER 5 DAYS 01/18/20 05:40 Blood Culture - Final Blood NO GROWTH AFTER 5 DAYS A&P Assessment and plan (1) Diastolic congestive heart failure: Acute diastolic congestive heart failure. Previous echocardiogram reviewed from 11/28 showed EF55% with grade I/IV diastolic dysfunction. Repeat limited echocardiogram ordered and pending Creatinine is stable at 1.6, patient does not look fluid overloaded, continue to hold Lasix therapy Patient has clinically significantly benefited from BiPAP, compliant with inpatient, will see if patient can get BiPAP at home Status: Acute Qualifiers: Heart failure chronicity: acute on chronic Qualified Code(s): I50.33 - Acute on chronic diastolic (congestive) heart failure Code(s): I50.30 - Unspecified diastolic (congestive) heart failure (2) COPD (chronic obstructive pulmonary disease): With acute hypercapnic respiratory failure. Continue on BiPAP while sleeping Respiratory culture showing Enterobacter cloacae, Klebsiella pneumonia, transition to Levaquin and continue on prednisone Wean oxygen as tolerated with a goal oxygen saturation of 90 to 92% Patient reports she continues to smoke at home intermittently, strongly encourage cessation Status: Acute Qualifiers: COPD type: COPD with acute exacerbation Qualified Code(s): J44.1 - Chronic obstructive pulmonary disease with (acute) exacerbation Code(s): J44.9 - Chronic obstructive pulmonary disease, unspecified (3) Atrial fibrillation: Atrial fibrillation with history of cardioversion in the past. She has been off of anticoagulation due to recent GI bleed and anemia. -Cardiology on consult -Patient continues to have episodes of A. fib with RVR this morning heart rates in the 140s -On verapamil 80 3 times daily -IN Discussion with Dr. paz, amiodarone increased to 400 mg twice daily Status: Chronic Qualifiers: Atrial fibrillation type: unspecified chronic Qualified Code(s): I48.20 - Chronic atrial fibrillation, unspecified Code(s): I48.91 - Unspecified atrial fibrillation (4) Anemia: Chronic anemia and recent GI bleed Remains off of Eliquis and Plavix Only remains on aspirin, increased 325mg daily No evidence of any active bleeding will continue to monitor closely, however increasing BUN. Status: Chronic Qualifiers: Anemia type: unspecified type Qualified Code(s): D64.9 - Anemia, unspecified Code(s): D64.9 - Anemia, unspecified Additional A&P Information Elevated troponin: Secondary to A. fib RVR Chronic kidney disease with acute kidney injury: Baseline creatinine of 1.2-1.4. With continued worsening renal function. Creatinine of 1.6 We will continue to monitor closely with close monitoring of urine output. Continue to hold further diuresis. Hyperkalemia: calcium gluconate, IVF, insulin and D50 again today, repeat potassium 5.2 Diabetes mellitus type 2: Sliding scale insulin as needed, increasing blood glucose, therefore will start on Lantus. This is likely due to prednisone Morbid obesity Obstructive sleep apnea: Intolerant to CPAP History of gastritis: Continue on PPI Urine culture showing Klebsiella pneumonia: On Levaquin. Discontinue Molina catheter Disposition planning: [facility] facility DVT prophylaxis: SCDs, no pharmacologic prophylaxis due to patient with chronic anemia and history of GI bleed Diet: Cardiac, carbohydrate consistent, 2 g sodium restriction, 1500 mL fluid restriction CODE STATUS: Limited resuscitation, DO NOT INTUBATE, okay with other resuscitative measures. Attestations Medical Necessity Statement*: Because hospitalization due to diastolic CHF exacerbation, A. fib with RVR, COPD exacerbation Coding Level of Care Code Acute Wafer Abrading Machine Tender for g Fwd Diagnoses Diastolic congestive heart failure I50.33 Heart failure chronicity: acute on chronic COPD (chronic obstructive pulmonary disease) J44.1 COPD type: COPD with acute exacerbation Atrial fibrillation I48.20 Atrial fibrillation type: unspecified chronic Anemia D64.9 Anemia type: unspecified type
[2020-01-23 17:14] LABS: Glucose Point of Care 258 mg/dL (70-110)
[2020-01-23] MEDS: amiodarone 200 mg Tablet 400 MG PO (17:40)
[2020-01-23 20:56] LABS: Glucose Point of Care 511 mg/dL (70-110)
[2020-01-23 20:56] LABS: Glucose Point of Care 271 mg/dL (70-110)
[2020-01-23] MEDS: insulin glargine 100 units/1 mL 20 UNIT SUBCUT (21:00)
--- NOTE | 2020-01-23 23:04 | PC.NURSE ---
Patient up to BSC with moderate assist and back to bed. Patient weak at this time. Will monitor.
[2020-01-23] MEDS: HYDROcodone-acetaminophen 5-325 mg Tablet 1 TAB PO (23:44)
--- NOTE | 2020-01-23 23:54 | PC.NURSE ---
Patient requesting something for pain or for my nerves....I really want the morphine. Explained to patient that I was unable to give Morphine until I give the pain pill first. Patient upset over this but did voice understanding and took the pain pill. Will monitor.
[2020-01-24] VITALS (17 sets, daily range): BP systolic 112–136; BP diastolic 58–82; PULSE 75–135; RESP 15–30; TEMP 36.5–36.9; O2SAT 92–98
[2020-01-24] MEDS: ipratropium-albuterol 3 mL Neb INHALATION ×2 (03:38→20:13)
[2020-01-24] MEDS: morphine 4 mg/mL SDV 1 mL 2 MG IVP (04:09)
[2020-01-24 05:33] LABS: Basophils % 0.1 %; Hematocrit 30.9 % (37.0-47.0); Hemoglobin 9.2 g/dL (11.5-15.3); Lymphocytes # 0.3 10^3/uL (0.8-4.8); Lymphocytes % 2.4 %; Mean Corpuscular HGB Conc 29.8 g/dL (30.0-36.0); Mean Corpuscular Hemoglobin 27.8 pg (28.0-34.0); Mean Corpuscular Volume 93.4 fL (81-99); Mean Platelet Volume 10.6 fL (7.4-10.4); Monocytes # 0.2 10^3/uL (0.2-0.9); Monocytes % 1.6 %; Neutrophils # 11.6 10^3/uL (1.8-7.7); Neutrophils % 95.3 %; Nucleated Red Blood Cells % 0 %; Platelet Count 317 10^3/cmm (130-400); Red Blood Count 3.31 10^6/uL (4.1-5.3); Red Cell Distribution Width 15.1 % (12.1-15.1); White Blood Count 12.2 10^3/uL (4.0-10.0)
[2020-01-24 05:55] LABS: Alanine Aminotransferase 23 U/L (0-33); Albumin Level 3.5 g/dL (3.5-5.2); Alkaline Phosphatase 83 IU/L (35-105); Anion Gap 16.4 (5-19); Aspartate Amino Transferase 15 U/L (0-32); Blood Urea Nitrogen 61 mg/dL (8-23); Calcium 10.4 mg/dL (8.5-10.5); Carbon Dioxide 30 mmol/L (22-29); Chloride 97 mmol/L (98-107); Glomerular Filtration Rate 32.3 mL/min (90-130); Glucose 255 mg/dL (65-115); Magnesium 2.7 mg/dL (1.7-2.3); Phosphorus 4.5 mg/dL (2.5-4.5); Potassium 5.4 mmol/L (3.5-5.1); Sodium 138 mmol/L (136-145); Total Bilirubin 0.2 mg/dL (0.15-1.2); Total Protein 6.5 g/dL (6.6-8.7)
[2020-01-24 06:38] LABS: Glucose Point of Care 268 mg/dL (70-110)
[2020-01-24] MEDS: polyethylene glycol 3350 Pkt 17 gm PO ×2 (08:35→17:04)
[2020-01-24] MEDS: ferrous sulfate EC 325 mg Tablet PO (08:36)
[2020-01-24] MEDS: aspirin 325 mg EC Tablet PO (08:37)
[2020-01-24] MEDS: amiodarone 200 mg Tablet 400 MG PO ×2 (08:37→17:03)
[2020-01-24] MEDS: docusate sodium 100 mg Capsule PO ×2 (08:37→17:03)
[2020-01-24] MEDS: atorvastatin 40 mg Tablet 80 MG PO (08:38)
[2020-01-24] MEDS: pantoprazole DR 40 mg Tablet PO ×2 (08:38→17:03)
[2020-01-24] MEDS: isosorbide mononitrate ER 60 mg Tablet PO (08:38)
[2020-01-24] MEDS: levothyroxine 150 mcg Tablet 75 MCG PO (08:39)
[2020-01-24] MEDS: LORazepam 2 mg/mL INJ 1 mL 1 MG IVP ×2 (10:17→21:12)
--- NOTE | 2020-01-24 11:41 | PC.NURSE ---
Bipap on HR-115, post Ativan 1 mg.
[2020-01-24] MEDS: sodium polystyrene sulfonate 15 gm/60 mL Btl PO (11:52)
[2020-01-24] MEDS: lactulose oral liq 20 gm/30 mL UDC PO (11:53)
[2020-01-24 11:59] LABS: Glucose Point of Care 403 mg/dL (70-110)
[2020-01-24] MEDS: metoprolol tartrate 25 mg Tablet 12.5 MG PO (12:26)
--- NOTE | 2020-01-24 15:33 | P.PN_ITS ---
Subjective Subjective: Interval history: Cher reports she still has some shortness of breath. History and physical was reviewed. No chest pain. Medications: Reviewed: Yes Vitals/I&O/Wt Last Vital Signs Temp 97.9 F 01/24/20 14:51 Pulse 133 H 01/24/20 14:51 Resp 19 H 01/24/20 14:51 BP 123/70 01/24/20 14:51 Pulse Ox 98 01/24/20 14:51 01/24/20 01/24/20 01/24/20 06:59 14:59 22:59 Intake Total 360 / 360 Balance 360 / 360 Weight last 48 hrs Weight 103.464 kg Weight 103.464 kg Physical Exam Narrative: EXAM NARRATIVE: General exam is a white female, sitting up in bed reporting she is short of breath in mild respiratory distress Cardiovascular irregular, irregular with accelerated rate Lungs diminished breath sounds bilaterally Abdomen is soft with positive bowel sounds, obese Extremities no cyanosis clubbing. 1+ edema is noted bilaterally. Urinary Catheter Management^: Molina: Cath Placed During This Visit: yes Urethral Indwelling: Yes Reason for Continuing Indwelling Catheter: Acute Urinary Retention or Obstruction Urinary Catheter Date of Insertion: 01/18/20 Urinary Catheter Time of Insertion: 06:02 Data : 01/24/20 04:42 01/24/20 04:42 A&P Assessment and plan (1) Diastolic congestive heart failure: Acute diastolic congestive heart failure. I believe she still has significant amount of edema on board. Lasix 40 mg IV x1 today. Continue BiPAP as needed. May need at home. Check overnight oximetry Status: Acute Qualifiers: Heart failure chronicity: acute on chronic Qualified Code(s): I50.33 - Acute on chronic diastolic (congestive) heart failure Code(s): I50.30 - Unspecified diastolic (congestive) heart failure (2) COPD (chronic obstructive pulmonary disease): With acute hypercapnic respiratory failure. Continue BiPAP PRN Sputum demonstrated Enterobacter, Klebsiella sensitive to Levaquin. Urine demonstrated Klebsiella as well. Wean oxygen as tolerated Stop smoking Status: Acute Qualifiers: COPD type: COPD with acute exacerbation Qualified Code(s): J44.1 - Chronic obstructive pulmonary disease with (acute) exacerbation Code(s): J44.9 - Chronic obstructive pulmonary disease, unspecified (3) Atrial fibrillation: Atrial fibrillation with history of cardioversion in the past. She has been off of anticoagulation due to recent GI bleed and anemia. Appreciate cardiology consultation Continue verapamil, amiodarone. Add metoprolol 12.5 mg twice daily, increasing to 25 mg twice daily as tolerated for better heart rate control. Status: Chronic Qualifiers: Atrial fibrillation type: unspecified chronic Qualified Code(s): I48.20 - Chronic atrial fibrillation, unspecified Code(s): I48.91 - Unspecified atrial fibrillation (4) Anemia: Chronic anemia and recent GI bleed Remains off of Eliquis and Plavix Only remains on aspirin Status: Chronic Qualifiers: Anemia type: unspecified type Qualified Code(s): D64.9 - Anemia, unspecified Code(s): D64.9 - Anemia, unspecified Additional A&P Information Elevated troponin. This is type II Chronic kidney disease with acute kidney injury, continue to follow closely renal function. Hyperkalemia, Kayexalate x1. Lasix this afternoon. Check BMP tomorrow. Constipation, add lactulose Diabetes mellitus type 2, sliding scale, Lantus Morbid obesity GERD, continue PPI UTI, continue Levaquin DVT prophylaxis with SCD secondary to GI bleeding CODE STATUS: Limited resuscitation, DO NOT INTUBATE, okay with other resuscitative measures. Attestations Medical Necessity Statement*: Needs continued hospitalization for adjustment of medications for atrial fibrillation with rapid ventricular rate. Time Spent in Patient Care: Needs continued hospitalization for adjustment of medications secondary to heart failure, with rapid ventricular rate. Coding Level of Care Code Acute Adobe Flex Developer for Marsha [place] Diagnoses Diastolic congestive heart failure I50.33 Heart failure chronicity: acute on chronic COPD (chronic obstructive pulmonary disease) J44.1 COPD type: COPD with acute exacerbation Atrial fibrillation I48.20 Atrial fibrillation type: unspecified chronic Anemia D64.9 Anemia type: unspecified type
[2020-01-24] MEDS: levofloxacin-dextrose 5 % 750 MG/150 ML PREMIX 150 MG IV (15:37)
[2020-01-24 16:28] LABS: Glucose Point of Care 350 mg/dL (70-110)
[2020-01-24] MEDS: FUROsemide 10 mg/mL SDV 4mL 40 MG IVP (17:02)
[2020-01-24] MEDS: metoprolol tartrate 25 mg Tablet PO (17:03)
--- NOTE | 2020-01-24 18:39 | PM.PN ---
Subjective Subjective: Interval history: Heart rate still on the high side however shortness of breath has been improving. Medications: Reviewed: Yes Medication Review Details: Current Medications Acetaminophen (Tylenol) 650 mg PO Q6H PRN PRN Reason: Mild/Mod Pain Or Temp >/= 101 Hydrocodone Bitart/Acetaminophen ([place] 5-325 Mg) 1 tab PO Q4H PRN PRN Reason: Pain Last Admin: 01/21/20 22:05 Dose: 1 tab Documented by: Albuterol Sulfate (Ventolin) 2 puff INHALATION Q4H.RESPIRATORY PRN PRN Reason: Shortness Of Breath Albuterol/Ipratropium (Duoneb) 3 ml INHALATION Q6H.RESPIRATORY PRN PRN Reason: shortness of breath or wheezing Last Admin: 01/22/20 02:35 Dose: 3 ml Documented by: Amiodarone HCl (Cordarone) 200 mg PO DAILY [facility] Last Admin: 01/22/20 08:54 Dose: 200 mg Documented by: Aspirin (Aspirin Ec) 325 mg PO DAILY [facility] Last Admin: 01/22/20 08:54 Dose: 325 mg Documented by: Atorvastatin Calcium (Lipitor) 80 mg PO DAILY [facility] Last Admin: 01/22/20 08:54 Dose: 80 mg Documented by: Dextrose (D50w) 25 ml IVP ONCE PRN; Protocol PRN Reason: hypoglycemia protocol Dextrose (D50w) 50 ml IVP PRN PRN; Protocol PRN Reason: hypoglycemia protocol Docusate Sodium (Colace) 100 mg PO BID [facility] Last Admin: 01/22/20 08:54 Dose: 100 mg Documented by: Ferrous Sulfate (Ferrous Sulfate) 325 mg PO EVERY OTHER DAY [facility] Last Admin: 01/22/20 08:54 Dose: 325 mg Documented by: Glucagon (Glucagen) 1 mg IM ONCE PRN; Protocol PRN Reason: Adult Acute Hypoglycemia Prot. Dextrose (D5w) 500 mls @ 100 mls/hr IV ONCE PRN; Protocol PRN Reason: Adult Acute Hypoglycemia Prot Doxycycline Hyclate 100 mg/ (Sodium Chloride) 100 mls @ 100 mls/hr IV Q12H [facility]; Protocol Last Admin: 01/21/20 22:07 Dose: 100 mls/hr Documented by: Ceftriaxone Sodium 1,000 mg/ (Sodium Chloride) 50 mls @ 100 mls/hr IV Q24H [facility]; Protocol Last Admin: 01/22/20 08:55 Dose: 100 mls/hr Documented by: Insulin Aspart (Novolog) 0 unit SUBCUT WM&BEDTIME [facility]; Protocol Last Admin: 01/22/20 07:37 Dose: 8 unit Documented by: Insulin Glargine (Lantus) 10 unit SUBCUT BEDTIME [facility] Last Admin: 01/21/20 22:06 Dose: 10 unit Documented by: Isosorbide Mononitrate (Imdur) 60 mg PO DAILY [facility] Last Admin: 01/22/20 08:54 Dose: 60 mg Documented by: Levothyroxine Sodium (Synthroid) 75 mcg PO DAILY [facility] Last Admin: 01/22/20 08:54 Dose: 75 mcg Documented by: Losartan Potassium (Cozaar) 50 mg PO DAILY [facility] Last Admin: 01/21/20 09:42 Dose: 50 mg Documented by: Morphine Sulfate (Morphine) 2 mg IVP Q4H PRN PRN Reason: SEVERE PAIN Last Admin: 01/22/20 03:54 Dose: 2 mg Documented by: Non-Formulary Medication (Magnesium) 1,000 mg PO DAILY [facility] Ondansetron HCl (Zofran) 4 mg IVP Q6H PRN PRN Reason: NAUSEA AND VOMITING Last Admin: 01/18/20 12:11 Dose: 4 mg Documented by: Pantoprazole Sodium (Protonix) 40 mg PO BID [facility] Last Admin: 01/22/20 08:54 Dose: 40 mg Documented by: Polyethylene Glycol (Miralax) 17 gm PO DAILY [facility] Last Admin: 01/22/20 08:55 Dose: 17 gm Documented by: Prednisone (Prednisone) 40 mg PO DAILY [facility] Last Admin: 01/22/20 08:54 Dose: 40 mg Documented by: Sodium Chloride ([place] Nasal [place]) 1 spray NASAL PRN PRN PRN Reason: DRYNESS Last Admin: 01/22/20 08:55 Dose: 1 spray Documented by: Verapamil HCl (Verapamil) 80 mg PO TID [facility] Last Admin: 01/22/20 08:54 Dose: 80 mg Documented by: Vitals/I&O/Wt Last Vital Signs Temp 97.9 F 01/24/20 14:51 Pulse 133 H 01/24/20 14:51 Resp 19 H 01/24/20 14:51 BP 123/70 01/24/20 14:51 Pulse Ox 98 01/24/20 14:51 01/24/20 01/24/20 01/24/20 06:59 14:59 22:59 Intake Total 360 / 360 Balance 360 / 360 Weight last 48 hrs Weight 228 lb 1.6 oz Weight 228 lb 1.6 oz Physical Exam Narrative: EXAM NARRATIVE: GENERAL: Patient is alert, awake and oriented x3. Mild distress NECK: No jugular vein distension. HEENT: No cyanosis. No icterus. No pallor. HEART: Regularly irregular S1 and S2. No murmur, rub or gallop. LUNGS: Clear to auscultate bilaterally. ABDOMEN: Soft, midepigastric tenderness and nondistended. Positive bowel sounds. No guarding, rebound or tenderness. CENTRAL NERVOUS SYSTEM: Grossly nonfocal. 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 We will continue to hold Lasix Status: Acute Code(s): I50.33 - Acute on chronic diastolic (congestive) heart failure (2) Chronic atrial fibrillation with rapid ventricular response: Not well controlled ,Metoprolol was added by Dr. Lopez we will continue to monitor Status: Acute Code(s): I48.20 - Chronic atrial fibrillation, unspecified (3) Acute respiratory failure with hypoxia: Continue to improve. Status: Acute Code(s): J96.01 - Acute respiratory failure with hypoxia (4) CKD (chronic kidney disease): Stable now. Status: Acute Qualifiers: Chronic kidney disease stage: stage 3 (moderate) Qualified Code(s): N18.3 - Chronic kidney disease, stage 3 (moderate) Code(s): N18.9 - Chronic kidney disease, unspecified (5) Right lower lobe pneumonia: Management as per the primary. Status: Acute Qualifiers: Pneumonia type: due to unspecified organism Qualified Code(s): J18.9 - Pneumonia, unspecified organism Code(s): J18.9 - Pneumonia, unspecified organism (6) Peripheral vascular disease: Continue on the current medications. Status: Acute Code(s): I73.9 - Peripheral vascular disease, unspecified Additional A&P Information Other problems are Obstructive sleep apnea Anemia Morbid obesity Type 2 diabetes Based on the clinical progress, further recommendations will be made Attestations Medical Necessity Statement*: Patient requires continuation hospitalization for above defined it. Coding Level of Care Code Established Pt Acute Vinegar Maker for g Fwd Patient Type Established History Expanded Problem Focused Exam Expanded Problem Focused Medical Decision Making Moderate Complexity Diagnoses Acute on chronic diastolic (congestive) heart failure I50.33 Chronic atrial fibrillation with rapid ventricular response I48.20 Acute respiratory failure with hypoxia J96.01 CKD (chronic kidney disease) N18.3 Chronic kidney disease stage: stage 3 (moderate) Right lower lobe pneumonia J18.9 Pneumonia type: due to unspecified organism Peripheral vascular disease I73.9
[2020-01-24 20:37] LABS: Glucose Point of Care 153 mg/dL (70-110)
[2020-01-24] MEDS: insulin glargine 100 units/1 mL 20 UNIT SUBCUT (21:13)
[2020-01-24] MEDS: guaiFENesin 100 mg/5 mL UDC 10 mL 200 MG PO (23:14)
[2020-01-25] VITALS (13 sets, daily range): BP systolic 102–147; BP diastolic 55–75; PULSE 74–112; RESP 18–24; TEMP 36.4–37.1; O2SAT 94–99
[2020-01-25] MEDS: ipratropium-albuterol 3 mL Neb INHALATION ×4 (02:45→20:43)
[2020-01-25] MEDS: ondansetron 2 mg/ML SDV 2 mL 4 MG IVP ×2 (02:48→10:31)
[2020-01-25 05:56] LABS: Glucose Point of Care 48 mg/dL (70-110)
[2020-01-25] MEDS: acetaminophen 325 mg Tablet 650 MG PO ×2 (05:57→10:31)
--- NOTE | 2020-01-25 06:03 | PC.NURSE ---
PT BS 48. ORANGE JUICE AND PEANUT BUTTER CRACKERS WERE GIVEN. DR MICHELE WAS NOTIFIED. WILL CONTINUE TO MONITOR.
[2020-01-25 06:22] LABS: Glucose Point of Care 52 mg/dL (70-110)
--- NOTE | 2020-01-25 06:31 | PC.NURSE ---
BS IS 52. 4OZ OF ORANGE JUICE WAS GIVEN. WILL CONTINUE TO MONITOR.
--- NOTE | 2020-01-25 06:57 | PC.NURSE ---
BS 78. WILL CONTINUE TO MONITOR.
[2020-01-25 06:58] LABS: Glucose Point of Care 78 mg/dL (70-110)
[2020-01-25 07:09] LABS: Basophils % 0.1 %; Eosinophils % 0.2 %; Hematocrit 31.6 % (37.0-47.0); Hemoglobin 9.2 g/dL (11.5-15.3); Lymphocytes # 1.1 10^3/uL (0.8-4.8); Lymphocytes % 7.8 %; Mean Corpuscular HGB Conc 29.1 g/dL (30.0-36.0); Mean Corpuscular Hemoglobin 27.5 pg (28.0-34.0); Mean Corpuscular Volume 94.6 fL (81-99); Mean Platelet Volume 10.3 fL (7.4-10.4); Monocytes % 7.3 %; Neutrophils # 11.6 10^3/uL (1.8-7.7); Neutrophils % 84.3 %; Nucleated Red Blood Cells % 0 %; Platelet Count 317 10^3/cmm (130-400); Red Blood Count 3.34 10^6/uL (4.1-5.3); Red Cell Distribution Width 15.3 % (12.1-15.1); White Blood Count 13.8 10^3/uL (4.0-10.0)
[2020-01-25 07:29] LABS: Alanine Aminotransferase 21 U/L (0-33); Albumin Level 3.3 g/dL (3.5-5.2); Alkaline Phosphatase 89 IU/L (35-105); Anion Gap 14.3 (5-19); Aspartate Amino Transferase 16 U/L (0-32); Blood Urea Nitrogen 50 mg/dL (8-23); Calcium 9.8 mg/dL (8.5-10.5); Carbon Dioxide 31 mmol/L (22-29); Chloride 98 mmol/L (98-107); Globulin 3.5 g/dL (1.3-4.6); Glomerular Filtration Rate 32.3 mL/min (90-130); Glucose 74 mg/dL (65-115); Osmolality Calculated 285 mOsm/kg (285-295); Potassium 4.3 mmol/L (3.5-5.1); Sodium 139 mmol/L (136-145); Total Bilirubin 0.2 mg/dL (0.15-1.2); Total Protein 6.8 g/dL (6.6-8.7)
[2020-01-25] MEDS: metoprolol tartrate 25 mg Tablet PO ×2 (08:53→17:12)
[2020-01-25] MEDS: pantoprazole DR 40 mg Tablet PO ×2 (08:53→17:12)
[2020-01-25] MEDS: amiodarone 200 mg Tablet 400 MG PO ×2 (08:53→17:12)
[2020-01-25] MEDS: atorvastatin 40 mg Tablet 80 MG PO (08:53)
[2020-01-25] MEDS: isosorbide mononitrate ER 60 mg Tablet PO (08:53)
[2020-01-25] MEDS: docusate sodium 100 mg Capsule PO ×2 (08:53→17:11)
[2020-01-25] MEDS: aspirin 325 mg EC Tablet PO (08:53)
[2020-01-25] MEDS: levothyroxine 150 mcg Tablet 75 MCG PO (08:54)
[2020-01-25] MEDS: polyethylene glycol 3350 Pkt 17 gm PO ×2 (08:54→17:11)
[2020-01-25] MEDS: saline nasal spray 44mL Btl 1 SPRAY NASAL (08:58)
--- NOTE | 2020-01-25 10:07 | PC.SOCIAL ---
IMM Update Pg 2 of IMM given and explained to patient who verbalized understanding. Signed, dated, and timed, and placed in chart. Copy provided to patient.
--- NOTE | 2020-01-25 10:55 | PC.CHAP ---
Pastoral Care Encounter/Spiritual Assessment Type of Contact [] Declined heavy equipment operator visit [] Patient/Family/Request visit [] Outpatient visit [x] Follow-up visit [] Physician referral [] Code/Alert [] Routine visit [] Staff referral [] Actively dying [] Patient sleeping [] Family support [] [] Out of room [] Palliative care [] [x] Receiving care in room [] Pre-surgical visit [] Trauma [x] Long length of stay [] ICU visit [x] Other: Follow up visit not completed Relational/Emotional Strength [] Patient feels connected with others/family/visitors/staff [] Distress [] Loneliness/isolation [] Abandonment Spirituality of Patient [] Person of Monse [] Attends Catholic of their Monse [] Believes in Prayer [] Reads Bible or Lutheran materials [] There are Spiritual issues to be addressed Minibus Driver Interventions [] Prayer [] Active listening [] Non-anxious presence [] Spiritual/emotional support [] Crisis/trauma care [] Spiritual counseling [] Bereavement support [] Provided bereavement packet [] Provided Bible/devotional materials [] Provided toy/stuffed animal, coloring book to patient or family member [] Provided Communion [] Anointing/[place] [] Salvation [] Completed spiritual assessment [] Other: Impact on Illness or Injury [] Angry [] Fearful [] Anxious [] Often cries [] Exhaustion [] Unable to work [] Unable to attend spiritism [] Unable to walk/stand [] Unable to read [] Unable to drive [] Unable to eat/drink [] Unable to sleep [] Unable to be with family [] Patient intubated [] Other: Summary Medical staff was with patient and would be for lengthy period of time. This Minibus Driver visited this pt last week and was attempting a follow up. Follow up recommended. Minibus Driver Abril Stoll Time spent with patient 2 minutes
[2020-01-25 11:55] LABS: Glucose Point of Care 249 mg/dL (70-110)
--- NOTE | 2020-01-25 11:58 | P.PN_ITS ---
Subjective Subjective: Interval history: Cher reports she is still feeling down but perhaps a little bit better than yesterday. Still feels significantly swollen. Did have a bowel movement. Medications: Reviewed: Yes Vitals/I&O/Wt Last Vital Signs Temp 98.0 F 01/25/20 11:18 Pulse 105 H 01/25/20 11:18 Resp 24 H 01/25/20 11:18 BP 109/57 01/25/20 11:18 Pulse Ox 96 01/25/20 11:18 01/24/20 01/25/20 01/25/20 22:59 06:59 14:59 Intake Total 50 / 410 100 / 510 Balance 50 / 410 100 / 510 Weight last 48 hrs Weight 103.011 kg Weight 103.464 kg Physical Exam Narrative: EXAM NARRATIVE: General exam is a white female, sitting up in bed reporting she is short of breath in mild respiratory distress Cardiovascular irregular, irregular with improved control of rate Lungs diminished breath sounds bilaterally Abdomen is soft with positive bowel sounds, obese Extremities no cyanosis clubbing. 1+ edema is noted bilaterally. Urinary Catheter Management^: Molina: Cath Placed During This Visit: yes Urethral Indwelling: Yes Reason for Continuing Indwelling Catheter: Acute Urinary Retention or Obstruction Urinary Catheter Date of Insertion: 01/18/20 Urinary Catheter Time of Insertion: 06:02 Data : 01/25/20 06:49 01/25/20 06:49 A&P Assessment and plan (1) Diastolic congestive heart failure: Acute diastolic congestive heart failure. I believe she still has significant amount of edema on board. She received Lasix yesterday. Will initiate this every 12 hours and monitor for improvement in her status. Her weight is still significantly up from admission. Continue BiPAP as needed. May need at home. Check overnight oximetry Status: Acute Qualifiers: Heart failure chronicity: acute on chronic Qualified Code(s): I50.33 - Acute on chronic diastolic (congestive) heart failure Code(s): I50.30 - Unspecified diastolic (congestive) heart failure (2) COPD (chronic obstructive pulmonary disease): With acute hypercapnic respiratory failure. Continue BiPAP PRN Sputum demonstrated Enterobacter, Klebsiella sensitive to Levaquin. Urine demonstrated Klebsiella as well. Wean oxygen as tolerated Stop smoking Status: Acute Qualifiers: COPD type: COPD with acute exacerbation Qualified Code(s): J44.1 - Chronic obstructive pulmonary disease with (acute) exacerbation Code(s): J44.9 - Chronic obstructive pulmonary disease, unspecified (3) Atrial fibrillation: Atrial fibrillation with history of cardioversion in the past. She has been off of anticoagulation due to recent GI bleed and anemia. Appreciate cardiology consultation Continue verapamil, amiodarone. Metoprolol has been added. She is tolerating 25 mg twice a day with improved control of her heart rate. Status: Chronic Qualifiers: Atrial fibrillation type: unspecified chronic Qualified Code(s): I48.20 - Chronic atrial fibrillation, unspecified Code(s): I48.91 - Unspecified atrial fibrillation (4) Anemia: Chronic anemia and recent GI bleed Remains off of Eliquis and Plavix Only remains on aspirin Hemoglobin appears stable Status: Chronic Qualifiers: Anemia type: unspecified type Qualified Code(s): D64.9 - Anemia, unspecified Code(s): D64.9 - Anemia, unspecified Additional A&P Information Elevated troponin. This is type II Chronic kidney disease with acute kidney injury, continue to follow closely renal function. Hyperkalemia, received a dose of Kayexalate. Potassium improved Constipation, add lactulose Diabetes mellitus type 2, sliding scale, Lantus Morbid obesity GERD, continue PPI UTI, continue Levaquin DVT prophylaxis with SCD secondary to GI bleeding CODE STATUS: Limited resuscitation, DO NOT INTUBATE, okay with other resuscitative measures. Plan to discharge to skilled care when stable, hopefully 1 to 2 days Will need BiPAP Attestations Medical Necessity Statement*: Needs continued hospital stay for further diuresis secondary to acute diastolic heart failure. Time Spent in Patient Care: Needs continued hospitalization for further diuresis secondary to acute diastolic heart failure. Coding Level of Care Code Acute Manager [employer] for [employer] Diagnoses Diastolic congestive heart failure I50.33 Heart failure chronicity: acute on chronic COPD (chronic obstructive pulmonary disease) J44.1 COPD type: COPD with acute exacerbation Atrial fibrillation I48.20 Atrial fibrillation type: unspecified chronic Anemia D64.9 Anemia type: unspecified type
[2020-01-25] MEDS: HYDROcodone-acetaminophen 5-325 mg Tablet 1 TAB PO ×3 (13:10→23:39)
[2020-01-25] MEDS: FUROsemide 10 mg/mL SDV 4mL 40 MG IVP ×2 (13:11→23:37)
[2020-01-25 17:28] LABS: Glucose Point of Care 194 mg/dL (70-110)
--- NOTE | 2020-01-25 19:30 | PC.NURSE ---
Patient sitting on side of bed on I-Pad looking at recipe's. I need something for my back....it's killing me....and don't forget my garcia catheter.....I'm back on lasix again and I need it. Pain medication given. Will monitor.
--- NOTE | 2020-01-25 19:48 | PC.NURSE ---
16 Georgian Molina Catheter inserted using sterile technique with return of clear yellow urine. Tolerated fair.
--- NOTE | 2020-01-25 20:45 | PC.NURSE ---
Patient crying very anxious. I need something now. Ativan given per charge nurse for anxiety. Will monitor.
[2020-01-25] MEDS: LORazepam 2 mg/mL INJ 1 mL 1 MG IVP (20:49)
--- NOTE | 2020-01-25 20:57 | PC.NURSE ---
Patient called out to nursing station from call light system, upon arriving in patient's room, patient is crying and states, I just feel upset PRN anxiety given as ordered per physician. Call light within the patient's reach. Care Continued.l
--- NOTE | 2020-01-25 21:17 | P.PN_ITS ---
Subjective Subjective: Interval history: Patient was having recent shortness of breath and leg swelling. For that reason, she was started on diuretics. She seems to be responding to medication. Denies any chest pain. She also had problems with a heart rate control. Was started on metoprolol. Her heart rate seems to be slowly getting under control. Medications: Reviewed: Yes Medication Review Details: Current Medications Acetaminophen (Tylenol) 650 mg PO Q6H PRN PRN Reason: Mild/Mod Pain Or Temp >/= 101 Last Admin: 01/25/20 10:31 Dose: 650 mg Documented by: Hydrocodone Bitart/Acetaminophen ([place]rison 5-325 Mg) 1 tab PO Q4H PRN PRN Reason: MODERATE PAIN Last Admin: 01/25/20 19:33 Dose: 1 tab Documented by: Albuterol Sulfate (Ventolin) 2 puff INHALATION Q4H.RESPIRATORY PRN PRN Reason: Shortness Of Breath Albuterol/Ipratropium (Duoneb) 3 ml INHALATION Q6H.RESPIRATORY [facility] Last Admin: 01/25/20 20:43 Dose: 3 ml Documented by: Amiodarone HCl (Cordarone) 400 mg PO BID [facility] Last Admin: 01/25/20 17:12 Dose: 400 mg Documented by: Aspirin (Aspirin Ec) 325 mg PO DAILY [facility] Last Admin: 01/25/20 08:53 Dose: 325 mg Documented by: Atorvastatin Calcium (Lipitor) 80 mg PO DAILY [facility] Last Admin: 01/25/20 08:53 Dose: 80 mg Documented by: Dextrose (D50w) 25 ml IVP ONCE PRN; Protocol PRN Reason: hypoglycemia protocol Dextrose (D50w) 50 ml IVP PRN PRN; Protocol PRN Reason: hypoglycemia protocol Docusate Sodium (Colace) 100 mg PO BID [facility] Last Admin: 01/25/20 17:11 Dose: 100 mg Documented by: Ferrous Sulfate (Ferrous Sulfate) 325 mg PO EVERY OTHER DAY [facility] Last Admin: 01/24/20 08:36 Dose: 325 mg Documented by: Furosemide (Lasix) 40 mg IVP Q12H [facility] Last Admin: 01/25/20 13:11 Dose: 40 mg Documented by: Glucagon (Glucagen) 1 mg IM ONCE PRN; Protocol PRN Reason: Adult Acute Hypoglycemia Prot. Guaifenesin (Robitussin Oral Liq) 200 mg PO Q4H PRN PRN Reason: COUGH AND CONGESTION Last Admin: 01/24/20 23:14 Dose: 200 mg Documented by: Dextrose (D5w) 500 mls @ 100 mls/hr IV ONCE PRN; Protocol PRN Reason: Adult Acute Hypoglycemia Prot Levofloxacin/Dextrose (Levaquin-D5w) 750 mg in 150 mls @ 150 mls/hr IV Q48H [facility]; Protocol Last Admin: 01/24/20 15:37 Dose: 150 mls/hr Documented by: Insulin Aspart (Novolog) 0 unit SUBCUT WM&BEDTIME [facility]; Protocol Last Admin: 01/25/20 18:43 Dose: 6 unit Documented by: Insulin Glargine (Lantus) 20 unit SUBCUT BEDTIME [facility] Last Admin: 01/24/20 21:13 Dose: 20 unit Documented by: Isosorbide Mononitrate (Imdur) 60 mg PO DAILY [facility] Last Admin: 01/25/20 08:53 Dose: 60 mg Documented by: Lactulose (Constulose) 20 gm PO Q12H [facility] Last Admin: 01/25/20 10:32 Dose: Not Given Documented by: Levothyroxine Sodium (Synthroid) 75 mcg PO DAILY [facility] Last Admin: 01/25/20 08:54 Dose: 75 mcg Documented by: Lorazepam (Ativan) 1 mg IVP Q8H PRN PRN Reason: ANXIETY Last Admin: 01/25/20 20:49 Dose: 1 mg Documented by: Metoprolol Tartrate (Lopressor) 25 mg PO BID [facility] Last Admin: 01/25/20 17:12 Dose: 25 mg Documented by: Ondansetron HCl (Zofran) 4 mg IVP Q6H PRN PRN Reason: NAUSEA AND VOMITING Last Admin: 01/25/20 10:31 Dose: 4 mg Documented by: Pantoprazole Sodium (Protonix) 40 mg PO BID [facility] Last Admin: 01/25/20 17:12 Dose: 40 mg Documented by: Polyethylene Glycol (Miralax) 17 gm PO BID [facility] Last Admin: 01/25/20 17:11 Dose: 17 gm Documented by: Sodium Chloride ([employer] Nasal [place]) 1 spray NASAL PRN PRN PRN Reason: DRYNESS Last Admin: 01/25/20 08:58 Dose: 1 spray Documented by: Verapamil HCl (Verapamil) 80 mg PO TID [facility] Last Admin: 01/25/20 15:05 Dose: 80 mg Documented by: Vitals/I&O/Wt Last Vital Signs Temp 97.9 F 01/25/20 19:56 Pulse 86 01/25/20 20:47 Resp 18 01/25/20 20:47 BP 110/55 01/25/20 19:56 Pulse Ox 94 01/25/20 20:47 01/25/20 01/25/20 01/25/20 06:59 14:59 22:59 Intake Total 100 / 510 240 / 240 240 / 480 Output Total 1900 / 1900 Balance 100 / 510 240 / 240 -1660 / -1420 Weight last 48 hrs Weight 227 lb 1.6 oz Weight 228 lb 1.6 oz Physical Exam Narrative: EXAM NARRATIVE: GENERAL: The patient is alert and oriented times three. Not in any distress. HEENT: Mild pallor, icterus or lymphadenopathy.Oral cavity: There are no mucous membrane lesions. NECK: Trachea appears to be central. No masses noted. Neck veins are slightly distended RESPIRATORY: Chest is symmetrical. Breath sounds are heard bilaterally. Diminished intensity of breath sounds in the bases. Few fine rales in the bases BREASTS: Deferred. HEART: The first heart sound is variable. Second heart sound is normal. No S3. Short systolic murmur in the left sternal border. No diastolic murmurs. No pericardial rub. ABDOMEN: Abdomen is obese. No vessel pulsations or distention. No tenderness. No organomegaly appreciated. Bowel sounds are normally heard. : Deferred. RECTAL: Deferred. LYMPHATIC: No lymphadenopathy noted in the neck . EXTREMITIES: 2+ edema of the left lower extremity. Peripheral pulses are difficult to palpate. Below-knee amputation on the right side. MUSCULOSKELETAL: No acute joint deformities or swelling SKIN: There are no significant scars or skin rash noted. NEUROPSYCHIATRIC: No focal motor deficits. Urinary Catheter Management^: Molina: Cath Placed During This Visit: yes Urethral Indwelling: Yes Reason for Continuing Indwelling Catheter: Acute Urinary Retention or Obstruction Urinary Catheter Date of Insertion: 01/25/20 Urinary Catheter Time of Insertion: 19:30 Data : 01/26/20 03:10 01/26/20 03:10 A&P Assessment and plan (1) Acute on chronic diastolic (congestive) heart failure: Continue careful diuresis. BMP in the morning Status: Acute Code(s): I50.33 - Acute on chronic diastolic (congestive) heart failure (2) Chronic atrial fibrillation with rapid ventricular response: Patient is on metoprolol, verapamil and amiodarone. Heart rate seems to be under control now. May continue on the current medications. Closely monitor on telemetry. Status: Acute Code(s): I48.20 - Chronic atrial fibrillation, unspecified (3) Acute respiratory failure with hypoxia: The respiratory status seems to be stable Status: Acute Code(s): J96.01 - Acute respiratory failure with hypoxia (4) CKD (chronic kidney disease): The BUN/creatinine ratio is improving. Continue on the current measures. Status: Acute Qualifiers: Chronic kidney disease stage: stage 3 (moderate) Qualified Code(s): N18.3 - Chronic kidney disease, stage 3 (moderate) Code(s): N18.9 - Chronic kidney disease, unspecified (5) Right lower lobe pneumonia: Clinically improving. Continue on the current measures. Status: Acute Qualifiers: Pneumonia type: due to unspecified organism Qualified Code(s): J18.9 - Pneumonia, unspecified organism Code(s): J18.9 - Pneumonia, unspecified organism (6) Peripheral vascular disease: Continue on the current medications. 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
[2020-01-25 21:35] LABS: Glucose Point of Care 258 mg/dL (70-110)
[2020-01-25] MEDS: lactulose oral liq 20 gm/30 mL UDC PO (22:03)
[2020-01-25] MEDS: insulin glargine 100 units/1 mL 20 UNIT SUBCUT (22:04)
[2020-01-26] VITALS (8 sets, daily range): BP systolic 108–137; BP diastolic 57–75; PULSE 81–99; RESP 18–24; TEMP 36.7–37.1; O2SAT 91–96
--- NOTE | 2020-01-26 00:12 | PC.NURSE ---
Patient demanding pain pill. States, I just hurt all over. Medication given. Lasix given as scheduled. Will monitor.
--- NOTE | 2020-01-26 02:15 | PC.NURSE ---
Lying supine in bed with HOB elevated. Did not awaken at this time. Will monitor.
[2020-01-26] MEDS: ipratropium-albuterol 3 mL Neb INHALATION ×2 (02:26→08:29)
[2020-01-26 04:23] LABS: Basophils % 0.1 %; Eosinophils # 0.1 10^3/uL (0.0-0.8); Eosinophils % 0.7 %; Hematocrit 29.8 % (37.0-47.0); Lymphocytes # 0.9 10^3/uL (0.8-4.8); Lymphocytes % 8.9 %; Mean Corpuscular HGB Conc 30.2 g/dL (30.0-36.0); Mean Corpuscular Hemoglobin 27.8 pg (28.0-34.0); Mean Platelet Volume 10.9 fL (7.4-10.4); Monocytes # 0.7 10^3/uL (0.2-0.9); Monocytes % 6.8 %; Neutrophils # 8.8 10^3/uL (1.8-7.7); Neutrophils % 83.2 %; Nucleated Red Blood Cells % 0 %; Platelet Count 280 10^3/cmm (130-400); Red Blood Count 3.24 10^6/uL (4.1-5.3); Red Cell Distribution Width 15.2 % (12.1-15.1); White Blood Count 10.6 10^3/uL (4.0-10.0)
[2020-01-26 04:28] LABS: Glucose Point of Care 219 mg/dL (70-110)
--- NOTE | 2020-01-26 04:29 | PC.NURSE ---
Patient slept through assessment. Accu check obtained with result of 219mg/dl. Opened eyes and closed them. Not wanting bi-pap on thus far this shift. Will monitor.
[2020-01-26 04:47] LABS: Alanine Aminotransferase 18 U/L (0-33); Albumin Level 3.2 g/dL (3.5-5.2); Alkaline Phosphatase 99 IU/L (35-105); Anion Gap 13.4 (5-19); Aspartate Amino Transferase 15 U/L (0-32); Blood Urea Nitrogen 51 mg/dL (8-23); Calcium 9.9 mg/dL (8.5-10.5); Carbon Dioxide 34 mmol/L (22-29); Chloride 97 mmol/L (98-107); Globulin 3.1 g/dL (1.3-4.6); Glomerular Filtration Rate 30.2 mL/min (90-130); Glucose 168 mg/dL (65-115); Osmolality Calculated 292 mOsm/kg (285-295); Potassium 4.4 mmol/L (3.5-5.1); Sodium 140 mmol/L (136-145); Total Bilirubin 0.2 mg/dL (0.15-1.2); Total Protein 6.3 g/dL (6.6-8.7)
[2020-01-26 06:21] LABS: Glucose Point of Care 184 mg/dL (70-110)
--- NOTE | 2020-01-26 06:25 | PC.NURSE ---
Patient sitting up in bed with eyes closed. Respirations shallow. No BM thus far this shift. Monitor showing A-Fib with HR upper 80's to 90's. Will awaken;however, will go right back to sleep. Not wanting bi-pap at this time. Will monitor.
[2020-01-26] MEDS: metoprolol tartrate 25 mg Tablet PO (08:57)
[2020-01-26] MEDS: ferrous sulfate EC 325 mg Tablet PO (08:57)
[2020-01-26] MEDS: lactulose oral liq 20 gm/30 mL UDC PO (08:57)
[2020-01-26] MEDS: polyethylene glycol 3350 Pkt 17 gm PO (08:57)
[2020-01-26] MEDS: isosorbide mononitrate ER 60 mg Tablet PO (08:58)
[2020-01-26] MEDS: docusate sodium 100 mg Capsule PO (08:58)
[2020-01-26] MEDS: aspirin 325 mg EC Tablet PO (08:58)
[2020-01-26] MEDS: amiodarone 200 mg Tablet 400 MG PO (08:58)
[2020-01-26] MEDS: atorvastatin 40 mg Tablet 80 MG PO (08:58)
[2020-01-26] MEDS: levothyroxine 150 mcg Tablet 75 MCG PO (08:58)
[2020-01-26] MEDS: pantoprazole DR 40 mg Tablet PO (08:58)
--- NOTE | 2020-01-26 11:27 | PM.DCS ---
Discharge Providers Date of Admission: 01/18/20 07:37 Date of Discharge: January 26, 2020 Attending Provider at Admission: Regine Claudio DO Attending Provider at Discharge: Juvencio Lopez MD Primary Care Provider: Jayden Garcia MD Diagnoses at Discharge Discharge Diagnosis (1) Acute on chronic diastolic (congestive) heart failure: Status: Acute Problem details: Currently compensated. Will discharge on Lasix 40 mg twice daily (2) Chronic atrial fibrillation with rapid ventricular response: Status: Acute Problem details: Controlled on verapamil, metoprolol, amiodarone. Reduce amiodarone dose to 200 milligrams twice daily on discharge with plans in 1 week to go to 200 mg daily (3) Acute respiratory failure with hypoxia: Status: Acute Problem details: With COPD exacerbation. Will finish course of cefdinir for 5 days. (4) CKD (chronic kidney disease): Status: Acute Problem details: Stable currently Qualifiers: Chronic kidney disease stage: stage 3 (moderate) Qualified Code(s): N18.3 - Chronic kidney disease, stage 3 (moderate) (5) Right lower lobe pneumonia: Status: Acute Problem details: Cannot be completely ruled out. 5 more days of cefdinir. Klebsiella, Enterobacter on culture Qualifiers: Pneumonia type: due to unspecified organism Qualified Code(s): J18.9 - Pneumonia, unspecified organism (6) Peripheral vascular disease: Status: Acute Problem details: Status post right femoral-popliteal bypass surgery followed by below the knee amputation Reason for Visit Reason for Visit: Reason For Visit: sob Hospital Course Hospital Course: Sheron is a 64-year-old white female who presented to the hospital on January 17 with exacerbation of COPD, diastolic heart failure, and atrial fibrillation. She was placed on steroids, diuresed, and received IV antibiotics. Cardiology was consulted on January 19, secondary to difficulty with atrial fibrillation with rapid ventricular rate. Multiple adjustments in medication was performed, ultimately leading her to be on a higher dose of amiodarone, verapamil, and metoprolol for rate control. Echocardiogram was performed, which was poor quality. During her hospital stay she had some worsening renal function, and diuretics were held for several days prior to reinitiation. By January 25, she was doing better. Edema was less. Creatinine was stable at 1.6. Lasix was able to be transitioned to p.o. The plan was to discharge to long term facility, for therapy. She will need a dose reduction in her amiodarone in 1 week. Physical Exam Narrative: EXAM NARRATIVE: General exam is no apparent distress Cardiovascular irregular, irregular with controlled rate Lungs clear Abdomen is soft, positive bowel sounds Extremities trace edema Urinary Catheter Management^: Molina: Cath Placed During This Visit: yes Urethral Indwelling: Yes Reason for Continuing Indwelling Catheter: Accurate Measurement of Urinary Output in Critically Ill Patients Urinary Catheter Date of Insertion: 01/25/20 Urinary Catheter Time of Insertion: 19:30 Discharge Data Data Completed and Pending: Completed Studies During Hospitalization Category Date Time Status XR chest 1V lisset ble [id number] Routine Exams 01/19/20 08:24 Completed XR chest 1V lisset ble [id number] Routine Exams 01/20/20 08:57 Completed XR chest 1V lisset ble [id number] Urgent Exams 01/18/20 04:40 Completed CV echo limited 9 [id number] Routine Ultrasound 01/22/20 10:47 Completed US abdomen limite d [id number] Routine Ultrasound 01/22/20 14:53 Completed Labs from last 24 hours 01/26/20 01/26/20 01/26/20 06:10 04:24 03:10 WBC RBC Hgb Hct MCV MCH MCHC RDW Plt Count MPV Neut % (Auto) Lymph % (Auto) [place] % (Auto) Eos % (Auto) Baso % (Auto) Neut # (Auto) Lymph # (Auto) [place] # (Auto) Eos # (Auto) Baso # (Auto) Nucleated RBC % (a uto) Nucleated RBCs # Sodium 140 Potassium 4.4 Chloride 97 L Carbon Dioxide 34 H Anion Gap 13.4 BUN 51 H Creatinine 1.7 H GFR Calculation 30.2 L Glucose 168 H POC Glucose 184 219 Calculated Osmolal ity 292 Calcium 9.9 Total Bilirubin 0.2 AST 15 ALT 18 Alkaline Phosphata se 99 Total Protein 6.3 L Albumin 3.2 L Globulin 3.1 01/26/20 01/25/20 01/25/20 03:10 21:15 16:47 WBC 10.6 H RBC 3.24 L Hgb 9.0 L Hct 29.8 L MCV 92.0 MCH 27.8 L MCHC 30.2 RDW 15.2 H Plt Count 280 MPV 10.9 H Neut % (Auto) 83.2 Lymph % (Auto) 8.9 [place] % (Auto) 6.8 Eos % (Auto) 0.7 Baso % (Auto) 0.1 Neut # (Auto) 8.8 H Lymph # (Auto) 0.9 [place] # (Auto) 0.7 Eos # (Auto) 0.1 Baso # (Auto) 0.0 Nucleated RBC % (a uto) 0 Nucleated RBCs # 0.0 Sodium Potassium Chloride Carbon Dioxide Anion Gap BUN Creatinine GFR Calculation Glucose POC Glucose 258 194 Calculated Osmolal ity Calcium Total Bilirubin AST ALT Alkaline Phosphata se Total Protein Albumin Globulin 01/25/20 11:17 WBC RBC Hgb Hct MCV MCH MCHC RDW Plt Count MPV Neut % (Auto) Lymph % (Auto) [place] % (Auto) Eos % (Auto) Baso % (Auto) Neut # (Auto) Lymph # (Auto) [place] # (Auto) Eos # (Auto) Baso # (Auto) Nucleated RBC % (a uto) Nucleated RBCs # Sodium Potassium Chloride Carbon Dioxide Anion Gap BUN Creatinine GFR Calculation Glucose POC Glucose 249 Calculated Osmolal ity Calcium Total Bilirubin AST ALT Alkaline Phosphata se Total Protein Albumin Globulin Vitals: Last Vital Signs Temp 98.0 F 01/26/20 11:01 Pulse 84 01/26/20 11:01 Resp 24 H 01/26/20 11:01 BP 114/65 01/26/20 11:01 Pulse Ox 96 01/26/20 11:01 Discharge Plan Discharge Patient Disposition: Xfer SNF Condition: Stable Prescriptions: New atorvastatin 40 mg Tablet 80 mg PO DAILY Qty: 60 RF: 0 verapamil 80 mg Tablet 80 mg PO TID Qty: 90 RF: 0 Lantus U-100 Insulin 100 unit/mL Solution 20 unit SUBCUT BEDTIME Qty: 10 RF: 0 metoprolol tartrate 25 mg Tablet 25 mg PO BID Qty: 60 RF: 0 amiodarone 400 mg tablet 200 mg PO BID Qty: 60 RF: 0 cefdinir 300 mg capsule 300 mg PO BID 5 Days Qty: 10 RF: 0 lactulose 20 gram/30 mL Solution 20 g PO Q12H Qty: 180 RF: 0 polyethylene glycol 3350 [Miralax] 17 gram Powder In Packet 17 g PO BID Qty: 60 RF: 0 furosemide [Lasix] 40 mg tablet 40 mg PO BID Qty: 60 RF: 0 Continued ipratropium-albuterol 0.5 mg-3 mg(2.5 mg base)/3 mL solution for nebulization 3 ml INHALATION Q6H PRN (Reason: shortness of breath or wheezing) Qty: 90 RF: 0 hydrocodone-acetaminophen [[place]] 5-325 mg Tablet 1 tab PO Q4H PRN (Reason: Pain) RF: 0 aspirin [Aspir-81] 81 mg Tablet,Delayed Release (Dr/Ec) 81 mg PO DAILY RF: 0 levothyroxine 75 mcg Tablet 75 mcg PO DAILY RF: 0 isosorbide mononitrate 60 mg Tablet Extended Release 24 Hr 60 mg PO DAILY RF: 0 insulin aspart U-100 [Novolog U-100 Insulin aspart] 100 unit/mL Solution See Rx Instructions .ROUTE .COMPLEX RF: 0 pantoprazole [Protonix] 40 mg Tablet,Delayed Release (Dr/Ec) 40 mg PO BID RF: 0 magnesium 250 mg Tablet 1,000 mg PO DAILY RF: 0 albuterol sulfate [Ventolin HFA] 90 mcg/actuation Hfa Aerosol Inhaler 2 puff INHALATION Q4H PRN (Reason: Shortness Of Breath) RF: 0 sertraline 50 mg Tablet 50 mg PO DAILY RF: 0 cholecalciferol (vitamin D3) [Vitamin D3] 1,000 unit Capsule 1,000 unit PO DAILY RF: 0 fluticasone propionate [Flonase Allergy Relief] 50 mcg/actuation spray,suspension 1 spray INTRANASAL DAILY Qty: 15.8 RF: 0 ferrous sulfate [iron] 325 mg (65 mg iron) Tablet 325 mg PO EVERY OTHER DAY Qty: 0 RF: 0 Discontinued diltiazem HCl 180 mg capsule,extended release 24hr 180 mg PO DAILY 30 Days Qty: 30 RF: 0 bumetanide 1 mg Tablet 2 mg PO BID 30 Days Qty: 120 RF: 0 amiodarone 200 mg tablet 200 mg PO DAILY RF: 0 losartan 50 mg Tablet 50 mg PO DAILY RF: 0 glimepiride 1 mg tablet 1 mg PO DAILY RF: 0 rosuvastatin 20 mg tablet 20 mg PO DAILY Qty: 20 RF: 0 Referrals: [facility] [Outside] - 4-7 days (Follow-up with primary care provider 3 to 5 days. CBC and BMP in 3 to 5 days.) Marco Hood MD [Physician] - 7-10 days Jayden Garcia MD [Primary Care Provider] - Discharge Diet: Cardiac and Diabetic Discharge Activity: Resume usual activity Activity Restrictions/Additional Instructions: Oxygen 2 L per nasal cannula, titrate to keep sats greater than 90%. Reduce amiodarone to 200 mg daily, after 1 week Take all other medicine as prescribed Arrange follow-up with cardiology. Discharge Attestations Time Spent in Discharge Care*: greater than 30 min Status at Discharge: Cognitive status at discharge: cognitively intact, Behavioral status at discharge: cooperative, Quality Metrics Clinical Quality Measures During this hospital stay, did patient experience: None Coding Level of Care Code Acute [employer] Fwd Diagnoses Acute on chronic diastolic (congestive) heart failure I50.33 Chronic atrial fibrillation with rapid ventricular response I48.20 Acute respiratory failure with hypoxia J96.01 CKD (chronic kidney disease) N18.3 Chronic kidney disease stage: stage 3 (moderate) Right lower lobe pneumonia J18.9 Pneumonia type: due to unspecified organism Peripheral vascular disease I73.9
[2020-01-26 11:31] LABS: Glucose Point of Care 226 mg/dL (70-110)
[2020-01-26] MEDS: FUROsemide 10 mg/mL SDV 4mL 40 MG IVP (12:20)
--- NOTE | 2020-01-26 12:52 | PM.PN ---
Subjective Subjective: Interval history: Patient's heart rate seems to be staying in the normal range. The vital signs are stable. Shortness of breath is improving. Responded to the diuretics appropriately. Medications: Reviewed: Yes Medication Review Details: Current Medications Acetaminophen (Tylenol) 650 mg PO Q6H PRN PRN Reason: Mild/Mod Pain Or Temp >/= 101 Last Admin: 01/25/20 10:31 Dose: 650 mg Documented by: Hydrocodone Bitart/Acetaminophen (Leary 5-325 Mg) 1 tab PO Q4H PRN PRN Reason: MODERATE PAIN Last Admin: 01/25/20 23:39 Dose: 1 tab Documented by: Albuterol Sulfate (Ventolin) 2 puff INHALATION Q4H.RESPIRATORY PRN PRN Reason: Shortness Of Breath Albuterol/Ipratropium (Duoneb) 3 ml INHALATION Q6H.RESPIRATORY [place]AGO Last Admin: 01/26/20 08:29 Dose: 3 ml Documented by: Amiodarone HCl (Cordarone) 400 mg PO BID [facility] Last Admin: 01/26/20 08:58 Dose: 400 mg Documented by: Aspirin (Aspirin Ec) 325 mg PO DAILY [facility] Last Admin: 01/26/20 08:58 Dose: 325 mg Documented by: Atorvastatin Calcium (Lipitor) 80 mg PO DAILY [facility] Last Admin: 01/26/20 08:58 Dose: 80 mg Documented by: Dextrose (D50w) 25 ml IVP ONCE PRN; Protocol PRN Reason: hypoglycemia protocol Dextrose (D50w) 50 ml IVP PRN PRN; Protocol PRN Reason: hypoglycemia protocol Docusate Sodium (Colace) 100 mg PO BID [facility] Last Admin: 01/26/20 08:58 Dose: 100 mg Documented by: Ferrous Sulfate (Ferrous Sulfate) 325 mg PO EVERY OTHER DAY [facility] Last Admin: 01/26/20 08:57 Dose: 325 mg Documented by: Furosemide (Lasix) 40 mg IVP Q12H [facility] Last Admin: 01/26/20 12:20 Dose: 40 mg Documented by: Glucagon (Glucagen) 1 mg IM ONCE PRN; Protocol PRN Reason: Adult Acute Hypoglycemia Prot. Guaifenesin (Robitussin Oral Liq) 200 mg PO Q4H PRN PRN Reason: COUGH AND CONGESTION Last Admin: 01/24/20 23:14 Dose: 200 mg Documented by: Dextrose (D5w) 500 mls @ 100 mls/hr IV ONCE PRN; Protocol PRN Reason: Adult Acute Hypoglycemia Prot Levofloxacin/Dextrose (Levaquin-D5w) 750 mg in 150 mls @ 150 mls/hr IV Q48H [facility]; Protocol Last Admin: 01/24/20 15:37 Dose: 150 mls/hr Documented by: Insulin Aspart (Novolog) 0 unit SUBCUT WM&BEDTIME [facility]; Protocol Last Admin: 01/26/20 12:20 Dose: 8 unit Documented by: Insulin Glargine (Lantus) 20 unit SUBCUT BEDTIME [facility] Last Admin: 01/25/20 22:04 Dose: 20 unit Documented by: Isosorbide Mononitrate (Imdur) 60 mg PO DAILY [facility] Last Admin: 01/26/20 08:58 Dose: 60 mg Documented by: Lactulose (Constulose) 20 gm PO Q12H [facility] Last Admin: 01/26/20 08:57 Dose: 20 gm Documented by: Levothyroxine Sodium (Synthroid) 75 mcg PO DAILY [facility] Last Admin: 01/26/20 08:58 Dose: 75 mcg Documented by: Lorazepam (Ativan) 1 mg IVP Q8H PRN PRN Reason: ANXIETY Last Admin: 01/25/20 20:49 Dose: 1 mg Documented by: Metoprolol Tartrate (Lopressor) 25 mg PO BID [facility] Last Admin: 01/26/20 08:57 Dose: 25 mg Documented by: Ondansetron HCl (Zofran) 4 mg IVP Q6H PRN PRN Reason: NAUSEA AND VOMITING Last Admin: 01/25/20 10:31 Dose: 4 mg Documented by: Pantoprazole Sodium (Protonix) 40 mg PO BID [facility] Last Admin: 01/26/20 08:58 Dose: 40 mg Documented by: Polyethylene Glycol (Miralax) 17 gm PO BID [facility] Last Admin: 01/26/20 08:57 Dose: 17 gm Documented by: Sodium Chloride ([place] Nasal [place]) 1 spray NASAL PRN PRN PRN Reason: DRYNESS Last Admin: 01/25/20 08:58 Dose: 1 spray Documented by: Verapamil HCl (Verapamil) 80 mg PO TID [facility] Last Admin: 01/26/20 08:58 Dose: 80 mg Documented by: Vitals/I&O/Wt Last Vital Signs Temp 98.0 F 01/26/20 11:56 Pulse 84 01/26/20 11:56 Resp 24 H 01/26/20 11:56 BP 114/65 01/26/20 11:56 Pulse Ox 96 01/26/20 11:56 01/25/20 01/26/20 01/26/20 22:59 06:59 14:59 Intake Total 300 / 540 Output Total 1900 / 1900 950 / 2850 800 / 800 Balance -1600 / -1360 -950 / -2310 -800 / -800 Weight last 48 hrs Weight 230 lb 4.8 oz Weight 227 lb 1.6 oz Physical Exam Narrative: EXAM NARRATIVE: GENERAL: The patient is alert and oriented times three. Not in any distress. HEENT: Mild pallor, icterus or lymphadenopathy.Oral cavity: There are no mucous membrane lesions. NECK: Trachea appears to be central. No masses noted. Neck veins are slightly distended RESPIRATORY: Chest is symmetrical. Breath sounds are heard bilaterally. Diminished intensity of breath sounds in the bases. Few fine rales in the bases BREASTS: Deferred. HEART: The first heart sound is variable. Second heart sound is normal. No S3. Short systolic murmur in the left sternal border. No diastolic murmurs. No pericardial rub. ABDOMEN: Abdomen is obese. No vessel pulsations or distention. No tenderness. No organomegaly appreciated. Bowel sounds are normally heard. : Deferred. RECTAL: Deferred. LYMPHATIC: No lymphadenopathy noted in the neck . EXTREMITIES:1- 2+ edema of the left lower extremity. Peripheral pulses are difficult to palpate. Below-knee amputation on the right side. MUSCULOSKELETAL: No acute joint deformities or swelling SKIN: There are no significant scars or skin rash noted. NEUROPSYCHIATRIC: No focal motor deficits. Urinary Catheter Management^: Molina: Cath Placed During This Visit: yes Urethral Indwelling: Yes Reason for Continuing Indwelling Catheter: Accurate Measurement of Urinary Output in Critically Ill Patients Urinary Catheter Date of Insertion: 01/25/20 Urinary Catheter Time of Insertion: 19:30 Data : 01/26/20 03:10 01/26/20 03:10 A&P Assessment and plan (1) Acute on chronic diastolic (congestive) heart failure: Clinically improving. The IV Lasix may be changed to p.o.. May continue on other measures. Status: Acute Code(s): I50.33 - Acute on chronic diastolic (congestive) heart failure (2) Chronic atrial fibrillation with rapid ventricular response: Patient is on metoprolol, verapamil and amiodarone. Heart rate seems to be under control now. The dose of amiodarone may be cut back to 400 mg daily. Status: Acute Code(s): I48.20 - Chronic atrial fibrillation, unspecified (3) Acute respiratory failure with hypoxia: The respiratory status seems to be stable. Status: Acute Code(s): J96.01 - Acute respiratory failure with hypoxia (4) CKD (chronic kidney disease): The BUN/creatinine ratio is improving. Continue on the current measures. Follow-up BMP [facility] BNP [facility] in a week Status: Acute Qualifiers: Chronic kidney disease stage: stage 3 (moderate) Qualified Code(s): N18.3 - Chronic kidney disease, stage 3 (moderate) Code(s): N18.9 - Chronic kidney disease, unspecified (5) Peripheral vascular disease: Continue on the current medications. Status: Acute Code(s): I73.9 - Peripheral vascular disease, unspecified Additional A&P Information Other problems are Obstructive sleep apnea Anemia Morbid obesity Type [address] Lopez. Patient will be seen at the [facility] by the nurse practitioner in 1 week. I may see her in the office in 3 weeks. Attestations Medical Necessity Statement*: Discharge to the halfway today Coding Level of Care Code Acute Heating Unit Installer for Drug Fwd Diagnoses Acute on chronic diastolic (congestive) heart failure I50.33 Chronic atrial fibrillation with rapid ventricular response I48.20 Acute respiratory failure with hypoxia J96.01 CKD (chronic kidney disease) N18.3 Chronic kidney disease stage: stage 3 (moderate) Peripheral vascular disease I73.9
== END 2020-01-26 13:30 | disposition skilled nursing facility (03) | DRG 291 ==
LOC: ER 05:14 → CSU 07:37
PROVIDERS: Family Medicine; Admitting Provider Family Medicine; Emergency Provider Emergency Medicine; Family Provider Family Medicine; PCP Family Medicine; Visit Provider Internal Medicine
DX: I13.0 Hypertensive heart and chronic kidney disease with heart failure and stage 1 through stage 4 chronic kidney disease, or unspecified chronic kidney disease (principal); I50.33 Acute on chronic diastolic (congestive) heart failure; J18.9 Pneumonia, unspecified organism; J96.01 Acute respiratory failure with hypoxia; I48.20 Chronic atrial fibrillation, unspecified; J44.1 Chronic obstructive pulmonary disease with (acute) exacerbation; E87.2 Acidosis; N17.9 Acute kidney failure, unspecified; N18.3 Chronic kidney disease, stage 3 (moderate); K21.9 Gastro-esophageal reflux disease without esophagitis; K59.00 Constipation, unspecified; I73.9 Peripheral vascular disease, unspecified; D63.1 Anemia in chronic kidney disease; E66.01 Morbid (severe) obesity due to excess calories; G47.33 Obstructive sleep apnea (adult) (pediatric); J44.9 Chronic obstructive pulmonary disease, unspecified; E11.22 Type 2 diabetes mellitus with diabetic chronic kidney disease; K29.70 Gastritis, unspecified, without bleeding; E87.5 Hyperkalemia; B96.1 Klebsiella pneumoniae [K. pneumoniae] as the cause of diseases classified elsewhere; Z66 Do not resuscitate; Z91.19 Patient's noncompliance with other medical treatment and regimen; Z68.39 Body mass index [BMI] 39.0-39.9, adult; Z99.81 Dependence on supplemental oxygen; Z87.891 Personal history of nicotine dependence; Z95.828 Presence of other vascular implants and grafts; Z95.1 Presence of aortocoronary bypass graft; Z89.619 Acquired absence of unspecified leg above knee; Z79.51 Long term (current) use of inhaled steroids; Z79.890 Hormone replacement therapy; Z79.899 Other long term (current) drug therapy; Z79.4 Long term (current) use of insulin
CPT/HCPCS: 12345; 36415; 36416; 36600; 51702; 71045; 76705; 80048; 80051; 80053; 81001; 82803; 82805; 82810; 82962; 83735; 83880; 83986; 84100; 84145; 84443; 84484; 85025; 85610; 87040; 87070; 87077; 87086; 87186; 87205; 87804; 93005; 93308; 94640; 94660; 96372; 96375; 97110; 97116; 97162; 97530; 99284; J0610; J0696; J1815; J1940; J1956; J2060; J2270; J2405; J2920; J2930; J3490; J3535; J7030; J7050; J7512; J7614; J7799

== ENCOUNTER 2020-02-01 11:31 | Inpatient (IN) | payer MEDICARE, BC, SELFPAY ==
[2020-02-01] VITALS (10 sets, daily range): BP systolic 113–123; BP diastolic 66–86; PULSE 75–101; RESP 15–20; TEMP 36.6–37.1; O2SAT 96–99; BMI 40.2
--- NOTE | 2020-02-01 11:32 | ED_ITS ---
Entered by Jailene Shaw, acting as scribe for HPI - SOB/Dyspnea General: Chief Complaint: Shortness of Breath/Dyspnea Stated Complaint: SHORTNESS OF BREATH SWELLING LEGS Time Seen by Provider: 02/01/20 11:32 Source: patient and EMS Mode of arrival: EMS Limitations: no limitations History of Present Illness: HPI Narrative: 64 yo female presents with inc reased shortness of breath. pt states this started a couple days ago but worsened today. pt has had increased swelling to bilateral legs. pt denies any other symptoms at this time. MD elicited complaint: shortness of breath Onset (ago): day(s) Context: other (bilateral leg swelling) Timing: constant and progressively worsening Severity: moderate Exacerbating factors: exertion Relieving factors: nothing Associated symptoms: Reports other (shortness of breath, bilateral leg swelling); Deny abdominal pain, chest pain, fever(s), nausea or vomiting Treatment prior to arrival: oxygen Related Data: Home oxygen amount: 2 liters Review of Systems Const: Denies: fever, chills, body aches or change in appetite Eyes: Denies: photophobia ENMT: Denies: enlarged tonsils Card: Denies: chest pain GI: Denies: abdominal pain, nausea, vomiting or diarrhea : Denies: painful urination Musc: Denies: joint warmth Skin/Breast: Denies: rash Neuro: Denies: headache Psych: Denies: depression Dwain/Lymph: Denies: easy bruising All/Imm: Denies: acute wheezing PFSH ED PFSH: Medical History (Updated 02/01/20 @ 14:24 by Humberto Scruggs MD) Acute on chronic diastolic (congestive) heart failure Currently compensated. Will discharge on Lasix 40 mg twice daily Atrial fibrillation Chronic atrial fibrillation with rapid ventricular response Controlled on verapamil, metoprolol, amiodarone. Reduce amiodarone dose to 200 milligrams twice daily on discharge with plans in 1 week to go to 200 mg daily CKD (chronic kidney disease) Stable currently COPD (chronic obstructive pulmonary disease) Diabetes Diastolic congestive heart failure Gastritis History of cardioversion History of leg amputation Right Left bundle branch block Morbid obesity Nonerosive nonspecific gastritis Peripheral vascular disease Status post right femoral-popliteal bypass surgery followed by below the knee amputation Sessile colonic polyp Sleep apnea Noncompliant with CPAP due to claustrophobia Supplemental oxygen dependent Tobacco abuse Vulva cancer Surgical History (Updated 01/20/20 @ 10:08 by Marco Hood MD) H/O esophagogastroduodenoscopy 10/2019 History of cholecystectomy Hx of BKA Hx of CABG S/P femoral-popliteal bypass surgery Status post colonoscopy with polypectomy 12/29/2019: Polyp hepatic flexure and sigmoid colon, moderate diverticulosis; follow-up colonoscopy in 5 years Social History (Updated 01/18/20 @ 09:09 by Regine Claudio DO) Smoking and tobacco status: former smoker Alcohol intake: never Lives independently: Yes Household members: none Current occupational status: retired History of recent travel: No Physical Exam Const: COMMON NORMALS: no apparent distress, oriented x3 and healthy appearing HENMT: COMMON NORMALS: normocephalic and head/scalp atraumatic HEAD & SCALP: normocephalic and atraumatic Eye: COMMON NORMALS: PERRL and EOMs intact bilaterally PUPIL: Yes PERRL Neck/C-Spine: COMMON NORMALS: full ROM and supple Chest: COMMONS NORMALS: inspection of chest normal and palpation of chest normal Cardio: COMMON NORMALS: regular rate, regular rhythm and no murmurs RATE: regular rate RHYTHM: regular rhythm GI: COMMON NORMALS: normal to inspection, nondistended, normoactive bowel sounds, soft to palpation, non-tender and no masses PALPATION: Yes soft Extremity: GENERAL: Yes edema Neuro: COMMON NORMALS: oriented x3, moves all extremities and no focal motor deficits Psych: COMMON NORMALS: mental status grossly normal, thought process normal and cooperative THOUGHT PROCESS: normal thought process Skin: COMMON NORMALS: no rashes or lesions noted and no wounds GENERAL SKIN EXAM: no rashes or lesions noted Course Vital Signs: Vital signs: Vital Signs Temperature 98.7 F 02/01/20 11:31 Pulse Rate 81 02/01/20 12:11 Respiratory Rate 18 02/01/20 12:09 Blood Pressure 113/86 02/01/20 11:31 Pulse Oximetry 99 02/01/20 12:09 MDM - SOB/Dyspnea MDM Narrative: Medical decision making narrative: Patient presents here with shortness of breath with likely CHF exacerbation. Patient has effusions noted on chest x-ray and worsening shortness of breath. I spoke to hospitalist and will admit for further diuresis. She has no signs of pneumonia. No signs of pulmonary embolism. Lab Data: Labs: Lab Results 02/01/20 02/01/20 02/01/20 Range/Units 11:35 11:35 11:35 WBC 14.2 H (4.0-10.0) 10^3/ uL RBC 3.17 L (4.1-5.3) 10^6/u L Hgb 9.0 L (11.5-15.3) g/dL Hct 31.6 L (37.0-47.0) % MCV 99.7 H (81-99) fL MCH 28.4 (28.0-34.0) pg MCHC 28.5 L (30.0-36.0) g/dL RDW 15.5 H (12.1-15.1) % Plt Count 237 (130-400) 10^3/c mm MPV 11.8 H (7.4-10.4) fL Neut % (Auto) 84.5 % Lymph % (Auto) 5.6 % Sibley % (Auto) 8.6 % Eos % (Auto) 0.6 % Baso % (Auto) 0.3 % Neut # (Auto) 12.0 H (1.8-7.7) 10^3/u L Lymph # (Auto) 0.8 (0.8-4.8) 10^3/u L [place]y # (Auto) 1.2 H (0.2-0.9) 10^3/u L Eos # (Auto) 0.1 (0.0-0.8) 10^3/u L Baso # (Auto) 0.0 (0.0-0.1) 10^3/u L Nucleated RBC % (a uto) 0 % Nucleated RBCs # 0.0 /100WBC PT 14.90 H (10.5-13.3) SECO NDS INR 1.13 (0.8-1.2) Specimen Type Sample Site ABG pH (7.35-7.45) ABG pCO2 (35-45) mmHg ABG pO2 (80.0-100.0) mmH g ABG HCO3 (22-26) mmol/L ABG Base Excess (-2.0-2.0) mmol/ L Milton Test Hematocrit (37-47) % O2 Delivery Device O2 Liters/Min % FiO2 % Corn Husk Baler ID Sodium 136 (136-145) mmol/L Potassium 4.9 (3.5-5.1) mmol/L Chloride 94 L (98-107) mmol/L Carbon Dioxide 32 H (22-29) mmol/L Anion Gap 14.9 (5-19) BUN 42 H (8-23) mg/dL Creatinine 1.7 H (0.5-0.9) mg/dL GFR Calculation 30.2 L (90-130) mL/min Glucose 193 H (65-115) mg/dL Calculated Osmolal ity 285 (285-295) mOsm/k g Calcium 8.7 (8.5-10.5) mg/dL Total Bilirubin 0.3 (0.15-1.2) mg/dL AST 15 (0-32) U/L ALT 13 (0-33) U/L Alkaline Phosphata se 100 (35-105) IU/L NT-Pro-B Natriuret Pep 2037 H (0-125) pg/mL Total Protein 6.1 L (6.6-8.7) g/dL Albumin 3.1 L (3.5-5.2) g/dL Globulin 3.0 (1.3-4.6) g/dL 16 Range/Units 12:40 WBC (4.0-10.0) 10^3/ uL RBC (4.1-5.3) 10^6/u L Hgb (11.5-15.3) g/dL Hct (37.0-47.0) % MCV (81-99) fL MCH (28.0-34.0) pg MCHC (30.0-36.0) g/dL RDW (12.1-15.1) % Plt Count (130-400) 10^3/c mm MPV (7.4-10.4) fL Neut % (Auto) % Lymph % (Auto) % Sibley % (Auto) % Eos % (Auto) % Baso % (Auto) % Neut # (Auto) (1.8-7.7) 10^3/u L Lymph # (Auto) (0.8-4.8) 10^3/u L Sibley # (Auto) (0.2-0.9) 10^3/u L Eos # (Auto) (0.0-0.8) 10^3/u L Baso # (Auto) (0.0-0.1) 10^3/u L Nucleated RBC % (a uto) % Nucleated RBCs # /100WBC PT (10.5-13.3) SECO NDS INR (0.8-1.2) Specimen Type Arterial Sample Site Brachial, right ABG pH 7.37 (7.35-7.45) ABG pCO2 56.9 H (35-45) mmHg ABG pO2 67.7 L (80.0-100.0) mmH g ABG HCO3 33.2 H (22-26) mmol/L ABG Base Excess 6.9 H (-2.0-2.0) mmol/ L Milton Test N/a Hematocrit 27.3 L (37-47) % O2 Delivery Device Nc O2 Liters/Min 2.0 % FiO2 28.0 % Corn Husk Baler ID gd Sodium (136-145) mmol/L Potassium (3.5-5.1) mmol/L Chloride (98-107) mmol/L Carbon Dioxide (22-29) mmol/L Anion Gap (5-19) BUN (8-23) mg/dL Creatinine (0.5-0.9) mg/dL GFR Calculation (90-130) mL/min Glucose (65-115) mg/dL Calculated Osmolal ity (285-295) mOsm/k g Calcium (8.5-10.5) mg/dL Total Bilirubin (0.15-1.2) mg/dL AST (0-32) U/L ALT (0-33) U/L Alkaline Phosphata se (35-105) IU/L NT-Pro-B Natriuret Pep (0-125) pg/mL Total Protein (6.6-8.7) g/dL Albumin (3.5-5.2) g/dL Globulin (1.3-4.6) g/dL Imaging Data^: CXR: Radiologist's impression: [address] [address] XRay Report Signed Patient: Cher Lopez Unit #: [id number] : 1955 Age/Sex: 64 / F ADM Date: 02/01/20 Loc: ER Room/Bed: Attending Dr: Ordering Provider/Ordering MD: Humberto Scruggs MD Date of Service: 02/01/20 Procedure(s): XR chest 1V portable [id number] Accession Number(s): [id number] Report Number: [id number] WS: [id number] XR chest 1V portable [id number] REASON FOR EXAM: sob FINDINGS: Bilateral pleural effusion. Worse on the right than left. Cardiomegaly sternotomy changes and coronary bypass changes. Comparison January 20, 2020. XR/XR chest 1V portable [id number] IMPRESSION: Bilateral pleural effusion Prior coronary bypass Cardiomegaly EKG Data^: EKG 1: Attestation: I personally reviewed and interpreted this EKG as follows: EKG Interpretation Date: 02/01/20 EKG interpretation time: 11:54 Interpretation: afib hr [address] or t wave abnormalities qrs 157 qtc 472 Discharge Plan Discharge Patient Disposition: Admitted As Inpatient Clinical Impression: Congestive heart failure Condition: Stable Prescriptions: No Action ipratropium-albuterol 0.5 mg-3 mg(2.5 mg base)/3 mL solution for nebulization 3 ml INHALATION Q6H PRN (Reason: shortness of breath or wheezing) Qty: 90 RF: 0 atorvastatin 40 mg Tablet 80 mg PO DAILY Qty: 60 RF: 0 polyethylene glycol 3350 [Miralax] 17 gram Powder In Packet 17 g PO BID Qty: 60 RF: 0 verapamil 80 mg Tablet 80 mg PO TID Qty: 90 RF: 0 metoprolol tartrate 25 mg Tablet 25 mg PO BID Qty: 60 RF: 0 lactulose 20 gram/30 mL Solution 20 g PO Q12H Qty: 180 RF: 0 amiodarone 400 mg tablet 200 mg PO BID Qty: 60 RF: 0 furosemide [Lasix] 40 mg tablet 40 mg PO BID Qty: 60 RF: 0 Lantus U-100 Insulin 100 unit/mL Solution 20 unit SUBCUT BEDTIME Qty: 10 RF: 0 hydrocodone-acetaminophen [[place]] 5-325 mg Tablet 1 tab PO Q4H PRN (Reason: Pain) RF: 0 aspirin [Aspir-81] 81 mg Tablet,Delayed Release (Dr/Ec) 81 mg PO DAILY RF: 0 levothyroxine 75 mcg Tablet 75 mcg PO DAILY RF: 0 isosorbide mononitrate 60 mg Tablet Extended Release 24 Hr 60 mg PO DAILY RF: 0 insulin aspart U-100 [Novolog U-100 Insulin aspart] 100 unit/mL Solution See Rx Instructions .ROUTE .COMPLEX RF: 0 pantoprazole [Protonix] 40 mg Tablet,Delayed Release (Dr/Ec) 40 mg PO BID RF: 0 magnesium 250 mg Tablet 1,000 mg PO DAILY RF: 0 albuterol sulfate [Ventolin HFA] 90 mcg/actuation Hfa Aerosol Inhaler 2 puff INHALATION Q4H PRN (Reason: Shortness Of Breath) RF: 0 sertraline 50 mg Tablet 50 mg PO DAILY RF: 0 cholecalciferol (vitamin D3) [Vitamin D3] 1,000 unit Capsule 1,000 unit PO DAILY RF: 0 fluticasone propionate [Flonase Allergy Relief] 50 mcg/actuation sp ray,suspension 1 spray INTRANASAL DAILY Qty: 15.8 RF: 0 ferrous sulfate [iron] 325 mg (65 mg iron) Tablet 325 mg PO EVERY OTHER DAY Qty: 0 RF: 0 bisacodyl 10 mg Suppository 10 mg ID DAILY PRN (Reason: Constipation) RF: 0 bisacodyl 5 mg Tablet,Delayed Release (Dr/Ec) 5 mg PO DAILY PRN (Reason: Constipation) RF: 0 cefdinir 300 mg Capsule 300 mg PO BID RF: 0 Tylenol 325 mg Capsule 325 mg PO QID PRN (Reason: Pain) RF: 0 Referrals: Jayden Garcia MD [Primary Care Provider] - Coding Level of Care Code ED Us Marketing Director for Chg Fwd Exam Comprehensive The documentation recorded by the Colin matute Bridget Annette, accurately reflects the service I personally performed and the decisions made by Sheba zhang Korby, MD
--- NOTE | 2020-02-01 11:33 | ECG_ITS ---
Measurements Intervals Tensed Rate: 82 P: CA: 0 QRS: -18 QRSD: 157 T: 123 QT: 433 QTc: 508 ATRIAL FIBRILLATION LEFT BUNDLE BRANCH BLOCK [120+ ms QRS DURATION, 80+ ms Q/S IN V1/V2, 85+ ms R IN I/aVL/V5/V6] Compared to ECG 01/20/2020 10:56:57 No significant changes Electronically Signed On 02-01-2020 17:22:23 CDT by Marco Hood M.D. [email or web address]
--- NOTE | 2020-02-01 11:33 | XR_ITS ---
WS: [id number] XR chest 1V portable [id number] REASON FOR EXAM: sob FINDINGS: Bilateral pleural effusion. Worse on the right than left. Cardiomegaly sternotomy changes and coronary bypass changes. Comparison January 20, 2020. XR/XR chest 1V portable [id number] IMPRESSION: Bilateral pleural effusion Prior coronary bypass Cardiomegaly
[2020-02-01] MEDS: FUROsemide 10 mg/mL SDV 10mL 80 MG IVP (11:39)
[2020-02-01 11:41] LABS: Basophils % 0.3 %; Eosinophils # 0.1 10^3/uL (0.0-0.8); Eosinophils % 0.6 %; Hematocrit 31.6 % (37.0-47.0); Lymphocytes # 0.8 10^3/uL (0.8-4.8); Lymphocytes % 5.6 %; Mean Corpuscular HGB Conc 28.5 g/dL (30.0-36.0); Mean Corpuscular Hemoglobin 28.4 pg (28.0-34.0); Mean Corpuscular Volume 99.7 fL (81-99); Mean Platelet Volume 11.8 fL (7.4-10.4); Monocytes # 1.2 10^3/uL (0.2-0.9); Monocytes % 8.6 %; Neutrophils % 84.5 %; Nucleated Red Blood Cells % 0 %; Platelet Count 237 10^3/cmm (130-400); Red Blood Count 3.17 10^6/uL (4.1-5.3); Red Cell Distribution Width 15.5 % (12.1-15.1); White Blood Count 14.2 10^3/uL (4.0-10.0)
[2020-02-01 11:50] LABS: INR 1.13 (0.8-1.2)
[2020-02-01 12:10] LABS: Alanine Aminotransferase 13 U/L (0-33); Albumin Level 3.1 g/dL (3.5-5.2); Alkaline Phosphatase 100 IU/L (35-105); Anion Gap 14.9 (5-19); Aspartate Amino Transferase 15 U/L (0-32); Blood Urea Nitrogen 42 mg/dL (8-23); Calcium 8.7 mg/dL (8.5-10.5); Carbon Dioxide 32 mmol/L (22-29); Chloride 94 mmol/L (98-107); Glomerular Filtration Rate 30.2 mL/min (90-130); Glucose 193 mg/dL (65-115); NT Pro B Type Natriuretic Pept 2037 pg/mL (0-125); Osmolality Calculated 285 mOsm/kg (285-295); Potassium 4.9 mmol/L (3.5-5.1); Sodium 136 mmol/L (136-145); Total Bilirubin 0.3 mg/dL (0.15-1.2); Total Protein 6.1 g/dL (6.6-8.7)
--- NOTE | 2020-02-01 12:51 | PC.NURSE ---
Patient was assisted to a bedside commode. Patient became significantly more short of breath when returning to her bed. POX 96% on 3 lpm via NC. Lung sounds remain unchanged from initial assessment. Patient moved to room 11. RT at bedside for ABG.
[2020-02-01 13:00] LABS: ABG PCO2 56.9 mmHg (35-45); ABG PH Result 7.37 (7.35-7.45); Arterial Blood Gas Hematocrit 27.3 % (37-47); Base Excess ABG 6.9 mmol/L (-2.0-2.0); Blood Gas Sample Site Brachial, right; Blood Gas Sample Type Arterial; HCO3 ABG 33.2 mmol/L (22-26); Oxygen Device NC; PO2 ABG 67.7 mmHg (80.0-100.0)
--- NOTE | 2020-02-01 14:25 | P.HP_ITS ---
Providers/Chief Complaint Admitting Physician: Regine Claudio DO Primary Care Provider: Jayden Garcia MD Chief Complaint: SHORTNESS OF BREATH SWELLING LEGS History of Present Illness Cher Lopez is a 64 year old female with a past medical history of congestive heart failure and COPD as well as atrial fibrillation that presented to the emergency department today for increasing shortness of breath. Patient has had multiple recent admissions most recently was [facility]/2020 to [facility]. She reported that she has had decreased urine output and trouble diuresing with the oral Lasix. She reports occasional dry cough, no productive cough. She denies any medication changes since her previous hospital discharge. She denies any fevers or chills, no sick contacts. She reports that she continues to feel fluid overloaded in her abdomen and her leg. She denies any palpitations or chest pain. Patient was seen and evaluated in the emergency department noted to have concern for fluid overload with congestive heart failure exacerbation and admitted for further evaluation and treatment. Given Lasix 80 mg in the ER Review of Systems Const: Denies: fever or chills Eyes: Denies: change in vision ENMT: Denies: nasal congestion Card: Reports: edema; Denies: chest pain or palpitations Resp: Reports: shortness of breath; Denies: productive cough or coughing up blood GI: Denies: abdominal pain, nausea, vomiting, diarrhea, constipation, blood in stool or black tarry stool : Denies: painful urination or blood in urine Musc: Denies: extremity pain or muscle cramps Skin/Breast: Denies: rash or new lesion Neuro: Denies: headache or dizziness Psych: Denies: anxiety or depression Endo: Denies: excessive urination or hot flashes Dwain/Lymph: Denies: easy bruising or easy bleeding Medications/Allergies Home Medications Medication Instructions Recorded Confirmed Last Taken Type acetaminophen [Tylenol] 325 mg PO QID PRN 02/01/20 02/01/20 Unknown History bisacodyl 5 mg PO DAILY PRN 02/01/20 02/01/20 Unknown History bisacodyl 10 mg ID DAILY PRN 02/01/20 02/01/20 Unknown History cefdinir 300 mg PO BID 02/01/20 02/01/20 01/31/20 History Allergies Allergy/AdvReac Type Severity Reaction Status Date / Time No Known Allergies Allergy Verified 12/19/19 06:34 PFSH Acute PFSH: Medical History Acute on chronic diastolic (congestive) heart failure Currently compensated. Will discharge on Lasix 40 mg twice daily Atrial fibrillation Chronic atrial fibrillation with rapid ventricular response Controlled on verapamil, metoprolol, amiodarone. Reduce amiodarone dose to 200 milligrams twice daily on discharge with plans in 1 week to go to 200 mg daily CKD (chronic kidney disease) Stable currently COPD (chronic obstructive pulmonary disease) Diabetes Diastolic congestive heart failure Gastritis History of cardioversion History of leg amputation Right Left bundle branch block Morbid obesity Nonerosive nonspecific gastritis Peripheral vascular disease Status post right femoral-popliteal bypass surgery followed by below the knee amputation Sessile colonic polyp Sleep apnea Noncompliant with CPAP due to claustrophobia Supplemental oxygen dependent Tobacco abuse Vulva cancer Surgical History (Updated 01/20/20 @ 10:08 by Marco Hood MD) H/O esophagogastroduodenoscopy 10/2019 History of cholecystectomy Hx of BKA Hx of CABG S/P femoral-popliteal bypass surgery Status post colonoscopy with polypectomy 12/29/2019: Polyp hepatic flexure and sigmoid colon, moderate diverticulosis; follow-up colonoscopy in 5 years Social History (Updated 01/18/20 @ 09:09 by Regine Claudio DO) Smoking and tobacco status: former smoker Alcohol intake: never Lives independently: Yes Household members: none Current occupational status: retired History of recent travel: No Vitals/I&O/Wt Last Vital Signs Temp 98.7 F 02/01/20 11:31 Pulse 81 02/01/20 12:11 Resp 18 02/01/20 12:09 BP 113/86 02/01/20 11:31 Pulse Ox 99 02/01/20 12:09 Weight last 48 hrs Weight 99.79 kg Physical Exam Const: COMMON NORMALS: oriented x3 and alert GENERAL APPEARANCE: cooperative ORIENTATION/CONSCIOUSNESS: Yes awake, Yes oriented to person, Yes oriented to place and Yes oriented to time HENMT: COMMON NORMALS: normocephalic and head/scalp atraumatic HEAD & SCALP: normocephalic and atraumatic Eye: COMMON NORMALS: PERRL PUPIL: Yes PERRL Neck/C-Spine: COMMON NORMALS: supple GENERAL: Yes normal visual inspection Resp: OTHER: Oxygen by nasal cannula in place, faint expiratory wheezes in the upper lungs bilaterally with diminished breath sounds in the lower lung smith Cardio: OTHER: Irregularly irregular, no appreciable murmur GI: COMMON NORMALS: soft to palpation and non-tender INSPECTION: No abdominal distension AUSCULTATION: Yes normoactive bowel sounds PALPATION: Yes soft Extremity: NARRATIVE EXTREMITY EXAM: 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, 3+ pitting edema in the left lower extremity Neuro: COMMON NORMALS: oriented x3, CN's II-XII intact bilaterally, moves all extremities and no focal motor deficits SENSORIUM/ORIENTATION: Yes alert, Yes oriented to person, Yes oriented to place and Yes oriented to time SPEECH: speech normal Psych: COMMON NORMALS: mental status grossly normal and cooperative Skin: COMMON NORMALS: no rashes or lesions noted GENERAL SKIN EXAM: no rashes or lesions noted Data : 02/02/20 03:20 02/02/20 03:20 CXR: I personally reviewed and interpreted this imaging study as follows: Radiologist's impression: IMPRESSION: Bilateral pleural effusion Prior coronary bypass Cardiomegaly A&P Assessment and plan (1) Acute on chronic diastolic (congestive) heart failure: Admit to cardiac stepdown unit with strict intake and output as well as daily weights Given IV Lasix 80 mg x 1 in the ER, will continue with IV diuresis. Will transition to Bumex 1Milligram every [address] follows [address] Olmos, consider cardiology consultation if indicated Status: Acute Code(s): I50.33 - Acute on chronic diastolic (congestive) heart failure (2) CKD (chronic kidney disease): With baseline creatinine from 1.3-1.5 Monitor for any nephrotoxic agents Status: Acute Qualifiers: Chronic kidney disease stage: stage 3 (moderate) Qualified Code(s): N18.3 - Chronic kidney disease, stage 3 (moderate) Code(s): N18.9 - Chronic kidney disease, unspecified (3) Supplemental oxygen dependent: Patient is on 2 to 3 L of oxygen by nasal cannula at baseline Status: Acute Code(s): Z99.81 - Dependence on supplemental oxygen (4) COPD (chronic obstructive pulmonary disease): Chronic COPD, requiring 2 to 3 L of oxygen by nasal cannula at baseline. Respiratory therapy to assess and treat Oxygen per protocol Faint expiratory wheezing but will hold off on further steroids at this time Status: Acute Qualifiers: COPD type: COPD with acute exacerbation Qualified Code(s): J44.1 - Chronic obstructive pulmonary disease with (acute) exacerbation Code(s): J44.9 - Chronic obstructive pulmonary disease, unspecified (5) Atrial fibrillation: Followed by Dr. Olmos, recent admission for atrial fibrillation with RVR. Patient has been on amiodarone 200 mg twice daily, this is to be decreased at 1 week. Will receive this for 1 additional day then will go down to 200 mg daily Patient is also on verapamil 3 times a day, will continue this. Patient is also on metoprolol 25 mg twice daily No longer on anticoagulation due to anemia and recent GI bleed Status: Chronic Qualifiers: Atrial fibrillation type: unspecified chronic Qualified Code(s): I48.20 - Chronic atrial fibrillation, unspecified Code(s): I48.91 - Unspecified atrial fibrillation (6) Anemia: Hemoglobin stable at 9, no evidence of any active bleeding. Recent GI bleed. Recent outpatient EGD by Dr. Hunt. Will continue on PPI twice daily and continue to hold off on further anticoagulation. Status: Chronic Qualifiers: Anemia type: unspecified type Qualified Code(s): D64.9 - Anemia, unspecified Code(s): D64.9 - Anemia, unspecified Additional A&P Information Leukocytosis: No evidence of any infectious etiology at this time, no fevers or chills. Patient has received multiple courses of antibiotics, believe symptoms are more related to pleural effusions bilaterally and congestive heart failure exacerbation. Will hold off on antibiotics at this time but obtain blood cultures. Bilateral pleural effusions: We will continue with IV diuresis as above, if no improvement consider thoracentesis Chronic respiratory failure: Patient may require BiPAP in the long-term setting, not related to obstructive sleep apnea with chronic hypercapnia. Diabetes mellitus type 2: Continue Lantus 20 units at night and continue on sliding scale insulin as needed Peripheral vascular disease status post amputation of the right lower extremity DVT prophylaxis: SCDs, no pharmacologic prophylaxis due to anemia and recent GI bleed Diet: N.p.o. at this time due to patient reporting some upset stomach, will increase slowly to a sodium restriction and fluid restriction CODE STATUS: Full code, this was discussed with patient and she reported that she would not want to be on a ventilator long-term but is okay with short-term intubation Attestations Medical Necessity Statement*: Patient requires hospitalization due to CHF exacerbation with chronic respiratory failure, expected stay greater than 2 midnights Coding Level of Care Code Acute Clerical Stock Inspector for g Fwd Exam Comprehensive Diagnoses Acute on chronic diastolic (congestive) heart failure I50.33 CKD (chronic kidney disease) N18.3 Chronic kidney disease stage: stage 3 (moderate) Supplemental oxygen dependent Z99.81 COPD (chronic obstructive pulmonary disease) J44.1 COPD type: COPD with acute exacerbation Atrial fibrillation I48.20 Atrial fibrillation type: unspecified chronic Anemia D64.9 Anemia type: unspecified type
--- NOTE | 2020-02-01 15:15 | PC.NURSE ---
Room 104. Attempted to call report. Room not ready and nurse not able to speak to me. I asked when they would like me to call back. field coordinator advised me they will call back once the room is clean and they are ready for report. No estimated time given
[2020-02-01 17:23] LABS: Glucose Point of Care 175 mg/dL (70-110)
[2020-02-01] MEDS: metoprolol tartrate 25 mg Tablet PO (17:44)
[2020-02-01] MEDS: polyethylene glycol 3350 Pkt 17 gm PO (17:44)
[2020-02-01] MEDS: amiodarone 200 mg Tablet PO (17:44)
[2020-02-01] MEDS: pantoprazole DR 40 mg Tablet PO (17:44)
[2020-02-01] MEDS: lactulose oral liq 20 gm/30 mL UDC PO (17:44)
--- NOTE | 2020-02-01 17:47 | PC.NURSE ---
hold this dose at this per dr turner
[2020-02-01] MEDS: insulin glargine 100 units/1 mL 20 UNIT SUBCUT (20:42)
[2020-02-01] MEDS: bumetanide 1 mg Tablet 2 MG PO (23:09)
[2020-02-01] MEDS: HYDROcodone-acetaminophen 5-325 mg Tablet 1 TAB PO (23:10)
[2020-02-02] VITALS (13 sets, daily range): BP systolic 101–120; BP diastolic 50–74; PULSE 74–90; RESP 14–21; TEMP 36.7–37; O2SAT 92–99; BMI 40.6
--- NOTE | 2020-02-02 03:05 | PC.NURSE ---
the patients iv lumen was zigzagged when i went to give her her 2000 dose of bumex. it coudlnt be saved so it was removed. it took 5 trries with the ultrasound machine they said to get her an iv and her arms are bruised all over in their previous efforts from recent admission. the nursing plant supervisor Kellen said that the ER was very busy that it would probably be a long while before anyone could come up with the machine to try again. I called Dr. Mina to see if we could get the patient a po version she said yes to give her 2 mg po buex. also the patient is large in size with a prosthetic leg that she says she had to put on to use the bsc each time she had to urinate. she asked for a garcia. Dr. Mina agreed to put one in for her. patient tolerated it very well.
[2020-02-02 03:59] LABS: Basophils % 0.3 %; Eosinophils # 0.1 10^3/uL (0.0-0.8); Eosinophils % 0.9 %; Hematocrit 27.9 % (37.0-47.0); Hemoglobin 8.4 g/dL (11.5-15.3); Lymphocytes # 0.8 10^3/uL (0.8-4.8); Lymphocytes % 7.4 %; Mean Corpuscular HGB Conc 30.1 g/dL (30.0-36.0); Mean Corpuscular Hemoglobin 28.9 pg (28.0-34.0); Mean Corpuscular Volume 95.9 fL (81-99); Mean Platelet Volume 11.4 fL (7.4-10.4); Monocytes % 9.8 %; Neutrophils # 8.6 10^3/uL (1.8-7.7); Neutrophils % 81.1 %; Nucleated Red Blood Cells % 0 %; Platelet Count 245 10^3/cmm (130-400); Red Blood Count 2.91 10^6/uL (4.1-5.3); Red Cell Distribution Width 15.3 % (12.1-15.1); White Blood Count 10.5 10^3/uL (4.0-10.0)
[2020-02-02] MEDS: lactulose oral liq 20 gm/30 mL UDC PO ×2 (04:09→15:38)
[2020-02-02 04:13] LABS: Glucose Point of Care 235 mg/dL (70-110)
[2020-02-02 04:20] LABS: Blood Urea Nitrogen 36 mg/dL (8-23); Calcium 8.7 mg/dL (8.5-10.5); Chloride 99 mmol/L (98-107); Glomerular Filtration Rate 32.3 mL/min (90-130); Glucose 81 mg/dL (65-115); Osmolality Calculated 291 mOsm/kg (285-295); Potassium 4.6 mmol/L (3.5-5.1); Sodium 142 mmol/L (136-145)
[2020-02-02 05:45] LABS: Anion Gap 14.6 (5-19); Carbon Dioxide 33 mmol/L (22-29)
[2020-02-02 06:36] LABS: Glucose Point of Care 77 mg/dL (70-110)
[2020-02-02] MEDS: levothyroxine 150 mcg Tablet 75 MCG PO (08:31)
[2020-02-02] MEDS: aspirin 81 mg EC Tablet PO (08:31)
[2020-02-02] MEDS: pantoprazole DR 40 mg Tablet PO ×2 (08:31→18:02)
[2020-02-02] MEDS: amiodarone 200 mg Tablet PO (08:31)
[2020-02-02] MEDS: metoprolol tartrate 25 mg Tablet PO ×2 (08:31→18:02)
[2020-02-02] MEDS: polyethylene glycol 3350 Pkt 17 gm PO (08:31)
[2020-02-02] MEDS: isosorbide mononitrate ER 60 mg Tablet PO (08:31)
[2020-02-02] MEDS: sertraline 50 mg Tablet PO (08:31)
[2020-02-02] MEDS: fluticasone nasal spray 16gm Btl 1 SPRAY INTRANASAL (08:32)
[2020-02-02] MEDS: atorvastatin 40 mg Tablet 80 MG PO (08:32)
[2020-02-02] MEDS: bumetanide 0.25 mg/mL SDV 10 mL 1 MG IV ×2 (08:32→19:53)
[2020-02-02] MEDS: ferrous sulfate EC 325 mg Tablet PO (08:32)
--- NOTE | 2020-02-02 09:16 | XR_ITS ---
WS: [id number] XR chest 1V portable [id number] REASON FOR EXAM: hypoxia FINDINGS: Cardiomegaly is noted previous coronary bypass changes. There is pulmonary edema bilaterally. Bilateral small amounts of pleural effusion. The overall appearance the chest is similar to February 01, 2020. XR/XR chest 1V portable [id number] IMPRESSION: Congestive heart failure. Cardiomegaly Coronary bypass changes.
--- NOTE | 2020-02-02 09:18 | PM.PN ---
Subjective Subjective: Interval history: Patient awake sitting at the side of bed today during exam. She reports her breathing feels slightly better today but she continues to have swelling in the left lower extremity and difficulty breathing when trying to get out of bed. Lost IV access overnight and required transition to oral Bumex. IV access established again at this time and transition back to IV diuresis. Has had minimal urine output. Patient denies any chest pain or palpitations Vitals/I&O/Wt Last Vital Signs Temp 98.5 F 02/02/20 04:00 Pulse 87 02/02/20 07:22 Resp 17 02/02/20 07:22 BP 120/57 02/02/20 07:22 Pulse Ox 95 02/02/20 07:22 02/01/20 02/02/20 02/02/20 22:59 06:59 14:59 Intake Total 600 / 600 Balance 600 / 600 Weight last 48 hrs Weight 100.698 kg Weight 99.79 kg Physical Exam Const: COMMON NORMALS: oriented x3 and alert GENERAL APPEARANCE: cooperative ORIENTATION/CONSCIOUSNESS: Yes awake, Yes oriented to person, Yes oriented to place and Yes oriented to time HENMT: COMMON NORMALS: normocephalic and head/scalp atraumatic HEAD & SCALP: normocephalic and atraumatic Eye: COMMON NORMALS: PERRL PUPIL: Yes PERRL Neck/C-Spine: COMMON NORMALS: supple GENERAL: Yes normal visual inspection Resp: OTHER: Nasal cannula in place, diminished breath sounds bilaterally, no wheezing or rhonchi on exam today Cardio: OTHER: Irregularly irregular, no appreciable murmur GI: COMMON NORMALS: soft to palpation and non-tender INSPECTION: No abdominal distension AUSCULTATION: Yes normoactive bowel sounds PALPATION: Yes soft Extremity: NARRATIVE EXTREMITY EXAM: 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, 3+ pitting edema in the left lower extremity Neuro: COMMON NORMALS: oriented x3, CN's II-XII intact bilaterally, moves all extremities and no focal motor deficits SENSORIUM/ORIENTATION: Yes alert, Yes oriented to person, Yes oriented to place and Yes oriented to time SPEECH: speech normal Psych: COMMON NORMALS: mental status grossly normal and cooperative Skin: COMMON NORMALS: no rashes or lesions noted GENERAL SKIN EXAM: no rashes or lesions noted Urinary Catheter Management^: Molnia: Cath Placed During This Visit: yes Reason for Continuing Indwelling Catheter: Acute Urinary Retention or Obstruction Urinary Catheter Date of Insertion: 02/01/20 Urinary Catheter Time of Insertion: 23:12 Data : 02/02/20 03:20 02/02/20 03:20 A&P Assessment and plan (1) Acute on chronic diastolic (congestive) heart failure: Continue with strict intake and output as well as daily weights Minimal diuresis overnight Currently on IV Bumex 1 mg every 12 hours. Reports that she does not do well with oral Lasix in the outpatient setting. If difficulty diuresis in with Bumex today will transition back to Lasix and consider cardiology consultation Patient is not on an DARIN inhibitor or ARB due to her renal function Status: Acute Code(s): I50.33 - Acute on chronic diastolic (congestive) heart failure (2) CKD (chronic kidney disease): With baseline creatinine from 1.3-1.5, he creatinine of 1.6 today with a BUN of 36, improving Continue strict I's and O's and daily weights Status: Acute Qualifiers: Chronic kidney disease stage: stage 3 (moderate) Qualified Code(s): N18.3 - Chronic kidney disease, stage 3 (moderate) Code(s): N18.9 - Chronic kidney disease, unspecified (3) Supplemental oxygen dependent: Patient is on 2 to 3 L of oxygen by nasal cannula at baseline. Will likely need outpatient BiPAP due to chronic respiratory failure. Status: Acute Code(s): Z99.81 - Dependence on supplemental oxygen (4) COPD (chronic obstructive pulmonary disease): Chronic COPD, requiring 2 to 3 L of oxygen by nasal cannula at baseline. Respiratory therapy to assess and treat Oxygen per protocol Requires intermittent BiPAP use. Will work to obtain BiPAP in the outpatient setting as patient has chronic respiratory failure that is not related to obstructive sleep apnea with chronic hypercapnic respiratory failure Status: Acute Qualifiers: COPD type: COPD with acute exacerbation Qualified Code(s): J44.1 - Chronic obstructive pulmonary disease with (acute) exacerbation Code(s): J44.9 - Chronic obstructive pulmonary disease, unspecified (5) Atrial fibrillation: Followed by Dr. Olmos, recent admission for atrial fibrillation with RVR. Patient has been on amiodarone 200 mg twice daily, decrease this to 200 mg daily as was previously directed by cardiology. Patient is also on verapamil 3 times a day, will continue this. Patient is also on metoprolol 25 mg twice daily No longer on anticoagulation due to anemia and recent GI bleed Status: Chronic Qualifiers: Atrial fibrillation type: unspecified chronic Qualified Code(s): I48.20 - Chronic atrial fibrillation, unspecified Code(s): I48.91 - Unspecified atrial fibrillation (6) Anemia: Hemoglobin slightly decreased to 8.4 today, no evidence of any active bleeding but patient remains off of anticoagulation. Recent GI bleed, continue on Protonix Status: Chronic Qualifiers: Anemia type: unspecified type Qualified Code(s): D64.9 - Anemia, unspecified Code(s): D64.9 - Anemia, unspecified Additional A&P Information Leukocytosis: No evidence of any infectious etiology at this time, no fevers or chills. Received multiple recent courses of antibiotics, no infectious etiology identified at this time. We will continue to hold off on antibiotic coverage Bilateral pleural effusions: Continue diuresis, small bilateral pleural effusions. Consider thoracentesis if any increase Chronic respiratory failure: Patient may require BiPAP in the long-term setting, not related to obstructive sleep apnea with chronic hypercapnia. Diabetes mellitus type 2: Continue Lantus 20 units at night and continue on sliding scale insulin as needed Peripheral vascular disease status post amputation of the right lower extremity DVT prophylaxis: SCDs, no pharmacologic prophylaxis due to anemia and recent GI bleed Diet: N.p.o. at this time due to patient reporting some upset stomach, will increase slowly to a sodium restriction and fluid restriction CODE STATUS: Full code, this was discussed with patient and she reported that she would not want to be on a ventilator long-term but is okay with short-term intubation Attestations Medical Necessity Statement*: Patient requires continued hospitalization 2 to congestive heart failure and chronic hypercapnic respiratory failure Coding Level of Care Code Acute Jacquard Twine Polisher Operator for [facility] Fwd Exam Comprehensive Diagnoses Acute on chronic diastolic (congestive) heart failure I50.33 CKD (chronic kidney disease) N18.3 Chronic kidney disease stage: stage 3 (moderate) Supplemental oxygen dependent Z99.81 COPD (chronic obstructive pulmonary disease) J44.1 COPD type: COPD with acute exacerbation Atrial fibrillation I48.20 Atrial fibrillation type: unspecified chronic Anemia D64.9 Anemia type: unspecified type
--- NOTE | 2020-02-02 11:11 | PC.CHAP ---
Pastoral Care Encounter/Spiritual Assessment Type of Contact [] Declined medical transcriptionist visit [] Patient/Family/Request visit [] Outpatient visit [] Follow-up visit [] Physician referral [] Code/Alert [x] Routine visit [] Staff referral [] Actively dying [] Patient sleeping [] Family support [] [] Out of room [] Palliative care [] [] Receiving care in room [] Pre-surgical visit [] Trauma [] Long length of stay [] ICU visit [] Other: Relational/Emotional Strength [x] Patient feels connected with others/family/visitors/staff [] Distress [] Loneliness/isolation [] Abandonment Spirituality of Patient [x] Person of Monse [] Attends Islam of their Monse [x] Believes in Prayer x[] Reads Bible or Buddhist materials [] There are Spiritual issues to be addressed Gar[employer]urer Interventions [x] Prayer [x] Active listening [x] Non-anxious presence [x] Spiritual/emotional support [] Crisis/trauma care [] Spiritual counseling [] Bereavement support [] Provided bereavement packet [] Provided Bible/devotional materials [] Provided toy/stuffed animal, coloring book to patient or family member [] Provided Communion [] Anointing/Wray [] Salvation [] Completed spiritual assessment [] Other: Impact on Illness or Injury [] Angry [] Fearful [] Anxious [] Often cries [] Exhaustion [] Unable to work [] Unable to attend christianity [] Unable to walk/stand [] Unable to read [] Unable to drive [] Unable to eat/drink [] Unable to sleep [] Unable to be with family [] Patient intubated [x] Other: Summary Patient has a distant relationship with family and is supported by friends. Time spent with patient 10-minutes
[2020-02-02 11:50] LABS: Glucose Point of Care 167 mg/dL (70-110)
--- NOTE | 2020-02-02 12:31 | PC.RESP ---
Patient given Smoking Cessation information.
--- NOTE | 2020-02-02 15:42 | PC.NURSE ---
straight cath not done. patient has foely catheter in place.
[2020-02-02 16:31] LABS: Glucose Point of Care 119 mg/dL (70-110)
[2020-02-02 20:43] LABS: Glucose Point of Care 107 mg/dL (70-110)
[2020-02-02] MEDS: ipratropium-albuterol 3 mL Neb INHALATION (21:30)
--- NOTE | 2020-02-02 21:33 | PC.NURSE ---
Addendum entered by Claudette Villalta RN 02/02/20 22:04: 10 units of lantus wasted per Dr. Yee orders to only give half of her lantus. Original Note: pTIENT WAS HAVING TROUBLE STAYING OFF THE BIPAP FOR MORE THAN A FEW MINUTES AT A TIME TODAY AND DIDNT EAT MUCH WELL BECAUSE OF IT. SPOKE WITH dR. Haddad AND HE SAID TO GIVE HER SOME MORPHINE, HE ORDERED A DUONEB TO GIVE Q6 SCHEDULED AND TO GO TO Q4 IF ITS WARRANTED. ALSO SPOKE WITH dR. Sun WHEN SHE GOT HERE AND SHE IS GOING TO PUT HER ON HEATED HIGH FLOW AND SEE IF THIS HELPS WELL. SHE ORDERED NYSTATIN TOO FOR HER LOW ABDOMEN.ALSO THE PATIENTS BLOOD SUGAR WAS 107 WITHOUT HER EATING MUCH dR. Sun SAID TO JUST GIVE HER 10 UNITS OF HER LANTUS INSTEAD OF 20.
[2020-02-02] MEDS: morphine 4 mg/mL SDV 1 mL 2 MG IVP (21:37)
[2020-02-02] MEDS: insulin glargine 100 units/1 mL 20 UNIT SUBCUT (21:39)
[2020-02-03] VITALS (19 sets, daily range): BP systolic 102–161; BP diastolic 57–85; PULSE 69–88; RESP 14–34; TEMP 36.3–36.8; O2SAT 92–100
[2020-02-03] MEDS: ALPRAZolam 0.25 mg Tablet PO ×2 (00:09→21:14)
[2020-02-03] MEDS: ipratropium-albuterol 3 mL Neb INHALATION ×4 (02:40→20:27)
[2020-02-03] MEDS: nystatin powder 15 gm Btl 1 APPLIC TOPICAL ×3 (02:41→18:28)
[2020-02-03 04:51] LABS: Basophils % 0.2 %; Eosinophils # 0.1 10^3/uL (0.0-0.8); Eosinophils % 0.8 %; Hematocrit 27.4 % (37.0-47.0); Hemoglobin 7.9 g/dL (11.5-15.3); Lymphocytes # 0.8 10^3/uL (0.8-4.8); Lymphocytes % 9.2 %; Mean Corpuscular HGB Conc 28.8 g/dL (30.0-36.0); Mean Corpuscular Hemoglobin 28.6 pg (28.0-34.0); Mean Corpuscular Volume 99.3 fL (81-99); Mean Platelet Volume 11.3 fL (7.4-10.4); Monocytes # 0.9 10^3/uL (0.2-0.9); Monocytes % 10.3 %; Neutrophils # 6.9 10^3/uL (1.8-7.7); Nucleated Red Blood Cells % 0 %; Platelet Count 248 10^3/cmm (130-400); Red Blood Count 2.76 10^6/uL (4.1-5.3); Red Cell Distribution Width 15.7 % (12.1-15.1); White Blood Count 8.7 10^3/uL (4.0-10.0)
--- NOTE | 2020-02-03 05:03 | PC.NURSE ---
nystatin powder applied to underside of abd
[2020-02-03] MEDS: lactulose oral liq 20 gm/30 mL UDC PO (05:05)
[2020-02-03 05:06] LABS: Anion Gap 9.6 (5-19); Blood Urea Nitrogen 32 mg/dL (8-23); Calcium 8.8 mg/dL (8.5-10.5); Carbon Dioxide 38 mmol/L (22-29); Chloride 96 mmol/L (98-107); Glomerular Filtration Rate 32.3 mL/min (90-130); Glucose 163 mg/dL (65-115); Osmolality Calculated 289 mOsm/kg (285-295); Potassium 4.6 mmol/L (3.5-5.1); Sodium 139 mmol/L (136-145)
[2020-02-03 06:16] LABS: Glucose Point of Care 163 mg/dL (70-110)
[2020-02-03] MEDS: budesonide 0.5 mg/2 mL Neb INHALATION ×2 (08:51→20:26)
[2020-02-03] MEDS: levothyroxine 150 mcg Tablet 75 MCG PO (08:58)
[2020-02-03] MEDS: aspirin 81 mg EC Tablet PO (08:58)
[2020-02-03] MEDS: bumetanide 0.25 mg/mL SDV 10 mL 1 MG IV ×2 (08:58→21:13)
[2020-02-03] MEDS: pantoprazole DR 40 mg Tablet PO ×2 (08:58→18:24)
[2020-02-03] MEDS: atorvastatin 40 mg Tablet 80 MG PO (08:59)
[2020-02-03] MEDS: amiodarone 200 mg Tablet PO (08:59)
[2020-02-03] MEDS: isosorbide mononitrate ER 60 mg Tablet PO (08:59)
[2020-02-03] MEDS: metoprolol tartrate 25 mg Tablet PO ×2 (08:59→18:23)
[2020-02-03] MEDS: polyethylene glycol 3350 Pkt 17 gm PO (09:02)
[2020-02-03] MEDS: sertraline 50 mg Tablet PO (09:02)
[2020-02-03 11:48] LABS: Glucose Point of Care 133 mg/dL (70-110)
--- NOTE | 2020-02-03 13:27 | PM.PN ---
Subjective Subjective: Interval history: Patient awake in bed at time of exam this morning. She reported that she had just been taken off of BiPAP and placed on nasal cannula. Reported that she already feels tired and would like to have the BiPAP back on. Discussed with patient that she may be becoming dependent on her BiPAP. She reported that she is uncertain if she wants to continue to live like this with her chronic medical conditions and continued BiPAP requirement. She reported that she will continue to think about further medical care. She denies any chest pain at time of exam, no increasing cough or sputum production Vitals/I&O/Wt Last Vital Signs Temp 97.6 F 02/03/20 11:08 Pulse 72 02/03/20 11:20 Resp 16 02/03/20 11:08 BP 102/57 02/03/20 11:08 Pulse Ox 97 02/03/20 11:20 02/02/20 02/03/20 02/03/20 22:59 06:59 14:59 Intake Total 180 / 900 60 / 960 360 / 360 Output Total 675 / 1375 Balance 180 / 200 -615 / -415 360 / 360 Weight last 48 hrs Weight 107.683 kg Weight 100.698 kg Physical Exam Const: COMMON NORMALS: oriented x3 and alert GENERAL APPEARANCE: cooperative ORIENTATION/CONSCIOUSNESS: Yes awake, Yes oriented to person, Yes oriented to place and Yes oriented to time HENMT: COMMON NORMALS: normocephalic and head/scalp atraumatic HEAD & SCALP: normocephalic and atraumatic Eye: COMMON NORMALS: PERRL PUPIL: Yes PERRL Neck/C-Spine: COMMON NORMALS: supple GENERAL: Yes normal visual inspection Resp: OTHER: Nasal cannula in place, diminished breath sounds bilaterally, no wheezing or rhonchi Cardio: OTHER: Irregularly irregular, no appreciable murmur GI: COMMON NORMALS: soft to palpation and non-tender INSPECTION: No abdominal distension AUSCULTATION: Yes normoactive bowel sounds PALPATION: Yes soft Extremity: NARRATIVE EXTREMITY EXAM: 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, 2+ pitting edema in the left lower extremity Neuro: COMMON NORMALS: oriented x3, CN's II-XII intact bilaterally, moves all extremities and no focal motor deficits SENSORIUM/ORIENTATION: Yes alert, Yes oriented to person, Yes oriented to place and Yes oriented to time SPEECH: speech normal Psych: COMMON NORMALS: mental status grossly normal and cooperative Skin: COMMON NORMALS: no rashes or lesions noted GENERAL SKIN EXAM: no rashes or lesions noted Urinary Catheter Management^: Molina: Cath Placed During This Visit: yes Reason for Continuing Indwelling Catheter: Acute Urinary Retention or Obstruction Urinary Catheter Date of Insertion: 02/01/20 Urinary Catheter Time of Insertion: 23:12 Data : 02/03/20 03:35 02/03/20 03:35 A&P Assessment and plan (1) Acute on chronic diastolic (congestive) heart failure: Continue with strict intake and output as well as daily weights Transition to IV Lasix to monitor for appropriate diuresis. Consider cardiology consultation Patient is not on an DARIN inhibitor or ARB due to her renal function Status: Acute Code(s): I50.33 - Acute on chronic diastolic (congestive) heart failure (2) CKD (chronic kidney disease): With baseline creatinine from 1.3-1.5, he creatinine of 1.6 today with a BUN of 36, improving Continue strict I's and O's and daily weights Status: Acute Qualifiers: Chronic kidney disease stage: stage 3 (moderate) Qualified Code(s): N18.3 - Chronic kidney disease, stage 3 (moderate) Code(s): N18.9 - Chronic kidney disease, unspecified (3) Supplemental oxygen dependent: Patient is on 2 to 3 L of oxygen by nasal cannula at baseline. Will likely need outpatient BiPAP due to chronic respiratory failure. Status: Acute Code(s): Z99.81 - Dependence on supplemental oxygen (4) COPD (chronic obstructive pulmonary disease): Chronic COPD, requiring 2 to 3 L of oxygen by nasal cannula at baseline. Respiratory therapy to assess and treat Oxygen per protocol Requires intermittent BiPAP use. Patient becoming more dependent on BiPAP, discussed with her at length today and she reports that she would like to think about options of care and make a further decision. Discussed with her options including continuing current management or transitioning to hospice or comfort care Status: Acute Qualifiers: COPD type: COPD with acute exacerbation Qualified Code(s): J44.1 - Chronic obstructive pulmonary disease with (acute) exacerbation Code(s): J44.9 - Chronic obstructive pulmonary disease, unspecified (5) Atrial fibrillation: Followed by Dr. Olmos, recent admission for atrial fibrillation with RVR. Patient has been on amiodarone 200 mg twice daily, decrease this to 200 mg daily as was previously directed by cardiology. Patient is also on verapamil 3 times a day, will continue this. Patient is also on metoprolol 25 mg twice daily No longer on anticoagulation due to anemia and recent GI bleed Status: Chronic Qualifiers: Atrial fibrillation type: unspecified chronic Qualified Code(s): I48.20 - Chronic atrial fibrillation, unspecified Code(s): I48.91 - Unspecified atrial fibrillation (6) Anemia: Hemoglobin decreased slightly today, no evidence of any active bleeding will continue with close monitoring. Type and screen ordered today Status: Chronic Qualifiers: Anemia type: unspecified type Qualified Code(s): D64.9 - Anemia, unspecified Code(s): D64.9 - Anemia, unspecified Additional A&P Information Leukocytosis: Resolved. No evidence of any acute infectious etiology at this time. Bilateral pleural effusions: Continue diuresis, small bilateral pleural effusions. Consider thoracentesis if any increase Chronic respiratory failure: Continues to become more dependent on BiPAP, discussed with patient and she is looking at other options of care. We will continue discussed with her further Diabetes mellitus type 2: Continue Lantus 20 units at night and continue on sliding scale insulin as needed Peripheral vascular disease status post amputation of the right lower extremity DVT prophylaxis: SCDs, no pharmacologic prophylaxis due to anemia and recent GI bleed Diet: N.p.o. at this time due to patient reporting some upset stomach, will increase slowly to a sodium restriction and fluid restriction CODE STATUS: Full code, this was discussed with patient and she reported that she would not want to be on a ventilator long-term but is okay with short-term intubation Attestations Medical Necessity Statement*: Patient requires continued hospitalization due to chronic respiratory failure with diastolic congestive heart failure Coding Level of Care Code Acute Customer Sales Representative for Chg Fwd Diagnoses Acute on chronic diastolic (congestive) heart failure I50.33 CKD (chronic kidney disease) N18.3 Chronic kidney disease stage: stage 3 (moderate) Supplemental oxygen dependent Z99.81 COPD (chronic obstructive pulmonary disease) J44.1 COPD type: COPD with acute exacerbation Atrial fibrillation I48.20 Atrial fibrillation type: unspecified chronic Anemia D64.9 Anemia type: unspecified type
[2020-02-03 17:22] LABS: Glucose Point of Care 239 mg/dL (70-110)
[2020-02-03] MEDS: LORazepam 0.5 mg Tablet PO (18:24)
[2020-02-03] MEDS: morphine 4 mg/mL SDV 1 mL 2 MG IVP (21:14)
[2020-02-03] MEDS: nitroglycerin 0.4 mg sublingual Tablet (21:14)
[2020-02-03] MEDS: insulin glargine 100 units/1 mL 20 UNIT SUBCUT (21:16)
[2020-02-03 21:20] LABS: Alanine Aminotransferase 13 U/L (0-33); Albumin Level 2.9 g/dL (3.5-5.2); Alkaline Phosphatase 89 IU/L (35-105); Anion Gap 14.9 (5-19); Aspartate Amino Transferase 24 U/L (0-32); Blood Urea Nitrogen 35 mg/dL (8-23); Calcium 9.1 mg/dL (8.5-10.5); Carbon Dioxide 32 mmol/L (22-29); Chloride 95 mmol/L (98-107); Glomerular Filtration Rate 32.3 mL/min (90-130); Glucose 279 mg/dL (65-115); Osmolality Calculated 291 mOsm/kg (285-295); Potassium 4.9 mmol/L (3.5-5.1); Sodium 137 mmol/L (136-145); Total Bilirubin 0.2 mg/dL (0.15-1.2); Total Protein 5.9 g/dL (6.6-8.7)
--- NOTE | 2020-02-03 21:25 | ECG_ITS ---
Measurements Intervals [facility] Rate: 84 P: MA: 0 QRS: -22 QRSD: 177 T: 127 QT: 403 QTc: 479 ATRIAL FIBRILLATION Paced rhythm LEFT BUNDLE BRANCH BLOCK [120+ ms QRS DURATION, 80+ ms Q/S IN V1/V2, 85+ ms R IN I/aVL/V5/V6] Compared to ECG 02/01/2020 11:44:00 No significant changes Electronically Signed On 02-04-2020 12:40:45 CDT by Omari Lazo [email or web address]
[2020-02-03 21:29] LABS: Ketone (Acetest) Serum Negative (Negative)
--- NOTE | 2020-02-03 21:34 | PC.NURSE ---
Addendum entered by Claudette Villalta RN 02/03/20 23:37: patients latest blood sugar about hour after given insulin was 504 form over 500. Also patient sitting on side of the bed not complaining of more of the same pain. her ekg showed no changes from the one she had the . Original Note: patient complained of pain at a 10/10 acute/sharp and lingering in her mid lift side of her back, left arm, and down front side of left chest. patient stated that it felt like when she had a heart attack. I gave her one nitro after checking her bp, and her morphine for the night along with her bedtime dose of xanax. she said the pain ebbed a little to 8/10, eased up on her arm and chest but back was still hurting badly. i put in for an ekg which theyre going to do now and called and left a message for Dr. Mina. awaiting further orders. On the side patients blood sugar was high over [address] Mina and she said to give her 12 units of novolog and her 20 units of lantus. rechecking bs in an hour. also she said to run a cmp and a serum keytone.
[2020-02-03 22:34] LABS: Glucose Point of Care > 600 mg/dL (70-110)
[2020-02-03 22:34] LABS: Glucose Point of Care 204 mg/dL (70-110)
[2020-02-04] VITALS (10 sets, daily range): BP systolic 98–119; BP diastolic 49–72; PULSE 67–96; RESP 14–25; TEMP 36.4–37.1; O2SAT 94–98
[2020-02-04 02:08] LABS: Glucose Point of Care 99 mg/dL (70-110)
[2020-02-04] MEDS: ondansetron 4 MG Tablet PO (02:23)
[2020-02-04] MEDS: HYDROcodone-acetaminophen 5-325 mg Tablet 1 TAB PO (02:23)
--- NOTE | 2020-02-04 03:30 | PC.NURSE ---
Addendum entered by Claudette Villalta RN 02/04/20 03:33: cont- before he took it. I went in to her room with a dose of odansetron, pain meds since i knew she was in pain chronically, and some applesauce. I told her that her blood sugar was where it should be and she said well it feels off and im sick to my stomach and shakey. i explained that she may not be used to it being closer to normal but to eat the applesauce as it would help bring it up a bit and get her to feeling better. i also administered the medication to help with her nausea and pain. Will continue to monitor. Original Note: The patient put her call light on while i was in another room cleaning defication, and when i was done, HELGA Aldana said she was complaining of nausea and felt her blood sugar was low. she was yelling at Jovan that he better do something right now. so he went to get the accucheck machine and took her blood sugar. she was at 99. she swore her blood sugar was low and
[2020-02-04 04:23] LABS: Basophils % 0.3 %; Eosinophils # 0.1 10^3/uL (0.0-0.8); Eosinophils % 0.8 %; Hematocrit 28.8 % (37.0-47.0); Hemoglobin 8.6 g/dL (11.5-15.3); Lymphocytes # 0.8 10^3/uL (0.8-4.8); Lymphocytes % 8.2 %; Mean Corpuscular HGB Conc 29.9 g/dL (30.0-36.0); Mean Corpuscular Hemoglobin 28.7 pg (28.0-34.0); Mean Platelet Volume 11.1 fL (7.4-10.4); Monocytes # 1.2 10^3/uL (0.2-0.9); Monocytes % 12.7 %; Neutrophils # 7.5 10^3/uL (1.8-7.7); Neutrophils % 77.8 %; Nucleated Red Blood Cells % 0 %; Platelet Count 289 10^3/cmm (130-400); Red Cell Distribution Width 15.7 % (12.1-15.1); White Blood Count 9.6 10^3/uL (4.0-10.0)
[2020-02-04 04:44] LABS: Anion Gap 12.6 (5-19); Blood Urea Nitrogen 35 mg/dL (8-23); Calcium 9.5 mg/dL (8.5-10.5); Carbon Dioxide 37 mmol/L (22-29); Chloride 96 mmol/L (98-107); Glomerular Filtration Rate 32.3 mL/min (90-130); Glucose 65 mg/dL (65-115); Osmolality Calculated 288 mOsm/kg (285-295); Potassium 4.6 mmol/L (3.5-5.1); Sodium 141 mmol/L (136-145)
[2020-02-04] MEDS: lactulose oral liq 20 gm/30 mL UDC PO (05:07)
[2020-02-04 06:09] LABS: Glucose Point of Care 135 mg/dL (70-110)
[2020-02-04] MEDS: budesonide 0.5 mg/2 mL Neb INHALATION (09:09)
[2020-02-04] MEDS: ipratropium-albuterol 3 mL Neb INHALATION (09:09)
[2020-02-04] MEDS: bumetanide 0.25 mg/mL SDV 10 mL 1 MG IV (09:10)
[2020-02-04] MEDS: pantoprazole DR 40 mg Tablet PO (09:11)
[2020-02-04] MEDS: aspirin 81 mg EC Tablet PO (09:11)
[2020-02-04] MEDS: amiodarone 200 mg Tablet PO (09:11)
[2020-02-04] MEDS: levothyroxine 150 mcg Tablet 75 MCG PO (09:11)
[2020-02-04] MEDS: atorvastatin 40 mg Tablet 80 MG PO (09:11)
[2020-02-04] MEDS: fluticasone nasal spray 16gm Btl 1 SPRAY INTRANASAL (09:12)
[2020-02-04] MEDS: isosorbide mononitrate ER 60 mg Tablet PO (09:12)
[2020-02-04] MEDS: ferrous sulfate EC 325 mg Tablet PO (09:12)
[2020-02-04] MEDS: metoprolol tartrate 25 mg Tablet PO (09:12)
[2020-02-04] MEDS: nystatin powder 15 gm Btl 1 APPLIC TOPICAL (09:19)
--- NOTE | 2020-02-04 09:43 | DCPLANNER ---
Pg 2 of IM updated and reviewed with pt. No questions, copy provided.
--- NOTE | 2020-02-04 10:28 | PM.DCS ---
Discharge Providers Date of Admission: 02/01/20 14:24 Date of Discharge: February 04, 2020 Attending Provider at Admission: Regine Claudio DO Attending Provider at Discharge: Regine Claudio DO Primary Care Provider: Jayden Garcia MD Diagnoses at Discharge Discharge Diagnosis (1) Acute on chronic diastolic (congestive) heart failure: Status: Acute (2) CKD (chronic kidney disease): Status: Acute Qualifiers: Chronic kidney disease stage: stage 3 (moderate) Qualified Code(s): N18.3 - Chronic kidney disease, stage 3 (moderate) (3) Supplemental oxygen dependent: Status: Acute Problem details: Requiring 2 to 3 L of oxygen by nasal cannula during the daytime with intermittent BiPAP use (4) COPD (chronic obstructive pulmonary disease): Status: Acute Qualifiers: COPD type: COPD with acute exacerbation Qualified Code(s): J44.1 - Chronic obstructive pulmonary disease with (acute) exacerbation (5) Atrial fibrillation: Status: Chronic Qualifiers: Atrial fibrillation type: unspecified chronic Qualified Code(s): I48.20 - Chronic atrial fibrillation, unspecified (6) Anemia: Status: Chronic Qualifiers: Anemia type: unspecified type Qualified Code(s): D64.9 - Anemia, unspecified Reason for Visit Reason for Visit: Reason For Visit: SHORTNESS OF BREATH SWELLING LEGS Hospital Course Hospital Course: Patient was seen and evaluated in the emergency department and admitted to the hospital due to concern for acute CHF exacerbation. She was transitioned from oral diuretics to IV diuresis and continued to improve. Her respiratory status continued to improve but she continued to require intermittent BiPAP use. She has chronic COPD and chronic diastolic congestive heart failure with atrial fibrillation. Patient continued to improve and return to her baseline on date of discharge. Discussed with patient for over 45 minutes at bedside on date of discharge regarding goals and plan of care. At that time patient reported that she would like to change her resuscitation status to allow natural , DO NOT RESUSCITATE/DO NOT INTUBATE. Even long discussion with the patient at that time about the possibility of hospice type care, she reported that she has come to peace with her chronic conditions and poor condition and will continue to discuss this with her family. She reported that she would like to continue with rehabilitation if possible at this time. She reported on date of discharge that she felt comfortable with discharge she verbalized understanding and agreed with plan. Discharge Summary: Discharge to residential facility Continue 2 g sodium restriction, cardiac, carbohydrate consistent diet. 1 L fluid restriction per 24 hours Continue with strict intake and output as well as daily weights. Molina catheter to remain in place at this time, removal and replacement per skilled nursing discretion Continue with oxygen by nasal cannula per protocol to maintain oxygen saturations around 90 to 92%. Continue with BiPAP each night and during the day as indicated Physical Exam Const: COMMON NORMALS: oriented x3 and alert GENERAL APPEARANCE: cooperative ORIENTATION/CONSCIOUSNESS: Yes awake, Yes oriented to person, Yes oriented to place and Yes oriented to time HENMT: COMMON NORMALS: normocephalic and head/scalp atraumatic HEAD & SCALP: normocephalic and atraumatic Eye: COMMON NORMALS: PERRL PUPIL: Yes PERRL Neck/C-Spine: COMMON NORMALS: supple GENERAL: Yes normal visual inspection Resp: OTHER: Nasal cannula in place, diminished breath sounds bilaterally, no wheezing or rhonchi Cardio: OTHER: Irregularly irregular, no appreciable murmur GI: COMMON NORMALS: soft to palpation and non-tender INSPECTION: No abdominal distension AUSCULTATION: Yes normoactive bowel sounds PALPATION: Yes soft Extremity: NARRATIVE EXTREMITY EXAM: 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, 2+ pitting edema in the left lower extremity Neuro: COMMON NORMALS: oriented x3, CN's II-XII intact bilaterally, moves all extremities and no focal motor deficits SENSORIUM/ORIENTATION: Yes alert, Yes oriented to person, Yes oriented to place and Yes oriented to time SPEECH: speech normal Psych: COMMON NORMALS: mental status grossly normal and cooperative Skin: COMMON NORMALS: no rashes or lesions noted GENERAL SKIN EXAM: no rashes or lesions noted Urinary Catheter Management^: Molina: Cath Placed During This Visit: yes Reason for Continuing Indwelling Catheter: Acute Urinary Retention or Obstruction Urinary Catheter Date of Insertion: 02/01/20 Urinary Catheter Time of Insertion: 23:12 Discharge Data Data Completed and Pending: Completed Studies During Hospitalization Category Date Time Status XR chest 1V lisset ble [id number] Routine Exams 02/02/20 09:16 Completed XR chest 1V lisset ble [id number] Urgent Exams 02/01/20 11:33 Completed Labs from last 24 hours 02/04/20 02/04/20 02/04/20 06:05 03:00 03:00 WBC 9.6 RBC 3.00 L Hgb 8.6 L Hct 28.8 L MCV 96.0 MCH 28.7 MCHC 29.9 L RDW 15.7 H Plt Count 289 MPV 11.1 H Neut % (Auto) 77.8 Lymph % (Auto) 8.2 [place] % (Auto) 12.7 Eos % (Auto) 0.8 Baso % (Auto) 0.3 Neut # (Auto) 7.5 Lymph # (Auto) 0.8 [place] # (Auto) 1.2 H Eos # (Auto) 0.1 Baso # (Auto) 0.0 Nucleated RBC % (a uto) 0 Nucleated RBCs # 0.0 Sodium 141 Potassium 4.6 Chloride 96 L Carbon Dioxide 37 H Anion Gap 12.6 BUN 35 H Creatinine 1.6 H GFR Calculation 32.3 L Glucose 65 POC Glucose 135 Calculated Osmolal ity 288 Calcium 9.5 Total Bilirubin AST ALT Alkaline Phosphata se Total Protein Albumin Globulin Serum Ketones Blood Type Rho(D) Type Antibody Screen 02/04/20 02/03/20 02/03/20 02:04 22:30 20:53 WBC RBC Hgb Hct MCV MCH MCHC RDW Plt Count MPV Neut % (Auto) Lymph % (Auto) [place] % (Auto) Eos % (Auto) Baso % (Auto) Neut # (Auto) Lymph # (Auto) [place] # (Auto) Eos # (Auto) Baso # (Auto) Nucleated RBC % (a uto) Nucleated RBCs # Sodium Potassium Chloride Carbon Dioxide Anion Gap BUN Creatinine GFR Calculation Glucose POC Glucose 99 204 Calculated Osmolal ity Calcium Total Bilirubin AST ALT Alkaline Phosphata se Total Protein Albumin Globulin Serum Ketones Negative Blood Type Rho(D) Type Antibody Screen 02/03/20 02/03/20 02/03/20 20:53 20:33 16:49 WBC RBC Hgb Hct MCV MCH MCHC RDW Plt Count MPV Neut % (Auto) Lymph % (Auto) [place] % (Auto) Eos % (Auto) Baso % (Auto) Neut # (Auto) Lymph # (Auto) [place] # (Auto) Eos # (Auto) Baso # (Auto) Nucleated RBC % (a uto) Nucleated RBCs # Sodium 137 Potassium 4.9 Chloride 95 L Carbon Dioxide 32 H Anion Gap 14.9 BUN 35 H Creatinine 1.6 H GFR Calculation 32.3 L Glucose 279 H POC Glucose > 600 239 Calculated Osmolal ity 291 Calcium 9.1 Total Bilirubin 0.2 AST 24 ALT 13 Alkaline Phosphata se 89 Total Protein 5.9 L Albumin 2.9 L Globulin 3.0 Serum Ketones Blood Type Rho(D) Type Antibody Screen 02/03/20 02/03/20 14:50 11:11 WBC RBC Hgb Hct MCV MCH MCHC RDW Plt Count MPV Neut % (Auto) Lymph % (Auto) [place] % (Auto) Eos % (Auto) Baso % (Auto) Neut # (Auto) Lymph # (Auto) [place] # (Auto) Eos # (Auto) Baso # (Auto) Nucleated RBC % (a uto) Nucleated RBCs # Sodium Potassium Chloride Carbon Dioxide Anion Gap BUN Creatinine GFR Calculation Glucose POC Glucose 133 Calculated Osmolal ity Calcium Total Bilirubin AST ALT Alkaline Phosphata se Total Protein Albumin Globulin Serum Ketones Blood Type B Positive Rho(D) Type Positive Antibody Screen Negative Vitals: Last Vital Signs Temp 97.6 F 02/04/20 07:11 Pulse 96 02/04/20 09:18 Resp 20 H 02/04/20 09:12 BP 119/67 02/04/20 07:11 Pulse Ox 96 02/04/20 09:12 Discharge Plan Discharge Patient Disposition: Xfer SNF Condition: Stable Prescriptions: New Pacerone 200 mg Tablet 200 mg PO DAILY 30 Days Qty: 30 RF: 0 lorazepam 0.5 mg Tablet 0.5 mg PO TID PRN (Reason: Anxiety) 10 Days Qty: 30 RF: 0 bumetanide 1 mg tablet 1 mg PO BID 30 Days Qty: 60 RF: 0 Continued ipratropium-albuterol 0.5 mg-3 mg(2.5 mg base)/3 mL solution for nebulization 3 ml INHALATION Q6H PRN (Reason: shortness of breath or wheezing) Qty: 90 RF: 0 atorvastatin 40 mg Tablet 80 mg PO DAILY Qty: 60 RF: 0 polyethylene glycol 3350 [Miralax] 17 gram Powder In Packet 17 g PO BID Qty: 60 RF: 0 verapamil 80 mg Tablet 80 mg PO TID Qty: 90 RF: 0 metoprolol tartrate 25 mg Tablet 25 mg PO BID Qty: 60 RF: 0 lactulose 20 gram/30 mL Solution 20 g PO Q12H Qty: 180 RF: 0 Lantus U-100 Insulin 100 unit/mL Solution 20 unit SUBCUT BEDTIME Qty: 10 RF: 0 hydrocodone-acetaminophen [[place]] 5-325 mg Tablet 1 tab PO Q4H PRN (Reason: Pain) RF: 0 aspirin [Aspir-81] 81 mg Tablet,Delayed Release (Dr/Ec) 81 mg PO DAILY RF: 0 levothyroxine 75 mcg Tablet 75 mcg PO DAILY RF: 0 isosorbide mononitrate 60 mg Tablet Extended Release 24 Hr 60 mg PO DAILY RF: 0 insulin aspart U-100 [Novolog U-100 Insulin aspart] 100 unit/mL Solution See Rx Instructions .ROUTE .COMPLEX RF: 0 pantoprazole [Protonix] 40 mg Tablet,Delayed Release (Dr/Ec) 40 mg PO BID RF: 0 magnesium 250 mg Tablet 1,000 mg PO DAILY RF: 0 albuterol sulfate [Ventolin HFA] 90 mcg/actuation Hfa Aerosol Inhaler 2 puff INHALATION Q4H PRN (Reason: Shortness Of Breath) RF: 0 sertraline 50 mg Tablet 50 mg PO DAILY RF: 0 cholecalciferol (vitamin D3) [Vitamin D3] 1,000 unit Capsule 1,000 unit PO DAILY RF: 0 fluticasone propionate [Flonase Allergy Relief] 50 mcg/actuation spray,suspension 1 spray INTRANASAL DAILY Qty: 15.8 RF: 0 ferrous sulfate [iron] 325 mg (65 mg iron) Tablet 325 mg PO EVERY OTHER DAY Qty: 0 RF: 0 bisacodyl 10 mg Suppository 10 mg NC DAILY PRN (Reason: Constipation) RF: 0 bisacodyl 5 mg Tablet,Delayed Release (Dr/Ec) 5 mg PO DAILY PRN (Reason: Constipation) RF: 0 Tylenol 325 mg Capsule 325 mg PO QID PRN (Reason: Pain) RF: 0 Discontinued amiodarone 400 mg tablet 200 mg PO BID Qty: 60 RF: 0 furosemide [Lasix] 40 mg tablet 40 mg PO BID Qty: 60 RF: 0 cefdinir 300 mg Capsule 300 mg PO BID RF: 0 Discharge Orders: Discharge Order (Routine); Ordered 02/04/20 Ordered By: Regine Claudio Referrals: Jayden Garcia MD [Primary Care Provider] - Allie Olmos MD [Physician] - 7-10 days Discharge Diet: Advance as tolerated, Diabetic and Low Salt Discharge Activity: Increase activity as tolerated, As per PT/OT instructions, Oxygen as instructed and Cpap/Bipap as instructed Activity Restrictions/Additional Instructions: Transition from oral Lasix to Bumex due to improved diuresis We will need to recheck BMP in 1 week Follow-up with care provider at the skilled nursing in 2 to 3 days Strict intake and output as well as daily weights Oxygen orders as above, diet orders as above Follow-up with cardiology office as soon as first appointment is available Discharge with Molina catheter, remove or replace per skilled nursing discretion Discharge Attestations Time Spent in Discharge Care*: greater than 30 min Status at Discharge: Cognitive status at discharge: cognitively intact, Behavioral status at discharge: cooperative, Quality Metrics Clinical Quality Measures During this hospital stay, did patient experience: None Coding Level of Care Code Acute Substation Mechanic for Marsha Fwd Diagnoses Acute on chronic diastolic (congestive) heart failure I50.33 CKD (chronic kidney disease) N18.3 Chronic kidney disease stage: stage 3 (moderate) Supplemental oxygen dependent Z99.81 COPD (chronic obstructive pulmonary disease) J44.1 COPD type: COPD with acute exacerbation Atrial fibrillation I48.20 Atrial fibrillation type: unspecified chronic Anemia D64.9 Anemia type: unspecified type
[2020-02-04 11:33] LABS: Glucose Point of Care 289 mg/dL (70-110)
--- NOTE | 2020-02-04 13:09 | PC.NURSE ---
Report called to [facility] Informed Case mgt.
[2020-02-04] MEDS: LORazepam 0.5 mg Tablet PO (14:07)
--- NOTE | 2020-02-04 16:27 | PC.NURSE ---
Joe tomlinson in room for transport to SNF
== END 2020-02-04 16:27 | disposition skilled nursing facility (03) | DRG 292 ==
LOC: ER 14:24 → CSU 16:23
PROVIDERS: Student in an Organized Health Care Education/Training Program; Admitting Provider Family Medicine; Emergency Provider Emergency Medicine; Family Provider Family Medicine; PCP Family Medicine; Visit Provider Family Medicine
DX: I50.33 Acute on chronic diastolic (congestive) heart failure (principal); J44.1 Chronic obstructive pulmonary disease with (acute) exacerbation; I48.20 Chronic atrial fibrillation, unspecified; J96.10 Chronic respiratory failure, unspecified whether with hypoxia or hypercapnia; Z99.81 Dependence on supplemental oxygen; N18.3 Chronic kidney disease, stage 3 (moderate); Z66 Do not resuscitate; Z79.4 Long term (current) use of insulin; Z79.82 Long term (current) use of aspirin; D63.1 Anemia in chronic kidney disease; I44.7 Left bundle-branch block, unspecified; E11.51 Type 2 diabetes mellitus with diabetic peripheral angiopathy without gangrene; E11.22 Type 2 diabetes mellitus with diabetic chronic kidney disease; Z91.19 Patient's noncompliance with other medical treatment and regimen; G47.30 Sleep apnea, unspecified; Z89.611 Acquired absence of right leg above knee; Z87.891 Personal history of nicotine dependence; Z95.1 Presence of aortocoronary bypass graft; Z86.010 Personal history of colon polyps
CPT/HCPCS: 12345; 36415; 36416; 36600; 51702; 71045; 80048; 80053; 82009; 82803; 82962; 83880; 85025; 85610; 86850; 86900; 93005; 93010; 94640; 94660; 96372; 96375; 97110; 97161; 97530; 99282; J1815; J1940; J2270; J3490; J7611; J7626; Q0162